=== PATIENT | male | born 1965 | race Hispanic/Latino ===

== ENCOUNTER 2019-06-21 14:16 | Observation (INO) | payer SELFPAY ==
[2019-06-21 15:10] LABS: Absolute Lymphocytes (CBC) 1.7 K/uL (0.7-4.9); Basophils % 0.4 % (0-1.3); Lymphocytes % 26.6 % (15.3-44.8); MPV 10.1 fL (7.6-11.3); RBC Red Blood Cell Count 4.46 M/uL (4.33-5.43)
[2019-06-21 15:20] LABS: Protime INR 1.05
[2019-06-21 15:35] LABS: ALT/SGPT 44 U/L (12-78); AST/SGOT 35 U/L (15-37); Albumin 3.4 g/dL (3.4-5.0); Alkaline Phosphatase 90 U/L (45-117); BUN Blood Urea Nitrogen 16 mg/dL (7-18); Bicarbonate 27 mmol/L (21-32); Bilirubin Direct < 0.1 mg/dL (0-0.2); Bilirubin Total 0.2 mg/dL (0.2-1.0); Glucose Level 96 mg/dL (74-106); Magnesium 1.9 mg/dL (1.8-2.4); NT PRO-BNP 55 pg/mL (<125); Protein, Total 6.7 g/dL (6.4-8.2); Sodium Level 141 mmol/L (136-145); Troponin (Emerg Dept Use Only) < 0.02 ng/mL (0.0-0.045)
--- NOTE | 2019-06-21 15:54 | ER ---
Nurse's Notes [facility] Name: Arturo Lott Age: 53 yrs Sex: Male : 1965 Arrival Date: 06/21/2019 Time: 14:21 Bed 15 Private MD: Diagnosis: Chest pain, unspecified Presentation: 06/21 14:22 Presenting complaint: EMS states: patient was in [facility] when they call in for low rv blood pressure and chest pain. blood sugar is 133. initial blood pressure was 70/40. after the fluids, systolic went up to 100. Transition of care: patient was not received from another setting of care. Onset of symptoms was June 21, 2019 at 14:00. Risk Assessment: Do you want to hurt yourself or someone else? Patient reports no desire to harm self or others. Initial Sepsis Screen: Does the patient meet any 2 criteria? No. Patient's initial sepsis screen is negative. Does the patient have a suspected source of infection? No. Patient's initial sepsis screen is negative. Care prior to arrival: None. 14:22 Method Of Arrival: EMS: [facility] 14:22 Acuity: NELLI 3 rv Triage Assessment: 14:26 General: Appears. rv Historical: - Allergies: 14:25 No Known Allergies; rv - Home Meds: 14:25 None [Active]; rv - PMHx: 14:25 None; rv - PSHx: 14:25 None; rv - Immunization history:: Adult Immunizations up to date. - Social history:: Patient/guardian denies using alcohol, street drugs, The patient lives alone, Smoking status: Patient/guardian denies using tobacco. - Ebola Screening: : No symptoms or risks identified at this time. - Family history:: not pertinent. Screenin:26 Abuse screen: Denies threats or abuse. Denies injuries from another. Nutritional rv screening: No deficits noted. Tuberculosis screening: No symptoms or risk factors identified. Fall Risk None identified. Assessment: 14:26 General: Appears in no apparent distress. comfortable, Behavior is calm, cooperative. rv Pain: Denies pain. Neuro: Level of Consciousness is awake, alert, obeys commands, Oriented to person, place, time, situation. Cardiovascular: Reports chest pain, Patient's skin is warm and dry. Rhythm is regular. Respiratory: Airway is patent. Derm: Skin is intact. Vital Signs: 14:24 BP 100 / 70; Pulse 88; Resp 20; Temp 98.6; Pulse Ox 100% ; Weight 61.23 kg; Height 5 rv ft. 8 in. (172.72 cm); Pain 0/10; 15:09 BP 105 / 62; Pulse 89; Resp 16; Pulse Ox 100% on R/A; rv 15:30 BP 98 / 68; Pulse 85; Resp 17; Pulse Ox 100% ; rv 16:00 BP 100 / 63; Pulse 83; Resp 17; Pulse Ox 100% on R/A; rv 17:00 BP 103 / 63; Pulse 78; Resp 18; Pulse Ox 100% on R/A; rv 17:15 BP 104 / 64; Pulse 76; Resp 17; Pulse Ox 100% on R/A; rv 14:24 Body Mass Index 20.53 (61.23 kg, 172.72 cm) rv ED Course: 14:21 Patient arrived in ED. rv 14:24 Triage completed. rv 14:27 Arm band placed on right wrist. rv 14:27 Patient has correct armband on for positive identification. Placed in gown. Bed in low rv position. Call light in reach. school lunch monitor on. Pulse ox on. NIBP on. 14:43 Walter Dixon, YESENIA is Primary Nurse. rv 14:46 EKG done, by ED staff, reviewed by Aiyana Quinones MD. ms 14:50 Aiyana Quinones MD is Attending Physician. ma2 15:09 Maintain EMS IV. Dressing intact. Good blood return noted. Site clean \T\ dry. Gauge \T\ rv site: G20 LEFT AC. 15:53 Aiyana Quinones MD is Hospitalizing Provider. ma2 15:54 Hospitalizing Provider role handed off by Aiyana Quinones MD ma2 15:54 Shelia Barba MD is Hospitalizing Provider. ma2 17:22 No provider procedures requiring assistance completed. IV discontinued, intact, rv bleeding controlled, No redness/swelling at site. Pressure dressing applied. Administered Medications: 16:03 Drug: Aspirin Chewable Tablet 324 mg Route: PO; rv 17:23 Follow up: Response: No adverse reaction rv Outcome: 15:54 Decision to Hospitalize by Provider. ma2 17:22 Admitted to Tele accompanied by tech, via wheelchair, room 413, with chart, Report rv called to robbie 17:22 Condition: good 17:22 Instructed on the need for admit. 17:23 Patient left the ED. rv Signatures: Mary Strauss ms, Mohammad, MD MD ma2 Walter Dixon RN RN rv
--- NOTE | 2019-06-21 15:55 | EDPHYS ---
Physician Documentation [facility] Name: Arturo Lott Age: 53 yrs Sex: Male : 1965 Arrival Date: 06/21/2019 Time: 14:21 Bed 15 Private MD: ED Physician Aiayna Quinones HPI: 06/21 15:50 This 53 yrs old Male presents to ER via EMS with unknown complaint. ma2 15:50 The patient or guardian reports chest pain that is located primarily in the substernal ma2 area. Onset: suddenly, 1 hour(s) ago. Associated signs and symptoms: Pertinent negatives: abdominal pain, diaphoresis, lower extremity swelling, lightheadedness, vomiting. The chest pain is described as crushing. Severity of pain: At its worst the pain was moderate in the emergency department the pain is unchanged. Historical: - Allergies: 14:25 No Known Allergies; rv - Home Meds: 14:25 None [Active]; rv - PMHx: 14:25 None; rv - PSHx: 14:25 None; rv - Immunization history:: Adult Immunizations up to date. - Social history:: Patient/guardian denies using alcohol, street drugs, The patient lives alone, Smoking status: Patient/guardian denies using tobacco. - Ebola Screening: : No symptoms or risks identified at this time. - Family history:: not pertinent. ROS: 15:50 Constitutional: Negative for fever, chills, and weight loss. ma2 15:50 All other systems are negative. Exam: 15:50 Constitutional: This is a well developed, well nourished patient who is awake, alert, ma2 and in no acute distress. Chest/axilla: Normal chest wall appearance and motion. Nontender with no deformity. No lesions are appreciated. Cardiovascular: Regular rate and rhythm with a normal S1 and S2. No gallops, murmurs, or rubs. Normal PMI, no JVD. No pulse deficits. Respiratory: Lungs have equal breath sounds bilaterally, clear to auscultation and percussion. No rales, rhonchi or wheezes noted. No increased work of breathing, no retractions or nasal flaring. Abdomen/GI: Soft, non-tender, with normal bowel sounds. No distension or tympany. No guarding or rebound. No evidence of tenderness throughout. Vital Signs: 14:24 BP 100 / 70; Pulse 88; Resp 20; Temp 98.6; Pulse Ox 100% ; Weight 61.23 kg; Height 5 rv ft. 8 in. (172.72 cm); Pain 0/10; 15:09 BP 105 / 62; Pulse 89; Resp 16; Pulse Ox 100% on R/A; rv 15:30 BP 98 / 68; Pulse 85; Resp 17; Pulse Ox 100% ; rv 16:00 BP 100 / 63; Pulse 83; Resp 17; Pulse Ox 100% on R/A; rv 17:00 BP 103 / 63; Pulse 78; Resp 18; Pulse Ox 100% on R/A; rv 17:15 BP 104 / 64; Pulse 76; Resp 17; Pulse Ox 100% on R/A; rv 14:24 Body Mass Index 20.53 (61.23 kg, 172.72 cm) rv MDM: 14:50 Patient medically screened. ma2 15:50 Differential diagnosis: abnormal EKG, gastroesophageal reflux disease (GERD), stable ma2 angina. Data reviewed: vital signs, nurses notes. Counseling: I had a detailed discussion with the patient and/or guardian regarding: the historical points, exam findings, and any diagnostic results supporting the discharge/admit diagnosis, the presence of at least one elevated blood pressure reading (>120/80) during this emergency department visit, the need for outpatient follow up. 06/21 14:44 Order name: Basic Metabolic Panel; Complete Time: 15:42 rv 06/21 14:44 Order name: CBC with Diff; Complete Time: 15:29 rv 06/21 14:44 Order name: LFT's; Complete Time: 15:42 rv 06/21 14:44 Order name: Magnesium; Complete Time: 15:42 rv 06/21 14:44 Order name: NT PRO-BNP; Complete Time: 15:42 rv 06/21 14:44 Order name: PT-INR; Complete Time: 15:29 rv 06/21 14:44 Order name: Troponin (emerg Dept Use Only); Complete Time: 15:42 rv 06/21 16:11 Order name: CBC with Automated Diff EDMS 06/21 16:11 Order name: Comprehensive Metabolic Panel EDMS 06/21 16:12 Order name: CKMB Creatine Kinase MB EDMS 06/21 16:12 Order name: CKMB Creatine Kinase MB [facility] 06/21 16:12 Order name: CKMB Creatine Kinase MB [facility] 06/21 16:12 Order name: CKMB Creatine Kinase MB [facility] 06/21 16:12 Order name: Creatine Phosphokinase [facility] 06/21 14:44 Order name: EKG; Complete Time: 14:44 rv 06/21 14:44 Order name: Cardiac monitoring; Complete Time: 14:45 rv 06/21 14:44 Order name: EKG - Nurse/Tech; Complete Time: 14:45 rv 06/21 14:44 Order name: IV Saline Lock; Complete Time: 14:51 rv 06/21 14:44 Order name: Labs collected and sent; Complete Time: 14:51 rv 06/21 16:11 Order name: Heart Healthy [facility] 06/21 16:12 Order name: Creatine Phosphokinase [facility] 06/21 16:12 Order name: Creatine Phosphokinase [facility] 06/21 16:12 Order name: Creatine Phosphokinase [facility] 06/21 16:12 Order name: Lipid Profile [facility] 06/21 16:12 Order name: Lipid Profile [facility] 06/21 16:12 Order name: Troponin I [facility] 06/21 16:12 Order name: Troponin I [facility] 06/21 16:12 Order name: Troponin I [facility] 06/21 16:12 Order name: Troponin I [facility] 06/21 14:44 Order name: O2 Per Protocol; Complete Time: 14:45 rv 06/21 14:44 Order name: O2 Sat Monitoring; Complete Time: 14:45 rv Administered Medications: 16:03 Drug: Aspirin Chewable Tablet 324 mg Route: PO; rv 17:23 Follow up: Response: No adverse reaction rv Disposition: 06/21/19 15:54 Hospitalization ordered by Shelia Barba for Observation. Preliminary diagnosis is Chest pain, unspecified. - Bed requested for Telemetry/MedSurg (observation). - Status is Observation. rv - Condition is Stable. - Problem is new. - Symptoms are unchanged. UTI on Admission? No Signatures: Dispatcher [employer] EDMI Jamee Rodríguez RN RN Aiyana Quinones MD MD ma2 Walter Dixon RN RN rv Corrections: (The following items were deleted from the chart) 16:33 15:54 Hospitalization Ordered by Shelia Barba MD for Observation. Preliminary dw diagnosis is Chest pain, unspecified. Bed requested for Telemetry/MedSurg (observation). Status is Observation. Condition is Stable. Problem is new. Symptoms are unchanged. UTI on Admission? No. ma2 17:23 16:33 06/21/2019 15:54 Hospitalization Ordered by Shelia Barba MD for Observation. rv Preliminary diagnosis is Chest pain, unspecified. Bed requested for Telemetry/MedSurg (observation). Status is Observation. Condition is Stable. Problem is new. Symptoms are unchanged. UTI on Admission? No. dw
[2019-06-21] MEDS ORDERED: KETOROLAC 30 MG/ML INJ ONE (16:01)
[2019-06-21] MEDS ORDERED: CYCLOBENZAPRINE 10 MG TAB ONE (16:01)
[2019-06-21] MEDS ORDERED: ONDANSETRON 4 MG/2 ML VIAL IV PRN (16:03)
[2019-06-21] MEDS ORDERED: MORPHINE 4 MG/ML SYR IV PRN (16:03)
[2019-06-21] MEDS ORDERED: ASPIRIN 81 MG CHEWABLE TABLET ONE (16:03)
[2019-06-21] MEDS: ENOXAPARIN 60 MG/0.6 ML SQ SCH (17:00)
[2019-06-21 18:03] VITALS: BMI 21.1
[2019-06-21 20:21] LABS: Urine Appearance CLOUDY; Urine Bilirubin NEGATIVE (NEG); Urine Blood NEGATIVE (NEG); Urine Color YELLOW; Urine Glucose NEGATIVE (NEG); Urine Protein NEGATIVE (NEG); Urine pH 6.5 (5.0-7.0)
[2019-06-21 20:22] LABS: Urine Microscopic Reflex NO UMIC
[2019-06-21] MEDS: METOPROLOL TAR 50 MG TAB PO SCH (20:51)
[2019-06-21] MEDS ORDERED: ATORVASTATIN 20 MG TAB PO SCH (21:00)
[2019-06-21] MEDS ORDERED: INFLUENZA VACCINE (for 3y+) 0.5 ML DOSE IMVAC ONE (21:00)
[2019-06-21 23:26] LABS: CKMB Creatine Kinase MB < 1.0 ng/mL (0.3-3.6); Creatine Phosphokinase 63 U/L (39-308)
--- NOTE | 2019-06-22 03:37 | HP ---
Date of Admission: 06/21/2019 Reason For Admission: Chest pain. History Of Present Illness: This is a 53-year-old gentleman without past medical history who present to the emergency room with substernal chest pain started today when he was at home. He was not doin g any exertion. The pain was 6/10. He described it as sharp. There was no shortness of breath. No nausea, no vomiting. Pain does not radiate to his arm. He has not had any fever or chills. No chava st pain when he was evaluated. His EKG was unremarkable. CBC was normal. Chemistry was normal. Ca rdiac enzymes were negative with normal troponin, normal BMP. Patient was admitted to be ruled out. Currently, he is lying in bed. He looks comfortable. He has no chest pain. Review of Systems: Otherwise as below. Past Medical History: None. Past Surgical History: None. Medications: None. Allergies: NONE. Social History: He is . Has 4 kids. 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 Family History: Both father and mother are alive and they are healthy. Review of Systems: Patient denies any fever, chills, night sweats, dizziness, lightheaded, headache or blurred vision. There is no change in weight or appetite. He does not have any cough or sputum, shortness of breath. He has the chest pain as above. There is no PND, orthopnea, dyspnea on exertion. No lower extremi ty edema. No nausea, vomiting, or abdominal pain. He will moan with . There is no histor y of depression, anxiety, seizure, or stroke. Physical Examination: Vital Signs: Blood pressure is 105/62, respiratory rate 16, pulse 89, saturating 100% on room air, t emperature at 98.6. General: He is alert and oriented x3. Does not look in any distress. HEENT: Atraumatic, normocephalic. PERRLA. Oral mucosa moist. Neck: Supple. No JVD. No carotid bruits. Chest: Clear to auscultation. Good air entry. Heart: Regular rate and rhythm. S1, S2 normal. No gallop or murmur. Abdomen: Soft, nontender. No masses. No hepatosplenomegaly. Positive bowel sounds. Extremities: No clubbing, cyanosis, or edema. No calf tenderness. Neurologic: Grossly intact. Cranial exam 2 through 12 intact. Normal sensation. Normal reflexes. Normal muscle strength. Data: CBC was normal. Chemistry within normal including normal troponin. CT scan be still pending. EKG; preliminary negative. Assessment And Plan: This is a 53-year-old gentleman without past medical history, presented with zapien dden onset of chest pain. 1.Chest pain, rule out myocardial infarction. We will admit the patient to the floor. Check cardia c enzymes x3. With this, patient on aspirin, Plavix, full dose of Lovenox until he is ruled out and low dose of metoprolol. 2.We will check lipid profile. Patient is skinny. I will start him on a statin. 3.If cardiac exam negative in the morning, we will consider discharging the patient. The kaylene tate sted off patient. KASIE Voice ID: [id number]
[2019-06-22 06:06] VITALS: O2SAT 99
[2019-06-22 07:31] LABS: Absolute Lymphocytes (CBC) 2.1 K/uL (0.7-4.9); Basophils % 0.4 % (0-1.3); Hematocrit 38.5 % (39.6-49.0); Lymphocytes % 34.7 % (15.3-44.8); MPV 10.6 fL (7.6-11.3); RBC Red Blood Cell Count 4.24 M/uL (4.33-5.43)
[2019-06-22 07:38] LABS: ALT/SGPT 35 U/L (12-78); AST/SGOT 17 U/L (15-37); Albumin 3.3 g/dL (3.4-5.0); Alkaline Phosphatase 70 U/L (45-117); BUN Blood Urea Nitrogen 12 mg/dL (7-18); Bicarbonate 28 mmol/L (21-32); Bilirubin Total 0.5 mg/dL (0.2-1.0); Glucose Level 94 mg/dL (74-106); Potassium 4.6 mmol/L (3.5-5.1); Protein, Total 6.3 g/dL (6.4-8.2); Sodium Level 142 mmol/L (136-145); Troponin I < 0.02 ng/mL (0.0-0.045)
[2019-06-22 07:42] LABS: CKMB Creatine Kinase MB < 1.0 ng/mL (0.3-3.6); Creatine Phosphokinase 68 U/L (39-308)
[2019-06-22] MEDS: ENOXAPARIN 60 MG/0.6 ML SQ SCH (08:51)
[2019-06-22 08:54] VITALS: BP 103/55
[2019-06-22] MEDS: METOPROLOL TAR 50 MG TAB PO SCH (08:54)
[2019-06-22] MEDS ORDERED: ASPIRIN 325 MG TAB PO SCH (09:00)
[2019-06-22] MEDS ORDERED: CLOPIDOGREL 75 MG TABLET PO SCH (09:00)
[2019-06-22 09:18] VITALS: TEMP 97.3
--- NOTE | 2019-06-23 00:50 | DS ---
Date of Discharge: 06/22/2019 Discharge Diagnosis: Chest pain, rule out myocardial infarction. Consult: None. Procedure: None. History Of Present Illness: Please refer to my admission note yesterday. Hospital Course: Initially, the patient presented with substernal chest pain, nonspecific, without a ny shortness of breath, nausea, vomiting, been improved in the emergency room after receiving pain me dication. Cardiac enzymes checked. He had 3 sets of negative troponin. We checked his lipid panel and his HDL was 69, LDL was 85, which was excellent. Patient will be discharged today in stable cond ition. He will have a stress test as out patient. He was advised to avoid exertion until he sees hi s primary care physician and see if this is done. Discharge Condition: Stable. Discharged Diet: Cardiac. Discharge Followup: With PCP this week. Stress test this week. Discharge Medications: Aspirin 325 mg orally once a day. Physical Examination: Vital Signs: Currently blood pressure 103/45, respiratory rate of 16, pulse 65, temperature 97.3. General: The patient is alert and oriented x3. Does not look in any distress. HEENT: Atraumatic, normocephalic. PERRLA. Oral mucosa moist. Neck: Supple. No JVD. No carotid bruits. Chest: Clear to auscultation. Good air entry. Heart: Regular rate and rhythm. S1, S2 normal. No gallop or murmur. Abdomen: Soft, nontender. No masses. No hepatosplenomegaly. Positive bowel sounds. Extremities: No clubbing, cyanosis, or edema. Neurologic: Grossly intact. SHAZIA/JOE Voice ID: [id number] Report ID: [id number]
--- NOTE | 2019-06-23 20:51 | EKG ---
Test Date: 2019-06-21 Test Time: 14:33:22 Parking Meter Installer: RAMON MEASUREMENT RESULTS: Intervals: Rate: 89 OK: 134 QRSD: 92 QT: 340 QTc: 413 [place]: P: 53 OK: 134 QRS: 59 T: 44 INTERPRETIVE STATEMENTS: Normal sinus rhythm Normal ECG No previous ECG available for comparison Electronically Signed On 06-23-19 20:47:12 PSYCHIATRIST by Suleman Whitehead
== END 2019-06-22 10:46 | disposition home or self-care (01) ==
LOC: ER 14:16 → SUPCPDRO 14:16 → 4TH 17:17
PROVIDERS: ADMIT Internal Medicine; ATTEND Internal Medicine
DX: R07.9 Chest pain, unspecified (principal); Z23 Encounter for immunization
CPT/HCPCS: 36415; 80048; 80053; 80061; 80076; 81003; 82550; 82553; 83735; 83880; 84484; 85025; 85610; 90471; 93005; 99285; G0378; Q2035

== ENCOUNTER 2023-10-23 12:57 | Inpatient (IN) | payer OTHER ==
--- OUTSIDE RECORDS SUMMARY | 2023-10-23 13:01 | XMS REPORT | Clinical Summary ---
Author Name Unknown Organization [facility] Address [address] [place] [address] Care Team Providers Care Sql Manager Name Role Phone Unavailable Primary Care Provider Unavailabl e Allergies No known active allergies Medications Medication Sig Dispensed Refills Start Date End Date Status dexAMETHasone intensol 1 mg/mL concentrated solutionIndications :Vasogenic cerebral edema Give 4 mL (4 mg) per G-tube every 6 (six) hours. Take until follow up with PCP and neurologist 480 mL 0 07/11/2023 Active dapsone 100 mg tabletIndications:L erickson term current use of systemic steroid Give 1 tablet (100 mg) per G-tube daily. 30 tablet 0 07/11/2023 Active famotidine (Pepcid) 20 mg tabletIndications:L erickson term current use of systemic steroid Crush and give 1 tablet (20 mg) per G-tube twice daily. 30 tablet 0 07/11/2023 Active pantoprazole (PROTONIX) 40 mg EC tablet Take 1 tablet (40 mg) by mouth every morning before breakfast. 0 4 Discontinue d(Stop Taking at Discharge) dapsone 100 mg tabletIndications:L erickson term current use of systemic steroid Take 1 tablet (100 mg) by mouth daily. 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 600 mL 0 07/11/2023 4 Discontinue d(Stop Taking at Discharge) lansoprazole (Prevacid SoluTab) 30 MG disintegrating tabletIndications:L erickson term current use of systemic steroid Give 1 tablet (30 mg) per G-tube every morning before breakfast. 30 tablet 0 07/11/2023 4 Discontinue d(Stop Taking at Discharge) famotidine (Pepcid) 20 mg tabletIndications:L erickson term current use of systemic steroid Take 1 tablet (20 mg) by mouth twice daily. 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 24 Mass lesion of brain 06/27/2023 Vasogenic cerebral edema 06/27/2023 Dysphagia, oropharyngeal phase 06/27/2023 Encounters Date Type Department Care Team Description 07/20/2023 10:30 AM TOWEL DISTRIBUTOR Nutrition Clinical Nutrition For your Nutrition appointment location directions please call: Gertrude Jesus MD Coleman, Timothy, RD Generalized muscle weakness; Mass lesion of brain; Lack of coordination, not otherwise specified; Impaired vibration sensation of foot; Neoplasm of brain; Dysphagia, oropharyngeal phase; Vasogenic cerebral edema 07/14/2023 Telephone [facility] [address] [place] [phone] Skye Atkins, environmental protection economist Call 07/13/2023 Telephone [facility] PHYSICIAN [address] [place] [phone] Jc Pardo, environmental protection economist Call 07/13/2023 Travel 07/03/2023 12:13 PM TOWEL DISTRIBUTOR Anesthesia Event Main Interventional Radiology [address] [place] [address], 3rd [place] [address] Jessica Zafar APRN, MORENA 06/29/2023 Orders Only [facility] [address] [place] [address] Main [facility], 7th [place] [address] Beverly, Poornima, DIRECTOR SYSTEMS 06/29/2023 Orders Only [facility] [address] [place] [address] Main [facility], 7th [place] [address] Beverly, Poornima, DIRECTOR SYSTEMS Malignant neoplasm of brain stem (Primary Dx) 06/29/2023 Orders Only [facility] [address] [place] [address] Main [facility], 7th [place] [address] Beverly, Poornima, DIRECTOR SYSTEMS Malignant neoplasm of brain stem (Primary Dx) 06/28/2023 Prep for Surgery [facility] [address] [place] [address], 7th [place] [address] Nora Lozada G, DIRECTOR SYSTEMS Mass lesion of brain (Primary Dx) 06/27/2023 5:03 PM TOWEL DISTRIBUTOR - 07/12/2023 1:07 PM TOWEL DISTRIBUTOR Hospital Encounter MAIN [id number] [address] [place] [id number] Lori Greco MD Walton, MD Brennan Wong Marina, MD Zhou, Yan, MD Leung, Cerena, MD Kheder, Rhett, Generalized muscle weakness (Primary Dx); Mass lesion of brain; Lack of coordination, not otherwise specified; Impaired vibration sensation of foot; Neoplasm of brain; Dysphagia, oropharyngeal phase; Vasogenic cerebral edema; 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; Neoplasm of uncertain behavior of brain, not otherwise specified Discharge Disposition: Home 06/27/2023 Travel after 10/23/2022 Medical History Medical History Date Comments Blind right eye Gastroesophageal reflux disease Family History Medical History Relation Name Comments Dysfunctional uterine bleeding Mother Uterine cancer Mother Relation Name Status Comments Mother Social History Tobacco Use Types Packs/Day Years Used Date Smoking Tobacco: Never Smokeless Tobacco: Never Alcohol Use Standard Drinks/Week Comments Never 0 (1 standard drink = 0.6 oz pur e alcohol) Sex and Gender Information Value Date Recorded Sex Assigned at Not on file Gender Identity Not on file Sexual Orientation Not on file Job Start Date Occupation Industry Not on file Not on file Not on file Travel History Travel Start Travel End [place] 06/16/2023 06/27/2023 Obstetrics History Last Filed Vital Signs Vital Sign Reading Time Taken Comments Blood Pressure 91/64 07/12/2023 6:53 AM TOWEL DISTRIBUTOR Pulse 90 07/12/2023 6:53 AM TOWEL DISTRIBUTOR Temperature 37 C (98.6 F) 07/12/2023 6:52 AM TOWEL DISTRIBUTOR Respiratory Rate 17 07/12/2023 6:53 AM TOWEL DISTRIBUTOR Oxygen Saturation 97% 07/12/2023 6:53 AM TOWEL DISTRIBUTOR Inhaled Oxygen Concentration - - Weight 62.7 kg (138 lb 3.7 oz) 06/27/2023 8:36 P M TOWEL DISTRIBUTOR Height 162 cm (5' 3.78") 06/27/2023 8:36 PM TOWEL DISTRIBUTOR Body Mass Index 23.89 06/27/2023 8:36 PM TOWEL DISTRIBUTOR Plan of Treatment Health Maintenance Due Date Last Done Comments COVID-19 Vaccine (#1) 03[birth year]10/1966 Influenza Vaccine 03/02/2023 Procedures Procedure Name Priority Date/Time Associated Diagnosis Comments POC GLUCOSE SCREEN Routine 07/12/2023 6: 00 AM TOWEL DISTRIBUTOR .CBC Routine 07/12/2023 2:52 AM TOWEL DISTRIBUTOR PHOSPHORUS LEVEL Routine 07/12/2023 2:52 AM TOWEL DISTRIBUTOR MAGNESIUM LEVEL Routine 07/12/2023 2:52 AM TOWEL DISTRIBUTOR BASIC METABOLIC PANEL, CALCIUM TOTAL Routine 07/12/2023 2:52 AM TOWEL DISTRIBUTOR COMPLETE BLOOD COUNT W/ DIFFERENTIAL Routine 07/12/2023 2:52 AM TOWEL DISTRIBUTOR POC GLUCOSE SCREEN Routine 07/12/2023 12 :16 AM TOWEL DISTRIBUTOR POC GLUCOSE SCREEN Routine 07/11/2023 12 :18 PM TOWEL DISTRIBUTOR POC GLUCOSE SCREEN Routine 07/11/2023 6: 08 AM TOWEL DISTRIBUTOR .CBC Routine 07/11/2023 2:55 AM TOWEL DISTRIBUTOR PHOSPHORUS LEVEL Routine 07/11/2023 2:55 AM TOWEL DISTRIBUTOR MAGNESIUM LEVEL Routine 07/11/2023 2:55 AM TOWEL DISTRIBUTOR BASIC METABOLIC PANEL, CALCIUM TOTAL Routine 07/11/2023 2:55 AM TOWEL DISTRIBUTOR COMPLETE BLOOD COUNT W/ DIFFERENTIAL Routine 07/11/2023 2:55 AM TOWEL DISTRIBUTOR POC GLUCOSE SCREEN Routine 07/11/2023 12 :01 AM TOWEL DISTRIBUTOR POC GLUCOSE SCREEN Routine 07/10/2023 6: 10 PM TOWEL DISTRIBUTOR POC GLUCOSE SCREEN Routine 07/10/2023 12 :09 PM TOWEL DISTRIBUTOR POC GLUCOSE SCREEN Routine 07/10/2023 6: 26 AM TOWEL DISTRIBUTOR .CBC Routine 07/10/2023 5:28 AM TOWEL DISTRIBUTOR COMPLETE BLOOD COUNT W/ DIFFERENTIAL Routine 07/10/2023 5:28 AM TOWEL DISTRIBUTOR PHOSPHORUS LEVEL Routine 07/10/2023 5:27 AM TOWEL DISTRIBUTOR MAGNESIUM LEVEL Routine 07/10/2023 5:27 AM TOWEL DISTRIBUTOR BASIC METABOLIC PANEL, CALCIUM TOTAL Routine 07/10/2023 5:27 AM TOWEL DISTRIBUTOR POC GLUCOSE SCREEN Routine 07/10/2023 2: 48 AM TOWEL DISTRIBUTOR POC GLUCOSE SCREEN Routine 07/09/2023 6: 36 PM TOWEL DISTRIBUTOR POC GLUCOSE SCREEN Routine 07/09/2023 1: 03 PM TOWEL DISTRIBUTOR XR ABDOMEN 1 VW PORTABLE Routine 07/09/2023 12:59 PM TOWEL DISTRIBUTOR POC GLUCOSE SCREEN Routine 07/09/2023 5: 43 AM TOWEL DISTRIBUTOR GLUCOSE 6-PHOSPHATE DEHYDRGENASE ENZYME ACTIVITY Add-On 07/09/2023 2:21 AM TOWEL DISTRIBUTOR .CBC Routine 07/09/2023 2:21 AM TOWEL DISTRIBUTOR PHOSPHORUS LEVEL Routine 07/09/2023 2:21 AM TOWEL DISTRIBUTOR MAGNESIUM LEVEL Routine 07/09/2023 2:21 AM TOWEL DISTRIBUTOR BASIC METABOLIC PANEL, CALCIUM TOTAL Routine 07/09/2023 2:21 AM TOWEL DISTRIBUTOR COMPLETE BLOOD COUNT W/ DIFFERENTIAL Routine 07/09/2023 2:21 AM TOWEL DISTRIBUTOR POC GLUCOSE SCREEN Routine 07/08/2023 11 :33 PM TOWEL DISTRIBUTOR POC GLUCOSE SCREEN Routine 07/08/2023 6: 04 PM TOWEL DISTRIBUTOR POC GLUCOSE SCREEN Routine 07/08/2023 12 :03 PM TOWEL DISTRIBUTOR POC GLUCOSE SCREEN Routine 07/08/2023 6: 27 AM TOWEL DISTRIBUTOR .CBC Routine 07/08/2023 3:03 AM TOWEL DISTRIBUTOR PHOSPHORUS LEVEL Routine 07/08/2023 3:03 AM TOWEL DISTRIBUTOR MAGNESIUM LEVEL Routine 07/08/2023 3:03 AM TOWEL DISTRIBUTOR BASIC METABOLIC PANEL, CALCIUM TOTAL Routine 07/08/2023 3:03 AM TOWEL DISTRIBUTOR COMPLETE BLOOD COUNT W/ DIFFERENTIAL Routine 07/08/2023 3:03 AM TOWEL DISTRIBUTOR POC GLUCOSE SCREEN Routine 07/08/2023 12 :43 AM TOWEL DISTRIBUTOR POC GLUCOSE SCREEN Routine 07/07/2023 6: 13 PM TOWEL DISTRIBUTOR POC GLUCOSE SCREEN Routine 07/07/2023 12 :40 PM TOWEL DISTRIBUTOR XR ABDOMEN 1 VW PORTABLE Routine 07/07/2023 11:00 AM TOWEL DISTRIBUTOR POC GLUCOSE SCREEN Routine 07/07/2023 6: 45 AM TOWEL DISTRIBUTOR .CBC Routine 07/07/2023 4:21 AM TOWEL DISTRIBUTOR PHOSPHORUS LEVEL Routine 07/07/2023 4:21 AM TOWEL DISTRIBUTOR MAGNESIUM LEVEL Routine 07/07/2023 4:21 AM TOWEL DISTRIBUTOR BASIC METABOLIC PANEL, CALCIUM TOTAL Routine 07/07/2023 4:21 AM TOWEL DISTRIBUTOR COMPLETE BLOOD COUNT W/ DIFFERENTIAL Routine 07/07/2023 4:21 AM TOWEL DISTRIBUTOR POC GLUCOSE SCREEN Routine 07/07/2023 12 :10 AM TOWEL DISTRIBUTOR POC GLUCOSE SCREEN Routine 07/06/2023 6: 32 PM TOWEL DISTRIBUTOR POC GLUCOSE SCREEN Routine 07/06/2023 12 :07 PM TOWEL DISTRIBUTOR POC GLUCOSE SCREEN Routine 07/06/2023 6: 01 AM TOWEL DISTRIBUTOR .CBC Routine 07/06/2023 5:31 AM TOWEL DISTRIBUTOR PHOSPHORUS LEVEL Routine 07/06/2023 5:31 AM TOWEL DISTRIBUTOR MAGNESIUM LEVEL Routine 07/06/2023 5:31 AM TOWEL DISTRIBUTOR BASIC METABOLIC PANEL, CALCIUM TOTAL Routine 07/06/2023 5:31 AM TOWEL DISTRIBUTOR COMPLETE BLOOD COUNT W/ DIFFERENTIAL Routine 07/06/2023 5:31 AM TOWEL DISTRIBUTOR POC GLUCOSE SCREEN Routine 07/05/2023 11 :56 PM TOWEL DISTRIBUTOR POC GLUCOSE SCREEN Routine 07/05/2023 6: 38 PM TOWEL DISTRIBUTOR XR ABDOMEN 1 VW PORTABLE Routine 07/05/2023 12:10 PM TOWEL DISTRIBUTOR POC GLUCOSE SCREEN Routine 07/05/2023 6: 39 AM TOWEL DISTRIBUTOR .CBC Routine 07/05/2023 4:39 AM TOWEL DISTRIBUTOR PHOSPHORUS LEVEL Routine 07/05/2023 4:39 AM TOWEL DISTRIBUTOR MAGNESIUM LEVEL Routine 07/05/2023 4:39 AM TOWEL DISTRIBUTOR BASIC METABOLIC PANEL, CALCIUM TOTAL Routine 07/05/2023 4:39 AM TOWEL DISTRIBUTOR COMPLETE BLOOD COUNT W/ DIFFERENTIAL Routine 07/05/2023 4:39 AM TOWEL DISTRIBUTOR POC GLUCOSE SCREEN Routine 07/05/2023 2: 00 AM TOWEL DISTRIBUTOR POC GLUCOSE SCREEN Routine 07/04/2023 6: 01 PM TOWEL DISTRIBUTOR POC GLUCOSE SCREEN Routine 07/04/2023 12 :55 PM TOWEL DISTRIBUTOR POC GLUCOSE SCREEN Routine 07/04/2023 6: 12 AM TOWEL DISTRIBUTOR .CBC Routine 07/04/2023 4:20 AM TOWEL DISTRIBUTOR PHOSPHORUS LEVEL Routine 07/04/2023 4:20 AM TOWEL DISTRIBUTOR MAGNESIUM LEVEL Routine 07/04/2023 4:20 AM TOWEL DISTRIBUTOR BASIC METABOLIC PANEL, CALCIUM TOTAL Routine 07/04/2023 4:20 AM TOWEL DISTRIBUTOR COMPLETE BLOOD COUNT W/ DIFFERENTIAL Routine 07/04/2023 4:20 AM TOWEL DISTRIBUTOR TYPE AND SCREEN Routine 07/04/2023 4:20 AM TOWEL DISTRIBUTOR POC GLUCOSE SCREEN Routine 07/03/2023 11 :55 PM TOWEL DISTRIBUTOR POC GLUCOSE SCREEN Routine 07/03/2023 5: 55 PM TOWEL DISTRIBUTOR IR PERC FEEDING GASTROSTOMY PLACEMENT 90 STAT 07/03/2023 1:42 PM TOWEL DISTRIBUTOR Mass lesion of brain POC GLUCOSE SCREEN Routine 07/03/2023 12 :22 PM TOWEL DISTRIBUTOR POC GLUCOSE SCREEN Routine 07/03/2023 6: 02 AM TOWEL DISTRIBUTOR .CBC Routine 07/03/2023 4:15 AM TOWEL DISTRIBUTOR PHOSPHORUS LEVEL Routine 07/03/2023 4:15 AM TOWEL DISTRIBUTOR MAGNESIUM LEVEL Routine 07/03/2023 4:15 AM TOWEL DISTRIBUTOR BASIC METABOLIC PANEL, CALCIUM TOTAL Routine 07/03/2023 4:15 AM TOWEL DISTRIBUTOR COMPLETE BLOOD COUNT W/ DIFFERENTIAL Routine 07/03/2023 4:15 AM TOWEL DISTRIBUTOR POC GLUCOSE SCREEN Routine 07/03/2023 12 :01 AM TOWEL DISTRIBUTOR POC GLUCOSE SCREEN Routine 07/02/2023 6: 10 PM TOWEL DISTRIBUTOR POC GLUCOSE SCREEN Routine 07/02/2023 2: 18 PM TOWEL DISTRIBUTOR POC GLUCOSE SCREEN Routine 07/02/2023 5: 57 AM TOWEL DISTRIBUTOR .CBC Routine 07/02/2023 2:12 AM TOWEL DISTRIBUTOR PHOSPHORUS LEVEL Routine 07/02/2023 2:12 AM TOWEL DISTRIBUTOR MAGNESIUM LEVEL Routine 07/02/2023 2:12 AM TOWEL DISTRIBUTOR BASIC METABOLIC PANEL, CALCIUM TOTAL Routine 07/02/2023 2:12 AM TOWEL DISTRIBUTOR COMPLETE BLOOD COUNT W/ DIFFERENTIAL Routine 07/02/2023 2:12 AM TOWEL DISTRIBUTOR POC GLUCOSE SCREEN Routine 07/02/2023 2: 07 AM TOWEL DISTRIBUTOR POC GLUCOSE SCREEN Routine 07/01/2023 8: 00 PM TOWEL DISTRIBUTOR POC GLUCOSE SCREEN Routine 07/01/2023 5: 42 PM TOWEL DISTRIBUTOR POC GLUCOSE SCREEN Routine 07/01/2023 12 :10 PM TOWEL DISTRIBUTOR POC GLUCOSE SCREEN Routine 07/01/2023 6: 02 AM TOWEL DISTRIBUTOR .CBC Routine 07/01/2023 3:52 AM TOWEL DISTRIBUTOR PHOSPHORUS LEVEL Routine 07/01/2023 3:52 AM TOWEL DISTRIBUTOR MAGNESIUM LEVEL Routine 07/01/2023 3:52 AM TOWEL DISTRIBUTOR BASIC METABOLIC PANEL, CALCIUM TOTAL Routine 07/01/2023 3:52 AM TOWEL DISTRIBUTOR COMPLETE BLOOD COUNT W/ DIFFERENTIAL Routine 07/01/2023 3:52 AM TOWEL DISTRIBUTOR TYPE AND SCREEN Routine 07/01/2023 3:52 AM TOWEL DISTRIBUTOR POC GLUCOSE SCREEN Routine 07/01/2023 12 :02 AM TOWEL DISTRIBUTOR POC GLUCOSE SCREEN Routine 06/30/2023 6: 39 AM TOWEL DISTRIBUTOR .CBC Routine 06/30/2023 4:31 AM TOWEL DISTRIBUTOR PHOSPHORUS LEVEL Routine 06/30/2023 4:31 AM TOWEL DISTRIBUTOR MAGNESIUM LEVEL Routine 06/30/2023 4:31 AM TOWEL DISTRIBUTOR BASIC METABOLIC PANEL, CALCIUM TOTAL Routine 06/30/2023 4:31 AM TOWEL DISTRIBUTOR COMPLETE BLOOD COUNT W/ DIFFERENTIAL Routine 06/30/2023 4:31 AM TOWEL DISTRIBUTOR POC GLUCOSE SCREEN Routine 06/30/2023 12 :17 AM TOWEL DISTRIBUTOR POC GLUCOSE SCREEN Routine 06/29/2023 5: 06 PM TOWEL DISTRIBUTOR FL MODIFIED BARIUM SWALLOW W SPEECH STAT 06/29/2023 2:39 PM TOWEL DISTRIBUTOR .CBC Routine 06/29/2023 4:48 AM TOWEL DISTRIBUTOR PHOSPHORUS LEVEL Routine 06/29/2023 4:48 AM TOWEL DISTRIBUTOR MAGNESIUM LEVEL Routine 06/29/2023 4:48 AM TOWEL DISTRIBUTOR BASIC METABOLIC PANEL, CALCIUM TOTAL Routine 06/29/2023 4:48 AM TOWEL DISTRIBUTOR COMPLETE BLOOD COUNT W/ DIFFERENTIAL Routine 06/29/2023 4:48 AM TOWEL DISTRIBUTOR HC PROCALCITONIN (PCT) Routine 2:06 PM TOWEL DISTRIBUTOR ECHOCARDIOGRAM 2D COMPLETE STAT 06/28/2023 11:46 AM TOWEL DISTRIBUTOR MRI BRAIN W WO CONTRAST STAT 06/28/20 6:[address] CHEST ABDOMEN PELVIS W WO CONTRAST STAT 06/28/2023 5:00 AM TOWEL DISTRIBUTOR DIFFERENTIAL Routine 06/28/2023 2:49 AM TOWEL DISTRIBUTOR .CBC Routine 06/28/2023 2:49 AM TOWEL DISTRIBUTOR PHOSPHORUS LEVEL Routine 06/28/2023 2:49 AM TOWEL DISTRIBUTOR MAGNESIUM LEVEL Routine 06/28/2023 2:49 AM TOWEL DISTRIBUTOR BASIC METABOLIC PANEL, CALCIUM TOTAL Routine 06/28/2023 2:49 AM TOWEL DISTRIBUTOR COMPLETE BLOOD COUNT W/ DIFFERENTIAL Routine 06/28/2023 2:49 AM TOWEL DISTRIBUTOR CONFIRM ABORH TYPE STAT 06/28/2023 2: 49 AM TOWEL DISTRIBUTOR XR ABDOMEN 1 VW PORTABLE STAT 06/28/2023 12:45 AM TOWEL DISTRIBUTOR EKG, 12-LEAD (PORTABLE) Routine 06/28/2023 TYPE AND SCREEN STAT 06/27/2023 9:44 PM TOWEL DISTRIBUTOR XR CHEST 1 VW Routine 06/27/2023 7:[address] HEAD WO CONTRAST STAT 06/27/2023 7 :03 PM TOWEL DISTRIBUTOR .CBC Routine 06/27/2023 5:23 PM TOWEL DISTRIBUTOR COMPREHENSIVE METABOLIC PANEL Routine 06/27/2023 5:23 PM TOWEL DISTRIBUTOR APTT Routine 06/27/2023 5:23 PM TOWEL DISTRIBUTOR PROTHROMBIN TIME Routine 06/27/2023 5:23 PM TOWEL DISTRIBUTOR COMPLETE BLOOD COUNT W/ DIFFERENTIAL Routine 06/27/2023 5:23 PM TOWEL DISTRIBUTOR after 10/23/2022 Results * POC Glucose Screen - Fingerstick (07/12/2023 6:00 AM TOWEL DISTRIBUTOR) Only the most recent of48 resultswithin the time period is included. Glucose Screen 97 70 - 99 mg/dL 07/12/2023 6:02 AM TOWEL DISTRIBUTOR [facility] POC Sample Type Capillary 07/12/2023 6:02 AM [facility] Blood 07/12/2023 6:00 AM TOWEL DISTRIBUTOR 07/12/2023 6:02 AM TOWEL DISTRIBUTOR Narrative [facility] - 07/12/2023 6:02 AM TOWEL DISTRIBUTOR Capillary blood samples, e.g. obtained by fingerstick, may have inaccurate results in patients with decreased peripheral blood flow. Method description: All results are measured using Electrochemistry test methodology. The glucose in the sample mixes with the reagents on the test strip. The reaction produces an electric current. The amount of current produced is proportional to the glucose concentration in the blood. All POC Glucose screen test results, including critical values, must be interpreted and evaluated in the context of the patients' clinical findings. It is recommended to confirm any questionable test results by core lab methodology. Rhett Aguila MD POCT ORDERABLES - DE VICE [facility] Unless otherwise noted, all lab tests performed by: Division of Pathology and Laboratory Medicine [address] [place] [id number] * (ABNORMAL) .CBC (07/12/2023 2:52 AM TOWEL DISTRIBUTOR) Only the most recent of16 resultswithin the time period is included. White Blood Cell 12.8(H) 4.1 - 10.5 K/uL 07/12/2023 3:31 AM [facility] Red Blood Cell 4.81 4.30 - 6.04 M/uL 07/12/2023 3:31 AM [facility] Hemoglobin 14.6 13.3 - 17.4 g/dL 07/12/2023 3:31 AM [facility] Hematocrit 44.8 39.5 - 51.8 % 07/12/2023 3:31 AM [facility] Mean Cell Volume 93 82 - 99 fL 07/12/2023 3:31 AM [facility] Mean Cell Hemoglobin 30.4 26.6 - 33.2 pg 07/12/2023 3:31 AM [facility] Mean Cell Hemoglobin Concentration 32.6 31.1 - 35.2 g/dL 07/12/2023 3:31 AM [facility] RDW-SD 45.9 37.5 - 49.7 fL 07/12/2023 3:31 AM [facility] Red Cell Diameter Width 13.5 11.6 - 15.5 % 07/12/2023 3:31 AM [facility] Platelet 183 160 - 397 K/uL 07/12/2023 3:31 AM [facility] Mean Platelet Volume 11.9 9.1 - 12.6 fL 07/12/2023 3:31 AM [facility] INRBC 0.0 0.0 - 0.1 /100 WBC 07/12/2023 3:31 AM [facility] Comment: The INRBC (instrument NRBC) value reflects the enumeration of nucleated red blood cells contained in a 200uL sample of whole blood analyzed by the instrument. This value may differ from the NRBC value reported in a manual differential, which is based on a 100 cell differential. Neutrophil % 77.2(H) 43.2 - 72.7 % 07/12/2023 3:31 AM [facility] Lymphocyte % 12.4(L) 16.8 - 46.2 % 07/12/2023 3:31 AM [facility] Monocyte % 9.1 5.1 - 12.5 % 07/12/2023 3:31 AM [facility] Eosinophil % 0.0(L) 0.4 - 6.3 % 07/12/2023 3:31 AM [facility] Basophil % 0.2 0.2 - 1.4 % 07/12/2023 3:31 AM [facility] IGRE % 1.1 0.1 - 1.5 % 07/12/2023 3:31 AM [facility] Comment:The IGRE% includes M etamyelocytes, Myelocytes and Promyelocytes. Neutrophil Abs 9.90(H) 1.95 - 7.25 K/uL 07/12/2023 3:31 AM [facility] Lymphocyte Abs 1.59 1.01 - 3.24 K/uL 07/12/2023 3:31 AM [facility] Monocyte Abs 1.16(H) 0.24 - 0.85 K/uL 07/12/2023 3:31 AM [facility] Eosinophil Abs 0.00(L) 0.02 - 0.50 K/uL 07/12/2023 3:31 AM [facility] Basophil Abs 0.02 0.02 - 0.09 K/uL 07/12/2023 3:31 AM [facility] IG Abs 0.14(H) 0.01 - 0.12 K/uL 07/12/2023 3:31 AM [facility] Blood Peripheral blood specimen / Unknown Venipuncture / Unknown 07/12/2023 2:52 AM TOWEL DISTRIBUTOR 07/12/2023 3:18 AM TOWEL DISTRIBUTOR Naye Amin MD LAB BLOOD ORDERABLES [facility] Unless otherwise noted, all lab tests performed by: Division of Pathology and Laboratory Medicine [address] [place] [address] * (ABNORMAL) Basic Metabolic Panel- Total Calcium (07/12/2023 2:52 AM TOWEL DISTRIBUTOR) Only the most recent of15 resultswithin the time period is included. eGFR 108 >=60 mL/min/1.7 3 sq. m 07/12/2023 3:57 AM TOWEL DISTRIBUTOR [facility] Comment: The eGFRcr is calculated with the 2020 CKD-EPI creatinine equation using creatinine, patient's age, and sex for adults 18 years of age and older. Other factors, especially muscle mass, may affect accuracy and need to be considered. According to the Kidney Disease: Improving Global Outcomes (KDIGO) CKD Work Group 2012 Clinical Practice Guideline, chronic kidney disease (CKD) is defined as the abnormalities of kidney structure or function, present for more than 3 months, with implications for health. CKD should be classified by cause, GFR category, and albuminuria category. KDIGO guidelines provide the following GFR categories. Stage / Description / GFR mL/min/1.73 m2: G1* / Normal or high / >= 90 G2* / Mildly decreased / 60-89 G3a / Mildly to moderately decreased / 45-59 G3b / Moderately to severely decreased / 30-44 G4 / Severely decreased / 15-29 G5 / Kidney failure / <15 *In the absence of evidence of kidney damage, neither G1 nor G2 fulfill criteria for CKD. Calcium Level Total 8.7 8.2 - 10.2 mg/dL 07/12/2023 3:57 AM TOWEL DISTRIBUTOR [facility] Comment:This result was prev iously suppressed from the chart. Sodium Level 146(H) 136 - 145 mmol/L 07/12/2023 3:57 AM TOWEL DISTRIBUTOR [facility] Comment:This result was prev iously suppressed from the chart. Potassium Level 4.5 3.4 - 4.5 mmol/L 07/12/2023 3:57 AM TOWEL DISTRIBUTOR [facility] Comment:This result was prev iously suppressed from the chart. Chloride 109(H) 98 - 107 mmol/L 07/12/2023 3:57 AM TOWEL DISTRIBUTOR [facility] Comment:This result was prev iously suppressed from the chart. CO2 30(H) 22 - 29 mmol/L 07/12/2023 3:57 AM [facility] Comment:This result was prev iously suppressed from the chart. Anion Gap 7 4 - 14 mmol/L 07/12/2023 3:57 AM TOWEL DISTRIBUTOR [facility] Comment:This result was prev iously suppressed from the chart. Creatinine 0.69 0.67 - 1.17 mg/dL 07/12/2023 3:57 AM [employer] [facility] Comment:This result was prev iously suppressed from the chart. BUN 26(H) 6 - 23 mg/dL 07/12/2023 3:57 AM [employer] [facility] Comment:This result was prev iously suppressed from the chart. Glucose Level 97 70 - 99 mg/dL 07/12/2023 3:57 AM [employer] [facility] Comment: Effective 01/26/16, the glucose reference intervals have been updated based on [place] [employer] guidelines (Standards of Medical Care in Diabetes 2016. Diabetes Care 2016; 39: S13-S22). Fasting blood glucose: Normal: 70-99 mg/dL Impaired fasting glucose (increased risk for diabetes or pre-diabetes): 100-125 mg/dL Diabetes mellitus: >/=126 mg/dL Random blood glucose: Normal: 70-199 mg/dL Note: Random glucose >100 mg/dL is associated with increased risk for diabetes. This result was previously suppressed from the chart. Blood Peripheral blood specimen / Unknown Venipuncture / Unknown 07/12/2023 2:52 AM TOWEL DISTRIBUTOR 07/12/2023 3:16 AM TOWEL DISTRIBUTOR Naye Amin MD LAB BLOOD ORDERABLES [facility] Unless otherwise noted, all lab tests performed by: Division of Pathology and Laboratory Medicine [address] [place] [id number] * Phosphorus Level (07/12/2023 2:52 AM TOWEL DISTRIBUTOR) Only the most recent of15 resultswithin the time period is included. Phosphorus Level 3.3 2.5 - 4.5 mg/dL 07/12/2023 3:57 AM TOWEL DISTRIBUTOR [facility] Blood Peripheral blood specimen / Unknown Venipuncture / Unknown 07/12/2023 2:52 AM TOWEL DISTRIBUTOR 07/12/2023 3:16 AM TOWEL DISTRIBUTOR Naye Amin MD LAB BLOOD ORDERABLES [facility] Unless otherwise noted, all lab tests performed by: Division of Pathology and Laboratory Medicine [address] [place] [id number] * Magnesium Level (07/12/2023 2:52 AM TOWEL DISTRIBUTOR) Only the most recent of15 resultswithin the time period is included. Magnesium Level 2.2 1.6 - 2.6 mg/dL 07/12/2023 3:57 AM TOWEL DISTRIBUTOR [facility] Blood Peripheral blood specimen / Unknown Venipuncture / Unknown 07/12/2023 2:52 AM TOWEL DISTRIBUTOR 07/12/2023 3:16 AM TOWEL DISTRIBUTOR Naye Amin MD LAB BLOOD ORDERABLES Performing Organization Address City/[facility] Co de Phone Number [facility] Unless otherwise noted, all lab tests performed by: Division of Pathology and Laboratory Medicine [address] [place] [id number] * XR Abdomen 1 View Portable (07/09/2023 12:59 PM TOWEL DISTRIBUTOR) Only the most recent of4 resultswithin the time period is included. Anatomical Region Laterality Modality Abdomen Digital Radiogra phy 07/09/2023 2:34 PM TOWEL DISTRIBUTOR Impressions 07/09/2023 2:36 PM TOWEL DISTRIBUTOR No evidence of obstruction or significant constipation. Narrative 07/09/2023 2:36 PM TOWEL DISTRIBUTOR FULL RESULT: Examination: XR ABDOMEN 1 VW PORTABLE on 07/09/2023 12:59 PM Clinical History: Mass lesion of brain Indication: Diarrhea, Constipation Comparison: 07/07/2023 TECHNIQUE: XR ABDOMEN 1 VW PORTABLE FINDINGS: 2 supine views of the abdomen demonstrate no dilated loops of large or small bowel. A gastrostomy tube is in place. No significant colonic stool is seen to suggest constipation. Some high attenuation material projects over the right side of the pelvis, possibly contrast. This film is insensitive for the detection of free air. The regional skeleton is unremarkable. Procedure Note Noam Wagoner MD - 07/09/2023 FULL RESULT: Examination: XR ABDOMEN 1 VW PORTABLE on 07/09/2023 12:59 PM Clinical History: Mass lesion of brain Indication: Diarrhea, Constipation Comparison: 07/07/2023 TECHNIQUE: XR ABDOMEN 1 VW PORTABLE FINDINGS: 2 supine views of the abdomen demonstrate no dilated loops of large orsmall bowel. A gastrostomy tube is in place. No significant colonic stoolis seen to suggest constipation. Some high attenuation material projectsover the right side of the pelvis, possibly contrast. This film isinsensitive for the detection of free air. The regional skeleton is unremarkable. IMPRESSION: No evidence of obstruction or significant constipation. Marisol Ruiz APRN [facility] [place] [facility] [place] ORDERABLES * Glucose 6-Phosphate Dehydrogenase Enzyme Activity (07/09/2023 2:21 AM TOWEL DISTRIBUTOR) G6PD Enzyme Activity, B 10.8 8.0 - 11.9 U/g Hb 07/11/2023 2:58 PM TOWEL DISTRIBUTOR [facility] Comment: G6PD deficiency can be masked in the setting of reticulocytosis, markedly elevated WBCs or recent transfusion. If any of these are present in the setting of , chronic, or episodic jaundice/anemia, genotyping is recommended. If desired, please order G6PDZ/G6PD Full Gene Sequencing, V. ADDITIONAL INFORMATION This test was developed and its performance characteristics determined by [facility] in a manner consistent with CLIA requirements. This test has not been cleared or approved by the U.S. Food and Drug Administration. Test Performed by: [facility] - [address] [address] Making Machine Operator: Papo Boone M.D. Ph.D.; CLIA# [id number] Blood Peripheral blood specimen / Unknown Venipuncture / Unknown 07/09/2023 2:21 AM TOWEL DISTRIBUTOR 07/09/2023 2:59 AM TOWEL DISTRIBUTOR Gertrude Jesus MD LAB BLOOD ORDERABLES [facility] * Type and Screen (07/04/2023 4:20 AM TOWEL DISTRIBUTOR) Only the most recent of3 resultswithin the time period is included. ABORh O POS 07/04/2023 12:00 AM TOWEL DISTRIBUTOR [facility] ABSC Negative 07/04/2023 12:00 AM TOWEL DISTRIBUTOR [facility] Clot Expiration 07/07/2023 23:59 07/04/2023 12:00 AM TOWEL DISTRIBUTOR [facility] Historical Record Check Complete 07/04/2023 12:00 AM TOWEL DISTRIBUTOR [facility] Blood Peripheral blood specimen / Unknown Venipuncture / Unknown 07/04/2023 4:20 AM TOWEL DISTRIBUTOR 07/04/2023 4:52 AM TOWEL DISTRIBUTOR Juli Benitez APRN BLOOD BANK TEST ORDE ISMAEL [facility] [id number] [place] [address] * IR PERC FEEDING GASTROSTOMY PLACEMENT (07/03/2023 1:42 PM TOWEL DISTRIBUTOR) Anatomical Region Laterality Modality Abdomen/Pelvis Other Narrative 07/03/2023 5:56 PM TOWEL DISTRIBUTOR Table formatting from the original result was not included. Date of Procedure: 07/03/23 Attending Physician: Feliberto Olmstead MD Supervisor Plastering: None Pre Procedure Diagnosis: Mass lesion of brain [[id number]] Post Procedure Diagnosis: Unchanged Indication: Nutritional support Title of Procedure: Percutaneous Image-Guided Placement of Gastrostomy Catheter. Operative Findings: Percutaneous fluoroscopic-guided placement of 16 Fr Mozambican gastrostomy catheter. Connector Type: ENFit Consent: The procedure, risks, indications and alternatives were explained. All questions were answered and informed consent was obtained. I have reviewed the history and physical dictated by the mid-level practitioner / fellow. Sedation/Anesthesia: Moderate sedation for pain control and anxiety was administered by a dedicated nurse under my supervision. There was continuous monitoring of oxygen saturation, heart rate and intermittent monitoring of blood pressure during the procedure. Medication given was midazolam and fentanyl. I was present for the administration of the medications indicated above. Procedure Events Event Event Time Sedation Start 07/03/2023 1:01 PM Sedation End 07/03/2023 1:42 PM Procedure in Detail: A time out was performed prior to the start of the procedure and the correct patient, procedure, presence of consent, site, and side were confirmed with all members of the team. Nasogastric Tube: Xylocaine gel was administered directly to the patient's nasal passage and a 5 Mozambican catheter and Bentson wire were then passed through the nasal passage and esophagus into the stomach under fluoroscopic guidance to be used for gastric insufflation. Ultrasound was used to corie the liver border. The anterior abdominal wall was prepped and draped in sterile fashion. Glucagon 1 mg of was administered intravenously. The stomach was then distended with air via the nasogastric tube. The anticipated puncture site overlying the region of the gastric body was anesthetized with 1% lidocaine. Fluoroscopic guidance was used to place 2 Monica Juanjo T-tacks for gastropexy. An 18 gauge needle was then passed through the anesthetized soft tissues into the air-distended stomach under fluoroscopic-guidance. Through this needle, a short wire was passed into the stomach. The subcutaneous tract was serially dilated over the wire using telescoping dilator. Then, a 16 Fr catheter was advanced over the wire into the stomach. The catheter was secured to the patient. Additional Comments: None Estimated Blood Loss: Minimal Specimens Removed: No Immediate Complications: None Disposition: PACU Plan: The patient will remain NPO and nothing per tube until the next calendar day as indicated in the written orders. Juli Benitez APRN IMG IR ORDERABLES * FL Modified Barium Swallow w Speech (06/29/2023 2:39 PM TOWEL DISTRIBUTOR) Anatomical Region Laterality Modality Neck Radio Fluoroscop y 06/29/2023 3:56 PM TOWEL DISTRIBUTOR Impressions 06/29/2023 4:59 PM TOWEL DISTRIBUTOR 1. Silent aspiration with thin and thick liquids. Please refer to the separately dictated speech pathology report for further details and recommendations. 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 Indication: Baseline evaluation of swallow function; dysphagia assessment; newly diagnosed neoplasm of the brain. Comparison: None Technique: A modified barium swallow was performed in conjunction with speech pathology. The patient was given barium mixed with a variety of consistencies including thin liquids and nectar thick liquid to swallow by mouth under videofluoroscopy. Findings: Nasopharyngeal tube is partially visualized. There was no nasopharyngeal reflux. There was silent aspiration with thin liquids while utilizing strategies. There was silent aspiration with nectar thick liquid. There was no pharyngeal residue with thin or thick liquids. Pharyngeal contraction was not examined due to patient condition. 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 Indication: Baseline evaluation of swallow function; dysphagia assessment;newly diagnosed neoplasm of the brain. Comparison: None Technique: A modified barium swallow was performed in conjunction withspeech pathology. The patient was given barium mixed with a variety ofconsistencies including thin liquids and nectar thick liquid to swallow bymouth under videofluoroscopy. Findings: Nasopharyngeal tube is partially visualized. There was nonasopharyngeal reflux. There was silent aspiration with thin liquids whileutilizing strategies. There was silent aspiration with nectar thickliquid. There was no pharyngeal residue with thin or thick liquids.Pharyngeal contraction was not examined due to patient condition. IMPRESSION: 1. Silent aspiration with thin and thick liquids. Please refer to the separately dictated speech pathology report forfurther details and recommendations. Juli Benitez APRN IMG FLUOROSCOPY MONICA GUEVARA * Procalcitonin (06/28/2023 2:06 PM TOWEL DISTRIBUTOR) Procalcitonin <0.04 <=0.08 ng/mL 06/28/2023 2:54 PM TOWEL DISTRIBUTOR [facility] Blood Peripheral blood specimen / Unknown Venipuncture / Unknown 06/28/2023 2:06 PM TOWEL DISTRIBUTOR 06/28/2023 2:10 PM TOWEL DISTRIBUTOR Narrative [facility] - 06/28/2023 2:54 PM TOWEL DISTRIBUTOR Procalcitonin > 2.00 ng/mL: Procalcitonin levels above 2.00 ng/mL are highly suggestive of a high risk for systematic bacterial infection/ severe sepsis and/or septic shock. Procalcitonin < 0.50 ng/mL: Procalcitonin levels below 0.50 ng/mL are at low risk for progression to severe sepsis and/ or septic shock. Procalcitonin (ProCT) between 0.15 and 2.0 ng/mL do not exclude infection, because localized infections (without systemic signs) may be associated with such low levels. Results greater than 400 ng/mL may not be reliable due to the matrix effect with extended dilution as it exceeds the benefits specialist recruiter's recommended limit. Caution should be exercised when interpreting such values and done in conjunction with clinical context. Juli Benitez APRN LAB BLOOD ORDERABLES [facility] Unless otherwise noted, all lab tests performed by: Division of Pathology and Laboratory Medicine [address] [place] [id number] * Echocardiogram 2D Complete (06/28/2023 11:46 AM TOWEL DISTRIBUTOR) 06/28/2023 10:4 5 AM TOWEL DISTRIBUTOR Narrative [facility] - 06/28/2023 12:29 PM TOWEL DISTRIBUTOR Echocardiographic Report Interpretation Summary A complete two-dimensional transthoracic echocardiogram was performed (2D, M- mode, Spectral and color Doppler). There is no comparison study available. The left ventricle is normal in size. Left ventricular systolic function is normal. LV ejection fraction (LVEF) is in the range of 63% (calculated by method of discs). The right ventricle is normal in size and function. Unable to estimate RVSP due to lack of TR visualization. There is no pericardial effusion. Left Ventricle: The left ventricle is normal in size. There is normal left ventricular wall thickness. Left ventricular systolic function is normal. LV ejection fraction (LVEF) is in the range of 63% (calculated by method of discs). No regional wall motion abnormalities noted. I WMSI = 1.00 % Normal = 100 Normal GLPS Segments Size X - Cannot 2 - 1-2 small Interpret 1 - Normal Hypokinetic 3 - Akinetic 4 - Dyskinetic3- 5 moderate 5 - Aneurysmal 6-14 large 15-16 diffuse 3D imaginD volumes were not performed in this study. Cardiac Mechanics/Speckle Tracking Imaging: Normal global longitudinal peak systolic value. Strain Imaging was performed; GLPS avg = -20%. Diastology: Normal diastolic function. Right Ventricle: The right ventricle is normal in size and function. Atria: The left atrium is borderline dilated. Right atrial size is normal. Mitral Valve: The mitral valve is normal. Tricuspid Valve: The tricuspid valve is normal. There is trace tricuspid regurgitation. Unable to estimate RVSP due to lack of TR visualization. Aortic Valve: The aortic valve is trileaflet. The aortic valve opens well. Pulmonic Valve: The pulmonic valve is not well visualized. Great Vessels: The aortic root is normal size. The inferior vena cava demonstrates normal size and normal respiratory variation. Pericardium/Pleural: There is no pericardial effusion. MMode/2D Measurements IVSd: 0.75 cm LVIDd: 4.1 cm LVIDs: 2.4 cm LVPWd: 0.67 cm FS: 40.9 % Ao root diam: 3.0 cm Ao root area: 7.0 cm2 LA dimension: 1.9 cm LVOT diam: 2.1 cm EDV(MOD-A4C): 83.5 ml ESV(MOD-A4C): 30.9 ml LVOT area: 3.4 cm2 EF(MOD-A4C): 63.0 % EDV(MOD-A2C): 71.1 ml ESV(MOD-A2C): 27.0 ml EDV(MOD-bp): 77.9 ml EF(MOD-A2C): 62.0 % ESV(MOD-bp): 28.9 ml EF(MOD-bp): 62.9 % LAV(MOD-A2C): 38.2 ml LAV(MOD-A4C): 23.5 ml EDV (MOD-bp) Index: 47.1 ml/m2 LAV(MOD-bp): 33.9 ml LAV(MOD-bp) Indexed: 20.5 ml/m2 ESV (MOD-bp) Index: 17.5 ml/m2 RWT: 0.32 cm TAPSE (>1.6): 1.9 cm Doppler Measurements MV E max saran: 36.1 cm/sec MV V2 max: 52.1 cm/sec MV A max saran: 44.2 cm/sec MV max P.1 mmHg MV E/A: 0.82 MV V2 mean: 33.2 cm/sec MV mean P.49 mmHg MV V2 VTI: 14.7 cm MVA(VTI): 2.9 cm2 MV dec time: 0.22 sec Ao V2 max: 78.3 cm/sec Ao max P.5 mmHg Ao V2 mean: 52.7 cm/sec Ao mean P.2 mmHg Ao V2 VTI: 11.8 cm SANJANA(I,D): 3.5 cm2 SANJANA(V,D): 3.1 cm2 LV V1 max P.1 mmHg SV(LVOT): 42.0 ml LV V1 mean P.1 mmHg LV V1 max: 72.0 cm/sec LV V1 mean: 50.6 cm/sec LV V1 VTI: 12.3 cm PA V2 max: 87.1 cm/sec Med Peak E' Saran: 7.5 cm/sec PA max P.0 mmHg PA V2 mean: 67.5 cm/sec PA mean P.9 mmHg PA V2 VTI: 12.8 cm Lat Peak E' Saran: 10.6 cm/sec RAP systole: 3.0 mmHg RV S Vel_phl: 14.7 cm/sec SANJANA Index (I,D): 2.1 SANJANA Index (V,D): 1.9 Dimensionless Index: 0.92 E/e' (avg): 4.0 E/e' (lat): 3.4 E/e' (sept): 4.8 Procedure Note Uziel Otto MD - 06/28/2023 Echocardiographic Report Interpretation Summary A complete two-dimensional transthoracic echocardiogram was performed (2D,M- mode, Spectral and color Doppler). There is no comparison studyavailable. The left ventricle is normal in size. Left ventricular systolic function is normal. LV ejection fraction (LVEF)is in the range of 63% (calculated by method of discs). The right ventricle is normal in size and function. Unable to estimate RVSP due to lack of TR visualization. There is no pericardial effusion. Left Ventricle: The left ventricle is normal in size. There is normal left ventricularwall thickness. Left ventricular systolic function is normal. LV ejectionfraction (LVEF) is in the range of 63% (calculated by method of discs). Noregional wall motion abnormalities noted. I WMSI = 1.00 % Normal = 100 Normal GLPS Segments Size X - Cannot 2 - 1-2small Interpret 1 - Normal Hypokinetic 3 - Akinetic 4 - Dyskinetic3-5moderate 5 - Aneurysmal6-14 large 15-16 diffuse 3D imaginD volumes were not performed in this study. Cardiac Mechanics/Speckle Tracking Imaging: Normal global longitudinal peak systolic value. Strain Imaging wasperformed; GLPS avg = -20%. Diastology: Normal diastolic function. Right Ventricle: The right ventricle is normal in size and function. Atria: The left atrium is borderline dilated. Right atrial size is normal. Mitral Valve: The mitral valve is normal. Tricuspid Valve: The tricuspid valve is normal. There is trace tricuspid regurgitation.Unable to estimate RVSP due to lack of TR visualization. Aortic Valve: The aortic valve is trileaflet. The aortic valve opens well. Pulmonic Valve: The pulmonic valve is not well visualized. Great Vessels: The aortic root is normal size. The inferior vena cava demonstrates normalsize and normal respiratory variation. Pericardium/Pleural: There is no pericardial effusion. MMode/2D Measurements IVSd: 0.75 cmLVIDd: 4.1 cm LVIDs: 2.4 cm LVPWd: 0.67 cm FS: 40.9 %Ao root diam: 3.0 cm Ao root area: 7.0 cm2 LA dimension: 1.9 cm LVOT diam: 2.1 cmEDV(MOD-A4C): 83.5 ml ESV(MOD-A4C): 30.9 ml LVOT area: 3.4 cm2EF(MOD-A4C): 63.0 % EDV(MOD-A2C): 71.1 ml ESV(MOD-A2C): 27.0 mlEDV(MOD-bp): 77.9 ml EF(MOD-A2C): 62.0 %ESV(MOD-bp): 28.9 ml EF(MOD-bp): 62.9 % LAV(MOD-A2C): 38.2 ml LAV(MOD-A4C): 23.5 mlEDV (MOD-bp) Index: 47.1 ml/m2 LAV(MOD-bp): 33.9 ml LAV(MOD-bp) Indexed: 20.5 ml/m2 ESV (MOD-bp) Index: 17.5 ml/m2RWT: 0.32 cm TAPSE (>1.6): 1.9 cm Doppler Measurements MV E max saran: 36.1 cm/secMV V2 max: 52.1 cm/sec MV A max saran: 44.2 cm/secMV max P.1 mmHg MV E/A: 0.82MV V2 mean: 33.2 cm/sec MV mean P.49 mmHg MV V2 VTI: 14.7 cm MVA(VTI): 2.9 cm2 MV dec time: 0.22 secAo V2 max: 78.3 cm/sec Ao max P.5 mmHg Ao V2 mean: 52.7 cm/sec Ao mean P.2 mmHg Ao V2 VTI: 11.8 cm SANJANA(I,D): 3.5 cm2 SANJANA(V,D): 3.1 cm2 LV V1 max P.1 mmHgSV(LVOT): 42.0 ml LV V1 mean P.1 mmHg LV V1 max: 72.0 cm/sec LV V1 mean: 50.6 cm/sec LV V1 VTI: 12.3 cm PA V2 max: 87.1 cm/secMed Peak E' Saran: 7.5 cm/sec PA max P.0 mmHg PA V2 mean: 67.5 cm/sec PA mean P.9 mmHg PA V2 VTI: 12.8 cm Lat Peak E' Saran: 10.6 cm/secRAP systole: 3.0 mmHg RV S Vel_phl: 14.7 cm/secAVA Index (I,D): 2.1 SANJANA Index (V,D): 1.9Dimensionless Index: 0.92 E/e' (avg): 4.0E/e' (lat): 3.4 E/e' (sept): 4.8 Juli Benitez DIRECTOR SYSTEMS CV ECHO ORDERABLES [facility] * MRI Brain with and without Contrast (06/28/2023 6:16 AM TOWEL DISTRIBUTOR) Anatomical Region Laterality Modality Head Magnetic Resonan ce 06/28/2023 7:32 AM TOWEL DISTRIBUTOR Impressions 06/28/2023 10:06 AM TOWEL DISTRIBUTOR 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 Narrative 06/28/2023 10:06 AM TOWEL DISTRIBUTOR FULL RESULT: Examination: MRI BRAIN W WO CONTRAST on 06/28/2023 6:16 AM. CLINICAL HISTORY: Mass lesion of brain INDICATION: Metastatic cancer suspected COMPARISON: Head CT dated 06/27/2023. TECHNIQUE: MRI of the brain without and with IV contrast was performed. FINDINGS: Intracranial: Abnormal expansile nonenhancing lesion involving the luis and the medulla, measuring 3.6 x 3.0 cm and axial plane and 5.0 cm in the craniocaudal direction. Scattered foci of abnormal T2/FLAIR signal in the periventricular and subcortical white matter, nonspecific, but consistent with chronic ischemic small vessel disease. There is no acute hemorrhage or acute infarct. There is no mass effect or midline shift. The ventricles and extra-axial spaces are appropriate for age. There is no sellar or suprasellar abnormality. Bone: There are no suspicious calvarial or skull base lesions. The mastoid air cells are clear. Extracranial: Banding of the right globe resulting in the abnormal shape of the right globe. Mucous retention cyst in the right maxillary sinus. Procedure Note Neo Bedolla MD - 06/28/2023 FULL RESULT: Examination: MRI BRAIN W WO CONTRAST on 06/28/2023 6:16 AM. CLINICAL HISTORY: Mass lesion of brain INDICATION: Metastatic cancer suspected COMPARISON: Head CT dated 06/27/2023. TECHNIQUE: MRI of the brain without and with IV contrast was performed. FINDINGS: Intracranial: Abnormal expansile nonenhancing lesion involving the luis and the medulla,measuring 3.6 x 3.0 cm and axial plane and 5.0 cm in the craniocaudaldirection. Scattered foci of abnormal T2/FLAIR signal in the periventricular andsubcortical white matter, nonspecific, but consistent with chronicischemic small vessel disease. There is no acute hemorrhage or acute infarct. There is no mass effect or midline shift. The ventricles and extra-axial spaces are appropriate for age. There is no sellar or suprasellar abnormality. Bone: There are no suspicious calvarial or skull base lesions. The mastoid air cells are clear. Extracranial: Banding of the right globe resulting in the abnormal shape of the rightglobe. Mucous retention cyst in the right maxillary sinus. 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 Karma Landrum MD IMG MRI ORDERABLES * CT Chest Abdomen Pelvis with and without Contrast (06/28/2023 5:00 AM TOWEL DISTRIBUTOR) Anatomical Region Laterality Modality Abdomen, Pelvis, Chest Computed Tomography 06/28/2023 5:14 AM TOWEL DISTRIBUTOR Impressions 06/28/2023 4:07 PM TOWEL DISTRIBUTOR Left lower lobe retained secretions and airspace disease suggests inflammatory/infectious process, possible pneumonia and/or potential aspiration. Enteroenteric intussusception in the left lateral abdomen; it is uncertain whether there is underlying small lead point. Short-term follow-up MR enterography suggested to complement evaluation. Questionable tiny cystic focus in the pancreatic body/tail. See discussion above. ACTIONABLE ITEMS/RECOMMENDATIONS: See Impression. I personally reviewed these image(s) along with the resident's/fellow's interpretations, certify that if a procedure was performed I was physically present, and agree with the final report. Narrative 06/28/2023 4:07 PM TOWEL DISTRIBUTOR Examination: CT CHEST ABDOMEN PELVIS W WO CONTRAST 06/28/2023 5:00 AM. Clinical History: Mass lesion of brain Indication: Cancer staging Comparison: None. Technique: CT CHEST ABDOMEN PELVIS W WO CONTRAST. CHEST FINDINGS: Lines and Tubes: Tip of transesophageal enteric tube terminates in the gastric body. Lungs and Pleura: No suspicious pulmonary nodule. No consolidation. No pleural effusion. Cardiomediastinum: Prominence of the right atrial chamber can be correlated with echocardiography, if indicated. No pericardial effusion. Lymph nodes: No adenopathy. ABDOMEN AND PELVIS FINDINGS: Hepatobiliary: No suspicious mass or biliary dilatation. A couple relatively low suspicion hypoattenuating foci in the left liver can be followed. Tiny gallbladder polyp noted on image 236 of series 5. Spleen: No suspicious lesion. Normal size. Pancreas: No mass or ductal dilatation. Questionable tiny cystic focus in the pancreatic body/tail on image 214 of series 5. Adrenal Glands: No nodule. Kidneys, Ureters, Bladder: No hydronephrosis. No suspicious mass. Questionable filling defect in the urinary bladder on delayed phase versus mixing artifact (series 5, image 511), to be correlated with urinalysis, as indicated; this could potentially represent a small clot or noncalcified stone. Gastrointestinal Tract: No evidence of bowel obstruction. Enteroenteric intussusception in the left lateral abdomen on image 267 of series 5; it is uncertain whether there is underlying polyp. Pelvic Organs: Moderate prostatomegaly noted. Peritoneum/Retroperitoneum: Unremarkable. Lymph Nodes: No adenopathy. Vessels: Unremarkable. Abdominal/Pelvic Wall: Unremarkable. MUSCULOSKELETAL FINDINGS: No suspicious osseous lesion. Procedure Note Juanpablo Lopez MD - 06/28/2023 Examination: CT CHEST ABDOMEN PELVIS W WO CONTRAST 06/28/2023 5:00 AM. Clinical History: Mass lesion of brain Indication: Cancer staging Comparison: None. Technique: CT CHEST ABDOMEN PELVIS W WO CONTRAST. CHEST FINDINGS: Lines and Tubes: Tip of transesophageal enteric tube terminates in thegastric body. Lungs and Pleura: No suspicious pulmonary nodule. No consolidation. Nopleural effusion. Cardiomediastinum: Prominence of the right atrial chamber can becorrelated with echocardiography, if indicated. No pericardial effusion. Lymph nodes: No adenopathy. ABDOMEN AND PELVIS FINDINGS: Hepatobiliary: No suspicious mass or biliary dilatation. A couplerelatively low suspicion hypoattenuating foci in the left liver can befollowed. Tiny gallbladder polyp noted on image 236 of series 5. Spleen: No suspicious lesion. Normal size. Pancreas: No mass or ductal dilatation. Questionable tiny cystic focus inthe pancreatic body/tail on image 214 of series 5. Adrenal Glands: No nodule. Kidneys, Ureters, Bladder: No hydronephrosis. No suspicious mass. Questionable filling defect in the urinary bladder on delayed phase versusmixing artifact (series 5, image 511), to be correlated with urinalysis,as indicated; this could potentially represent a small clot ornoncalcified stone. Gastrointestinal Tract: No evidence of bowel obstruction. Enteroentericintussusception in the left lateral abdomen on image 267 of series 5; itis uncertain whether there is underlying polyp. Pelvic Organs: Moderate prostatomegaly noted. Peritoneum/Retroperitoneum: Unremarkable. Lymph Nodes: No adenopathy. Vessels: Unremarkable. Abdominal/Pelvic Wall: Unremarkable. MUSCULOSKELETAL FINDINGS: No suspicious osseous lesion. IMPRESSION: Left lower lobe retained secretions and airspace disease suggestsinflammatory/infectious process, possible pneumonia and/or potentialaspiration. Enteroenteric intussusception in the left lateral abdomen; it is uncertainwhether there is underlying small lead point. Short-term follow-up MRenterography suggested to complement evaluation. Questionable tiny cystic focus in the pancreatic body/tail. See discussion above. ACTIONABLE ITEMS/RECOMMENDATIONS: See Impression. I personally reviewed these image(s) along with the resident's/fellow'sinterpretations, certify that if a procedure was performed I wasphysically present, and agree with the final report. Karma Landrum MD IMG CT ORDERABLES * Confirm ABORh (06/28/2023 2:49 AM TOWEL DISTRIBUTOR) Pathologist [facility] ABOR Confirm O POS 06/27/2023 9:45 PM TOWEL DISTRIBUTOR [facility] Blood Peripheral blood specimen / Unknown Venipuncture / Unknown 06/28/2023 2:49 AM TOWEL DISTRIBUTOR 06/28/2023 3:06 AM TOWEL DISTRIBUTOR Karma Landrum MD BLOOD BANK TEST MONICA GUEVARA [facility] [id number] [place] [address] * (ABNORMAL) Differential (06/28/2023 2:49 AM TOWEL DISTRIBUTOR) Total Cells 115 06/28/2023 6:54 AM TOWEL DISTRIBUTOR [facility] Manual Neutrophil % 78.0(H) 43.2 - 72.7 % 06/28/2023 6:54 AM [facility] Comment:The Neutrophil count includes Bands. Manual Lymphocyte % 15.0(L) 16.8 - 46.2 % 06/28/2023 6:54 AM [facility] Manual Monocyte % 2.0(L) 5.1 - 12.5 % 06/28/2023 6:54 AM [facility] Metamyelocyte % 5.0(H) <=0.0 % 6:54 AM [facility] Comment:The Metamyelocyte co unt includes Myelocytes. Manual Neutrophil Abs 7.02 1.95 - 7.25 K/uL 06/28/2023 6:54 AM TOWEL DISTRIBUTOR [facility] Manual Lymphocyte Abs 1.35 1.01 - 3.24 K/uL 06/28/2023 6:54 AM [facility] Manual Monocyte Abs 0.18(L) 0.24 - 0.85 K/uL 06/28/2023 6:54 AM [facility] RBC Morphology PRESENT 06/28/2023 6:54 AM [facility] Anisocytosis Present(A) (none) 06/28/2023 6:54 AM [facility] Poikilocytosis Present(A) (none) 06/28/2023 6:54 AM [facility] Polychromasia Present(A) (none) 06/28/2023 6:54 AM [facility] Ovalocyte Present(A) (none) 06/28/2023 6:54 AM [facility] Macrocyte Present(A) (none) 06/28/2023 6:54 AM [facility] Slide Comment SEE NOTE 06/28/2023 6:54 AM [facility] Comment:PLT: Platelet morpho logy normal Blood Peripheral blood specimen / Unknown Venipuncture / Unknown 06/28/2023 2:49 AM TOWEL DISTRIBUTOR 06/28/2023 3:05 AM TOWEL DISTRIBUTOR Naye Amin MD LAB BLOOD ORDERABLES [facility] Unless otherwise noted, all lab tests performed by: Division of Pathology and Laboratory Medicine [address] [place] [address] [place] [address] * EKG, 12-Lead (06/28/2023) Juli Benitez KENYETTA ECG ORDERABLES [facility] IECG * X-ray Chest 1 View (06/27/2023 7:50 PM TOWEL DISTRIBUTOR) Anatomical Region Laterality Modality Chest Digital Radiogra phy 06/27/2023 8:19 PM TOWEL DISTRIBUTOR Impressions 06/27/2023 8:21 PM TOWEL DISTRIBUTOR No acute consolidations or lobar pneumonias. ACTIONABLE ITEMS/RECOMMENDATIONS: None. Narrative 06/27/2023 8:21 PM TOWEL DISTRIBUTOR FULL RESULT: Examination: XR CHEST 1 VW on 06/27/2023 7:50 PM. Clinical History: Dysphagia Indication: Shortness of Breath Comparison: None Technique: Frontal radiograph of the chest Findings: Support Apparatus: None. Lungs/Pleura/Mediastinum: No consolidations or lobar pneumonia. No pleural effusions or pneumothorax. Minimal blunting left CP angle and elevation left hemidiaphragm most likely old injury or post inflammatory scarring. Cardiac silhouette and mediastinal structures intact.. Procedure Note Zurdo Krishna MD - 06/27/2023 FULL RESULT: Examination: XR CHEST 1 VW on 06/27/2023 7:50 PM. Clinical History: Dysphagia Indication: Shortness of Breath Comparison: None Technique: Frontal radiograph of the chest Findings: Support Apparatus: None. Lungs/Pleura/Mediastinum: No consolidations or lobar pneumonia. No pleuraleffusions or pneumothorax. Minimal blunting left CP angle and elevationleft hemidiaphragm most likely old injury or post inflammatory scarring.Cardiac silhouette and mediastinal structures intact.. IMPRESSION: No acute consolidations or lobar pneumonias. ACTIONABLE ITEMS/RECOMMENDATIONS: None. 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 Discussed with Dr. Ricardo at 7:36 PM on 06/27/2023 by means of a phone conversation. Narrative 06/27/2023 7:37 PM TOWEL DISTRIBUTOR FULL RESULT: Examination: CT HEAD WO CONTRAST on 06/27/2023 7:03 PM. CLINICAL HISTORY: Dysphagia INDICATION: Neoplasm detection or diagnostic workup COMPARISON: None. TECHNIQUE: CT head without IV contrast was performed. FINDINGS: Intracranial: The luis appears diffusely enlarged and of low attenuation. 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 Also see sagittal reformation 47 of series 7. There is no acute hemorrhage or large vascular territory infarct. The ventricles and extra-axial spaces are appropriate for age. Bone: There are no suspicious lytic or sclerotic calvarial and skull base lesions. The mastoid air cells are clear. Extracranial: The orbits show a right-sided scleral band to be in position. The visualized paranasal sinuses are predominantly clear. Procedure Note Christopher Ceballos MD - 06/27/2023 FULL RESULT: Examination: CT HEAD WO CONTRAST on 06/27/2023 7:03 PM. CLINICAL HISTORY: Dysphagia INDICATION: Neoplasm detection or diagnostic workup COMPARISON: None. TECHNIQUE: CT head without IV contrast was performed. FINDINGS: Intracranial: The luis appears diffusely enlarged and of low attenuation. 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 Also see sagittal reformation 47 of series 7. There is no acute hemorrhage or large vascular territory infarct. The ventricles and extra-axial spaces are appropriate for age. Bone: There are no suspicious lytic or sclerotic calvarial and skull baselesions. The mastoid air cells are clear. Extracranial: The orbits show a right-sided scleral band to be in position. The visualized paranasal sinuses are predominantly clear. 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 Discussed with Dr. Ricardo at 7:36 PM on 06/27/2023 by means of a phoneconversation. Jensen Zuleta MD IMG CT ORDERABLES * (ABNORMAL) Comprehensive Metabolic Panel (06/27/2023 5:23 PM TOWEL DISTRIBUTOR) Bilirubin Total 0.4 <=1.2 mg/dL 06/27/2023 6:05 PM [facility] Comment: Indocyanine Green (ICG) may cause falsely elevated bilirubin results. Total and direct bilirubin must not be measured from samples containing indocyanine green. False elevation of total bilirubin can be seen in patients with IgG concentrations above 28 g/L. This result was previously suppressed from the chart. Bilirubin Direct <0.2 <=0.3 mg/dL 06/27/2023 6:05 PM [facility] Comment: Indocyanine Green (ICG) may cause falsely elevated bilirubin results. Total and direct bilirubin must not be measured from samples containing indocyanine green. This result was previously suppressed from the chart. Bilirubin Indirect 2022 6:05 PM [facility] Comment:Unable to calculate Indirect Bilirubin result due to some parameters are outside reportable range eGFR 104 >=60 mL/min/1. 73 sq. m 06/27/2023 6:05 PM [facility] Comment: The eGFRcr is calculated with the 2020 CKD-EPI creatinine equation using creatinine, patient's age, and sex for adults 18 years of age and older. Other factors, especially muscle mass, may affect accuracy and need to be considered. According to the Kidney Disease: Improving Global Outcomes (KDIGO) CKD Work Group 2012 Clinical Practice Guideline, chronic kidney disease (CKD) is defined as the abnormalities of kidney structure or function, present for more than 3 months, with implications for health. CKD should be classified by cause, GFR category, and albuminuria category. KDIGO guidelines provide the following GFR categories. Stage / Description / GFR mL/min/1.73 m2: G1* / Normal or high / >= 90 G2* / Mildly decreased / 60-89 G3a / Mildly to moderately decreased / 45-59 G3b / Moderately to severely decreased / 30-44 G4 / Severely decreased / 15-29 G5 / Kidney failure / <15 *In the absence of evidence of kidney damage, neither G1 nor G2 fulfill criteria for CKD. Tot Protein 7.2 6.4 - 8.3 gm/dL 06/27/2023 6:05 PM [facility] Comment:This result was prev iously suppressed from the chart. Calcium Level Total 9.6 8.2 - 10.2 mg/dL 06/27/2023 6:05 PM [facility] Comment:This result was prev iously suppressed from the chart. Alkaline Phosphatase 92 40 - 129 U/L 06/27/2023 6:05 PM [facility] Comment:This result was prev iously suppressed from the chart. Albumin Level 4.0 3.5 - 5.2 gm/dL 06/27/2023 6:05 PM [facility] Comment:This result was prev iously suppressed from the chart. AST 14 <=40 U/L 06/27/2023 6:05 PM [facility] Comment:This result was prev iously suppressed from the chart. ALT 17 <=41 U/L 06/27/2023 6:05 PM [facility] Comment:This result was prev iously suppressed from the chart. Sodium Level 134(L) 136 - 145 mmol/L 06/27/2023 6:05 PM [facility] Comment:This result was prev iously suppressed from the chart. Potassium Level 4.0 3.4 - 4.5 mmol/L 06/27/2023 6:05 PM [facility] Comment:This result was prev iously suppressed from the chart. Chloride 99 98 - 107 mmol/L 06/27/2023 6:05 PM [facility] Comment:This result was prev iously suppressed from the chart. CO2 26 22 - 29 mmol/L 06/27/2023 6:05 PM [facility] Comment:This result was prev iously suppressed from the chart. Anion Gap 9 4 - 14 mmol/L 06/27/2023 6:05 PM [facility] Comment:This result was prev iously suppressed from the chart. Creatinine 0.77 0.67 - 1.17 mg/dL 06/27/2023 6:05 PM [facility] Comment:This result was prev iously suppressed from the chart. BUN 17 6 - 23 mg/dL 06/27/2023 6:05 PM TOWEL DISTRIBUTOR [facility] Comment:This result was prev iously suppressed from the chart. Glucose Level 98 70 - 99 mg/dL 06/27/2023 6:05 PM TOWEL DISTRIBUTOR [facility] Comment: Effective 01/26/16, the glucose reference intervals have been updated based on [place] [employer] guidelines (Standards of Medical Care in Diabetes 2016. Diabetes Care 2016; 39: S13-S22). Fasting blood glucose: Normal: 70-99 mg/dL Impaired fasting glucose (increased risk for diabetes or pre-diabetes): 100-125 mg/dL Diabetes mellitus: >/=126 mg/dL Random blood glucose: Normal: 70-199 mg/dL Note: Random glucose >100 mg/dL is associated with increased risk for diabetes. This result was previously suppressed from the chart. Blood Peripheral blood specimen / Unknown Venipuncture / Unknown 06/27/2023 5:23 PM TOWEL DISTRIBUTOR 06/27/2023 5:30 PM TOWEL DISTRIBUTOR Jensen Zuleta MD LAB BLOOD ORDERABLES Performing Organization Address City/[facility] Co de Phone Number [facility] Unless otherwise noted, all lab tests performed by: Division of Pathology and Laboratory Medicine [address] [place] [id number] * aPTT (06/27/2023 5:23 PM TOWEL DISTRIBUTOR) Pathologist [facility] Activated PTT 24.7 24.1 - 35.5 second(s) 06/27/2023 6:14 PM TOWEL DISTRIBUTOR [facility] Blood Peripheral blood specimen / Unknown Venipuncture / Unknown 06/27/2023 5:23 PM TOWEL DISTRIBUTOR 06/27/2023 5:30 PM TOWEL DISTRIBUTOR Jensen Zuleta MD LAB BLOOD ORDERABLES [facility] Unless otherwise noted, all lab tests performed by: Division of Pathology and Laboratory Medicine [address] [place] [id number] * Prothrombin Time with INR (06/27/2023 5:23 PM TOWEL DISTRIBUTOR) [facility] Prothrombin Time 13.0 11.9 - 14.5 second(s) 06/27/2023 6:14 PM TOWEL DISTRIBUTOR [facility] International Normalization Ratio 0.99 0.87 - 1.12 06/27/2023 6:14 PM TOWEL DISTRIBUTOR [facility] Blood Peripheral blood specimen / Unknown Venipuncture / Unknown 06/27/2023 5:23 PM TOWEL DISTRIBUTOR 06/27/2023 5:30 PM TOWEL DISTRIBUTOR Jensen Zuleta MD LAB BLOOD ORDERABLES [facility] Unless otherwise noted, all lab tests performed by: Division of Pathology and Laboratory Medicine [facility] [place] [address] after 10/23/2022 Advance Directives Latest Code Status on File Code Status Date Activated Date Inactivated Comments Full Code 06/27/2023 8:32 PM 07/12/2023 3:12 PM
[2023-10-23 14:19] LABS: Absolute Lymphocytes (CBC) 1.1 K/uL (0.7-4.9); Absolute Monocytes 1.2 K/uL (0.1-1.3); Absolute Neutrophil 13.6 K/uL (1.8-8.0); Basophils % 0.1 % (0-1.3); Hemoglobin 10.9 g/dL (13.6-17.9); Lymphocytes % 7.1 % (15.3-44.8); MCHC 32.2 g/dL (32.0-36.0); MCV 105.5 fL (80-100); MPV 8.2 fL (7.6-11.3); Monocytes % 7.8 % (3.3-12.3); Nucleated Red Blood Cells % 0.2 % (0-0); Platelets 271 thou/uL (152-406); RBC Red Blood Cell Count 3.22 M/uL (4.33-5.43); Red Cell Distribution Width 15.7 % (12.1-15.2)
[2023-10-23 14:26] LABS: Albumin/Globulin Ratio 0.9 (1.1-1.8); Anion Gap 7.7 mEq/L (5.0-15.0); Bilirubin Total 0.7 mg/dL (0.2-1.0); Globulin 3.5 g/dL (2.3-3.5); Potassium 3.7 mEq/L (3.5-5.1); Protein, Total 6.5 g/dL (6.4-8.2)
--- NOTE | 2023-10-23 14:58 | RAD REPORT ---
EXAM DESCRIPTION: CT - Soft Tissue Neck W/Contr - 10/23/2023 2:40 pm CLINICAL HISTORY: Neck pain. Thick secretions from tracheostomy tube COMPARISON: None. TECHNIQUE: Computed axial tomography of the neck was obtained. 50 cc Isovue 300 was administered in travenously. Coronal and sagittal reconstruction was performed. All CT scans are performed using dose optimization technique as appropriate and may include automated exposure control or mA/KV adjustment according to patient size. FINDINGS: Tracheostomy tube in place. Subglottic trachea otherwise unremarkable. The pharynx, tongue base, and larynx appear unremarkable The parotid, submandibular and thyroid glands appear unremarkable. No lymphadenopathy is seen No fluid within the sinuses/mastoids IMPRESSION: No significant abnormality is displayed
--- NOTE | 2023-10-23 15:28 | RAD REPORT ---
EXAM DESCRIPTION: RAD - ENTEROSTOMY TUBE CHECK W/CONTR - 10/23/2023 3:01 pm CLINICAL HISTORY: Gastrostomy tube placement FINDINGS: Contrast was administered into the percutaneous gastrostomy tube. The stomach is opacified . No extravasation contrast Zero fluoroscopy performed. Zero fluoroscopic spot images obtained
[2023-10-23 15:32] LABS: Anisocytosis 1+; Band Neutrophils 3 % (0-1); Blood Morphology Comment NOTED (NOT SEEN); Differential Total Cells Count 100; Lymphocytes 7 % (15-42); Macrocytosis 1+; Monocytes 10 % (0-10); Platelet Estimate ADEQ; Segmented Neutrophils 80 % (40-80)
--- NOTE | 2023-10-23 15:47 | RAD REPORT ---
EXAM DESCRIPTION: Matilde Single View10/23/2023 3:00 pm CLINICAL HISTORY: Shortness breath COMPARISON: none FINDINGS: Opacity right lung base Remainder the lungs appear clear of acute infiltrate. Heart is borderline enlarged IMPRESSION: Right lung opacity may represent pneumonia, lung mass or hernia
[2023-10-23] MEDS ORDERED: NA CHLORIDE 0.9% 250 ML ONE (15:52)
[2023-10-23] MEDS ORDERED: CEFTRIAXONE 1000 MG/VIAL ONE (15:52)
[2023-10-23] MEDS ORDERED: AZITHROMYCIN 500 MG INJ IVPB ONE (15:52)
--- NOTE | 2023-10-23 16:07 | EDPHYS ---
Physician Documentation [facility] [place] Name: Arturo Gregorio Age: 58 yrs Sex: Male : 1965 Arrival Date: 10/23/2023 Time: 12:57 Bed 4 Private MD: Dequan Kruger ED Physician Truman Ellison HPI: 10/22 13:16 This 58 yrs old Male presents to ER via Wheelchair with complaints of Trach kb problem. 13:16 Pt is a 58 year old male who was brought in for increased drainage from tracheostomy. kb Family states pt was discharged on 10/03/[address] [facility] after having tracheostomy placed. States he normally has thick, clear drainage, but over the weekend it became a brownish color and she has had to suction him more frequently. States the drainage is similar in color to the food she puts through his PEG tube. Also requests his PEG tube be checked because it seems to have come out a little further than it was when he came home. Denies fever. States BP is normally in the 90s systolic and oxygen saturation is normally low 90s as well. . Historical: - Allergies: 13:11 No Known Allergies; ap3 - PMHx: 13:11 brain tumor; trach-Aug 2023; ap3 - Immunization history:: Client reports receiving the 2nd dose of the Covid vaccine. - Infectious Disease History:: Denies. - Social history:: Smoking status: Patient denies any tobacco usage or history of. ROS: 13:15 Constitutional: As per HPI kb Exam: 13:15 Constitutional: This is a well developed, well nourished patient who is awake, alert, kb and in no acute distress. Head/Face: Normocephalic, atraumatic. Cardiovascular: Regular rate Abdomen/GI: Soft, non-tender. No distention Skin: Warm, dry with normal turgor. Normal color. MS/ Extremity: Pulses equal, no cyanosis. Neurovascular intact. Full, normal range of motion. 13:15 Neck: Trachea: tracheostomy in place. 13:15 Respiratory: the patient does not display signs of respiratory distress, Respirations: normal, Breath sounds: rhonchi, that are mild, are heard in the right middle lobe and right lower lobe, 13:19 Abdomen/GI: Inspection: PEG tube to left side of abd without redness, drainage, kb 13:53 ECG was reviewed by the Attending Physician. kb Vital Signs: 13:07 BP 97 / 64; Pulse 78; Resp 19; Pulse Ox 93% on R/A; Weight 46.27 kg; ap3 13:07 Temp 98.1; ap3 14:50 BP 107 / 71; Pulse 66; Resp 23 S; Pulse Ox 97% on R/A; as6 15:59 BP 117 / 78; Pulse 71; Resp 19 S; Pulse Ox 95% on R/A; as6 17:27 BP 101 / 76; Pulse 72; Resp 21 S; Pulse Ox 95% on R/A; as6 MDM: 13:02 Patient medically screened. kb 13:16 Data reviewed: vital signs, nurses notes. kb 16:05 Differential diagnosis: pneumonia, aspiration, GERD, PEG tube displacement. kb Consideration of Admission/Observation Patient was admitted/placed on observation. Escalation of care including admission/observation considered. Management of patient was discussed with the following: Hospitalist: Hospitalist team, pt accepted for admission under Dr Serrano. Historians other than the Patient: Family Member: family. Counseling: I had a detailed discussion with the patient and/or guardian regarding the historical points, exam findings, and any diagnostic results supporting the discharge/admit diagnosis, lab results, radiology results, the need for further work-up and treatment in the hospital. 10/22 13:14 Order name: Blood Culture Adult (2) 10/22 13:14 Order name: CBC with Diff; Complete Time: 15:39 kb 10/22 13:14 Order name: CMP; Complete Time: 14:30 kb 10/22 13:14 Order name: Lactate w/ 2H reflex if indic.; Complete Time: 14:30 kb 10/22 13:14 Order name: Protime (+inr) 10/22 13:14 Order name: Ptt, Activated 10/22 14:40 Order name: Manual Differential; Complete Time: 15:39 EDMS 10/22 16:07 Order name: Sputum Culture 10/22 13:14 Order name: Chest Single View XRAY; Complete Time: 15:49 kb 10/22 13:14 Order name: CT Soft Tissue Neck W/contr; Complete Time: 14:59 kb 10/22 13:14 Order name: PEG Tube Check w/contrast; Complete Time: 15:39 kb 10/22 13:14 Order name: EKG; Complete Time: 13:15 kb 10/22 13:14 Order name: Cardiac monitoring; Complete Time: 14:02 kb 10/22 13:14 Order name: EKG - Nurse/Tech; Complete Time: 14:02 kb 10/22 13:14 Order name: IV Saline Lock - Large Bore; Complete Time: 14:02 kb 10/22 13:14 Order name: Labs collected and sent; Complete Time: 14:02 kb 10/22 13:14 Order name: O2 Per Protocol; Complete Time: 14:02 kb 10/22 13:14 Order name: O2 Sat Monitoring; Complete Time: 14:02 kb 10/22 13:14 Order name: Vital Signs; Complete Time: 14:02 kb EC:53 Rate is 75 beats/min. Rhythm is regular. QRS [place] is Normal. MO interval is normal at kb 130 msec. QRS interval is normal at 88 msec. QT interval is normal at 435 msec. Administered Medications: 15:59 Drug: Rocephin IV 1 grams IV at calculated rate once; Given slow IV push per pharmacy as6 instructions Route: IV; Rate: calculated rate; Site: right forearm; 17:05 Follow up: Response: No adverse reaction; IV Status: Completed infusion; IV Intake: [id number] 15:59 Drug: Zithromax IVPB 500 mg IVPB once over 1 hrs; mix in 250 mL NS Route: IVPB; Infused as6 Over: 1 hrs; Site: right forearm; 17:05 Follow up: Response: No adverse reaction; IV Status: Completed infusion; IV Intake: as6 250ml Disposition: 14:00 I was immediately available on-site in the Emergency Department for consultation in the ms3 care of the patient. Disposition Summary: 10/23/23 16:06 Hospitalization Ordered Notes: Hospitalization Status: Inpatient Admission kb Provider: Cain Serrano Location: Telemetry/[facility] (Inpatient) kb Condition: Stable kb Problem: new kb Symptoms: are unchanged kb Bed/Room Type: Standard Room Assignment: 411(10/23/23 16:52) bd Diagnosis - Pneumonia, unspecified organism kb Discharge Instructions: - Discharge Summary Sheet smi Forms: - Medication Reconciliation Form kb - SBAR form kb - Leadership Thank You Letter kb Signatures: Dispatcher [employer] EDMS Tatyana Mendez, DIGITAL ARCHIVIST-C DIGITAL ARCHIVIST-Ckb Sarah Gonsalez Amanda, RN RN ap3 Truman Ellison DO DO ms3 Josiah Bran, RN RN as6 Corrections: (The following items were deleted from the chart) 13:15 13:15 BLOOD CULTURE*+BA.LAB.BRZ ordered. EDMS EDMS 13:15 13:15 CBC+H.LAB.BRZ ordered. EDMS EDMS 13:15 13:15 COMPREHENSIVE METABOLIC PANEL+C.LAB.BRZ ordered. EDMS EDMS 13:15 13:15 LACTATE+C.LAB.BRZ ordered. EDMS EDMS 13:15 13:15 PROTIME (+INR)+COAG.LAB.BRZ ordered. EDMS EDMS 13:15 13:15 PTT, ACTIVATED+COAG.LAB.BRZ ordered. EDMS EDMS 16:07 16:07 Sputum Culture+BA.LAB.BRZ ordered. EDMS EDMS 16:52 16:06 kb bd
--- NOTE | 2023-10-23 16:07 | ER ---
Nurse's Notes [facility] Name: Arturo Gregorio Age: 58 yrs Sex: Male : 1965 Arrival Date: 10/23/2023 Time: 12:57 Bed 4 Private MD: Dequan Kruger Diagnosis: Pneumonia, unspecified organism Presentation: 10/22 13:07 Chief complaint: Spouse and/or significant other states: the patient has been having ap3 thick, discolored secretions from his trach since the weekend. it is also reported that the patient was having lower than normal oxygen level and blood pressure reading. Wheel Grinder in triage reports that triage vitals reflect patients baseline. Coronavirus screen: At this time, the client does not indicate any symptoms associated with coronavirus-19. Ebola Screen: No symptoms or risks identified at this time. Initial Sepsis Screen: Does the patient meet any 2 criteria? No. Patient's initial sepsis screen is negative. Does the patient have a suspected source of infection? No. Patient's initial sepsis screen is negative. Risk Assessment: Do you want to hurt yourself or someone else? Patient reports no desire to harm self or others. Onset of symptoms is unknown. 13:07 Method Of Arrival: Wheelchair ap3 13:07 Acuity: NELLI 3 ap3 Triage Assessment: 13:13 General: Appears in no apparent distress. Behavior is calm, cooperative. Pain: Denies ap3 pain. Neuro: Level of Consciousness is awake, alert, obeys commands, Oriented to person, place, time, situation. Cardiovascular: Reports None. Respiratory: Parent/caregiver reports the patient having increased secretions, discolored secretions, increased need for suctioning. Historical: - Allergies: 13:11 No Known Allergies; ap3 - PMHx: 13:11 brain tumor; trach-Aug 2023; ap3 - Immunization history:: Client reports receiving the 2nd dose of the Covid vaccine. - Infectious Disease History:: Denies. - Social history:: Smoking status: Patient denies any tobacco usage or history of. Screenin:16 [facility] ED Fall Risk Assessment (Adult) History of falling in the last 3 months, rs5 including since admission No falls in past 3 months (0 pts) Confusion or Disorientation No (0 pts) Intoxicated or Sedated No (0 pts) Impaired Gait No (0 pts) Mobility Assist Device Used No (0 pt) Altered Elimination No (0 pt) Score/Fall Risk Level 0 - 2 = Low Risk Oriented to surroundings, Maintained a safe environment. Abuse screen: Denies threats or abuse. Nutritional screening: No deficits noted. Tuberculosis screening: No symptoms or risk factors identified. Assessment: 13:16 General: Appears in no apparent distress. comfortable, Behavior is calm, cooperative. rs5 Pain: Denies pain. Neuro: Level of Consciousness is awake, alert, obeys commands, Oriented to person, place, time, situation. Cardiovascular: Patient's skin is warm and dry. Rhythm is regular. Respiratory: Airway via trache Trachea midline Respiratory effort is even, unlabored, Respiratory pattern is regular, symmetrical, caregiver reports "his trach has been oozing brown secretions". 13:16 GI: Abdomen is flat, non-distended, Abd is soft and non tender X 4 quads. : No signs rs5 and/or symptoms were reported regarding the genitourinary system. EENT: No signs and/or symptoms were reported regarding the EENT system. Derm: Skin is intact, Skin is pink, warm \\T\\ dry. Musculoskeletal: Range of motion: intact in all extremities. 14:50 Reassessment: Patient appears in no apparent distress at this time. Patient and/or as6 family updated on plan of care and expected duration. Pain level reassessed. Patient is alert, oriented x 3, equal unlabored respirations, skin warm/dry/pink. 15:53 Reassessment: No changes from previously documented assessment. rs5 16:38 Reassessment: Patient and/or family updated on plan of care and expected duration. Pain rs5 level reassessed. Patient is alert, oriented x 3, equal unlabored respirations, skin warm/dry/pink. 17:02 General: report faxed, called to notify of fax, no answer . as6 17:31 General: pt does not want to be in a gown at this time . as6 Vital Signs: 13:07 BP 97 / 64; Pulse 78; Resp 19; Pulse Ox 93% on R/A; Weight 46.27 kg; ap3 13:07 Temp 98.1; ap3 14:50 BP 107 / 71; Pulse 66; Resp 23 S; Pulse Ox 97% on R/A; as6 15:59 BP 117 / 78; Pulse 71; Resp 19 S; Pulse Ox 95% on R/A; as6 17:27 BP 101 / 76; Pulse 72; Resp 21 S; Pulse Ox 95% on R/A; as6 ED Course: 12:59 Patient arrived in ED. mr 12:59 Dequan Kruger DO is Private Physician. mr 13:02 [facility] Mendez [facility]-C [facility]. kb 13:02 Truman Ellison DO is Attending Physician. kb 13:11 Triage completed. ap3 13:14 Arm band placed on right wrist. ap3 13:16 Patient has correct armband on for positive identification. Placed in gown. Bed in low rs5 position. Call light in reach. Side rails up X2. 13:16 No provider procedures requiring assistance completed. rs5 13:32 Zackary Claudio, RN is Primary Nurse. rs5 14:02 Inserted saline lock: 22 gauge in right forearm, using aseptic technique. Blood as6 collected. 14:02 Blood Culture Adult (2) Sent. as6 14:02 CBC with Diff Sent. as6 14:02 CMP Sent. as6 14:02 Lactate w/ 2H reflex if indic. Sent. as6 14:02 Protime (+inr) Sent. as6 14:02 Ptt, Activated Sent. as6 14:40 CT Soft Tissue Neck W/contr In Process Unspecified. EDMS 15:02 Chest Single View XRAY In Process Unspecified. EDMS 15:03 PEG Tube Check w/contrast In Process Unspecified. EDMS 16:06 Cain Serrano MD is Hospitalizing Provider. kb 16:56 Sputum Culture Sent. as6 17:04 Provided Education on: need for admit. as6 17:04 Patient admitted, IV remains in place. as6 Administered Medications: 15:59 Drug: Rocephin IV 1 grams IV at calculated rate once; Given slow IV push per pharmacy as6 instructions Route: IV; Rate: calculated rate; Site: right forearm; 17:05 Follow up: Response: No adverse reaction; IV Status: Completed infusion; IV Intake: [id number] 15:59 Drug: Zithromax IVPB 500 mg IVPB once over 1 hrs; mix in 250 mL NS Route: IVPB; Infused as6 Over: 1 hrs; Site: right forearm; 17:05 Follow up: Response: No adverse reaction; IV Status: Completed infusion; IV Intake: as6 250ml Medication: 15:52 VIS not applicable for this client. rs5 Intake: 17:05 IV: 10ml; Total: 10ml. as6 17:05 IV: 250ml; Total: 260ml. as6 Outcome: 16:06 Decision to Hospitalize by Provider. kb 17:04 Admitted to Tele family with patient, via wheelchair, room 411, with chart, as6 17:04 Condition: stable 17:04 Instructed on the need for admit, 17:38 Patient left the ED. as6 Signatures: Dispatcher [employer] EDMS Tatyana Mendez, LAPIDARY APPRENTICE-C LAPIDARY APPRENTICE-Flaquita Denton, Reg Reg mr Demi Hernandez, RN RN [email or web address] Josiah Bran, YESENIA RN as6 Zackary Claudio RN RN rs5
--- NOTE | 2023-10-23 17:14 | P.HP ---
Certification for Inpatient Patient admitted to: Inpatient With expected LOS: >2 Midnights Patient will require the following post-hospital care: None Practitioner: I am a practitioner with admitting privileges, knowledge of patient current condition, hospital course, and medical plan of care. 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 earlier this year with tracheostomy placement August 2023 presents emergency department chief complaint of low oxygen levels, low blood pressure, increased tracheostomy output with thick/foul-smelling sputum for the past few days. Patient was treated at [facility] and had a biopsy, tumor was apparently nonmalignant and he is on chronic steroids with Decadron 4 mg by mouth twice daily pending further follow-up with neurosurgery/possible radiation treatment. His reports that for the past few days he has been having increased tracheostomy output with foul-smelling, thick secretions and his oxygen level/blood pressure has been running lower to his normal. His normal blood pressure is around 90 systolic and normal oxygen saturations in the low 90s, his O2 sat at home was in the high 80s without oxygen, patient does wear oxygen at home at bedtime. Patient was evaluated in the emergency department his labs were notable for leukocytosis, chest x-ray showed suspected right lower lobe pneumonia, lactic acid 1.2. 80 right wrist admit patient for further evaluation management of sepsis, right lower lobe pneumonia Allergies No Known Allergies Allergy (Unverified 06/21/19 17:36) Home Medications: Aspirin Tab [Hernandez Aspirin*] 325 mg PO DAILY tab 06/22/19 - Past Medical/Surgical History Diabetic: No -: retinal detahcment -: Glioma brainstem -: retinal detachment -: Tracheostomy placement August 2023 -: Brain mass biopsy Psychosocial/ Personal History: Lives at home with his , has home health/physical therapy - Family History Father -: Heart disease - Social History Smoking Status: Never smoker Alcohol use: Yes CD- Drugs: No Caffeine use: Yes Place of Residence: Home Review of Systems 10-point ROS is otherwise unremarkable Respiratory: Cough, Shortness of Breath, Sputum Physical Examination - Physical Exam General: Alert, In no apparent distress, Oriented x3 HEENT: Atraumatic, PERRLA, Mucous membr. moist/pink Neck: Supple, 2+ carotid pulse no bruit, No LAD, Other (Trach in place) Respiratory: Normal air movement, Diminished Cardiovascular: Regular rate/rhythm, Normal S1 S2 Gastrointestinal: Normal bowel sounds, No tenderness Musculoskeletal: No tenderness Integumentary: No rashes Neurological: Normal speech, Normal tone, Normal affect, Abnormal strength (Left sided weakness) - Studies Laboratory Data (last 24 hrs) 10/23/23 10/23/23 13:58 13:58 WBC 16.00 H Hgb 10.9 L Hct 34.0 L Plt Count 271 Sodium 135 L Potassium 3.7 BUN 13 Creatinine 0.36 L Glucose 92 Total Bilirubin 0.7 AST 21 ALT 86 H Alkaline Phosphatase 154 H Assessment and Plan - Plan Assessment: Sepsis secondary to right lower lobe pneumonia-concern for possible aspiration/on chronic steroids History of tracheostomy placement 08/2023 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 Dysphagia secondary to brainstem mass with PEG tube in place Plan: Sepsis secondary to right lower lobe pneumonia-concern for possible aspiration/on chronic steroids History of tracheostomy placement 08/2023 SIRS criteria present including leukocytosis, tachypnea Lactic acid less than 2, he meets for today for sepsis secondary to right lower lobe pneumonia Patient takes Decadron 4 mg by feeding tube twice daily for his brain mass He does take dapsone 100 mg daily for prophylaxis-this has been continued Blood and sputum cultures obtained-will follow Started on Levaquin, ID consulted 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 Continue steroids, supportive care Further management as an outpatient Dysphagia secondary to brainstem mass with PEG tube in place Family reports he deals with chronic constipation Was supposed be on Isosource 1.5-5 times daily reports he has not been able to tolerate that much and has only been getting about 2 times per day Feels like he has a bad taste in his mouth/feeling full much sooner with feeds Started Jevity 1.5 with half the volume 4 times daily for now Speech, dietitian consults DVT PPX: Lovenox Code status: Full Discharge Plan: Home Plan to discharge in: 72 Hours - Advance Directives Does patient have a Living Will: No Does patient have a Durable POA for Healthcare: No - Code Status/Comfort Care Code Status Assessed: Yes (Full code) Critical Care: No Time Spent Managing Pts Care (In Minutes): 70
[2023-10-23 18:26] VITALS: BMI 16.5
[2023-10-23] MEDS ORDERED: ALBUTEROL 2.5 MG/3 ML NEB SOL NEB PRN (18:35)
[2023-10-23] MEDS ORDERED: ACETAMINOPHEN 325 MG TABLET FT PRN (18:35)
[2023-10-23] MEDS: JEVITY 1.5 CAL LIQUID 1,000 ML BOT FT SCH (18:35)
[2023-10-23] MEDS: NA CHLORIDE 0.9% 1,000 ML IV SCH (19:44)
[2023-10-23 21:26] LABS: PT Prothrombin Time 10.7 SECONDS (9.5-12.5); Protime INR 0.9
[2023-10-23] MEDS: ENOXAPARIN 40 MG/0.4 ML SQ SCH (21:32)
[2023-10-23] MEDS: dexAMETHasone 4 MG TAB FT SCH (21:33)
[2023-10-23] MEDS: MIDODRINE HCL 5 MG TABLET FT SCH (21:33)
[2023-10-23] MEDS: FAMOTIDINE 20 MG TAB FT SCH (21:33)
[2023-10-24 06:30] LABS: Basophils % 0.1 % (0-1.3); Hemoglobin 10.2 g/dL (13.6-17.9); Lymphocytes % 8.8 % (15.3-44.8); MCH 34.4 pg (27.0-35.0); MCHC 32.9 g/dL (32.0-36.0); MCV 104.4 fL (80-100); MPV 8.3 fL (7.6-11.3); Monocytes % 8.8 % (3.3-12.3); Neutrophils % 82.3 % (41.7-73.7); Nucleated Red Blood Cells % 0.4 % (0-0); Platelets 260 thou/uL (152-406); RBC Red Blood Cell Count 2.96 M/uL (4.33-5.43); Red Cell Distribution Width 15.4 % (12.1-15.2)
[2023-10-24 06:48] LABS: Albumin 2.7 g/dL (3.4-5.0); Albumin/Globulin Ratio 0.9 (1.1-1.8); Anion Gap 6.3 mEq/L (5.0-15.0); Bilirubin Total 0.7 mg/dL (0.2-1.0); Globulin 3.1 g/dL (2.3-3.5); Magnesium 2.1 mg/dL (1.6-2.4); Phosphorus 3.9 mg/dL (2.5-4.9); Potassium 4.3 mEq/L (3.5-5.1); Protein, Total 5.8 g/dL (6.4-8.2)
--- NOTE | 2023-10-24 07:14 | RAD REPORT ---
EXAM DESCRIPTION: RAD - Abdomen 1 View (KUB) - 10/24/2023 4:39 am CLINICAL HISTORY: Abdomen pain FINDINGS: The bowel gas pattern is unremarkable. The contrast is present within the colon. Gastrostomy tube overlies the stomach No significant abnormal calcification is displayed
--- NOTE | 2023-10-24 09:49 | P.CNS ---
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 earlier this year with tracheostomy placement August 2023 presents emergency department chief complaint of low oxygen levels, low blood pressure, increased tracheostomy output with thick/foul-smelling sputum for the past few days." Allergies No Known Allergies Allergy (Unverified 06/21/19 17:36) Home medications list reviewed: Yes Home Medications: Cetirizine HCl 10 mg FT DAILY 10/23/23 Dapsone [Dapsone*] 1 tab FT DAILY 10/23/23 Famotidine 1 tab FT BID 10/23/23 Fludrocortisone [Florinef *] 1 tab FT DAILY 10/23/23 Midodrine HCl 3 tab FT TID 10/23/23 dexAMETHasone [Dexamethasone] 1 tab FT BID 10/23/23 - Past Medical/Surgical History Diabetic: No -: retinal detahcment -: Glioma brainstem -: retinal detachment -: Tracheostomy placement August 2023 -: Brain mass biopsy Psychosocial/ Personal History: Lives at home with his , has home health/physical therapy - Family History Father Medical History: Heart disease - Social History Alcohol use: Yes CD- Drugs: No Caffeine use: Yes Place of Residence: Home Review of Systems 10-point ROS is otherwise unremarkable Respiratory: Cough Physical Examination Temp Pulse Resp BP Pulse Ox 97.6 F 64 17 105/61 91 10/24/23 04:00 10/24/23 04:00 10/24/23 04:00 10/24/23 04:00 10/24/23 04:00 General: Alert, In no apparent distress, Oriented x3 HEENT: Atraumatic, Normocephalic Neck: Other (tracheostomy) Respiratory: Diminished (at bases), Crackles/rales, Other (tracheostomy) Cardiovascular: No edema, Regular rate/rhythm Gastrointestinal: Normal bowel sounds, Non-distended, Other (PEG tube) Integumentary: No rashes Laboratory Data - Reviewed Microbiology Data - Reviewed Imagings Data: - Reviewed Conclusions/Impression: Problem List Sepsis 2/2 right lower lobe pneumonia tracheostomy placement brainstem mass dysphagia PEG tube Sepsis 2/2 right lower lobe pneumonia - blood culture 4/23: pending - sputum culture 10/22: 2+ gram negative rods - on chronic high dose steroids for brain mass - XR Chest 10/22: " Right lung opacity may represent pneumonia, lung mass or hernia " - started on levaquin 10/23 - leukocytosis improved (WBC 16 -> 10.9). Afebrile. Recommendations - PNA, chronic steroids, trach: continue levaquin for now. follow up with final sputum culture/sensitivity results. will adjust antibiotics as appropriate. - Continue with home Dapsone - aspiration precautions - continue supportive care Case discussed with Burt De La Paz
[2023-10-24] MEDS: Levofloxacin 750mg IV 750 MG/150 ML BAG IV SCH (10:54)
[2023-10-24] MEDS: DAPSONE 100 MG TAB FT SCH (10:55)
[2023-10-24] MEDS: FLUDROCORTISONE 0.1 MG TAB FT SCH (10:55)
--- NOTE | 2023-10-24 11:54 | P.PN ---
Date of Service: 10/24/23 Subjective: Feeling better today Tolerating tube feeds No givens benign ROS: 10 point ROS as noted above, otherwise negative Physical exam GEN: Alert, oriented, NAD HEENT: Normal conjunctiva, sclera anicteric, tracheostomy in place with trach mask in place CV: Regular rate and rhythm, no edema Pulm: Nonlabored respirations on room air ABD: Soft, nontender, nondistended MSK: No joint tenderness Integumentary: No rashes Neuro: Speech mildly slurred, left-sided weakness, normal affect Vitals reviewed Assessment: Sepsis secondary to right lower lobe pneumonia-concern for possible aspiration/on chronic steroids History of tracheostomy placement 08/2023 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 Dysphagia secondary to brainstem mass with PEG tube in place Plan: Sepsis secondary to right lower lobe pneumonia-concern for possible aspiration/on chronic steroids History of tracheostomy placement 08/2023 SIRS criteria present including leukocytosis, tachypnea Lactic acid less than 2, he meets for today for sepsis secondary to right lower lobe pneumonia Patient takes Decadron 4 mg by feeding tube twice daily for his brain mass He does take dapsone 100 mg daily for prophylaxis-this has been continued Blood and sputum cultures obtained-will follow Sputum culture with 2+ gram-negative rods preliminarily Started on Levaquin, ID following 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 Continue steroids, supportive care Further management as an outpatient Dysphagia secondary to brainstem mass with PEG tube in place Family reports he deals with chronic constipation Was supposed be on Isosource 1.5-5 times daily reports he has not been able to tolerate that much and has only been getting about 2 times per day Feels like he has a bad taste in his mouth/feeling full much sooner with feeds Started Jevity 1.5 with half the volume 4 times daily for now Speech, dietitian consults DVT PPX: Lovenox Code status: Full Discharge Plan: Home Plan to discharge in: 72 Hours Time Spent Managing Pts Care (In Minutes): 35 <Robbin Gaitan - Last Filed: 10/24/23 11:54> Patient seen and examined on rounds this morning with AGILE QA TESTER Kandy. I performed a substantial part of the MDM during this patient's care today as noted above in the plan of care. I agree with plan of care as noted above with the following additions / corrections: Feels better tolerating tube feeds at lower volume for now seems felt full only for last 2-3 days, likely secondary to infection chief controller tower consulted f/u cultures ID consulted continue antibiotics <Cain Serrano - Last Filed: 10/24/23 21:13>
[2023-10-24] MEDS: JEVITY 1.5 CAL LIQUID 1,000 ML BOT FT SCH (17:09)
[2023-10-24] MEDS: FAMOTIDINE 20 MG/2 ML VIAL IV SCH (22:43)
[2023-10-24] MEDS: dexAMETHasone 4 MG/ML VIAL IV SCH (22:43)
[2023-10-25 06:55] LABS: Albumin 2.7 g/dL (3.4-5.0); Albumin/Globulin Ratio 0.8 (1.1-1.8); Anion Gap 7.6 mEq/L (5.0-15.0); Bilirubin Total 0.9 mg/dL (0.2-1.0); Globulin 3.4 g/dL (2.3-3.5); Magnesium 2.1 mg/dL (1.6-2.4); Phosphorus 4.1 mg/dL (2.5-4.9); Potassium 4.6 mEq/L (3.5-5.1); Protein, Total 6.1 g/dL (6.4-8.2)
[2023-10-25 06:57] LABS: Absolute Lymphocytes (CBC) 0.9 K/uL (0.7-4.9); Absolute Monocytes 0.8 K/uL (0.1-1.3); Absolute Neutrophil 7.5 K/uL (1.8-8.0); Basophils % 0.1 % (0-1.3); Hematocrit 32.6 % (39.6-49.0); Hemoglobin 11.1 g/dL (13.6-17.9); Lymphocytes % 10.2 % (15.3-44.8); MCH 35.2 pg (27.0-35.0); MCHC 34.1 g/dL (32.0-36.0); MCV 103.3 fL (80-100); MPV 8.3 fL (7.6-11.3); Neutrophils % 80.7 % (41.7-73.7); Nucleated Red Blood Cells % 0.2 % (0-0); Platelets 303 thou/uL (152-406); RBC Red Blood Cell Count 3.15 M/uL (4.33-5.43); Red Cell Distribution Width 15.1 % (12.1-15.2)
--- NOTE | 2023-10-25 08:15 | P.PN ---
INFECTIOUS DISEASE PROGRESS NOTE Subjective: Improving In no apparent distress. Denies any new/worsening complaints at this time. Plan of care discussed with patient and at bedside. Physical Examination Temp Pulse Resp BP Pulse Ox 97.1 F 72 18 101/62 96 10/25/23 04:00 10/25/23 04:00 10/25/23 04:00 10/25/23 04:00 10/25/23 04:00 General: Alert, In no apparent distress, Oriented x3 HEENT: Atraumatic, Normocephalic Neck: trach Respiratory: Crackles/rales. tracheostomy. Cardiovascular: No edema, Regular rate/rhythm Gastrointestinal: Normal bowel sounds, Non-distended. Nontender. PEG tube. Integumentary: No rashes Laboratory Data - Reviewed Microbiology Data - Reviewed Imagings Data: - Reviewed Medications List: reviewed Assessment and Plan Problem List Sepsis 2/2 right lower lobe pneumonia tracheostomy placement brainstem mass dysphagia PEG tube Sepsis 2/2 right lower lobe pneumonia - blood culture 10/22: pending - sputum culture 10/22: 2+ gram negative rods - on chronic high dose steroids for brain mass - XR Chest 10/22: " Right lung opacity may represent pneumonia, lung mass or hernia " - Received dose of Rocephin and Azithromycin in ED. - On levaquin (started 10/23) - leukocytosis resolved. Afebrile. Recommendations - PNA, chronic steroids, trach: sputum culture growing klebsiella, sensitive to levaquin. - Continue levaquin x 7 days (10/23-10/29) - monitor CBC and fever trends - Continue with home Dapsone - continue supportive care - follow up with PCP as outpatient in 1-2 weeks Case discussed with Burt De La Paz
--- NOTE | 2023-10-25 16:49 | EKG ---
Test Date: 2023-10-23 Test Time: 13:50:13 Sewing Teacher: PH MEASUREMENT RESULTS: Intervals: Rate: 75 NJ: 130 QRSD: 88 QT: 390 QTc: 435 Buhler: P: 43 NJ: 130 QRS: 51 T: 40 INTERPRETIVE STATEMENTS: Normal sinus rhythm Normal ECG No previous ECG available for comparison Electronically Signed On 10-25-23 16:42:59 CDT by Matthew Donis
--- NOTE | 2023-10-25 17:29 | P.PN ---
Date of Service: 10/25/23 Subjective: Doing well today on room air PEG tube clogged no acute events overnight ROS: 10 point ROS as noted above, otherwise negative Physical exam GEN: Alert, oriented, NAD HEENT: Normal conjunctiva, sclera anicteric, tracheostomy in place with trach mask in place CV: Regular rate and rhythm, no edema Pulm: Nonlabored respirations on room air ABD: Soft, nontender, nondistended, PEG tube in place MSK: No joint tenderness Integumentary: No rashes Neuro: Speech mildly slurred, left-sided weakness, normal affect Vitals reviewed Assessment: Sepsis secondary to right lower lobe pneumonia-concern for possible aspiration/on chronic steroids History of tracheostomy placement 08/2023 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 Dysphagia secondary to brainstem mass with PEG tube in place Plan: Sepsis secondary to right lower lobe pneumonia-concern for possible aspiration/on chronic steroids History of tracheostomy placement 08/2023 SIRS criteria present including leukocytosis, tachypnea Lactic acid less than 2, he meets for today for sepsis secondary to right lower lobe pneumonia Patient takes Decadron 4 mg by feeding tube twice daily for his brain mass He does take dapsone 100 mg daily for prophylaxis-this has been continued Blood cultures with no growth in 24 hours Sputum culture positive for Klebsiella pneumonia ID recommends additional 7 days of p.o. 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 Continue steroids, supportive care Further management as an outpatient Dysphagia secondary to brainstem mass with PEG tube in place Family reports he deals with chronic constipation Was supposed be on Isosource 1.5-5 times daily reports he has not been able to tolerate that much and has only been getting about 2 times per day Feels like he has a bad taste in his mouth/feeling full much sooner with feeds Seen by dietitian recommends 237 mL of tube feed either Isosource 1.5 or Jevity 1.5 4 times daily as tolerated DVT PPX: Lovenox Code status: Full Discharge Plan: Home Plan to discharge in: 24 hours Time Spent Managing Pts Care (In Minutes): 35 <Robbin Gaitan - Last Filed: 10/25/23 17:28> Patient seen and examined on rounds this morning with RING PACKER Kandy. I performed a substantial part of the MDM during this patient's care today as noted above in the plan of care. I agree with plan of care as noted above with the following additions / corrections: Doing well, feeling better. unable to get much of tube feeds at this point due to clogged PEG tube attempted water, warm/hot water, coke to no avail finally, this late afternoon I was able to unclog PEG tube using guide wire from dobhoff, no complications, no discomfort monitor overnight, if can tolerate tube feeds, anticipate dc home in AM <Cain Serrano - Last Filed: 10/25/23 20:54>
[2023-10-25] MEDS: dexAMETHasone 4 MG TAB FT SCH (21:20)
[2023-10-26 01:38] VITALS: O2SAT 93
[2023-10-26 06:47] LABS: Absolute Lymphocytes (CBC) 0.8 K/uL (0.7-4.9); Absolute Monocytes 1.3 K/uL (0.1-1.3); Absolute Neutrophil 11.2 K/uL (1.8-8.0); Basophils % 0.1 % (0-1.3); Hemoglobin 11.9 g/dL (13.6-17.9); MCHC 34.1 g/dL (32.0-36.0); MCV 102.7 fL (80-100); MPV 8.1 fL (7.6-11.3); Monocytes % 9.8 % (3.3-12.3); Neutrophils % 84.1 % (41.7-73.7); Nucleated Red Blood Cells % 0.2 % (0-0); Platelets 306 thou/uL (152-406); RBC Red Blood Cell Count 3.41 M/uL (4.33-5.43); Red Cell Distribution Width 15.2 % (12.1-15.2)
[2023-10-26 06:58] LABS: Albumin 2.8 g/dL (3.4-5.0); Albumin/Globulin Ratio 0.8 (1.1-1.8); Bilirubin Total 0.8 mg/dL (0.2-1.0); Globulin 3.4 g/dL (2.3-3.5); Magnesium 2.2 mg/dL (1.6-2.4); Phosphorus 3.8 mg/dL (2.5-4.9); Protein, Total 6.2 g/dL (6.4-8.2)
[2023-10-26 07:46] LABS: Blood Morphology Comment NOT SEEN (NOT SEEN); Platelet Estimate ADEQ; White Blood Cell Scan OK (OK)
--- NOTE | 2023-10-26 08:54 | P.DS ---
Admission Date: 10/23/23 Discharge Date: 10/26/23 Disposition: DC HOME/HOME HEALTH CARE Discharge Condition: GOOD Reason for Admission: Sepsis, pneumonia Consultations: Dr. Morgan- Infectious Disease Brief History of Present Illness: 58-year-old male with history of brainstem massglioma who was hospitalized at [facility] earlier this year with tracheostomy placement August 2023 presents emergency department chief complaint of low oxygen levels, low blood pressure, increased tracheostomy output with thick/foul-smelling sputum for the past few days. Patient was treated at [facility] and had a biopsy, tumor was apparently nonmalignant and he is on chronic steroids with Decadron 4 mg by mouth twice daily pending further follow-up with neurosurgery/possible radiation treatment. His reports that for the past few days he has been having increased tracheostomy output with foul-smelling, thick secretions and his oxygen level/blood pressure has been running lower to his normal. His normal blood pressure is around 90 systolic and normal oxygen saturations in the low 90s, his O2 sat at home was in the high 80s without oxygen, patient does wear oxygen at home at bedtime. 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 He was found to have a right-sided pneumonia. Blood and sputum cultures were obtained, blood cultures are without growth in 24 hours, sputum culture was positive for Klebsiella pneumoniae sensitive to levofloxacin which patient has been on. Initially his labs are significant for leukocytosis which has improved, patient is tolerating room air through his trach at this time. There was concern that some of the sputum appeared similar to the color of his tube feeds concerning for possible aspiration. reports that at discharge from the hospital after receiving his PEG tube they are instructed to take Isosource 1.5 255 mL bottle 5 times daily but patient can only tolerate 2 in 24 hours before feeling full and having a bad taste in his mouth for the past few weeks. Patient was evaluated by dietitian who recommended attempting 237 mL 4 times daily to see if patient can tolerate this. Patient's hospital course was complicated by clogged PEG tube which was able to be resolved with a guidewire, now functioning appropriately. 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 unlabored respirations) Cardiovascular: No edema, Regular rate/rhythm Gastrointestinal: Normal bowel sounds, Soft and benign, Non-distended, Other (PEG tube) Integumentary: No rashes Neurological: Other (left-sided weakness), Abnormal speech (mild slurring) Laboratory Data at Discharge: WBC 13.30 thou/uL (4.3-10.9) H 10/26/23 06:00 Hgb 11.9 g/dL (13.6-17.9) L 10/26/23 06:00 Hct 35.0 % (39.6-49.0) L 10/26/23 06:00 Plt Count 306 thou/uL (152-406) 10/26/23 06:00 PT 10.7 SECONDS (9.5-12.5) 10/23/23 13:58 INR 0.90 10/23/23 13:58 APTT 24.0 SECONDS (24.3-36.9) L 10/23/23 13:58 Sodium 135 mEq/L (136-145) L 10/26/23 06:00 Potassium 4.0 mEq/L (3.5-5.1) D 10/26/23 06:00 BUN 15 mg/dL (7-18) 10/26/23 06:00 Creatinine 0.45 mg/dL (0.70-1.30) L 10/26/23 06:00 Glucose 104 mg/dL (74-106) 10/26/23 06:00 Phosphorus 3.8 mg/dL (2.5-4.9) 10/26/23 06:00 Magnesium 2.2 mg/dL (1.6-2.4) 10/26/23 06:00 Total Bilirubin 0.8 mg/dL (0.2-1.0) 10/26/23 06:00 AST 22 U/L (15-37) 10/26/23 06:00 ALT 70 U/L (16-61) H 10/26/23 06:00 Alkaline Phosphatase 114 U/L (45-117) 10/26/23 06:00 Home Medications: Cetirizine HCl 10 mg FT DAILY 10/23/23 Dapsone [Dapsone*] 1 tab FT DAILY 10/23/23 Famotidine 1 tab FT BID 10/23/23 Fludrocortisone [Florinef *] 1 tab FT DAILY 10/23/23 Midodrine HCl 3 tab FT TID 10/23/23 dexAMETHasone [Dexamethasone] 1 tab FT BID 10/23/23 levoFLOXacin [Levaquin] 750 mg FT DAILY 7 Days #7 tab 10/25/23 New Medications: levoFLOXacin [Levaquin] 750 mg FT DAILY 7 Days #7 tab Physician Discharge Instructions: Patient with history of brainstem massglioma with trach, PEG tube in place presented to the emergency department with low blood pressure, hypoxia, purulent sputum. He was found to have a right-sided pneumonia. Blood and sputum cultures were obtained, blood cultures are without growth in 24 hours, sputum culture was positive for Klebsiella pneumoniae sensitive to levofloxacin which patient has been on. Initially his labs are significant for leukocytosis which has improved, patient is tolerating room air through his trach at this time. There was concern that some of the sputum appeared similar to the color of his tube feeds concerning for possible aspiration. reports that at discharge from the hospital after receiving his PEG tube they are instructed to take Isosource 1.5 255 mL bottle 5 times daily but patient can only tolerate 2 in 24 hours before feeling full and having a bad taste in his mouth for the past few weeks. Patient was evaluated by dietitian who recommended attempting 237 mL 4 times daily to see if patient can tolerate this. Patient's hospital course was complicated by clogged PEG tube which was able to be resolved with a guidewire, now functioning appropriately. 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 inner trach cannula and trach/PEG tube dressings Hospital Bed ordered on 10/24/23 (pending insurance authorization): [facility] [place] [facility] Address: [address] [place] [address], [place] [address] 10/25/23 - Ordered inner trach cannula and trach kit (with requested gauze) through [facility] [place] [facility] - pending insurance auth Home Health established: [facility] P:[phone] F:[phone] Notified home health of the gauze requested Diet: Tube feeds Activity: Fall precautions Followup: Dequan Kruger DO [Primary Care Provider] - Time spent managing pt's care (in minutes): 45
[2023-10-26 10:20] VITALS: BP 104/59; TEMP 97
== END 2023-10-26 13:26 | disposition home health service (06) | DRG 393 ==
LOC: ER 12:57 → 4TH 16:40
PROVIDERS: ADMIT Hospitalist; ATTEND Hospitalist
DX: K94.23 Gastrostomy malfunction (principal); A41.9 Sepsis, unspecified organism; J69.0 Pneumonitis due to inhalation of food and vomit; E44.0 Moderate protein-calorie malnutrition; Z68.1 Body mass index [BMI] 19.9 or less, adult; K59.09 Other constipation; B96.1 Klebsiella pneumoniae [K. pneumoniae] as the cause of diseases classified elsewhere; R13.10 Dysphagia, unspecified; Z79.82 Long term (current) use of aspirin; Y84.8 Other medical procedures as the cause of abnormal reaction of the patient, or of later complication, without mention of misadventure at the time of the procedure
CPT/HCPCS: 36415; 49465; 70491; 71045; 74018; 80053; 83605; 83735; 84100; 85025; 85610; 85730; 87040; 87070; 87077; 87186; 87205; 93005; 96365; 96368; 97110; 97161; 97165; 99285; J0696; J1100; J1650; J7030; J7050; J8540; Q9967

== ENCOUNTER 2023-10-29 08:05 | Emergency (ER) | payer OTHER ==
--- OUTSIDE RECORDS SUMMARY | 2023-10-29 08:09 | XMS REPORT | Clinical Summary ---
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,Neoplasm of uncertain [...] Department Care Team Description 07/20/2023 10:30 AM MANAGER ASSURANCE Nutrition Clinical Nutrition For your Nutrition appointment location directions please call: Gertrude Jesus MD Coleman, Timothy, RD Generalized muscle weakness; Mass lesion of brain; Lack of coordination, not otherwise specified; Impaired vibration sensation of foot; Neoplasm of brain; Dysphagia, oropharyngeal phase; Vasogenic cerebral edema 07/14/2023 Telephone [facility] PHYSICIAN [address] [place] [phone] Skye Atkins, iron installer Call 07/13/2023 Telephone [facility] PHYSICIAN [address] [place] [phone] Jc Pardo, iron installer Call 07/13/2023 Travel 07/03/2023 12:13 PM MANAGER ASSURANCE Anesthesia Event Main Interventional Radiology [address] [place] [address], 3rd [place] [address] Jessica Zafar APRN, MORENA 06/29/2023 Orders Only [facility] [address] [place] [address] [facility], 7th [place] [address] Beverly, Poornima, COFFEE GROWER 06/29/2023 Orders Only [facility] [address] [place] [address] [facility], 7th [place] [address] Beverly, Poornima, COFFEE GROWER Malignant neoplasm of brain stem (Primary Dx) 06/29/2023 Orders Only [facility] [address] [place] [address] [facility], 7th [place] [address] Beverly, Poornima, COFFEE GROWER Malignant neoplasm of brain stem (Primary Dx) 06/28/2023 Prep for Surgery [facility] [address] [place] [address], 7th [place] [address] Nora Lozada G, COFFEE GROWER Mass lesion of brain (Primary Dx) 06/27/2023 5:03 PM MANAGER ASSURANCE - 07/12/2023 1:07 PM MANAGER ASSURANCE Hospital Encounter MAIN P[address] [address] [place] [id number] Lori Greco MD Walton, MD Brennan Wong Marina, MD Zhou, Yan, MD Leung, Cerena, MD Kheder, Rhett, Generalized muscle weakness (Primary Dx); Mass lesion of brain; Lack of coordination, not otherwise specified; Impaired vibration sensation of foot; Neoplasm of brain; Dysphagia, oropharyngeal phase; Vasogenic cerebral edema; 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; Neoplasm of uncertain behavior of brain, not otherwise specified Discharge Disposition: Home 06/27/2023 Travel after 10/29/2022 Medical History Medical History Date Comments Blind [...] Comments Blood Pressure 91/64 07/12/2023 6:53 AM MANAGER ASSURANCE Pulse 90 07/12/2023 6:53 AM MANAGER ASSURANCE Temperature 37 C (98.6 F) 07/12/2023 6:52 AM MANAGER ASSURANCE Respiratory Rate 17 07/12/2023 6:53 AM MANAGER ASSURANCE Oxygen Saturation 97% 07/12/2023 6:53 AM MANAGER ASSURANCE Inhaled Oxygen Concentration - - Weight 62.7 kg (138 lb 3.7 oz) 06/27/2023 8:36 P M MANAGER ASSURANCE Height 162 cm (5' 3.78") 06/27/2023 8:36 PM MANAGER ASSURANCE Body Mass Index 23.89 06/27/2023 8:36 PM MANAGER ASSURANCE Plan of Treatment Health Maintenance Due Date Last Done Comments COVID-19 Vaccine (#1) 03/10/1966 Influenza Vaccine 03/02/2023 Procedures Procedure Name Priority Date/Time Associated Diagnosis Comments POC GLUCOSE SCREEN Routine 07/12/2023 6: 00 AM MANAGER ASSURANCE .CBC Routine 07/12/2023 2:52 AM MANAGER ASSURANCE PHOSPHORUS LEVEL Routine 07/12/2023 2:52 AM MANAGER ASSURANCE MAGNESIUM LEVEL Routine 07/12/2023 2:52 AM MANAGER ASSURANCE BASIC METABOLIC PANEL, CALCIUM TOTAL Routine 07/12/2023 2:52 AM MANAGER ASSURANCE COMPLETE BLOOD COUNT W/ DIFFERENTIAL Routine 07/12/2023 2:52 AM MANAGER ASSURANCE POC GLUCOSE SCREEN Routine 07/12/2023 12 :16 AM MANAGER ASSURANCE POC GLUCOSE SCREEN Routine 07/11/2023 12 :18 PM MANAGER ASSURANCE POC GLUCOSE SCREEN Routine 07/11/2023 6: 08 AM MANAGER ASSURANCE .CBC Routine 07/11/2023 2:55 AM MANAGER ASSURANCE PHOSPHORUS LEVEL Routine 07/11/2023 2:55 AM MANAGER ASSURANCE MAGNESIUM LEVEL Routine 07/11/2023 2:55 AM MANAGER ASSURANCE BASIC METABOLIC PANEL, CALCIUM TOTAL Routine 07/11/2023 2:55 AM MANAGER ASSURANCE COMPLETE BLOOD COUNT W/ DIFFERENTIAL Routine 07/11/2023 2:55 AM MANAGER ASSURANCE POC GLUCOSE SCREEN Routine 07/11/2023 12 :01 AM MANAGER ASSURANCE POC GLUCOSE SCREEN Routine 07/10/2023 6: 10 PM MANAGER ASSURANCE POC GLUCOSE SCREEN Routine 07/10/2023 12 :09 PM MANAGER ASSURANCE POC GLUCOSE SCREEN Routine 07/10/2023 6: 26 AM MANAGER ASSURANCE .CBC Routine 07/10/2023 5:28 AM MANAGER ASSURANCE COMPLETE BLOOD COUNT W/ DIFFERENTIAL Routine 07/10/2023 5:28 AM MANAGER ASSURANCE PHOSPHORUS LEVEL Routine 07/10/2023 5:27 AM MANAGER ASSURANCE MAGNESIUM LEVEL Routine 07/10/2023 5:27 AM MANAGER ASSURANCE BASIC METABOLIC PANEL, CALCIUM TOTAL Routine 07/10/2023 5:27 AM MANAGER ASSURANCE POC GLUCOSE SCREEN Routine 07/10/2023 2: 48 AM MANAGER ASSURANCE POC GLUCOSE SCREEN Routine 07/09/2023 6: 36 PM MANAGER ASSURANCE POC GLUCOSE SCREEN Routine 07/09/2023 1: 03 PM MANAGER ASSURANCE XR ABDOMEN 1 VW PORTABLE Routine 07/09/2023 12:59 PM MANAGER ASSURANCE POC GLUCOSE SCREEN Routine 07/09/2023 5: 43 AM MANAGER ASSURANCE GLUCOSE 6-PHOSPHATE DEHYDRGENASE ENZYME ACTIVITY Add-On 07/09/2023 2:21 AM MANAGER ASSURANCE .CBC Routine 07/09/2023 2:21 AM MANAGER ASSURANCE PHOSPHORUS LEVEL Routine 07/09/2023 2:21 AM MANAGER ASSURANCE MAGNESIUM LEVEL Routine 07/09/2023 2:21 AM MANAGER ASSURANCE BASIC METABOLIC PANEL, CALCIUM TOTAL Routine 07/09/2023 2:21 AM MANAGER ASSURANCE COMPLETE BLOOD COUNT W/ DIFFERENTIAL Routine 07/09/2023 2:21 AM MANAGER ASSURANCE POC GLUCOSE SCREEN Routine 07/08/2023 11 :33 PM MANAGER ASSURANCE POC GLUCOSE SCREEN Routine 07/08/2023 6: 04 PM MANAGER ASSURANCE POC GLUCOSE SCREEN Routine 07/08/2023 12 :03 PM MANAGER ASSURANCE POC GLUCOSE SCREEN Routine 07/08/2023 6: 27 AM MANAGER ASSURANCE .CBC Routine 07/08/2023 3:03 AM MANAGER ASSURANCE PHOSPHORUS LEVEL Routine 07/08/2023 3:03 AM MANAGER ASSURANCE MAGNESIUM LEVEL Routine 07/08/2023 3:03 AM MANAGER ASSURANCE BASIC METABOLIC PANEL, CALCIUM TOTAL Routine 07/08/2023 3:03 AM MANAGER ASSURANCE COMPLETE BLOOD COUNT W/ DIFFERENTIAL Routine 07/08/2023 3:03 AM MANAGER ASSURANCE POC GLUCOSE SCREEN Routine 07/08/2023 12 :43 AM MANAGER ASSURANCE POC GLUCOSE SCREEN Routine 07/07/2023 6: 13 PM MANAGER ASSURANCE POC GLUCOSE SCREEN Routine 07/07/2023 12 :40 PM MANAGER ASSURANCE XR ABDOMEN 1 VW PORTABLE Routine 07/07/2023 11:00 AM MANAGER ASSURANCE POC GLUCOSE SCREEN Routine 07/07/2023 6: 45 AM MANAGER ASSURANCE .CBC Routine 07/07/2023 4:21 AM MANAGER ASSURANCE PHOSPHORUS LEVEL Routine 07/07/2023 4:21 AM MANAGER ASSURANCE MAGNESIUM LEVEL Routine 07/07/2023 4:21 AM MANAGER ASSURANCE BASIC METABOLIC PANEL, CALCIUM TOTAL Routine 07/07/2023 4:21 AM MANAGER ASSURANCE COMPLETE BLOOD COUNT W/ DIFFERENTIAL Routine 07/07/2023 4:21 AM MANAGER ASSURANCE POC GLUCOSE SCREEN Routine 07/07/2023 12 :10 AM MANAGER ASSURANCE POC GLUCOSE SCREEN Routine 07/06/2023 6: 32 PM MANAGER ASSURANCE POC GLUCOSE SCREEN Routine 07/06/2023 12 :07 PM MANAGER ASSURANCE POC GLUCOSE SCREEN Routine 07/06/2023 6: 01 AM MANAGER ASSURANCE .CBC Routine 07/06/2023 5:31 AM MANAGER ASSURANCE PHOSPHORUS LEVEL Routine 07/06/2023 5:31 AM MANAGER ASSURANCE MAGNESIUM LEVEL Routine 07/06/2023 5:31 AM MANAGER ASSURANCE BASIC METABOLIC PANEL, CALCIUM TOTAL Routine 07/06/2023 5:31 AM MANAGER ASSURANCE COMPLETE BLOOD COUNT W/ DIFFERENTIAL Routine 07/06/2023 5:31 AM MANAGER ASSURANCE POC GLUCOSE SCREEN Routine 07/05/2023 11 :56 PM MANAGER ASSURANCE POC GLUCOSE SCREEN Routine 07/05/2023 6: 38 PM MANAGER ASSURANCE XR ABDOMEN 1 VW PORTABLE Routine 07/05/2023 12:10 PM MANAGER ASSURANCE POC GLUCOSE SCREEN Routine 07/05/2023 6: 39 AM MANAGER ASSURANCE .CBC Routine 07/05/2023 4:39 AM MANAGER ASSURANCE PHOSPHORUS LEVEL Routine 07/05/2023 4:39 AM MANAGER ASSURANCE MAGNESIUM LEVEL Routine 07/05/2023 4:39 AM MANAGER ASSURANCE BASIC METABOLIC PANEL, CALCIUM TOTAL Routine 07/05/2023 4:39 AM MANAGER ASSURANCE COMPLETE BLOOD COUNT W/ DIFFERENTIAL Routine 07/05/2023 4:39 AM MANAGER ASSURANCE POC GLUCOSE SCREEN Routine 07/05/2023 2: 00 AM MANAGER ASSURANCE POC GLUCOSE SCREEN Routine 07/04/2023 6: 01 PM MANAGER ASSURANCE POC GLUCOSE SCREEN Routine 07/04/2023 12 :55 PM MANAGER ASSURANCE POC GLUCOSE SCREEN Routine 07/04/2023 6: 12 AM MANAGER ASSURANCE .CBC Routine 07/04/2023 4:20 AM MANAGER ASSURANCE PHOSPHORUS LEVEL Routine 07/04/2023 4:20 AM MANAGER ASSURANCE MAGNESIUM LEVEL Routine 07/04/2023 4:20 AM MANAGER ASSURANCE BASIC METABOLIC PANEL, CALCIUM TOTAL Routine 07/04/2023 4:20 AM MANAGER ASSURANCE COMPLETE BLOOD COUNT W/ DIFFERENTIAL Routine 07/04/2023 4:20 AM MANAGER ASSURANCE TYPE AND SCREEN Routine 07/04/2023 4:20 AM MANAGER ASSURANCE POC GLUCOSE SCREEN Routine 07/03/2023 11 :55 PM MANAGER ASSURANCE POC GLUCOSE SCREEN Routine 07/03/2023 5: 55 PM MANAGER ASSURANCE IR PERC FEEDING GASTROSTOMY PLACEMENT 90 STAT 07/03/2023 1:42 PM MANAGER ASSURANCE Mass lesion of brain POC GLUCOSE SCREEN Routine 07/03/2023 12 :22 PM MANAGER ASSURANCE POC GLUCOSE SCREEN Routine 07/03/2023 6: 02 AM MANAGER ASSURANCE .CBC Routine 07/03/2023 4:15 AM MANAGER ASSURANCE PHOSPHORUS LEVEL Routine 07/03/2023 4:15 AM MANAGER ASSURANCE MAGNESIUM LEVEL Routine 07/03/2023 4:15 AM MANAGER ASSURANCE BASIC METABOLIC PANEL, CALCIUM TOTAL Routine 07/03/2023 4:15 AM MANAGER ASSURANCE COMPLETE BLOOD COUNT W/ DIFFERENTIAL Routine 07/03/2023 4:15 AM MANAGER ASSURANCE POC GLUCOSE SCREEN Routine 07/03/2023 12 :01 AM MANAGER ASSURANCE POC GLUCOSE SCREEN Routine 07/02/2023 6: 10 PM MANAGER ASSURANCE POC GLUCOSE SCREEN Routine 07/02/2023 2: 18 PM MANAGER ASSURANCE POC GLUCOSE SCREEN Routine 07/02/2023 5: 57 AM MANAGER ASSURANCE .CBC Routine 07/02/2023 2:12 AM MANAGER ASSURANCE PHOSPHORUS LEVEL Routine 07/02/2023 2:12 AM MANAGER ASSURANCE MAGNESIUM LEVEL Routine 07/02/2023 2:12 AM MANAGER ASSURANCE BASIC METABOLIC PANEL, CALCIUM TOTAL Routine 07/02/2023 2:12 AM MANAGER ASSURANCE COMPLETE BLOOD COUNT W/ DIFFERENTIAL Routine 07/02/2023 2:12 AM MANAGER ASSURANCE POC GLUCOSE SCREEN Routine 07/02/2023 2: 07 AM MANAGER ASSURANCE POC GLUCOSE SCREEN Routine 07/01/2023 8: 00 PM MANAGER ASSURANCE POC GLUCOSE SCREEN Routine 07/01/2023 5: 42 PM MANAGER ASSURANCE POC GLUCOSE SCREEN Routine 07/01/2023 12 :10 PM MANAGER ASSURANCE POC GLUCOSE SCREEN Routine 07/01/2023 6: 02 AM MANAGER ASSURANCE .CBC Routine 07/01/2023 3:52 AM MANAGER ASSURANCE PHOSPHORUS LEVEL Routine 07/01/2023 3:52 AM MANAGER ASSURANCE MAGNESIUM LEVEL Routine 07/01/2023 3:52 AM MANAGER ASSURANCE BASIC METABOLIC PANEL, CALCIUM TOTAL Routine 07/01/2023 3:52 AM MANAGER ASSURANCE COMPLETE BLOOD COUNT W/ DIFFERENTIAL Routine 07/01/2023 3:52 AM MANAGER ASSURANCE TYPE AND SCREEN Routine 07/01/2023 3:52 AM MANAGER ASSURANCE POC GLUCOSE SCREEN Routine 07/01/2023 12 :02 AM MANAGER ASSURANCE POC GLUCOSE SCREEN Routine 06/30/2023 6: 39 AM MANAGER ASSURANCE .CBC Routine 06/30/2023 4:31 AM MANAGER ASSURANCE PHOSPHORUS LEVEL Routine 06/30/2023 4:31 AM MANAGER ASSURANCE MAGNESIUM LEVEL Routine 06/30/2023 4:31 AM MANAGER ASSURANCE BASIC METABOLIC PANEL, CALCIUM TOTAL Routine 06/30/2023 4:31 AM MANAGER ASSURANCE COMPLETE BLOOD COUNT W/ DIFFERENTIAL Routine 06/30/2023 4:31 AM MANAGER ASSURANCE POC GLUCOSE SCREEN Routine 06/30/2023 12 :17 AM MANAGER ASSURANCE POC GLUCOSE SCREEN Routine 06/29/2023 5: 06 PM MANAGER ASSURANCE FL MODIFIED BARIUM SWALLOW W SPEECH STAT 06/29/2023 2:39 PM MANAGER ASSURANCE .CBC Routine 06/29/2023 4:48 AM MANAGER ASSURANCE PHOSPHORUS LEVEL Routine 06/29/2023 4:48 AM MANAGER ASSURANCE MAGNESIUM LEVEL Routine 06/29/2023 4:48 AM MANAGER ASSURANCE BASIC METABOLIC PANEL, CALCIUM TOTAL Routine 06/29/2023 4:48 AM MANAGER ASSURANCE COMPLETE BLOOD COUNT W/ DIFFERENTIAL Routine 06/29/2023 4:48 AM MANAGER ASSURANCE HC PROCALCITONIN (PCT) Routine 2:06 PM MANAGER ASSURANCE ECHOCARDIOGRAM 2D COMPLETE STAT 06/28/2023 11:46 AM MANAGER ASSURANCE MRI BRAIN W WO CONTRAST STAT 06/28/20 6:[address] CHEST ABDOMEN PELVIS W WO CONTRAST STAT 06/28/2023 5:00 AM MANAGER ASSURANCE DIFFERENTIAL Routine 06/28/2023 2:49 AM MANAGER ASSURANCE .CBC Routine 06/28/2023 2:49 AM MANAGER ASSURANCE PHOSPHORUS LEVEL Routine 06/28/2023 2:49 AM MANAGER ASSURANCE MAGNESIUM LEVEL Routine 06/28/2023 2:49 AM MANAGER ASSURANCE BASIC METABOLIC PANEL, CALCIUM TOTAL Routine 06/28/2023 2:49 AM MANAGER ASSURANCE COMPLETE BLOOD COUNT W/ DIFFERENTIAL Routine 06/28/2023 2:49 AM MANAGER ASSURANCE CONFIRM ABORH TYPE STAT 06/28/2023 2: 49 AM MANAGER ASSURANCE XR ABDOMEN 1 VW PORTABLE STAT 06/28/2023 12:45 AM MANAGER ASSURANCE EKG, 12-LEAD (PORTABLE) Routine 06/28/2023 TYPE AND SCREEN STAT 06/27/2023 9:44 PM MANAGER ASSURANCE XR CHEST 1 VW Routine 06/27/2023 7:[address] HEAD WO CONTRAST STAT 06/27/2023 7 :03 PM MANAGER ASSURANCE .CBC Routine 06/27/2023 5:23 PM MANAGER ASSURANCE COMPREHENSIVE METABOLIC PANEL Routine 06/27/2023 5:23 PM MANAGER ASSURANCE APTT Routine 06/27/2023 5:23 PM MANAGER ASSURANCE PROTHROMBIN TIME Routine 06/27/2023 5:23 PM MANAGER ASSURANCE COMPLETE BLOOD COUNT W/ DIFFERENTIAL Routine 06/27/2023 5:23 PM MANAGER ASSURANCE after 10/29/2022 Results * POC Glucose Screen - Fingerstick (07/12/2023 6:00 AM MANAGER ASSURANCE) Only the most recent of48 resultswithin the time period is included. Glucose Screen 97 70 - 99 mg/dL 07/12/2023 6:02 AM MANAGER ASSURANCE [facility] POC Sample Type Capillary 07/12/2023 6:02 AM [facility] Blood 07/12/2023 6:00 AM MANAGER ASSURANCE 07/12/2023 6:02 AM MANAGER ASSURANCE Narrative [facility] - 07/12/2023 6:02 AM MANAGER ASSURANCE Capillary blood samples, e.g. obtained by fingerstick, [...] Aguila MD POCT ORDERABLES - DE VICE [facility] Unless otherwise noted, all lab tests performed by: Division of Pathology and Laboratory Medicine [address] [place] [phone] * (ABNORMAL) .CBC (07/12/2023 2:52 AM MANAGER ASSURANCE) Only the most recent of16 resultswithin the time period is included. White Blood Cell 12.8(H) 4.1 - 10.5 K/uL 07/12/2023 3:31 AM [facility] Red Blood Cell 4.81 4.30 - 6.04 M/uL 07/12/2023 3:31 AM [facility] Hemoglobin 14.6 13.3 - 17.4 g/dL 07/12/2023 3:31 AM [facility] Hematocrit 44.8 39.5 - 51.8 % 07/12/2023 3:31 AM [facility] Mean Cell Volume 93 82 - 99 fL 07/12/2023 3:31 AM [facility] Mean Cell Hemoglobin 30.4 26.6 - 33.2 pg 07/12/2023 3:31 AM [facility] Mean Cell Hemoglobin Concentration 32.6 31.1 - 35.2 g/dL 07/12/2023 3:31 AM [facility] RDW-SD 45.9 37.5 - 49.7 fL 07/12/2023 3:31 AM [facility] Red Cell Diameter Width 13.5 11.6 - 15.5 % 07/12/2023 3:31 AM [facility] Platelet 183 160 - 397 K/uL 07/12/2023 3:31 AM [facility] Mean Platelet Volume 11.9 9.1 - 12.6 fL 07/12/2023 3:31 AM [facility] INRBC 0.0 0.0 - 0.1 /100 WBC 07/12/2023 3:31 AM [facility] Comment: The INRBC (instrument NRBC) value reflects the enumeration of nucleated red blood cells contained in a 200uL sample of whole blood analyzed by the instrument. This value may differ from the NRBC value reported in a manual differential, which is based on a 100 cell differential. Neutrophil % 77.2(H) 43.2 - 72.7 % 07/12/2023 3:31 AM [facility] Lymphocyte % 12.4(L) 16.8 - 46.2 % 07/12/2023 3:31 AM [facility] Monocyte % 9.1 5.1 - 12.5 % 07/12/2023 3:31 AM [facility] Eosinophil % 0.0(L) 0.4 - 6.3 % 07/12/2023 3:31 AM [facility] Basophil % 0.2 0.2 - 1.4 % 07/12/2023 3:31 AM [facility] IGRE % 1.1 0.1 - 1.5 % 07/12/2023 3:31 AM [facility] Comment:The IGRE% includes M etamyelocytes, Myelocytes and Promyelocytes. Neutrophil Abs 9.90(H) 1.95 - 7.25 K/uL 07/12/2023 3:31 AM [facility] Lymphocyte Abs 1.59 1.01 - 3.24 K/uL 07/12/2023 3:31 AM [facility] Monocyte Abs 1.16(H) 0.24 - 0.85 K/uL 07/12/2023 3:31 AM [facility] Eosinophil Abs 0.00(L) 0.02 - 0.50 K/uL 07/12/2023 3:31 AM [facility] Basophil Abs 0.02 0.02 - 0.09 K/uL 07/12/2023 3:31 AM [facility] IG Abs 0.14(H) 0.01 - 0.12 K/uL 07/12/2023 3:31 AM [facility] Blood Peripheral blood specimen / Unknown Venipuncture / Unknown 07/12/2023 2:52 AM MANAGER ASSURANCE 07/12/2023 3:18 AM MANAGER ASSURANCE Naye Amin MD LAB BLOOD ORDERABLES [facility] Unless otherwise noted, all lab tests performed by: Division of Pathology and Laboratory Medicine [address] [place] [address] * (ABNORMAL) Basic Metabolic Panel- Total Calcium (07/12/2023 2:52 AM MANAGER ASSURANCE) Only the most recent of15 resultswithin the time period is included. eGFR 108 >=60 mL/min/1.7 3 sq. m 07/12/2023 3:57 AM MANAGER ASSURANCE [facility] Comment: The eGFRcr is calculated [...] 8.2 - 10.2 mg/dL 07/12/2023 3:57 AM MANAGER ASSURANCE [facility] Comment:This result was prev iously suppressed from the chart. Sodium Level 146(H) 136 - 145 mmol/L 07/12/2023 3:57 AM MANAGER ASSURANCE [facility] Comment:This result was prev iously suppressed from the chart. Potassium Level 4.5 3.4 - 4.5 mmol/L 07/12/2023 3:57 AM MANAGER ASSURANCE [facility] Comment:This result was prev iously suppressed from the chart. Chloride 109(H) 98 - 107 mmol/L 07/12/2023 3:57 AM MANAGER ASSURANCE [facility] Comment:This result was prev iously suppressed from the chart. CO2 30(H) 22 - 29 mmol/L 07/12/2023 3:57 AM [facility] Comment:This result was prev iously suppressed from the chart. Anion Gap 7 4 - 14 mmol/L 07/12/2023 3:57 AM MANAGER ASSURANCE [facility] Comment:This result was prev iously suppressed from the chart. Creatinine 0.69 0.67 - 1.17 mg/dL 07/12/2023 3:57 AM MANAGER ASSURANCE [facility] Comment:This result was prev iously suppressed from the chart. BUN 26(H) 6 - 23 mg/dL 07/12/2023 3:57 AM MANAGER ASSURANCE [facility] Comment:This result was prev iously suppressed from the chart. Glucose Level 97 70 - 99 mg/dL 07/12/2023 3:57 AM MANAGER ASSURANCE [facility] Comment: Effective 01/26/16, the glucose reference intervals have been updated based on [place] [employer] guidelines (Standards of Medical Care [...] Unknown Venipuncture / Unknown 07/12/2023 2:52 AM MANAGER ASSURANCE 07/12/2023 3:16 AM MANAGER ASSURANCE Naye Amin MD LAB BLOOD ORDERABLES [facility] Unless otherwise noted, all lab tests performed by: Division of Pathology and Laboratory Medicine [address] [place] [phone] * Phosphorus Level (07/12/2023 2:52 AM MANAGER ASSURANCE) Only the most recent of15 resultswithin the time period is included. Phosphorus Level 3.3 2.5 - 4.5 mg/dL 07/12/2023 3:57 AM MANAGER ASSURANCE [facility] Blood Peripheral blood specimen / Unknown Venipuncture / Unknown 07/12/2023 2:52 AM MANAGER ASSURANCE 07/12/2023 3:16 AM MANAGER ASSURANCE Naye Amin MD LAB BLOOD ORDERABLES [facility] Unless otherwise noted, all lab tests performed by: Division of Pathology and Laboratory Medicine [address] [place] [phone] * Magnesium Level (07/12/2023 2:52 AM MANAGER ASSURANCE) Only the most recent of15 resultswithin the time period is included. Magnesium Level 2.2 1.6 - 2.6 mg/dL 07/12/2023 3:57 AM MANAGER ASSURANCE [facility] Blood Peripheral blood specimen / Unknown Venipuncture / Unknown 07/12/2023 2:52 AM MANAGER ASSURANCE 07/12/2023 3:16 AM MANAGER ASSURANCE Naye Amin MD LAB BLOOD ORDERABLES Performing Organization Address City/[facility] Co de Phone Number [facility] Unless otherwise noted, all lab tests performed by: Division of Pathology and Laboratory Medicine [address] [place] [phone] * XR Abdomen 1 View Portable (07/09/2023 12:59 PM MANAGER ASSURANCE) Only the most recent of4 resultswithin the time period is included. Anatomical Region Laterality Modality Abdomen Digital Radiogra phy 07/09/2023 2:34 PM MANAGER ASSURANCE Impressions 07/09/2023 2:36 PM MANAGER ASSURANCE No evidence of obstruction or significant constipation. Narrative 07/09/2023 2:36 PM MANAGER ASSURANCE FULL RESULT: Examination: XR ABDOMEN 1 VW [...] obstruction or significant constipation. Marisol Ruiz APRN [facility] [place] [place] DIAGNOSTIC IMAGI NG ORDERABLES * Glucose 6-Phosphate Dehydrogenase Enzyme Activity (07/09/2023 2:21 AM MANAGER ASSURANCE) G6PD Enzyme Activity, B 10.8 8.0 - 11.9 U/g Hb 07/11/2023 2:58 PM MANAGER ASSURANCE [facility] Comment: G6PD deficiency can be masked in the setting of reticulocytosis, markedly elevated WBCs or recent transfusion. If any of these are present in the setting of , chronic, or episodic jaundice/anemia, genotyping is recommended. If desired, please order G6PDZ/G6PD Full Gene Sequencing, V. ADDITIONAL INFORMATION This test was developed and its performance characteristics determined by [facility] in a manner consistent with CLIA requirements. This test has not been cleared or approved by the U.S. Food and Drug Administration. Test Performed by: [facility] - [address] [address] [employer] Intelligence Officer Chief: Papo Boone M.D. Ph.D.; CLIA# [id number] Blood Peripheral blood specimen / Unknown Venipuncture / Unknown 07/09/2023 2:21 AM MANAGER ASSURANCE 07/09/2023 2:59 AM MANAGER ASSURANCE Gertrude Jesus MD LAB BLOOD ORDERABLES [facility] * Type and Screen (07/04/2023 4:20 AM MANAGER ASSURANCE) Only the most recent of3 resultswithin the time period is included. ABORh O POS 07/04/2023 12:00 AM MANAGER ASSURANCE [facility] ABSC Negative 07/04/2023 12:00 AM MANAGER ASSURANCE [facility] Clot Expiration 07/07/2023 23:59 07/04/2023 12:00 AM MANAGER ASSURANCE [facility] Historical Record Check Complete 07/04/2023 12:00 AM MANAGER ASSURANCE [facility] Blood Peripheral blood specimen / Unknown Venipuncture / Unknown 07/04/2023 4:20 AM MANAGER ASSURANCE 07/04/2023 4:52 AM MANAGER ASSURANCE Juli Benitez APRN BLOOD BANK TEST ORDE ISMAEL [facility] [id number] [place] [address] * IR PERC FEEDING GASTROSTOMY PLACEMENT (07/03/2023 1:42 PM MANAGER ASSURANCE) Anatomical Region Laterality Modality Abdomen/Pelvis Other Narrative 07/03/2023 5:56 PM MANAGER ASSURANCE Table formatting from the original result was not included. Date of Procedure: 07/03/23 Attending Physician: Feliberto Olmstead MD [employer] Supervisor: None Pre Procedure Diagnosis: Mass lesion of brain [[id number]] Post Procedure Diagnosis: Unchanged Indication: Nutritional support Title of Procedure: Percutaneous Image-Guided Placement of Gastrostomy Catheter. Operative Findings: Percutaneous fluoroscopic-guided placement of 16 Fr [place] gastrostomy catheter. Connector Type: ENFit Consent: The [...] the patient's nasal passage and a 5 [place] catheter and Bentson wire were then passed [...] Barium Swallow w Speech (06/29/2023 2:39 PM MANAGER ASSURANCE) Anatomical Region Laterality Modality Neck Radio Fluoroscop y 06/29/2023 3:56 PM MANAGER ASSURANCE Impressions 06/29/2023 4:59 PM MANAGER ASSURANCE 1. Silent aspiration with thin and thick liquids. Please refer to the separately dictated speech pathology report for further details and recommendations. Narrative 06/29/2023 4:59 PM MANAGER ASSURANCE FULL RESULT: Examination: FL MODIFIED BARIUM SWALLOW [...] MONICA GUEVARA * Procalcitonin (06/28/2023 2:06 PM MANAGER ASSURANCE) Procalcitonin <0.04 <=0.08 ng/mL 06/28/2023 2:54 PM MANAGER ASSURANCE [facility] Blood Peripheral blood specimen / Unknown Venipuncture / Unknown 06/28/2023 2:06 PM MANAGER ASSURANCE 06/28/2023 2:10 PM MANAGER ASSURANCE Narrative [facility] - 06/28/2023 2:54 PM MANAGER ASSURANCE Procalcitonin > 2.00 ng/mL: Procalcitonin levels above [...] with extended dilution as it exceeds the blow up operator's recommended limit. Caution should be exercised when interpreting such values and done in conjunction with clinical context. Juli Benitez APRN LAB BLOOD ORDERABLES [facility] Unless otherwise noted, all lab tests performed by: Division of Pathology and Laboratory Medicine [address] [place] [id number] * Echocardiogram 2D Complete (06/28/2023 11:46 AM MANAGER ASSURANCE) 06/28/2023 10:4 5 AM MANAGER ASSURANCE Narrative [facility] - 06/28/2023 12:29 PM MANAGER ASSURANCE Echocardiographic Report Interpretation Summary A complete two-dimensional [...] (lat): 3.4 E/e' (sept): 4.8 Juli Benitez COFFEE GROWER CV ECHO ORDERABLES [facility] * MRI Brain with and without Contrast (06/28/2023 6:16 AM MANAGER ASSURANCE) Anatomical Region Laterality Modality Head Magnetic Resonan ce 06/28/2023 7:32 AM MANAGER ASSURANCE Impressions 06/28/2023 10:06 AM MANAGER ASSURANCE 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 Narrative 06/28/2023 10:06 AM MANAGER ASSURANCE FULL RESULT: Examination: MRI BRAIN W WO [...] with and without Contrast (06/28/2023 5:00 AM MANAGER ASSURANCE) Anatomical Region Laterality Modality Abdomen, Pelvis, Chest Computed Tomography 06/28/2023 5:14 AM MANAGER ASSURANCE Impressions 06/28/2023 4:07 PM MANAGER ASSURANCE Left lower lobe retained secretions and airspace [...] the final report. Narrative 06/28/2023 4:07 PM MANAGER ASSURANCE Examination: CT CHEST ABDOMEN PELVIS W WO [...] ORDERABLES * Confirm ABORh (06/28/2023 2:49 AM MANAGER ASSURANCE) Pathologist [facility] ABOR Confirm O POS 06/27/2023 9:45 PM MANAGER ASSURANCE [facility] Blood Peripheral blood specimen / Unknown Venipuncture / Unknown 06/28/2023 2:49 AM MANAGER ASSURANCE 06/28/2023 3:06 AM MANAGER ASSURANCE Karma Landrum MD BLOOD BANK TEST MONICA GUEVARA [facility] [address] [facility] [facility] [id number] [place] [address] * (ABNORMAL) Differential (06/28/2023 2:49 AM MANAGER ASSURANCE) Total Cells 115 06/28/2023 6:54 AM MANAGER ASSURANCE [facility] Manual Neutrophil % 78.0(H) 43.2 - 72.7 % 06/28/2023 6:54 AM [facility] Comment:The Neutrophil count includes Bands. Manual Lymphocyte % 15.0(L) 16.8 - 46.2 % 06/28/2023 6:54 AM [facility] Manual Monocyte % 2.0(L) 5.1 - 12.5 % 06/28/2023 6:54 AM [facility] Metamyelocyte % 5.0(H) <=0.0 % 6:54 AM [facility] Comment:The Metamyelocyte co unt includes Myelocytes. Manual Neutrophil Abs 7.02 1.95 - 7.25 K/uL 06/28/2023 6:54 AM MANAGER ASSURANCE [facility] Manual Lymphocyte Abs 1.35 1.01 - 3.24 K/uL 06/28/2023 6:54 AM [facility] Manual Monocyte Abs 0.18(L) 0.24 - 0.85 K/uL 06/28/2023 6:54 AM [facility] RBC Morphology PRESENT 06/28/2023 6:54 AM [facility] Anisocytosis Present(A) (none) 06/28/2023 6:54 AM [facility] Poikilocytosis Present(A) (none) 06/28/2023 6:54 AM [facility] Polychromasia Present(A) (none) 06/28/2023 6:54 AM [facility] Ovalocyte Present(A) (none) 06/28/2023 6:54 AM [facility] Macrocyte Present(A) (none) 06/28/2023 6:54 AM [facility] Slide Comment SEE NOTE 06/28/2023 6:54 AM [facility] Comment:PLT: Platelet morpho logy normal Blood Peripheral blood specimen / Unknown Venipuncture / Unknown 06/28/2023 2:49 AM MANAGER ASSURANCE 06/28/2023 3:05 AM MANAGER ASSURANCE Naye Amin MD LAB BLOOD ORDERABLES [facility] Unless otherwise noted, all lab tests performed by: Division of Pathology and Laboratory Medicine [address] [place] [address] [place] [address] * EKG, 12-Lead (06/28/2023) Juli Benitez KENYETTA ECG ORDERABLES [facility] * X-ray Chest 1 View (06/27/2023 7:50 PM MANAGER ASSURANCE) Anatomical Region Laterality Modality Chest Digital Radiogra phy 06/27/2023 8:19 PM MANAGER ASSURANCE Impressions 06/27/2023 8:21 PM MANAGER ASSURANCE No acute consolidations or lobar pneumonias. ACTIONABLE ITEMS/RECOMMENDATIONS: None. 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 Discussed with Dr. Ricardo at 7:36 PM on 06/27/2023 by means of a phone conversation. Narrative 06/27/2023 7:37 PM MANAGER ASSURANCE FULL RESULT: Examination: CT HEAD WO CONTRAST [...] (ABNORMAL) Comprehensive Metabolic Panel (06/27/2023 5:23 PM MANAGER ASSURANCE) Bilirubin Total 0.4 <=1.2 mg/dL 06/27/2023 6:05 PM [facility] Comment: Indocyanine Green (ICG) may cause falsely elevated bilirubin results. Total and direct bilirubin must not be measured from samples containing indocyanine green. False elevation of total bilirubin can be seen in patients with IgG concentrations above 28 g/L. This result was previously suppressed from the chart. Bilirubin Direct <0.2 <=0.3 mg/dL 06/27/2023 6:05 PM [facility] Comment: Indocyanine Green (ICG) may cause falsely elevated bilirubin results. Total and direct bilirubin must not be measured from samples containing indocyanine green. This result was previously suppressed from the chart. Bilirubin Indirect 2022 6:05 PM [facility] Comment:Unable to calculate Indirect Bilirubin result due to some parameters are outside reportable range eGFR 104 >=60 mL/min/1. 73 sq. m 06/27/2023 6:05 PM [facility] Comment: The eGFRcr is calculated with [...] 6.4 - 8.3 gm/dL 06/27/2023 6:05 PM [facility] Comment:This result was prev iously suppressed from the chart. Calcium Level Total 9.6 8.2 - 10.2 mg/dL 06/27/2023 6:05 PM [facility] Comment:This result was prev iously suppressed from the chart. Alkaline Phosphatase 92 40 - 129 U/L 06/27/2023 6:05 PM [facility] Comment:This result was prev iously suppressed from the chart. Albumin Level 4.0 3.5 - 5.2 gm/dL 06/27/2023 6:05 PM [facility] Comment:This result was prev iously suppressed from the chart. AST 14 <=40 U/L 06/27/2023 6:05 PM [facility] Comment:This result was prev iously suppressed from the chart. ALT 17 <=41 U/L 06/27/2023 6:05 PM [facility] Comment:This result was prev iously suppressed from the chart. Sodium Level 134(L) 136 - 145 mmol/L 06/27/2023 6:05 PM [facility] Comment:This result was prev iously suppressed from the chart. Potassium Level 4.0 3.4 - 4.5 mmol/L 06/27/2023 6:05 PM [facility] Comment:This result was prev iously suppressed from the chart. Chloride 99 98 - 107 mmol/L 06/27/2023 6:05 PM [facility] Comment:This result was prev iously suppressed from the chart. CO2 26 22 - 29 mmol/L 06/27/2023 6:05 PM [facility] Comment:This result was prev iously suppressed from the chart. Anion Gap 9 4 - 14 mmol/L 06/27/2023 6:05 PM [facility] Comment:This result was prev iously suppressed from the chart. Creatinine 0.77 0.67 - 1.17 mg/dL 06/27/2023 6:05 PM [facility] Comment:This result was prev iously suppressed from the chart. BUN 17 6 - 23 mg/dL 06/27/2023 6:05 PM MANAGER ASSURANCE [facility] Comment:This result was prev iously suppressed from the chart. Glucose Level 98 70 - 99 mg/dL 06/27/2023 6:05 PM MANAGER ASSURANCE [facility] Comment: Effective 01/26/16, the glucose reference intervals have been updated based on [place] [employer] guidelines (Standards of Medical Care [...] Unknown Venipuncture / Unknown 06/27/2023 5:23 PM MANAGER ASSURANCE 06/27/2023 5:30 PM MANAGER ASSURANCE Jensen Zuleta MD LAB BLOOD ORDERABLES Performing Organization Address City/[facility] Co de Phone Number [facility] Unless otherwise noted, all lab tests performed by: Division of Pathology and Laboratory Medicine [address] [place] [id number] * aPTT (06/27/2023 5:23 PM MANAGER ASSURANCE) Pathologist [facility] Activated PTT 24.7 24.1 - 35.5 second(s) 06/27/2023 6:14 PM MANAGER ASSURANCE [facility] Blood Peripheral blood specimen / Unknown Venipuncture / Unknown 06/27/2023 5:23 PM MANAGER ASSURANCE 06/27/2023 5:30 PM MANAGER ASSURANCE Jensen Zuleta MD LAB BLOOD ORDERABLES [facility] Unless otherwise noted, all lab tests performed by: Division of Pathology and Laboratory Medicine [address] [place] [id number] * Prothrombin Time with INR (06/27/2023 5:23 PM MANAGER ASSURANCE) [facility] Prothrombin Time 13.0 11.9 - 14.5 second(s) 06/27/2023 6:14 PM MANAGER ASSURANCE [facility] International Normalization Ratio 0.99 0.87 - 1.12 06/27/2023 6:14 PM MANAGER ASSURANCE [facility] Blood Peripheral blood specimen / Unknown Venipuncture / Unknown 06/27/2023 5:23 PM MANAGER ASSURANCE 06/27/2023 5:30 PM MANAGER ASSURANCE Jensen Zuleta MD LAB BLOOD ORDERABLES [facility] Unless otherwise noted, all lab tests performed by: Division of Pathology and Laboratory Medicine [facility] [place] [address] after 10/29/2022 Advance Directives Latest Code Status on File Code Status Date Activated Date Inactivated Comments Full Code 06/27/2023 8:32 PM 07/12/2023 3:12 PM
--- NOTE | 2023-10-29 08:30 | ER ---
Nurse's Notes [facility] Name: Arturo Gregorio Age: 58 yrs Sex: Male : 1965 Arrival Date: 10/29/2023 Time: 08:05 Bed 16 Private MD: Diagnosis: encounter for mechanical complication of PEG tube Presentation: 10/28 08:12 Chief complaint: Spouse and/or significant other states: clogged PEG tube since last iw night, cannot push meds or fluids today. Coronavirus screen: At this time, the client does not indicate any symptoms associated with coronavirus-19. Ebola Screen: Patient negative for fever greater than or equal to 101.5 degrees Fahrenheit, and additional compatible Ebola Virus Disease symptoms Patient denies exposure to infectious person. Patient denies travel to an Ebola-affected area in the 21 days before illness onset. No symptoms or risks identified at this time. Initial Sepsis Screen: Does the patient meet any 2 criteria? No. Patient's initial sepsis screen is negative. Does the patient have a suspected source of infection? No. Patient's initial sepsis screen is negative. Risk Assessment: Do you want to hurt yourself or someone else? Patient reports no desire to harm self or others. Onset of symptoms was October 28, 2023. 08:12 Method Of Arrival: Wheelchair iw 08:12 Acuity: NELLI 3 iw Historical: - Allergies: 08:14 No Known Allergies; iw - PMHx: 08:14 BRAIN TUMOR; trach-Aug 2023; iw - Immunization history:: Adult Immunizations up to date. - Infectious Disease History:: Denies. - Social history:: Smoking status: Patient denies any tobacco usage or history of. Screenin:15 [facility] ED Fall Risk Assessment (Adult) History of falling in the last 3 months, rs5 including since admission No falls in past 3 months (0 pts) Confusion or Disorientation No (0 pts) Intoxicated or Sedated No (0 pts) Impaired Gait No (0 pts) Mobility Assist Device Used No (0 pt) Altered Elimination No (0 pt) Score/Fall Risk Level 0 - 2 = Low Risk Oriented to surroundings, Maintained a safe environment. Abuse screen: Denies threats or abuse. Nutritional screening: No deficits noted. Tuberculosis screening: No symptoms or risk factors identified. Assessment: 08:15 General: Appears in no apparent distress. comfortable, Behavior is calm, cooperative. rs5 Pain: Denies pain. Neuro: Level of Consciousness is awake, alert, obeys commands, Oriented to person, place, time, situation. Cardiovascular: Patient's skin is warm and dry. Rhythm is regular. Respiratory: Trachea midline Respiratory effort is even, unlabored, Respiratory pattern is regular, symmetrical. GI: Abdomen is flat, non-distended, PEG tube in place, Site clean. pt states "I am having trouble trying to flush the peg tube, I think it might be clogged". : No signs and/or symptoms were reported regarding the genitourinary system. EENT: No signs and/or symptoms were reported regarding the EENT system. Derm: Skin is intact, Skin is pink, warm \\T\\ dry. Musculoskeletal: Range of motion: intact in all extremities. 08:24 Reassessment: provider at bedside. rs5 08:35 Reassessment: Patient and/or family updated on plan of care and expected duration. Pain rs5 level reassessed. Patient is alert, oriented x 3, equal unlabored respirations, skin warm/dry/pink. . Vital Signs: 08:12 BP 101 / 63; Pulse 83; Resp 16; Temp 98; Pulse Ox 93% ; Weight 46.27 kg; Height 5 ft. 6 iw in. ; 08:40 BP 105 / 66; Pulse 83; Resp 18; Pulse Ox 99% on R/A; rs5 08:12 Body Mass Index 16.46 (46.27 kg, 167.64 cm) iw ED Course: 08:06 Patient arrived in ED. rg4 08:07 Dora Griffin PA-C is PHCP. sb4 08:07 Rgoelio Serrano MD is Attending Physician. sb4 08:13 Triage completed. iw 08:15 Patient has correct armband on for positive identification. Placed in gown. Bed in low rs5 position. Call light in reach. Side rails up X2. 08:15 No provider procedures requiring assistance completed. rs5 08:20 Zackary Claudio, YESENIA is Primary Nurse. rs5 08:45 Patient did not have IV access during this emergency room visit. rs5 Administered Medications: No medications were administered Medication: 08:24 VIS not applicable for this client. rs5 Outcome: 08:30 Discharge ordered by MD. [email or web address] 08:45 Discharged to home ambulatory, with family, rs5 08:45 Condition: stable 08:45 Discharge instructions given to patient, family, Instructed on discharge instructions, follow up and referral plans. Demonstrated understanding of instructions, follow-up care, 08:46 Patient left the ED. rs5 Signatures: Yas Moran RN RN iw Lashell Haley rg4 Dora Griffin PA-C PAAlexia sb4 Zackary Claudio RN RN rs5 Corrections: (The following items were deleted from the chart) 08:24 08:12 BP 101 / 63; Pulse 83bpm; Resp 16bpm; Pulse Ox 93%; 46.27 kg; Height 5 ft. 6 in.; iw BMI: 16.4; iw
--- NOTE | 2023-10-29 08:30 | EDPHYS ---
Physician Documentation [facility] Name: Arturo Gregorio Age: 58 yrs Sex: Male : 1965 Arrival Date: 10/29/2023 Time: 08:05 Bed 16 Private MD: ED Physician Rogelio Serrano HPI: 10/28 08:31 This 58 yrs old Male presents to ER via Wheelchair with complaints of Problem sb4 With Feeding Tube. 08:32 patient and state that his PEG tube got clogged last night and has been sb4 unable to push his meds or fluids since. states he was recently started on a new antibiotic that is very thick. patient denies any pain or discomfort. Historical: - Allergies: 08:14 No Known Allergies; iw - PMHx: 08:14 BRAIN TUMOR; trach-Aug 2023; iw - Immunization history:: Adult Immunizations up to date. - Infectious Disease History:: Denies. - Social history:: Smoking status: Patient denies any tobacco usage or history of. ROS: 08:32 Constitutional: Negative for fever, chills, and weight loss, sb4 08:32 All other systems are negative, Exam: 08:32 Constitutional: This is a well developed, well nourished patient who is awake, alert, sb4 and in no acute distress. Head/Face: Normocephalic, atraumatic. Eyes: Extra-ocular motions intact. Periorbital areas with no swelling, redness, or edema. 08:32 Neck: tracheostomy in place, 08:32 Abdomen/GI: Inspection: PEG tube noted, no erythema or discharge, Bowel sounds: normal, Vital Signs: 08:12 BP 101 / 63; Pulse 83; Resp 16; Temp 98; Pulse Ox 93% ; Weight 46.27 kg; Height 5 ft. 6 iw in. ; 08:40 BP 105 / 66; Pulse 83; Resp 18; Pulse Ox 99% on R/A; rs5 08:12 Body Mass Index 16.46 (46.27 kg, 167.64 cm) iw Procedures: 08:32 used dobhoff guide wire to gently unclog PEG. successfully able to push fluids and meds sb4 after unclogging. MDM: 08:15 Patient medically screened. sb4 08:32 Data reviewed: vital signs, nurses notes, and as a result, I will discharge patient. sb4 Counseling: I had a detailed discussion with the patient and/or guardian regarding the historical points, exam findings, and any diagnostic results supporting the discharge/admit diagnosis, to return to the emergency department if symptoms worsen or persist or if there are any questions or concerns that arise at home. Administered Medications: No medications were administered Disposition: 12:01 Co-signature as Attending Physician, Rogelio Serrano MD I reviewed the patient's care rn provided by the Advanced Practice Provider and agree with the diagnosis and treatment plan. Disposition Summary: 10/29/23 08:30 Discharge Ordered Notes: Location: Home sb4 Problem: new sb4 Symptoms: are resolved sb4 Condition: Stable sb4 Diagnosis - encounter for mechanical complication of PEG tube sb4 Followup: sb4 - With: Emergency Department - When: As needed - Reason: Trouble breathing, Worsening of condition Discharge Instructions: - Discharge Summary Sheet sb4 - PEG Tube Home Guide, [id number] sb4 Forms: - Prescription Opioid Use sb4 - Patient Portal Instructions sb4 - Leadership Thank You Letter sb4 Signatures: Yas Moran, RN Rogelio Walter MD MD rn Brown, Sophia PA-C PACarleeC sb4 Zackary Claudio, RN RN rs5
[2023-10-29 09:29] VITALS: BP 101/63; TEMP 98; O2SAT 93
== END 2023-10-29 08:46 | disposition home or self-care (01) ==
LOC: ER 08:05
DX: K94.23 Gastrostomy malfunction (principal)
CPT/HCPCS: 99282

== ENCOUNTER 2023-10-29 13:49 | Inpatient (IN) | payer OTHER ==
--- OUTSIDE RECORDS SUMMARY | 2023-10-29 13:54 | XMS REPORT | Clinical Summary ---
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,Neoplasm [...] Department Care Team Description 07/20/2023 10:30 AM HAND HARDENER Nutrition Clinical Nutrition For your Nutrition appointment location directions please call: Gertrude Jesus MD Coleman, Timothy, RD Generalized muscle weakness; Mass lesion of brain; Lack of coordination, not otherwise specified; Impaired vibration sensation of foot; Neoplasm of brain; Dysphagia, oropharyngeal phase; Vasogenic cerebral edema 07/14/2023 Telephone [facility] PH[facility] [address] [place] [id number] Skye Atkins, package checker Call 07/13/2023 Telephone [facility] PHYSICIAN [address] [place] [id number] Jc Pardo, package checker Call 07/13/2023 Travel 07/03/2023 12:13 PM HAND HARDENER Anesthesia Event Main Interventional Radiology [address] [place] [address], 3rd [place] [address] Jessica Zafar APRN, MORENA 06/29/2023 Orders Only [facility] [address] [place] [address] Main [facility], 7th [place] [address] Beverly, Poornima, SURGICAL TECHNOLOGIST 06/29/2023 Orders Only [facility] [address] [place] [address] Main [facility], 7th [place] [address] Beverly, Poornima, SURGICAL TECHNOLOGIST Malignant neoplasm of brain stem (Primary Dx) 06/29/2023 Orders Only [facility] [address] [place] [address] Main [facility], 7th [place] [address] Beverly, Poornima, SURGICAL TECHNOLOGIST Malignant neoplasm of brain stem (Primary Dx) 06/28/2023 Prep for Surgery [facility] [address] [place] [address], 7th [place] [address] Nora Lozada G, SURGICAL TECHNOLOGIST Mass lesion of brain (Primary Dx) 06/27/2023 5:03 PM HAND HARDENER - 07/12/2023 1:07 PM HAND HARDENER Hospital Encounter MAIN [id number] [address] [place] [id number] Lori Greco MD Walton, MD Brennan Wong Marina, MD Zhou, Yan, MD Leung, Cerena, MD Kheder, Rhett, Generalized muscle weakness (Primary Dx); Mass lesion of brain; Lack of coordination, not otherwise specified; Impaired vibration sensation of foot; Neoplasm of brain; Dysphagia, oropharyngeal phase; Vasogenic cerebral edema; 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; [...] Comments Blood Pressure 91/64 07/12/2023 6:53 AM HAND HARDENER Pulse 90 07/12/2023 6:53 AM HAND HARDENER Temperature 37 C (98.6 F) 07/12/2023 6:52 AM HAND HARDENER Respiratory Rate 17 07/12/2023 6:53 AM HAND HARDENER Oxygen Saturation 97% 07/12/2023 6:53 AM HAND HARDENER Inhaled Oxygen Concentration - - Weight 62.7 kg (138 lb 3.7 oz) 06/27/2023 8:36 P M HAND HARDENER Height 162 cm (5' 3.78") 06/27/2023 8:36 PM HAND HARDENER Body Mass Index 23.89 06/27/2023 8:36 PM HAND HARDENER Plan of Treatment Health Maintenance Due Date Last Done Comments COVID-19 Vaccine (#1) 03/10/1966 Influenza Vaccine 03/02/2023 Procedures Procedure Name Priority Date/Time Associated Diagnosis Comments POC GLUCOSE SCREEN Routine 07/12/2023 6: 00 AM HAND HARDENER .CBC Routine 07/12/2023 2:52 AM HAND HARDENER PHOSPHORUS LEVEL Routine 07/12/2023 2:52 AM HAND HARDENER MAGNESIUM LEVEL Routine 07/12/2023 2:52 AM HAND HARDENER BASIC METABOLIC PANEL, CALCIUM TOTAL Routine 07/12/2023 2:52 AM HAND HARDENER COMPLETE BLOOD COUNT W/ DIFFERENTIAL Routine 07/12/2023 2:52 AM HAND HARDENER POC GLUCOSE SCREEN Routine 07/12/2023 12 :16 AM HAND HARDENER POC GLUCOSE SCREEN Routine 07/11/2023 12 :18 PM HAND HARDENER POC GLUCOSE SCREEN Routine 07/11/2023 6: 08 AM HAND HARDENER .CBC Routine 07/11/2023 2:55 AM HAND HARDENER PHOSPHORUS LEVEL Routine 07/11/2023 2:55 AM HAND HARDENER MAGNESIUM LEVEL Routine 07/11/2023 2:55 AM HAND HARDENER BASIC METABOLIC PANEL, CALCIUM TOTAL Routine 07/11/2023 2:55 AM HAND HARDENER COMPLETE BLOOD COUNT W/ DIFFERENTIAL Routine 07/11/2023 2:55 AM HAND HARDENER POC GLUCOSE SCREEN Routine 07/11/2023 12 :01 AM HAND HARDENER POC GLUCOSE SCREEN Routine 07/10/2023 6: 10 PM HAND HARDENER POC GLUCOSE SCREEN Routine 07/10/2023 12 :09 PM HAND HARDENER POC GLUCOSE SCREEN Routine 07/10/2023 6: 26 AM HAND HARDENER .CBC Routine 07/10/2023 5:28 AM HAND HARDENER COMPLETE BLOOD COUNT W/ DIFFERENTIAL Routine 07/10/2023 5:28 AM HAND HARDENER PHOSPHORUS LEVEL Routine 07/10/2023 5:27 AM HAND HARDENER MAGNESIUM LEVEL Routine 07/10/2023 5:27 AM HAND HARDENER BASIC METABOLIC PANEL, CALCIUM TOTAL Routine 07/10/2023 5:27 AM HAND HARDENER POC GLUCOSE SCREEN Routine 07/10/2023 2: 48 AM HAND HARDENER POC GLUCOSE SCREEN Routine 07/09/2023 6: 36 PM HAND HARDENER POC GLUCOSE SCREEN Routine 07/09/2023 1: 03 PM HAND HARDENER XR ABDOMEN 1 VW PORTABLE Routine 07/09/2023 12:59 PM HAND HARDENER POC GLUCOSE SCREEN Routine 07/09/2023 5: 43 AM HAND HARDENER GLUCOSE 6-PHOSPHATE DEHYDRGENASE ENZYME ACTIVITY Add-On 07/09/2023 2:21 AM HAND HARDENER .CBC Routine 07/09/2023 2:21 AM HAND HARDENER PHOSPHORUS LEVEL Routine 07/09/2023 2:21 AM HAND HARDENER MAGNESIUM LEVEL Routine 07/09/2023 2:21 AM HAND HARDENER BASIC METABOLIC PANEL, CALCIUM TOTAL Routine 07/09/2023 2:21 AM HAND HARDENER COMPLETE BLOOD COUNT W/ DIFFERENTIAL Routine 07/09/2023 2:21 AM HAND HARDENER POC GLUCOSE SCREEN Routine 07/08/2023 11 :33 PM HAND HARDENER POC GLUCOSE SCREEN Routine 07/08/2023 6: 04 PM HAND HARDENER POC GLUCOSE SCREEN Routine 07/08/2023 12 :03 PM HAND HARDENER POC GLUCOSE SCREEN Routine 07/08/2023 6: 27 AM HAND HARDENER .CBC Routine 07/08/2023 3:03 AM HAND HARDENER PHOSPHORUS LEVEL Routine 07/08/2023 3:03 AM HAND HARDENER MAGNESIUM LEVEL Routine 07/08/2023 3:03 AM HAND HARDENER BASIC METABOLIC PANEL, CALCIUM TOTAL Routine 07/08/2023 3:03 AM HAND HARDENER COMPLETE BLOOD COUNT W/ DIFFERENTIAL Routine 07/08/2023 3:03 AM HAND HARDENER POC GLUCOSE SCREEN Routine 07/08/2023 12 :43 AM HAND HARDENER POC GLUCOSE SCREEN Routine 07/07/2023 6: 13 PM HAND HARDENER POC GLUCOSE SCREEN Routine 07/07/2023 12 :40 PM HAND HARDENER XR ABDOMEN 1 VW PORTABLE Routine 07/07/2023 11:00 AM HAND HARDENER POC GLUCOSE SCREEN Routine 07/07/2023 6: 45 AM HAND HARDENER .CBC Routine 07/07/2023 4:21 AM HAND HARDENER PHOSPHORUS LEVEL Routine 07/07/2023 4:21 AM HAND HARDENER MAGNESIUM LEVEL Routine 07/07/2023 4:21 AM HAND HARDENER BASIC METABOLIC PANEL, CALCIUM TOTAL Routine 07/07/2023 4:21 AM HAND HARDENER COMPLETE BLOOD COUNT W/ DIFFERENTIAL Routine 07/07/2023 4:21 AM HAND HARDENER POC GLUCOSE SCREEN Routine 07/07/2023 12 :10 AM HAND HARDENER POC GLUCOSE SCREEN Routine 07/06/2023 6: 32 PM HAND HARDENER POC GLUCOSE SCREEN Routine 07/06/2023 12 :07 PM HAND HARDENER POC GLUCOSE SCREEN Routine 07/06/2023 6: 01 AM HAND HARDENER .CBC Routine 07/06/2023 5:31 AM HAND HARDENER PHOSPHORUS LEVEL Routine 07/06/2023 5:31 AM HAND HARDENER MAGNESIUM LEVEL Routine 07/06/2023 5:31 AM HAND HARDENER BASIC METABOLIC PANEL, CALCIUM TOTAL Routine 07/06/2023 5:31 AM HAND HARDENER COMPLETE BLOOD COUNT W/ DIFFERENTIAL Routine 07/06/2023 5:31 AM HAND HARDENER POC GLUCOSE SCREEN Routine 07/05/2023 11 :56 PM HAND HARDENER POC GLUCOSE SCREEN Routine 07/05/2023 6: 38 PM HAND HARDENER XR ABDOMEN 1 VW PORTABLE Routine 07/05/2023 12:10 PM HAND HARDENER POC GLUCOSE SCREEN Routine 07/05/2023 6: 39 AM HAND HARDENER .CBC Routine 07/05/2023 4:39 AM HAND HARDENER PHOSPHORUS LEVEL Routine 07/05/2023 4:39 AM HAND HARDENER MAGNESIUM LEVEL Routine 07/05/2023 4:39 AM HAND HARDENER BASIC METABOLIC PANEL, CALCIUM TOTAL Routine 07/05/2023 4:39 AM HAND HARDENER COMPLETE BLOOD COUNT W/ DIFFERENTIAL Routine 07/05/2023 4:39 AM HAND HARDENER POC GLUCOSE SCREEN Routine 07/05/2023 2: 00 AM HAND HARDENER POC GLUCOSE SCREEN Routine 07/04/2023 6: 01 PM HAND HARDENER POC GLUCOSE SCREEN Routine 07/04/2023 12 :55 PM HAND HARDENER POC GLUCOSE SCREEN Routine 07/04/2023 6: 12 AM HAND HARDENER .CBC Routine 07/04/2023 4:20 AM HAND HARDENER PHOSPHORUS LEVEL Routine 07/04/2023 4:20 AM HAND HARDENER MAGNESIUM LEVEL Routine 07/04/2023 4:20 AM HAND HARDENER BASIC METABOLIC PANEL, CALCIUM TOTAL Routine 07/04/2023 4:20 AM HAND HARDENER COMPLETE BLOOD COUNT W/ DIFFERENTIAL Routine 07/04/2023 4:20 AM HAND HARDENER TYPE AND SCREEN Routine 07/04/2023 4:20 AM HAND HARDENER POC GLUCOSE SCREEN Routine 07/03/2023 11 :55 PM HAND HARDENER POC GLUCOSE SCREEN Routine 07/03/2023 5: 55 PM HAND HARDENER IR PERC FEEDING GASTROSTOMY PLACEMENT 90 STAT 07/03/2023 1:42 PM HAND HARDENER Mass lesion of brain POC GLUCOSE SCREEN Routine 07/03/2023 12 :22 PM HAND HARDENER POC GLUCOSE SCREEN Routine 07/03/2023 6: 02 AM HAND HARDENER .CBC Routine 07/03/2023 4:15 AM HAND HARDENER PHOSPHORUS LEVEL Routine 07/03/2023 4:15 AM HAND HARDENER MAGNESIUM LEVEL Routine 07/03/2023 4:15 AM HAND HARDENER BASIC METABOLIC PANEL, CALCIUM TOTAL Routine 07/03/2023 4:15 AM HAND HARDENER COMPLETE BLOOD COUNT W/ DIFFERENTIAL Routine 07/03/2023 4:15 AM HAND HARDENER POC GLUCOSE SCREEN Routine 07/03/2023 12 :01 AM HAND HARDENER POC GLUCOSE SCREEN Routine 07/02/2023 6: 10 PM HAND HARDENER POC GLUCOSE SCREEN Routine 07/02/2023 2: 18 PM HAND HARDENER POC GLUCOSE SCREEN Routine 07/02/2023 5: 57 AM HAND HARDENER .CBC Routine 07/02/2023 2:12 AM HAND HARDENER PHOSPHORUS LEVEL Routine 07/02/2023 2:12 AM HAND HARDENER MAGNESIUM LEVEL Routine 07/02/2023 2:12 AM HAND HARDENER BASIC METABOLIC PANEL, CALCIUM TOTAL Routine 07/02/2023 2:12 AM HAND HARDENER COMPLETE BLOOD COUNT W/ DIFFERENTIAL Routine 07/02/2023 2:12 AM HAND HARDENER POC GLUCOSE SCREEN Routine 07/02/2023 2: 07 AM HAND HARDENER POC GLUCOSE SCREEN Routine 07/01/2023 8: 00 PM HAND HARDENER POC GLUCOSE SCREEN Routine 07/01/2023 5: 42 PM HAND HARDENER POC GLUCOSE SCREEN Routine 07/01/2023 12 :10 PM HAND HARDENER POC GLUCOSE SCREEN Routine 07/01/2023 6: 02 AM HAND HARDENER .CBC Routine 07/01/2023 3:52 AM HAND HARDENER PHOSPHORUS LEVEL Routine 07/01/2023 3:52 AM HAND HARDENER MAGNESIUM LEVEL Routine 07/01/2023 3:52 AM HAND HARDENER BASIC METABOLIC PANEL, CALCIUM TOTAL Routine 07/01/2023 3:52 AM HAND HARDENER COMPLETE BLOOD COUNT W/ DIFFERENTIAL Routine 07/01/2023 3:52 AM HAND HARDENER TYPE AND SCREEN Routine 07/01/2023 3:52 AM HAND HARDENER POC GLUCOSE SCREEN Routine 07/01/2023 12 :02 AM HAND HARDENER POC GLUCOSE SCREEN Routine 06/30/2023 6: 39 AM HAND HARDENER .CBC Routine 06/30/2023 4:31 AM HAND HARDENER PHOSPHORUS LEVEL Routine 06/30/2023 4:31 AM HAND HARDENER MAGNESIUM LEVEL Routine 06/30/2023 4:31 AM HAND HARDENER BASIC METABOLIC PANEL, CALCIUM TOTAL Routine 06/30/2023 4:31 AM HAND HARDENER COMPLETE BLOOD COUNT W/ DIFFERENTIAL Routine 06/30/2023 4:31 AM HAND HARDENER POC GLUCOSE SCREEN Routine 06/30/2023 12 :17 AM HAND HARDENER POC GLUCOSE SCREEN Routine 06/29/2023 5: 06 PM HAND HARDENER FL MODIFIED BARIUM SWALLOW W SPEECH STAT 06/29/2023 2:39 PM HAND HARDENER .CBC Routine 06/29/2023 4:48 AM HAND HARDENER PHOSPHORUS LEVEL Routine 06/29/2023 4:48 AM HAND HARDENER MAGNESIUM LEVEL Routine 06/29/2023 4:48 AM HAND HARDENER BASIC METABOLIC PANEL, CALCIUM TOTAL Routine 06/29/2023 4:48 AM HAND HARDENER COMPLETE BLOOD COUNT W/ DIFFERENTIAL Routine 06/29/2023 4:48 AM HAND HARDENER HC PROCALCITONIN (PCT) Routine 2:06 PM HAND HARDENER ECHOCARDIOGRAM 2D COMPLETE STAT 06/28/2023 11:46 AM HAND HARDENER MRI BRAIN W WO CONTRAST STAT 06/28/20 6:[address] CHEST ABDOMEN PELVIS W WO CONTRAST STAT 06/28/2023 5:00 AM HAND HARDENER DIFFERENTIAL Routine 06/28/2023 2:49 AM HAND HARDENER .CBC Routine 06/28/2023 2:49 AM HAND HARDENER PHOSPHORUS LEVEL Routine 06/28/2023 2:49 AM HAND HARDENER MAGNESIUM LEVEL Routine 06/28/2023 2:49 AM HAND HARDENER BASIC METABOLIC PANEL, CALCIUM TOTAL Routine 06/28/2023 2:49 AM HAND HARDENER COMPLETE BLOOD COUNT W/ DIFFERENTIAL Routine 06/28/2023 2:49 AM HAND HARDENER CONFIRM ABORH TYPE STAT 06/28/2023 2: 49 AM HAND HARDENER XR ABDOMEN 1 VW PORTABLE STAT 06/28/2023 12:45 AM HAND HARDENER EKG, 12-LEAD (PORTABLE) Routine 06/28/2023 TYPE AND SCREEN STAT 06/27/2023 9:44 PM HAND HARDENER XR CHEST 1 VW Routine 06/27/2023 7:[address] HEAD WO CONTRAST STAT 06/27/2023 7 :03 PM HAND HARDENER .CBC Routine 06/27/2023 5:23 PM HAND HARDENER COMPREHENSIVE METABOLIC PANEL Routine 06/27/2023 5:23 PM HAND HARDENER APTT Routine 06/27/2023 5:23 PM HAND HARDENER PROTHROMBIN TIME Routine 06/27/2023 5:23 PM HAND HARDENER COMPLETE BLOOD COUNT W/ DIFFERENTIAL Routine 06/27/2023 5:23 PM HAND HARDENER after 10/29/2022 Results * POC Glucose Screen - Fingerstick (07/12/2023 6:00 AM HAND HARDENER) Only the most recent of48 resultswithin the time period is included. Glucose Screen 97 70 - 99 mg/dL 07/12/2023 6:02 AM HAND HARDENER [facility] POC Sample Type Capillary 07/12/2023 6:02 AM [facility] Blood 07/12/2023 6:00 AM HAND HARDENER 07/12/2023 6:02 AM HAND HARDENER Narrative [facility] - 07/12/2023 6:02 AM HAND HARDENER Capillary blood samples, e.g. obtained by fingerstick, [...] Aguila MD POCT ORDERABLES - DE VICE [facility] Unless otherwise noted, all lab tests performed by: Division of Pathology and Laboratory Medicine [address] [place] [id number] * (ABNORMAL) .CBC (07/12/2023 2:52 AM HAND HARDENER) Only the most recent of16 resultswithin the time period is included. White Blood Cell 12.8(H) 4.1 - 10.5 K/uL 07/12/2023 3:31 AM [facility] Red Blood Cell 4.81 4.30 - 6.04 M/uL 07/12/2023 3:31 AM [facility] Hemoglobin 14.6 13.3 - 17.4 g/dL 07/12/2023 3:31 AM [facility] Hematocrit 44.8 39.5 - 51.8 % 07/12/2023 3:31 AM [facility] Mean Cell Volume 93 82 - 99 fL 07/12/2023 3:31 AM [facility] Mean Cell Hemoglobin 30.4 26.6 - 33.2 pg 07/12/2023 3:31 AM [facility] Mean Cell Hemoglobin Concentration 32.6 31.1 - 35.2 g/dL 07/12/2023 3:31 AM [facility] RDW-SD 45.9 37.5 - 49.7 fL 07/12/2023 3:31 AM [facility] Red Cell Diameter Width 13.5 11.6 - 15.5 % 07/12/2023 3:31 AM [facility] Platelet 183 160 - 397 K/uL 07/12/2023 3:31 AM [facility] Mean Platelet Volume 11.9 9.1 - 12.6 fL 07/12/2023 3:31 AM [facility] INRBC 0.0 0.0 - 0.1 /100 WBC 07/12/2023 3:31 AM [facility] Comment: The INRBC (instrument NRBC) value reflects the enumeration of nucleated red blood cells contained in a 200uL sample of whole blood analyzed by the instrument. This value may differ from the NRBC value reported in a manual differential, which is based on a 100 cell differential. Neutrophil % 77.2(H) 43.2 - 72.7 % 07/12/2023 3:31 AM [facility] Lymphocyte % 12.4(L) 16.8 - 46.2 % 07/12/2023 3:31 AM [facility] Monocyte % 9.1 5.1 - 12.5 % 07/12/2023 3:31 AM [facility] Eosinophil % 0.0(L) 0.4 - 6.3 % 07/12/2023 3:31 AM [facility] Basophil % 0.2 0.2 - 1.4 % 07/12/2023 3:31 AM [facility] IGRE % 1.1 0.1 - 1.5 % 07/12/2023 3:31 AM [facility] Comment:The IGRE% includes M etamyelocytes, Myelocytes and Promyelocytes. Neutrophil Abs 9.90(H) 1.95 - 7.25 K/uL 07/12/2023 3:31 AM [facility] Lymphocyte Abs 1.59 1.01 - 3.24 K/uL 07/12/2023 3:31 AM [facility] Monocyte Abs 1.16(H) 0.24 - 0.85 K/uL 07/12/2023 3:31 AM [facility] Eosinophil Abs 0.00(L) 0.02 - 0.50 K/uL 07/12/2023 3:31 AM [facility] Basophil Abs 0.02 0.02 - 0.09 K/uL 07/12/2023 3:31 AM [facility] IG Abs 0.14(H) 0.01 - 0.12 K/uL 07/12/2023 3:31 AM [facility] Blood Peripheral blood specimen / Unknown Venipuncture / Unknown 07/12/2023 2:52 AM HAND HARDENER 07/12/2023 3:18 AM HAND HARDENER Naye Amin MD LAB BLOOD ORDERABLES [facility] Unless otherwise noted, all lab tests performed by: Division of Pathology and Laboratory Medicine [address] [place] [address] * (ABNORMAL) Basic Metabolic Panel- Total Calcium (07/12/2023 2:52 AM HAND HARDENER) Only the most recent of15 resultswithin the time period is included. eGFR 108 >=60 mL/min/1.7 3 sq. m 07/12/2023 3:57 AM HAND HARDENER [facility] Comment: The eGFRcr is calculated with the [...] 8.2 - 10.2 mg/dL 07/12/2023 3:57 AM HAND HARDENER [facility] Comment:This result was prev iously suppressed from the chart. Sodium Level 146(H) 136 - 145 mmol/L 07/12/2023 3:57 AM HAND HARDENER [facility] Comment:This result was prev iously suppressed from the chart. Potassium Level 4.5 3.4 - 4.5 mmol/L 07/12/2023 3:57 AM HAND HARDENER [facility] Comment:This result was prev iously suppressed from the chart. Chloride 109(H) 98 - 107 mmol/L 07/12/2023 3:57 AM HAND HARDENER [facility] Comment:This result was prev iously suppressed from the chart. CO2 30(H) 22 - 29 mmol/L 07/12/2023 3:57 AM [facility] Comment:This result was prev iously suppressed from the chart. Anion Gap 7 4 - 14 mmol/L 07/12/2023 3:57 AM HAND HARDENER [facility] Comment:This result was prev iously suppressed from the chart. Creatinine 0.69 0.67 - 1.17 mg/dL 07/12/2023 3:57 AM HAND HARDENER [facility] Comment:This result was prev iously suppressed from the chart. BUN 26(H) 6 - 23 mg/dL 07/12/2023 3:57 AM HAND HARDENER [facility] Comment:This result was prev iously suppressed from the chart. Glucose Level 97 70 - 99 mg/dL 07/12/2023 3:57 AM HAND HARDENER [facility] Comment: Effective 01/26/16, the glucose reference intervals have been updated based on [place] Diabetes [employer] guidelines (Standards of Medical Care [...] Unknown Venipuncture / Unknown 07/12/2023 2:52 AM HAND HARDENER 07/12/2023 3:16 AM HAND HARDENER Naye Amin MD LAB BLOOD ORDERABLES [facility] Unless otherwise noted, all lab tests performed by: Division of Pathology and Laboratory Medicine [address] [place] [id number] * Phosphorus Level (07/12/2023 2:52 AM HAND HARDENER) Only the most recent of15 resultswithin the time period is included. Phosphorus Level 3.3 2.5 - 4.5 mg/dL 07/12/2023 3:57 AM HAND HARDENER [facility] Blood Peripheral blood specimen / Unknown Venipuncture / Unknown 07/12/2023 2:52 AM HAND HARDENER 07/12/2023 3:16 AM HAND HARDENER Naye Amin MD LAB BLOOD ORDERABLES [facility] Unless otherwise noted, all lab tests performed by: Division of Pathology and Laboratory Medicine [address] [place] [id number] * Magnesium Level (07/12/2023 2:52 AM HAND HARDENER) Only the most recent of15 resultswithin the time period is included. Magnesium Level 2.2 1.6 - 2.6 mg/dL 07/12/2023 3:57 AM HAND HARDENER [facility] Blood Peripheral blood specimen / Unknown Venipuncture / Unknown 07/12/2023 2:52 AM HAND HARDENER 07/12/2023 3:16 AM HAND HARDENER Naye Amin MD LAB BLOOD ORDERABLES Performing Organization Address City/[facility] Co de Phone Number [facility] Unless otherwise noted, all lab tests performed by: Division of Pathology and Laboratory Medicine [address] [place] [id number] * XR Abdomen 1 View Portable (07/09/2023 12:59 PM HAND HARDENER) Only the most recent of4 resultswithin the time period is included. Anatomical Region Laterality Modality Abdomen Digital Radiogra phy 07/09/2023 2:34 PM HAND HARDENER Impressions 07/09/2023 2:36 PM HAND HARDENER No evidence of obstruction or significant constipation. Narrative 07/09/2023 2:36 PM HAND HARDENER FULL RESULT: Examination: XR ABDOMEN 1 VW [...] obstruction or significant constipation. Marisol Ruiz APRN [facility] NG ORDERABLES * Glucose 6-Phosphate Dehydrogenase Enzyme Activity (07/09/2023 2:21 AM HAND HARDENER) G6PD Enzyme Activity, B 10.8 8.0 - 11.9 U/g Hb 07/11/2023 2:58 PM HAND HARDENER [facility] Comment: G6PD deficiency can be masked in the setting of reticulocytosis, markedly elevated WBCs or recent transfusion. If any of these are present in the setting of , chronic, or episodic jaundice/anemia, genotyping is recommended. If desired, please order G6PDZ/G6PD Full Gene Sequencing, V. ADDITIONAL INFORMATION This test was developed and its performance characteristics determined by [facility] in a manner consistent with CLIA requirements. This test has not been cleared or approved by the U.S. Food and Drug Administration. Test Performed by: [facility] - [address] [address] Occupational Analyst: Papo Boone M.D. Ph.D.; CLIA# [id number] Blood Peripheral blood specimen / Unknown Venipuncture / Unknown 07/09/2023 2:21 AM HAND HARDENER 07/09/2023 2:59 AM HAND HARDENER Gertrude Jesus MD LAB BLOOD ORDERABLES [facility] * Type and Screen (07/04/2023 4:20 AM HAND HARDENER) Only the most recent of3 resultswithin the time period is included. ABORh O POS 07/04/2023 12:00 AM HAND HARDENER [facility] - TRANSF[facility]ION [facility] ABSC Negative 07/04/2023 12:00 AM HAND HARDENER [facility] - [facility] Clot Expiration 07/07/2023 23:59 07/04/2023 12:00 AM HAND HARDENER [facility] - [facility] Historical Record Check Complete 07/04/2023 12:00 AM HAND HARDENER [facility] Blood Peripheral blood specimen / Unknown Venipuncture / Unknown 07/04/2023 4:20 AM HAND HARDENER 07/04/2023 4:52 AM HAND HARDENER Juli Benitez APRN BLOOD BANK TEST ORDE ISMAEL [facility] - TRANSFUSION [facility] [address] [facility] [phone] [place] [address] * IR PERC FEEDING GASTROSTOMY PLACEMENT (07/03/2023 1:42 PM HAND HARDENER) Anatomical Region Laterality Modality Abdomen/Pelvis Other Narrative 07/03/2023 5:56 PM HAND HARDENER Table formatting from the original result was not included. Date of Procedure: 07/03/23 Attending Physician: Feliberto Olmstead MD Jewish History Professor: None Pre Procedure Diagnosis: Mass lesion of brain [[id number]] Post Procedure Diagnosis: Unchanged Indication: Nutritional support Title of Procedure: Percutaneous Image-Guided Placement of Gastrostomy Catheter. Operative Findings: Percutaneous fluoroscopic-guided placement of 16 Fr Cameroonian gastrostomy catheter. Connector Type: ENFit Consent: The [...] the patient's nasal passage and a 5 Cameroonian catheter and Bentson wire were then passed [...] Barium Swallow w Speech (06/29/2023 2:39 PM HAND HARDENER) Anatomical Region Laterality Modality Neck Radio Fluoroscop y 06/29/2023 3:56 PM HAND HARDENER Impressions 06/29/2023 4:59 PM HAND HARDENER 1. Silent aspiration with thin and thick liquids. Please refer to the separately dictated speech pathology report for further details and recommendations. Narrative 06/29/2023 4:59 PM HAND HARDENER FULL RESULT: Examination: FL MODIFIED BARIUM SWALLOW [...] MONICA GUEVARA * Procalcitonin (06/28/2023 2:06 PM HAND HARDENER) Procalcitonin <0.04 <=0.08 ng/mL 06/28/2023 2:54 PM HAND HARDENER [facility] Blood Peripheral blood specimen / Unknown Venipuncture / Unknown 06/28/2023 2:06 PM HAND HARDENER 06/28/2023 2:10 PM HAND HARDENER Narrative [facility] - 06/28/2023 2:54 PM HAND HARDENER Procalcitonin > 2.00 ng/mL: Procalcitonin levels above [...] with extended dilution as it exceeds the instructor product inspection's recommended limit. Caution should be exercised when interpreting such values and done in conjunction with clinical context. Juli Benitez APRN LAB BLOOD ORDERABLES [facility] Unless otherwise noted, all lab tests performed by: Division of Pathology and Laboratory Medicine [address] [place] [id number] * Echocardiogram 2D Complete (06/28/2023 11:46 AM HAND HARDENER) 06/28/2023 10:4 5 AM HAND HARDENER Narrative [facility] - 06/28/2023 12:29 PM HAND HARDENER Echocardiographic Report Interpretation Summary A complete two-dimensional [...] (lat): 3.4 E/e' (sept): 4.8 Juli Benitez SURGICAL TECHNOLOGIST CV ECHO ORDERABLES [facility]SC[facility] * MRI Brain with and without Contrast (06/28/2023 6:16 AM HAND HARDENER) Anatomical Region Laterality Modality Head Magnetic Resonan ce 06/28/2023 7:32 AM HAND HARDENER Impressions 06/28/2023 10:06 AM HAND HARDENER 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 Narrative 06/28/2023 10:06 AM HAND HARDENER FULL RESULT: Examination: MRI BRAIN W WO [...] with and without Contrast (06/28/2023 5:00 AM HAND HARDENER) Anatomical Region Laterality Modality Abdomen, Pelvis, Chest Computed Tomography 06/28/2023 5:14 AM HAND HARDENER Impressions 06/28/2023 4:07 PM HAND HARDENER Left lower lobe retained secretions and airspace [...] the final report. Narrative 06/28/2023 4:07 PM HAND HARDENER Examination: CT CHEST ABDOMEN PELVIS W WO [...] ORDERABLES * Confirm ABORh (06/28/2023 2:49 AM HAND HARDENER) Pathologist [facility] ABOR Confirm O POS 06/27/2023 9:45 PM HAND HARDENER [facility] - [facility]SF[facility] Blood Peripheral blood specimen / Unknown Venipuncture / Unknown 06/28/2023 2:49 AM HAND HARDENER 06/28/2023 3:06 AM HAND HARDENER Karma Landrum MD BLOOD BANK TEST MONICA GUEVARA [facility] - [facility] [address] [facility] [id number] [place] [address] * (ABNORMAL) Differential (06/28/2023 2:49 AM HAND HARDENER) Total Cells 115 06/28/2023 6:54 AM HAND HARDENER [facility] Manual Neutrophil % 78.0(H) 43.2 - 72.7 % 06/28/2023 6:54 AM [facility] Comment:The Neutrophil count includes Bands. Manual Lymphocyte % 15.0(L) 16.8 - 46.2 % 06/28/2023 6:54 AM [facility] Manual Monocyte % 2.0(L) 5.1 - 12.5 % 06/28/2023 6:54 AM [facility] Metamyelocyte % 5.0(H) <=0.0 % 6:54 AM [facility] Comment:The Metamyelocyte co unt includes Myelocytes. Manual Neutrophil Abs 7.02 1.95 - 7.25 K/uL 06/28/2023 6:54 AM HAND HARDENER [facility] Manual Lymphocyte Abs 1.35 1.01 - 3.24 K/uL 06/28/2023 6:54 AM [facility] Manual Monocyte Abs 0.18(L) 0.24 - 0.85 K/uL 06/28/2023 6:54 AM [facility] RBC Morphology PRESENT 06/28/2023 6:54 AM [facility] Anisocytosis Present(A) (none) 06/28/2023 6:54 AM [facility] Poikilocytosis Present(A) (none) 06/28/2023 6:54 AM [facility] Polychromasia Present(A) (none) 06/28/2023 6:54 AM [facility] Ovalocyte Present(A) (none) 06/28/2023 6:54 AM [facility] Macrocyte Present(A) (none) 06/28/2023 6:54 AM [facility] Slide Comment SEE NOTE 06/28/2023 6:54 AM [facility] Comment:PLT: Platelet morpho logy normal Blood Peripheral blood specimen / Unknown Venipuncture / Unknown 06/28/2023 2:49 AM HAND HARDENER 06/28/2023 3:05 AM HAND HARDENER Naye Amin MD LAB BLOOD ORDERABLES [facility] Unless otherwise noted, all lab tests performed by: Division of Pathology and Laboratory Medicine [address] [place] [address] [place] [address] * EKG, 12-Lead (06/28/2023) Juli Benitez KENYETTA ECG ORDERABLES [facility] * X-ray Chest 1 View (06/27/2023 7:50 PM HAND HARDENER) Anatomical Region Laterality Modality Chest Digital Radiogra phy 06/27/2023 8:19 PM HAND HARDENER Impressions 06/27/2023 8:21 PM HAND HARDENER No acute consolidations or lobar pneumonias. ACTIONABLE ITEMS/RECOMMENDATIONS: None. 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 Discussed with Dr. Ricardo at 7:36 PM on 06/27/2023 by means of a phone conversation. Narrative 06/27/2023 7:37 PM HAND HARDENER FULL RESULT: Examination: CT HEAD WO CONTRAST [...] (ABNORMAL) Comprehensive Metabolic Panel (06/27/2023 5:23 PM HAND HARDENER) Bilirubin Total 0.4 <=1.2 mg/dL 06/27/2023 6:05 PM [facility] Comment: Indocyanine Green (ICG) may cause falsely elevated bilirubin results. Total and direct bilirubin must not be measured from samples containing indocyanine green. False elevation of total bilirubin can be seen in patients with IgG concentrations above 28 g/L. This result was previously suppressed from the chart. Bilirubin Direct <0.2 <=0.3 mg/dL 06/27/2023 6:05 PM [facility] Comment: Indocyanine Green (ICG) may cause falsely elevated bilirubin results. Total and direct bilirubin must not be measured from samples containing indocyanine green. This result was previously suppressed from the chart. Bilirubin Indirect 2022 6:05 PM [facility] Comment:Unable to calculate Indirect Bilirubin result due to some parameters are outside reportable range eGFR 104 >=60 mL/min/1. 73 sq. m 06/27/2023 6:05 PM [facility] Comment: The eGFRcr is calculated [...] 6.4 - 8.3 gm/dL 06/27/2023 6:05 PM [facility] Comment:This result was prev iously suppressed from the chart. Calcium Level Total 9.6 8.2 - 10.2 mg/dL 06/27/2023 6:05 PM [facility] Comment:This result was prev iously suppressed from the chart. Alkaline Phosphatase 92 40 - 129 U/L 06/27/2023 6:05 PM [facility] Comment:This result was prev iously suppressed from the chart. Albumin Level 4.0 3.5 - 5.2 gm/dL 06/27/2023 6:05 PM [facility] Comment:This result was prev iously suppressed from the chart. AST 14 <=40 U/L 06/27/2023 6:05 PM [facility] Comment:This result was prev iously suppressed from the chart. ALT 17 <=41 U/L 06/27/2023 6:05 PM [facility] Comment:This result was prev iously suppressed from the chart. Sodium Level 134(L) 136 - 145 mmol/L 06/27/2023 6:05 PM [facility] Comment:This result was prev iously suppressed from the chart. Potassium Level 4.0 3.4 - 4.5 mmol/L 06/27/2023 6:05 PM [facility] Comment:This result was prev iously suppressed from the chart. Chloride 99 98 - 107 mmol/L 06/27/2023 6:05 PM [facility] Comment:This result was prev iously suppressed from the chart. CO2 26 22 - 29 mmol/L 06/27/2023 6:05 PM [facility] Comment:This result was prev iously suppressed from the chart. Anion Gap 9 4 - 14 mmol/L 06/27/2023 6:05 PM [facility] Comment:This result was prev iously suppressed from the chart. Creatinine 0.77 0.67 - 1.17 mg/dL 06/27/2023 6:05 PM [facility] Comment:This result was prev iously suppressed from the chart. BUN 17 6 - 23 mg/dL 06/27/2023 6:05 PM HAND HARDENER [facility] Comment:This result was prev iously suppressed from the chart. Glucose Level 98 70 - 99 mg/dL 06/27/2023 6:05 PM HAND HARDENER [facility] Comment: Effective 01/26/16, the glucose reference intervals have been updated based on [place] [employer] guidelines (Standards of Medical Care [...] Unknown Venipuncture / Unknown 06/27/2023 5:23 PM HAND HARDENER 06/27/2023 5:30 PM HAND HARDENER Jensen Zuleta MD LAB BLOOD ORDERABLES Performing Organization Address City/[facility] Co de Phone Number [facility] Unless otherwise noted, all lab tests performed by: Division of Pathology and Laboratory Medicine [address] [place] [phone] * aPTT (06/27/2023 5:23 PM HAND HARDENER) Pathologist [facility] Activated PTT 24.7 24.1 - 35.5 second(s) 06/27/2023 6:14 PM HAND HARDENER [facility] Blood Peripheral blood specimen / Unknown Venipuncture / Unknown 06/27/2023 5:23 PM HAND HARDENER 06/27/2023 5:30 PM HAND HARDENER Jensen Zuleta MD LAB BLOOD ORDERABLES [facility] Unless otherwise noted, all lab tests performed by: Division of Pathology and Laboratory Medicine [address] [place] [id number] * Prothrombin Time with INR (06/27/2023 5:23 PM HAND HARDENER) [facility] Prothrombin Time 13.0 11.9 - 14.5 second(s) 06/27/2023 6:14 PM HAND HARDENER [facility] International Normalization Ratio 0.99 0.87 - 1.12 06/27/2023 6:14 PM HAND HARDENER [facility] Blood Peripheral blood specimen / Unknown Venipuncture / Unknown 06/27/2023 5:23 PM HAND HARDENER 06/27/2023 5:30 PM HAND HARDENER Jensen Zuleta MD LAB BLOOD ORDERABLES [facility] Unless otherwise noted, all lab tests performed by: Division of Pathology and Laboratory Medicine [facility] [place] [address] after 10/29/2022 Advance Directives Latest Code Status on File Code Status Date Activated Date Inactivated Comments Full Code 06/27/2023 8:32 PM 07/12/2023 3:12 PM
[2023-10-29] MEDS ORDERED: NA CHLORIDE 0.9% 1,000 ML ONE ×2 (14:21→15:07)
[2023-10-29] MEDS ORDERED: ONDANSETRON 4 MG/2 ML VIAL ONE (14:35)
[2023-10-29] MEDS ORDERED: MORPHINE 4 MG/ML SYR ONE (14:36)
[2023-10-29 14:52] LABS: Specific Gravity 1.027 (1.005-1.030); Sqamous Epithelial <5 /HPF (None Seen); Urine Bacteria <20 /HPF (<20); Urine Bilirubin NEGATIVE (Negative); Urine Blood 2+ (Negative); Urine Clarity Clear (Clear); Urine Color Yellow (Yellow); Urine Culture Reflex Order NOT NEEDED; Urine Glucose NEGATIVE (Negative); Urine Ketones NEGATIVE (Negative); Urine Microscopic Reflex YN ORDER UMIC; Urine Mucus Slight /HPF (None Seen); Urine Nitrite NEGATIVE (Negative); Urine Protein TRACE (Negative); Urine RBC >50 /HPF (None Seen); Urine Urobilinogen Normal (Normal); Urine WBC None Seen /HPF (<5); Urine WBC Clump Rare /HPF (None Seen); Urine Yeast (Budding) Trace /HPF (None Seen); Urine pH 6.5 (5.0-7.0)
[2023-10-29 14:57] LABS: Albumin/Globulin Ratio 0.9 (1.1-1.8); Anion Gap 6.9 mEq/L (5.0-15.0); Bilirubin Total 0.5 mg/dL (0.2-1.0); Globulin 3.5 g/dL (2.3-3.5); Potassium 3.9 mEq/L (3.5-5.1); Protein, Total 6.5 g/dL (6.4-8.2)
[2023-10-29 15:05] LABS: Absolute Lymphocytes (CBC) 0.6 K/uL (0.7-4.9); Absolute Monocytes 0.8 K/uL (0.1-1.3); Absolute Neutrophil 16.7 K/uL (1.8-8.0); Basophils % 0.1 % (0-1.3); Hematocrit 34.5 % (39.6-49.0); Hemoglobin 11.1 g/dL (13.6-17.9); Lymphocytes % 3.1 % (15.3-44.8); MCH 33.2 pg (27.0-35.0); MCHC 32.1 g/dL (32.0-36.0); MCV 103.4 fL (80-100); MPV 8.6 fL (7.6-11.3); Monocytes % 4.5 % (3.3-12.3); Neutrophils % 92.3 % (41.7-73.7); Nucleated Red Blood Cells % 0.1 % (0-0); Platelets 294 thou/uL (152-406); RBC Red Blood Cell Count 3.34 M/uL (4.33-5.43); Red Cell Distribution Width 14.7 % (12.1-15.2)
[2023-10-29] MEDS ORDERED: FENTANYL CITR 100 MCG/2 ML ONE (15:06)
--- NOTE | 2023-10-29 16:41 | RAD REPORT ---
EXAM DESCRIPTION: CT - Thorax Wo Con - 10/29/2023 3:32 pm CLINICAL HISTORY: PAIN COMPARISON: Chest Single View dated 10/23/2023; Abdomen Pelvis W Contrast dated 10/29/2023 TECHNIQUE: Axial thin cut images of the chest were obtained without IV contrast. Multiplanar reforma ts were generated and reviewed. All CT scans are performed using dose optimization technique as appropriate and may include automated exposure control or mA/KV adjustment according to patient size. FINDINGS: Tracheostomy tube in place. Right middle lobe peripheral pleural-based cavitary mass, with nodular wall thickening, measuring 2.4 x 2.0 cm. This correlates to the abnormality seen on recent r adiograph. Bibasilar subsegmental airspace opacities more pronounced in the left lower lobe, with are as of air bronchogram, may represent atelectasis although superimposed airspace disease cannot be ent irely excluded. No pleural thickening or pleural effusion. No pneumothorax. No abnormal mediastinal or hilar masses or lymphadenopathy seen. No significant aortic or pulmonary a rtery findings. Assessment is limited in the absence of IV contrast. No chest wall mass or abnormal axillary lymphadenopathy. Evaluation of the solid abdominal structures reveals no suspicious findings. 2.8 cm fluid density lef t renal interpolar cortical cyst. IMPRESSION: Right middle lobe pleural-based 2.4 x 2.0 cm cavitary mass. Malignancy, as well as a pul monary abscess are to be considered. Bibasilar dependent airspace opacities as above, may reflect atelectasis although superimposed pneumo patricia should also be considered.
--- NOTE | 2023-10-29 16:44 | RAD REPORT ---
EXAM DESCRIPTION: CT - Soft Tissue Neck Wo Contr CLINICAL HISTORY: throat pain s/p trach replacement COMPARISON: Soft Tissue Neck W/Contr dated 10/23/2023; CT HEAD CSPINE MPR WO CONTRAST dated 4 TECHNIQUE: Thin axial CT images of the neck, performed without IV contrast. Multiplanar reformats w ere generated and reviewed. All CT scans are performed using dose optimization technique as appropriate and may include automated exposure control or mA/KV adjustment according to patient size. FINDINGS: Tracheostomy tube in place. Upper trachea shows normal contour otherwise. Nasopharyngeal tissues are normal in appearance. Fossa Rosenmller are normal. Parapharyngeal fat triangles are symmetric. Tongue base structures are normal. Epiglottis and aryepiglottic folds are normal. Piriform sinuses are well aerated. The vocal cords are normal in appearance. No suspicious adenopathy. Salivary glands are normal in appearance. Sequelae of right scleral banding. Evidence of prior suboccipital craniotomy. Upper lung kong are clear. Included intracranial contents are unremarkable. IMPRESSION: No acute abnormality. No suspicious mucosal mass or adenopathy. Tracheostomy tube in sat isfactory position without evidence of complications.
--- NOTE | 2023-10-29 16:49 | RAD REPORT ---
EXAM DESCRIPTION: CT - Abdomen Pelvis W Contrast - 10/29/2023 3:30 pm CLINICAL HISTORY: ABD PAIN COMPARISON: Chest Single View dated 10/23/2023 TECHNIQUE: Thin cut axial CT imaging of the abdomen and pelvis was performed following intravenous a dministration of iodinated contrast. Multiplanar reformats were generated and reviewed. All CT scans are performed using dose optimization technique as appropriate and may include automated exposure control or mA/KV adjustment according to patient size. FINDINGS: No suspicious findings in the lung bases. The liver, spleen, adrenal glands, and pancreas show no suspicious findings. Gallbladder and biliary tree are also without suspicious finding. Symmetric renal function is seen with suspicious mass. Fluid density left renal cortical interpolar 2 .8 cm cyst, likely benign. Moderate right hydroureteronephrosis. 4 mm calculus at the right vesicoure teral junction. No dilated bowel loops or bowel wall thickening. No free air, free fluid or inflammatory stranding. N o hernia, mass or bulky lymphadenopathy. The urinary bladder is decompressed with Haq catheter in p lace. No suspicious bony findings. IMPRESSION: Moderate right hydroureteronephrosis. 4 mm calculus at the right vesicoureteral junction . The findings were communicated to Dora Griffin on 10/29/2023 at 16:44 hours.
[2023-10-29] MEDS ORDERED: VANCOMYCIN 1 GM/VIAL ONE (17:23)
[2023-10-29] MEDS ORDERED: NA CHLORIDE 0.9% 250 ML ONE (17:23)
[2023-10-29] MEDS ORDERED: HYDROMORPHONE HCL 0.5 MG/0.5 ML INJ ONE (17:23)
[2023-10-29] MEDS ORDERED: Meropenem 1000 MG/VIAL IV ONE (17:23)
[2023-10-29] MEDS ORDERED: TAMSULOSIN 0.4 MG SR CAP ONE (17:23)
[2023-10-29] MEDS ORDERED: MAGNESIUM SULFATE 1 gm IVPB 1 GM/100 ML BAG IV ONE (17:24)
[2023-10-29] MEDS ORDERED: NA CHLORIDE 0.9% 100 ML ONE (17:24)
--- NOTE | 2023-10-29 17:29 | ER ---
Nurse's Notes [facility] Name: Arturo Gregorio Age: 58 yrs Sex: Male : 1965 Arrival Date: 10/29/2023 Time: 13:49 Bed 4 Private MD: Dequan Kruger Diagnosis: Cavitary lung mass, right middle lobe;Calculus of kidney with calculus of ureter;Elevated white blood cell count Presentation: 10/28 14:01 Chief complaint: Patient states: Unable to urinate since this morning - right sided ld1 groin pain. Coronavirus screen: At this time, the client does not indicate any symptoms associated with coronavirus-19. Ebola Screen: No symptoms or risks identified at this time. Initial Sepsis Screen: Does the patient meet any 2 criteria? No. Patient's initial sepsis screen is negative. Does the patient have a suspected source of infection? No. Patient's initial sepsis screen is negative. Risk Assessment: Do you want to hurt yourself or someone else? Patient reports no desire to harm self or others. Onset of symptoms was October 29, 2023. 14:01 Method Of Arrival: Wheelchair ld1 14:01 Acuity: NELLI 3 ld1 Triage Assessment: 14:02 General: Appears in no apparent distress. comfortable, Behavior is calm, cooperative, ld1 appropriate for age. Pain: Complains of pain in pelvis Pain does not radiate. Pain currently is 10 out of 10 on a pain scale. Quality of pain is described as throbbing, Pain began suddenly. EENT: No signs and/or symptoms were reported regarding the EENT system. Neuro: Level of Consciousness is awake, alert, obeys commands, Oriented to person, place, time, situation, Appropriate for age. Cardiovascular: Capillary refill < 3 seconds Patient's skin is warm and dry. Respiratory: Airway is patent Respiratory effort is even, unlabored. GI: Abdomen is flat, non-distended. : Reports inability to void. 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 - Infectious Disease History:: Denies. - Social history:: Smoking status: Patient denies any tobacco usage or history of. Screenin:45 [facility] ED Fall Risk Assessment (Adult) History of falling in the last 3 months, kc6 including since admission No falls in past 3 months (0 pts) Confusion or Disorientation No (0 pts) Intoxicated or Sedated No (0 pts) Impaired Gait No (0 pts) Mobility Assist Device Used No (0 pt) Altered Elimination No (0 pt) Score/Fall Risk Level 0 - 2 = Low Risk. Abuse screen: Denies threats or abuse. Denies injuries from another. Nutritional screening: No deficits noted. Tuberculosis screening: No symptoms or risk factors identified. Assessment: 14:01 Reassessment: patients tracheostomy appears to have come out while taking off his kc6 shirt. Dr. Jones and MATHEW Yun notified and at bedside. trach placed back by Dr. Jones. pts SPO2 is 92%. denies chest pain or difficulty breathing. 14:10 Reassessment: respiratory at bedside assessing patient and his tracheostomy. kc6 14:15 General: Appears in no apparent distress. uncomfortable, slender, well groomed, kc6 Behavior is calm, cooperative, appropriate for age. Pain: Complains of pain in suprapubic area and right lower quadrant Pain does not radiate. Pain currently is 8 out of 10 on a pain scale. Pain began suddenly. Neuro: Level of Consciousness is awake, alert, obeys commands, Oriented to person, place, time, situation, Appropriate for age. Cardiovascular: Capillary refill < 3 seconds. Respiratory: Airway is patent Trachea midline Respiratory effort is even, unlabored, Respiratory pattern is regular, symmetrical, pt with tracheostomy in place. GI: Abdomen is flat, non-distended, Bowel sounds present X 4 quads. Abd is soft X 4 quads Abdomen is tender to palpation in suprapubic area Reports lower abdominal pain, Patient currently denies diarrhea, nausea, vomiting. : Urine is clear, Reports inability to void, since this AM. EENT: No signs and/or symptoms were reported regarding the EENT system. Derm: No signs and/or symptoms reported regarding the dermatologic system. Skin is intact, is healthy with good turgor, Skin is pink, warm \T\ dry. Musculoskeletal: No signs and/or symptoms reported regarding the musculoskeletal system. Circulation, motion, and sensation intact. Capillary refill < 3 seconds, Range of motion: intact in all extremities. 15:15 Reassessment: Patient appears in no apparent distress at this time. No changes from kc6 previously documented assessment. Patient and/or family updated on plan of care and expected duration. Pain level reassessed. Patient is alert, oriented x 3, equal unlabored respirations, skin warm/dry/pink. 16:15 Reassessment: Patient appears in no apparent distress at this time. No changes from kc6 previously documented assessment. Patient and/or family updated on plan of care and expected duration. Pain level reassessed. Patient is alert, oriented x 3, equal unlabored respirations, skin warm/dry/pink. 17:03 Reassessment: Patient appears in no apparent distress at this time. No changes from kc6 previously documented assessment. Patient and/or family updated on plan of care and expected duration. Pain level reassessed. Patient is alert, oriented x 3, equal unlabored respirations, skin warm/dry/pink. 18:16 Reassessment: Patient appears in no apparent distress at this time. No changes from kc6 previously documented assessment. Patient and/or family updated on plan of care and expected duration. Pain level reassessed. Patient is alert, oriented x 3, equal unlabored respirations, skin warm/dry/pink. 19:18 General: Appears ill, Behavior is calm, appropriate for age. Pain: Unable to use pain ha1 scale. FLACC scale score is 0 out of 10. Neuro: Level of Consciousness is awake, alert, obeys commands, Oriented to person, place, time, situation. Cardiovascular: Capillary refill < 3 seconds. Respiratory: Airway is patent via trache Trachea midline Respiratory effort is even, unlabored, Respiratory pattern is regular, symmetrical. GI: No signs and/or symptoms were reported involving the gastrointestinal system. Abdomen is flat, non-distended, PEG tube. :. 20:20 Reassessment: Patient and/or family updated on plan of care and expected duration. Pain ha1 level reassessed. 22:15 Reassessment: report given to YESENIA Osman. ha1 23:30 Reassessment: Patient appears in no apparent distress at this time. No changes from jw7 previously documented assessment. Patient and/or family updated on plan of care and expected duration. Pain level reassessed. Patient is alert, oriented x 3, equal unlabored respirations, skin warm/dry/pink. Vital Signs: 14:01 BP 116 / 73; Pulse 80; Resp 18; Temp 98.2; Pulse Ox 100% on R/A; Weight 46.27 kg; ld1 Height 5 ft. 6 in. ; Pain 10/10; 15:26 BP 123 / 69; Pulse 68; Resp 19 S; Pulse Ox 96% on R/A; Pain 8/10; kc6 17:03 BP 124 / 79; Pulse 85; Resp 19 S; Pulse Ox 95% on R/A; kc6 18:16 BP 123 / 78; Pulse 75; Resp 18 S; Pulse Ox 95% on R/A; kc6 19:19 BP 119 / 78; Pulse 70; Resp 18 S; Pulse Ox 97% on R/A; ha1 20:20 BP 117 / 69; Pulse 70; Resp 17 S; Pulse Ox 95% on R/A; ha1 22:52 BP 110 / 68; Pulse 66; Resp 18 S; Pulse Ox 96% on R/A; ha1 23:30 BP 97 / 63; Pulse 76; Resp 19 S; Pulse Ox 94% on R/A; jw7 14:01 Body Mass Index 16.46 (46.27 kg, 167.64 cm) ld1 14:01 Pain Scale: Adult ld1 15:26 Pain Scale: Adult kc6 ED Course: 13:52 Patient arrived in ED. mr 13:52 Dequan Kruger DO is Private Physician. mr 13:52 Dora Griffin [facility] sb4 13:52 Rogelio Serrano MD is Attending Physician. sb4 14:02 Triage completed. ld1 14:02 Arm band placed on right wrist. ld1 14:18 Breonna Garcia, YESENIA is Primary Nurse. kc6 14:19 Haq cath inserted, using sterile technique, 16 Fr., by oil expeller operator, balloon inflated, to kc6 gravity drainage, clamped. urine specimen collected. returned clear yellow urine. Patient tolerated well. 14:20 Patient has correct armband on for positive identification. Placed in gown. Bed in low kc6 position. Call light in reach. Side rails up X2. Adult w/ patient. Client placed on continuous cardiac and pulse oximetry monitoring. NIBP monitoring applied. playground monitor on. Warm blanket given. 15:32 CT Abd/Pelvis - IV Contrast Only In Process Unspecified. EDMS 15:32 CT Chest Wo Con In Process Unspecified. EDMS 15:34 Soft Tissue Neck Wo Contr In Process Unspecified. EDMS 17:27 Mario Fox MD is Hospitalizing Provider. sb4 22:46 Provided Education on: need for admit . ha1 22:46 No provider procedures requiring assistance completed. Patient admitted, IV remains in ha1 place. Administered Medications: 14:44 Drug: NS 0.9% IV 1000 ml IV at 1 bolus Per protocol; 1000 mL bolus Route: IV; Rate: 1 kc6 bolus; Site: right forearm; 17:04 Follow up: Response: No adverse reaction; IV Status: Completed infusion; IV Intake: kc6 1000ml 14:44 Drug: morphine IVP or IV 4 mg IVP once over 4 mins Route: IVP; Infused Over: 4 mins; kc6 Site: right forearm; 15:06 Follow up: Response: No adverse reaction; Pain is unchanged, physician notified; RASS: kc6 Alert and Calm (0) 14:44 Drug: Ondansetron IVP 4 mg IVP once; over 2 minutes Route: IVP; Site: right forearm; kc6 15:27 Follow up: Response: No adverse reaction kc6 15:18 Drug: fentaNYL (PF) IVP 50 mcg IVP once Route: IVP; Site: right forearm; kc6 15:35 Follow up: Response: No adverse reaction; Pain is decreased; RASS: Alert and Calm (0) kc6 15:35 Drug: NS 0.9% IV 1000 ml IV at 1 bolus Per protocol; 1000 mL bolus Route: IV; Rate: 1 kc6 bolus; Site: right forearm; 17:04 Follow up: Response: No adverse reaction; IV Status: Completed infusion; IV Intake: kc6 1000ml 17:43 Drug: HYDROmorphone IVP 0.5 mg IVP once Route: IVP; Site: right forearm; kc6 18:16 Follow up: Response: No adverse reaction; Pain is decreased; RASS: Alert and Calm (0) kc6 17:43 Drug: Flomax PO 0.4 mg PO once; via PEG {Note: via PEG.} Route: PO; kc6 18:17 Follow up: Response: No adverse reaction 6 17:43 Drug: Magnesium Sulfate IVPB 1 grams IVPB once over 1 hrs Route: IVPB; Infused Over: 1 kc6 hrs; Site: right forearm; 18:42 Follow up: Response: No adverse reaction; IV Status: Completed infusion; IV Intake: kc6 100ml 18:42 Drug: Meropenem IV 1 grams IV at calculated rate once; (mix in NS 100 mL) Route: IV; kc6 Rate: calculated rate; Site: right forearm; 23:53 Follow up: Response: No adverse reaction; IV Status: Completed infusion; IV Intake: jw7 100ml 19:17 Drug: vancoMYCIN IVPB 1 grams IVPB once over 2 hrs Route: IVPB; Infused Over: 2 hrs; ha1 Site: right forearm; 23:53 Follow up: Response: No adverse reaction; IV Status: Completed infusion; IV Intake: jw7 250ml Medication: 22:45 VIS not applicable for this client. ha1 Intake: 17:04 IV: 1000ml; Total: 1000ml. kc6 17:04 IV: 1000ml; Total: 2000ml. kc6 18:42 IV: 100ml; Total: 2100ml. kc6 23:53 IV: 100ml; Total: 2200ml. jw7 23:53 IV: 250ml; Total: 2450ml. jw7 Outcome: 17:29 Decision to Hospitalize by Provider. sb4 22:30 Instructed on the need for admit, Demonstrated understanding of instructions, jw7 22:46 Condition: stable ha1 22:46 Admitted to ICU accompanied by tech, family with patient, via stretcher, jw7 23:54 Patient left the ED. jw7 Signatures: Dispatcher [employer] EDMD Flaquita Boston, Reg Reg mr Rufina Ellison, RN RN ld1 Susana Hamlin RN RN jw7 Eileen Rivero RN RN ha1 Breonna Garcia RN RN Dora Mane PA-C PAAlexia sb4
--- NOTE | 2023-10-29 17:29 | EDPHYS ---
Physician Documentation [facility] Name: Arturo Gregorio Age: 58 yrs Sex: Male : 1965 Arrival Date: 10/29/2023 Time: 13:49 Bed 4 Private MD: Dequan Kruger ED Physician Rogelio Serrano HPI: 10/28 14:11 This 58 yrs old Male presents to ER via Wheelchair with complaints of Urinary sb4 Problem. 14:11 patient has not been able to urinate since this morning and is complaining of right sb4 groin pain. thinks it's a side effect of the levofloxacin he is on. has not had much hydration . 15:46 additionally, while was attempting to undress patient, she pulled out his trach, sb4 attending replaced shortly after. 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 - Infectious Disease History:: Denies. - Social history:: Smoking status: Patient denies any tobacco usage or history of. ROS: 15:46 Constitutional: Negative for fever, chills, and weight loss, sb4 15:46 Abdomen/GI: Positive for abdominal pain, 15:46 : Positive for difficulty urinating, 15:46 All other systems are negative, Exam: 15:46 Head/Face: Normocephalic, atraumatic. Eyes: Extra-ocular motions intact. Periorbital sb4 areas with no swelling, redness, or edema. Cardiovascular: Regular rate and rhythm with a normal S1 and S2. Respiratory: Lungs have equal breath sounds bilaterally, clear to auscultation and percussion. No rales, rhonchi or wheezes noted. No increased work of breathing, no retractions or nasal flaring. 15:46 Constitutional: The patient appears alert, awake, frail, 15:46 Abdomen/GI: Inspection: distension, that is mild, Bowel sounds: normal, Palpation: soft, Vital Signs: 14:01 BP 116 / 73; Pulse 80; Resp 18; Temp 98.2; Pulse Ox 100% on R/A; Weight 46.27 kg; ld1 Height 5 ft. 6 in. ; Pain 10/10; 15:26 BP 123 / 69; Pulse 68; Resp 19 S; Pulse Ox 96% on R/A; Pain 8/10; kc6 17:03 BP 124 / 79; Pulse 85; Resp 19 S; Pulse Ox 95% on R/A; kc6 18:16 BP 123 / 78; Pulse 75; Resp 18 S; Pulse Ox 95% on R/A; kc6 19:19 BP 119 / 78; Pulse 70; Resp 18 S; Pulse Ox 97% on R/A; ha1 20:20 BP 117 / 69; Pulse 70; Resp 17 S; Pulse Ox 95% on R/A; ha1 22:52 BP 110 / 68; Pulse 66; Resp 18 S; Pulse Ox 96% on R/A; ha1 23:30 BP 97 / 63; Pulse 76; Resp 19 S; Pulse Ox 94% on R/A; jw7 14:01 Body Mass Index 16.46 (46.27 kg, 167.64 cm) ld1 14:01 Pain Scale: Adult ld1 15:26 Pain Scale: Adult kc6 MDM: 14:02 Patient medically screened. sb4 17:27 Data reviewed: vital signs, nurses notes, lab test result(s), radiologic studies, I sb4 have discussed the patient's presentation/case with the attending Emergency Department Physician; and as a result, I will admit patient. Consideration of Admission/Observation Patient was admitted/placed on observation. Management of patient was discussed with the following: Roll Examiner: Dr. Beatty, agrees to consult. Historians other than the Patient: Spouse/Significant Other: . Counseling: I had a detailed discussion with the patient and/or guardian regarding the historical points, exam findings, and any diagnostic results supporting the discharge/admit diagnosis, lab results, radiology results, the need for further work-up and treatment in the hospital. 10/28 14:10 Order name: CBC with Diff; Complete Time: 19:06 sb4 10/28 14:10 Order name: CMP; Complete Time: 14:57 sb4 10/28 14:10 Order name: Lipase; Complete Time: 14:57 sb4 10/28 14:10 Order name: Urinalysis w/ reflexes; Complete Time: 14:54 sb4 10/28 18:55 Order name: Manual Differential; Complete Time: 19:06 EDMS 10/28 19:15 Order name: Urinalysis w/ reflexes EDMS 10/28 19:15 Order name: CBC with Automated Diff EDMS 10/28 19:15 Order name: CBC with Automated Diff EDMS 10/28 19:15 Order name: Comprehensive Metabolic Panel EDMS 10/28 19:15 Order name: Comprehensive Metabolic Panel EDMS 10/28 19:17 Order name: Vancomycin Level Trough EDMS 10/28 19:18 Order name: Acid Fast Bacilli Culture EDMS 10/28 19:18 Order name: QUANTIFERON TB GOLD PLUS EDMS 10/28 14:54 Order name: CT Abd/Pelvis - IV Contrast Only; Complete Time: 16:54 sb4 10/28 15:17 Order name: CT Chest Wo Con; Complete Time: 16:43 sb4 10/28 15:31 Order name: Soft Tissue Neck Wo Contr; Complete Time: 16:44 EDMS 10/28 19:15 Order name: CONS Physician Consult EDMT 10/28 14:10 Order name: IV Saline Lock; Complete Time: 14:43 sb4 10/28 14:10 Order name: Labs collected and sent; Complete Time: 14:44 sb4 Administered Medications: 14:44 Drug: NS 0.9% IV 1000 ml IV at 1 bolus Per protocol; 1000 mL bolus Route: IV; Rate: 1 kc6 bolus; Site: right forearm; 17:04 Follow up: Response: No adverse reaction; IV Status: Completed infusion; IV Intake: kc6 1000ml 14:44 Drug: morphine IVP or IV 4 mg IVP once over 4 mins Route: IVP; Infused Over: 4 mins; kc6 Site: right forearm; 15:06 Follow up: Response: No adverse reaction; Pain is unchanged, physician notified; RASS: kc6 Alert and Calm (0) 14:44 Drug: Ondansetron IVP 4 mg IVP once; over 2 minutes Route: IVP; Site: right forearm; kc6 15:27 Follow up: Response: No adverse reaction kc6 15:18 Drug: fentaNYL (PF) IVP 50 mcg IVP once Route: IVP; Site: right forearm; kc6 15:35 Follow up: Response: No adverse reaction; Pain is decreased; RASS: Alert and Calm (0) kc6 15:35 Drug: NS 0.9% IV 1000 ml IV at 1 bolus Per protocol; 1000 mL bolus Route: IV; Rate: 1 kc6 bolus; Site: right forearm; 17:04 Follow up: Response: No adverse reaction; IV Status: Completed infusion; IV Intake: kc6 1000ml 17:43 Drug: HYDROmorphone IVP 0.5 mg IVP once Route: IVP; Site: right forearm; kc6 18:16 Follow up: Response: No adverse reaction; Pain is decreased; RASS: Alert and Calm (0) kc6 17:43 Drug: Flomax PO 0.4 mg PO once; via PEG {Note: via PEG.} Route: PO; kc6 18:17 Follow up: Response: No adverse reaction kc6 17:43 Drug: Magnesium Sulfate IVPB 1 grams IVPB once over 1 hrs Route: IVPB; Infused Over: 1 kc6 hrs; Site: right forearm; 18:42 Follow up: Response: No adverse reaction; IV Status: Completed infusion; IV Intake: kc6 100ml 18:42 Drug: Meropenem IV 1 grams IV at calculated rate once; (mix in NS 100 mL) Route: IV; kc6 Rate: calculated rate; Site: right forearm; 23:53 Follow up: Response: No adverse reaction; IV Status: Completed infusion; IV Intake: jw7 100ml 19:17 Drug: vancoMYCIN IVPB 1 grams IVPB once over 2 hrs Route: IVPB; Infused Over: 2 hrs; ha1 Site: right forearm; 23:53 Follow up: Response: No adverse reaction; IV Status: Completed infusion; IV Intake: jw7 250ml Disposition: 10/29 14:52 Co-signature as Attending Physician, Rogelio Serrano MD I reviewed the patient's care rn provided by the Advanced Practice Provider and agree with the diagnosis and treatment plan. Disposition Summary: 10/29/23 17:29 Hospitalization Ordered Notes: Hospitalization Status: Inpatient Admission sb4 Provider: Mario Fox sb4 Condition: Fair sb4 Problem: new sb4 Symptoms: are unchanged sb4 Bed/Room Type: Standard sb4 Location: Intensive Care Unit(10/29/23 22:05) lg3 Room Assignment: 8-(10/29/23 22:05) lg3 Diagnosis - Cavitary lung mass, right middle lobe sb4 - Calculus of kidney with calculus of ureter sb4 - Elevated white blood cell count sb4 Forms: - Medication Reconciliation Form sb4 - SBAR form sb4 - Leadership Thank You Letter sb4 Signatures: Dispatcher [employer] EDMS Rogelio Serrano MD MD rn Able, Lacie RN RN lg3 Rufina Ellison RN RN ld1 Eileen Rivero RN RN ha1 Breonna Garcia RN RN kc6 Dora Griffin, PAAlexia PAAlexia sb4 Susana Hamlin RN jw7 Corrections: (The following items were deleted from the chart) 10/28 15: 15:17 Thorax Wo Con+CT.RAD.BRZ ordered. EDMS EDMS : 15:17 Soft Tissue Neck W/Contr+CT.RAD.BRZ ordered. EDMS EDMS : 17:29 Telemetry/MedSurg (Inpatient) sb4 lg3 : 17: sb4 lg3
[2023-10-29 18:53] LABS: Differential Total Cells Count 100
[2023-10-29 18:56] LABS: Band Neutrophils 8 % (0-1); Lymphocytes 5 % (15-42); Metamyelocytes 4 % (0-0); Monocytes 3 % (0-10); Myelocytes 2 % (0-0); Segmented Neutrophils 77 % (40-80)
[2023-10-29 18:57] LABS: Platelet Estimate ADEQ
[2023-10-29 18:58] LABS: Anisocytosis 1+; Blood Morphology Comment NOTED (NOT SEEN)
--- NOTE | 2023-10-29 19:01 | P.HP ---
Certification for Inpatient Patient admitted to: Inpatient With expected LOS: >2 Midnights Practitioner: I am a practitioner with admitting privileges, knowledge of patient current condition, hospital course, and medical plan of care. Services: Services provided to patient in accordance with Admission requirements found in Title 42 Section 412.3 of the Code of Federal Regulations Patient History Date of Service: 10/29/23 Reason for admission: Generalized weakness History of Present Illness: 58-year-old male with past medical history of brain tumor diagnosed with biopsy, getting radiation therapy and was on PEG tube and tracheostomy support came to ER with generalized weakness and dysuria and groin pain. Which has been going on for the last 2 days. Patient is a poor historian and cannot offer any history hence most of the history is obtained from the chart review and also talking to the family at the bedside. As per her patient has been unable to urinate and was complaining of right groin pain. He was not been tolerating diet very well. She accidentally pulled out his tracheostomy while trying to change address and was placed back in the ER. Patient was seen in the ER and was admitted for possible cavitary pneumonia/malignancy lung and UTI Allergies No Known Allergies Allergy (Unverified 06/21/19 17:36) Home medications list reviewed: Yes Home Medications: Cetirizine HCl 10 mg FT DAILY 10/23/23 Dapsone [Dapsone*] 1 tab FT DAILY 10/23/23 Famotidine 1 tab FT BID 10/23/23 Fludrocortisone [Florinef *] 1 tab FT DAILY 10/23/23 Midodrine HCl 3 tab FT TID 10/23/23 dexAMETHasone [Dexamethasone] 1 tab FT BID 10/23/23 levoFLOXacin [Levaquin] 750 mg FT DAILY 7 Days #7 tab 10/25/23 - Past Medical/Surgical History Diabetic: No Past Medical History: Reviewed- Non-Contributory -: retinal detahcment -: Glioma brainstem Past Surgical History: Reviewed- Non-Contributory -: retinal detachment -: Tracheostomy placement August 2023 -: Brain mass biopsy Psychosocial/ Personal History: Lives at home with his , has home health/physical therapy - Family History Family History: Reviewed- Non-Contributory - Family History Father -: Heart disease - Social History Smoking Status: Never smoker Alcohol use: Yes CD- Drugs: No Caffeine use: Yes Review of Systems is unable to be obtained Physical Examination - Vital Signs Temperature: 98.6 F Blood Pressure: 136/88 Pulse: 88 Respirations: 18 Pulse Ox (%): 94 - Physical Exam General: Alert, Mild distress HEENT: Atraumatic, Normocephalic Neck: Supple, JVD not distended Respiratory: Diminished, Crackles/rales, Expiratory wheezes, Other (Trach +) Cardiovascular: Normal pulses, Regular rate/rhythm, Normal S1 S2 Capillary refill: <2 Seconds Gastrointestinal: Soft and benign, Non-distended, Other (PEG) Musculoskeletal: No clubbing, No swelling Integumentary: No rashes Neurological: Abnormal gait, Abnormal speech, Abnormal strength, Abnormal tone Lymphatics: No axilla or inguinal lymphadenopathy - Studies Laboratory Data (last 24 hrs) 10/29/23 10/29/23 14:33 14:33 WBC 18.10 H Hgb 11.1 L Hct 34.5 L Plt Count 294 Sodium 137 Potassium 3.9 BUN 19 H Creatinine 0.52 L Glucose 100 Total Bilirubin 0.5 AST 14 L ALT 43 Alkaline Phosphatase 137 H Lipase 24 Imagings Data: All CT scans are performed using dose optimization technique as appropriate and may include automated exposure control or mA/KV adjustment according to patient size. FINDINGS: Tracheostomy tube in place. Right middle lobe peripheral pleural-based cavitary mass, with nodular wall thickening, measuring 2.4 x 2.0 cm. This correlates to the abnormality seen on recent radiograph. Bibasilar subsegmental airspace opacities more pronounced in the left lower lobe, with areas of air bronchogram, may represent atelectasis although superimposed airspace disease c annot be entirely excluded. No pleural thickening or pleural effusion. No pneumothorax. No abnormal mediastinal or hilar masses or lymphadenopathy seen. No significant aortic or pulmonary artery findings. Assessment is limited in the absence of IV contrast. No chest wall mass or abnormal axillary lymphadenopathy. Evaluation of the solid abdominal structures reveals no suspicious findings. 2.8 cm fluid density left renal interpolar cortical cyst. IMPRESSION: Right middle lobe pleural-based 2.4 x 2.0 cm cavitary mass. Malignancy, as well as a pulmonary abscess are to be considered. Bibasilar dependent airspace opacities as All CT scans are performed using dose optimization technique as appropriate and may include automated exposure control or mA/KV adjustment according to patient size. FINDINGS: Tracheostomy tube in place. Upper trachea shows normal contour otherwise. Nasopharyngeal tissues are normal in appearance. Fossa Rosenmller are normal. Parapharyngeal fat triangles are symmetric. Tongue base structures are normal. Epiglottis and aryepiglottic folds are normal. Piriform sinuses are well aerated. The vocal cords are normal in appearance. No suspicious adenopathy. Salivary glands are normal in appearance. Sequelae of right scleral banding. Evidence of prior suboccipital craniotomy. Upper lung kong are clear. Included intracranial contents are unremarkable. IMPRESSION: No acute abnormality. No suspicious mucosal mass or adenopathy. Tracheostomy tube in satisfactory position without evidence of complications. All CT scans are performed using dose optimization technique as appropriate and may include automated exposure control or mA/KV adjustment according to patient size. FINDINGS: No suspicious findings in the lung bases. The liver, spleen, adrenal glands, and pancreas show no suspicious findings. Gallbladder and biliary tree are also without suspicious finding. Symmetric renal function is seen with suspicious mass. Fluid density left renal cortical interpolar 2.8 cm cyst, likely benign. Moderate right hydroureteronephrosis. 4 mm calculus at the right vesicoureteral junction. No dilated bowel loops or bowel wall thickening. No free air, free fluid or inflammatory stranding. No hernia, mass or bulky lymphadenopathy. The urinary bladder is decompressed with Haq catheter in place. No suspicious bony findings. IMPRESSION: Moderate right hydroureteronephrosis. 4 mm calculus at the right vesicoureteral junction. 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 On radiation therapy Supportive management Will continue steroids Tracheostomy Trach care Monitor closely Functional quadriplegia Supportive management UTI Leukocytosis Will get a UA Empirically started on IV antibiotics Moderate protein calorie malnutrition Will obtain nutritional consult Continue tube feeding GI/DVT prophylaxis Advanced directive full code Discharge Plan: Home Plan to discharge in: Greater than 2 days - Advance Directives Does patient have a Living Will: No Does patient have a Durable POA for Healthcare: No - Code Status/Comfort Care Code Status: Full Code Time Spent Managing Pts Care (In Minutes): 48
[2023-10-29 19:03] LABS: Burr Cells FEW; Poikilocytosis 1+; Polychromasia 1+
[2023-10-29] MEDS ORDERED: ALBUTEROL 2.5 MG/3 ML NEB SOL NEB PRN (19:09)
[2023-10-29] MEDS ORDERED: ACETAMINOPHEN 325 MG TABLET PO PRN (19:09)
[2023-10-29] MEDS ORDERED: ONDANSETRON 4 MG/2 ML VIAL IV PRN (19:09)
[2023-10-29] MEDS: VANCOMYCIN 1 GM in NA CHLORIDE 0.9% 250 ML IVPB SCH (21:00)
[2023-10-30] MEDS: dexAMETHasone 4 MG TAB FT SCH (00:41)
[2023-10-30] MEDS: FAMOTIDINE 20 MG TAB FT SCH (00:41)
[2023-10-30] MEDS: Meropenem 500 MG in NA CHLORIDE 0.9% 100 ML IV SCH (00:42)
[2023-10-30] MEDS: NA CHLORIDE 0.9% 1,000 ML IV SCH (00:42)
[2023-10-30] MEDS: MIDODRINE HCL 5 MG TABLET FT SCH (00:42)
[2023-10-30 05:21] LABS: Absolute Lymphocytes (CBC) 0.4 K/uL (0.7-4.9); Absolute Monocytes 0.5 K/uL (0.1-1.3); Absolute Neutrophil 14.6 K/uL (1.8-8.0); Basophils % 0.2 % (0-1.3); Hematocrit 30.3 % (39.6-49.0); Hemoglobin 10.4 g/dL (13.6-17.9); Lymphocytes % 2.9 % (15.3-44.8); MCHC 34.2 g/dL (32.0-36.0); MCV 102.2 fL (80-100); MPV 8.3 fL (7.6-11.3); Monocytes % 3.3 % (3.3-12.3); Nucleated Red Blood Cells % 0.1 % (0-0); Platelets 278 thou/uL (152-406); RBC Red Blood Cell Count 2.97 M/uL (4.33-5.43); Red Cell Distribution Width 14.5 % (12.1-15.2)
[2023-10-30 05:23] LABS: Neutrophils % 93.6 % (41.7-73.7)
[2023-10-30 05:27] LABS: Albumin 2.5 g/dL (3.4-5.0); Albumin/Globulin Ratio 0.8 (1.1-1.8); Anion Gap 5.3 mEq/L (5.0-15.0); Bilirubin Total 0.5 mg/dL (0.2-1.0); Globulin 3.1 g/dL (2.3-3.5); Phosphorus 2.7 mg/dL (2.5-4.9); Potassium 4.3 mEq/L (3.5-5.1); Protein, Total 5.6 g/dL (6.4-8.2)
[2023-10-30] MEDS ORDERED: VANCOMYCIN 1 GM in NA CHLORIDE 0.9% 250 ML IVPB SCH (09:00)
[2023-10-30] MEDS ORDERED: ENOXAPARIN 40 MG/0.4 ML SQ SCH (09:00)
[2023-10-30] MEDS: FLUDROCORTISONE 0.1 MG TAB FT SCH (09:12)
[2023-10-30 09:54] LABS: Absolute Lymphocytes (CBC) 0.8 K/uL (0.7-4.9); Absolute Monocytes 0.7 K/uL (0.1-1.3); Absolute Neutrophil 10.2 K/uL (1.8-8.0); Basophils % 0.2 % (0-1.3); Eosinophils % 0.1 % (0-4.4); Hemoglobin 9.9 g/dL (13.6-17.9); Lymphocytes % 6.6 % (15.3-44.8); MCH 33.8 pg (27.0-35.0); MCHC 32.8 g/dL (32.0-36.0); MPV 8.2 fL (7.6-11.3); Monocytes % 5.7 % (3.3-12.3); Neutrophils % 87.4 % (41.7-73.7); Nucleated Red Blood Cells % 0.1 % (0-0); Platelets 278 thou/uL (152-406); RBC Red Blood Cell Count 2.91 M/uL (4.33-5.43); Red Cell Distribution Width 14.5 % (12.1-15.2)
[2023-10-30 09:58] LABS: PT Prothrombin Time 12.2 SECONDS (9.5-12.5); PTT, Activated Partial Thromb 26.8 SECONDS (24.3-36.9); Protime INR 1.11
--- NOTE | 2023-10-30 12:18 | P.CNS ---
Date of Consult: 10/30/23 Reason for Consult: Right middle lobe mass Chief Complaint: Abdominal pain History of Present Illness: Patient is 58 years of age [place]-speaking only relative at the bedside apparently admitted with abdominal pain he was just recently here discharged with a diagnosis of pneumonia patient is receiving cranial radiation therapy for brain tumor he has a trach and a PEG patient was found to have small renal stone pain has now resolved right middle lobe mass was found on previous chest x-ray no recent CAT scans denies any chest pain cough or phlegm patient has never smoked Allergies No Known Allergies Allergy (Unverified 06/21/19 17:36) Home Medications: Cetirizine HCl 10 mg FT DAILY 10/23/23 Dapsone [Dapsone*] 1 tab FT DAILY 10/23/23 Famotidine 1 tab FT BID 10/23/23 Fludrocortisone [Florinef *] 1 tab FT DAILY 10/23/23 Midodrine HCl 3 tab FT TID 10/23/23 dexAMETHasone [Dexamethasone] 1 tab FT BID 10/23/23 levoFLOXacin [Levaquin] 750 mg FT DAILY 7 Days #7 tab 10/25/23 Docusate Liq [Colace Liquid] 50 mg FT DAILY 10/30/23 - Past Medical/Surgical History Diabetic: No -: retinal detahcment -: Glioma brainstem -: Hypotension -: retinal detachment -: Tracheostomy placement August 2023 -: Brain mass biopsy Psychosocial/ Personal History: Lives at home with his , has home health/physical therapy - Family History Father Medical History: Heart disease - Social History Alcohol use: Yes CD- Drugs: No Caffeine use: Yes Place of Residence: Home Review of Systems Unremarkable General: Weakness Physical Examination Temp Pulse Resp BP Pulse Ox 97.6 F 69 20 94/58 L 95 10/30/23 08:00 10/30/23 08:00 10/30/23 08:00 10/30/23 08:00 10/30/23 08:00 General: Alert, Oriented x3 Respiratory: Clear to auscultation bilaterally Cardiovascular: No edema, Regular rate/rhythm, Normal S1 S2 Gastrointestinal: Normal bowel sounds, Soft and benign Laboratory Data (last 24 hrs) 10/29/23 10/29/23 14:33 14:33 WBC 18.10 H Hgb 11.1 L Hct 34.5 L Plt Count 294 Sodium 137 Potassium 3.9 BUN 19 H Creatinine 0.52 L Glucose 100 Total Bilirubin 0.5 AST 14 L ALT 43 Alkaline Phosphatase 137 H Lipase 24 - Problems (1) Right lower lobe lung mass Current Visit: Yes Status: Acute Plan: Patient is 58 years of age undergoing cranial radiation for glioblastoma has a trach and a PEG admitted with abdominal pain secondary to renal stones which is now resolved. An incidental right middle lobe mass was discovered extending t hrough the chest wall recommend biopsy to rule out cancer or actinomycosis chemistries reviewed white count was elevated patient was treated with levofloxacin can DC vancomycin doubt tuberculosis DC isolation possible discharge after the biopsy on Augmentin and doxycycline
[2023-10-30] MEDS ORDERED: ALBUTEROL 2.5 MG/3 ML NEB SOL NEB PRN (16:55)
[2023-10-30] MEDS: JEVITY 1.5 CAL LIQUID 1,000 ML BOT FT SCH (17:00)
[2023-10-30] MEDS ORDERED: VANCOMYCIN 750 MG in NA CHLORIDE 0.9% 150 ML IVPB SCH (18:00)
[2023-10-30] MEDS: DOXYCYCLINE 100 MG CAP PO SCH (20:00)
[2023-10-30] MEDS: AMOX/K CLAV 875 MG TAB PO SCH (20:00)
[2023-10-31] MEDS: FLUMAZENIL 0.1 MG/ML (5 mL VIAL) IV ONE (12:44)
[2023-10-31] MEDS: MIDAZOLAM HCL 2 MG/2 ML INJ ONE (12:44)
[2023-10-31] MEDS: NA CHLORIDE 0.9% 500 ML ONE (12:45)
[2023-10-31] MEDS: NALOXONE HCL 2 MG/2 ML VIAL ONE (12:45)
[2023-10-31] MEDS: FENTANYL CITR 100 MCG/2 ML ONE (12:45)
[2023-10-31 13:29] LABS: Specific Gravity 1.015 (1.005-1.030); Sqamous Epithelial <5 /HPF (None Seen); Urine Bacteria <20 /HPF (<20); Urine Bilirubin NEGATIVE (Negative); Urine Blood 1+ (Negative); Urine Clarity Extremely Turbid (Clear); Urine Color Light-Orange (Yellow); Urine Culture Reflex Order NOT NEEDED; Urine Glucose NEGATIVE (Negative); Urine Ketones NEGATIVE (Negative); Urine Microscopic Reflex YN ORDER UMIC; Urine Mucus 1+ /HPF (None Seen); Urine Nitrite NEGATIVE (Negative); Urine Protein NEGATIVE (Negative); Urine RBC 21-50 /HPF (None Seen); Urine Urobilinogen 1+ (Normal); Urine pH 6.5 (5.0-7.0)
--- NOTE | 2023-10-31 14:45 | RAD REPORT ---
EXAM DESCRIPTION: RAD - Chest Single View - 10/31/2023 2:37 pm CLINICAL HISTORY: s/p lung bx Chest pain. COMPARISON: Abdomen 1 View (KUB) dated 10/24/2023; Chest Single View dated 10/23/2023 FINDINGS: Portable technique limits examination quality. No measurable pneumothorax is evident. Mild atelectasis is seen in both lung bases. The heart is mild ly prominent.Tracheostomy tube is in place. IMPRESSION: No postprocedure pneumothorax.
--- NOTE | 2023-10-31 15:11 | RAD REPORT ---
EXAM DESCRIPTION: CT - Perc Biopsy Lung/Mediastinum - 10/31/2023 2:18 pm CLINICAL HISTORY: R lung mass COMPARISON: Chest Single View dated 10/31/2023 FINDINGS: Preoperative diagnosis: Right middle lobe mass. Post operative diagnosis: Same Conscious Sedation: 50 mcg fentanyl, and 0.5 mg Versed were administered intravenously. Total sedatio n time: 15 minutes. Patient was continuously monitored by nursing staff. Contrast used: NONE Estimated blood loss: less than 5 mL Specimens: As below Informed consent was obtained following discussion with the relevant risks and benefits of the proced ure, including possibility of pneumothorax, and subsequent thoracostomy tube placement. Time-out proc edure was performed. The patient was placed supine on the table and the right lower lateral chest are a was prepped and draped in the usual sterile fashion. Initial scanning demonstrated small bilateral pleural effusions. 1% lidocaine was infiltrated into the subcutaneous tissues for local anesthesia. U nder computed tomographic guidance, a 17 gauge introducer was advanced into the lesion. Subsequently, an 18 gauge, 20 mm throw core biopsy gun was advanced into the lesion and a total of 5 cores were ob tained. Postprocedure imaging demonstrated no complications. Samples were given to pathology for surgical pat hology analysis, as well as cultures and sensitivities. The patient tolerated the procedure without i mmediate complication and transferred to the recovery room in stable condition. IMPRESSION: Successful CT-guided biopsy of the right middle lobe mass. All CT scans are performed using dose optimization technique as appropriate and may include automated exposure control or mA/KV adjustment according to patient size.
--- NOTE | 2023-10-31 16:49 | RAD REPORT ---
EXAM DESCRIPTION: RAD - Chest Single View - 10/31/2023 4:38 pm CLINICAL HISTORY: s/p lung bx Chest pain. COMPARISON: Chest Single View dated 10/31/2023; Abdomen 1 View (KUB) dated 10/24/2023; Chest Single Vie w dated 10/23/2023 FINDINGS: Portable technique limits examination quality. There is a 1-2 cm opacity in the right lower lobe. No pneumothorax. Left lung is emphysematous with s mall nodular focus in the left base. The heart is mildly enlarged.Tracheostomy tube is above the hipolito na. IMPRESSION: No postprocedure pneumothorax.
--- NOTE | 2023-11-01 12:18 | P.PN ---
Subjective Date of Service: 11/01/23 Chief Complaint: Right-sided lung mass Subjective: Improving (Patient is improving no new complaints s/p right-sided lung biopsy) Physical Examination - Vital Signs Temperature: 97.1 F Blood Pressure: 112/72 Pulse: 65 Respirations: 16 Pulse Ox (%): 97 Assessment And Plan - Current Problems (Diagnosis) (1) Right lower lobe lung mass Current Visit: Yes Status: Acute Plan: Patient is 58 years of age undergoing cranial radiation for glioblastoma has a trach and a PEG admitted with abdominal pain secondary to renal stones which is now resolved. An incidental right middle lobe mass was discovered extending through the chest wall recommend biopsy to rule out cancer or actinomycosis chemistries reviewed white count was elevated patient was treated with lev ofloxacin can DC vancomycin doubt tuberculosis DC isolation possible discharge after the biopsy on Augmentin and doxycycline
--- NOTE | 2023-11-01 12:20 | P.PN ---
Subjective Date of Service: 11/01/23 Chief Complaint: Right-sided lung mass Subjective: Improving (Patient is improving doing well s/p right-sided lung biopsy white count declining no new complaints) Review of Systems is unable to be obtained Physical Examination - Vital Signs Temperature: 97.1 F Blood Pressure: 112/72 Pulse: 65 Respirations: 16 Pulse Ox (%): 97 - Physical Exam General: In no apparent distress, Cooperative Respiratory: Clear to auscultation bilaterally Cardiovascular: No edema, Normal pulses Assessment And Plan - Current Problems (Diagnosis) (1) Right lower lobe lung mass Current Visit: Yes Status: Acute Plan: Patient has right lower lobe lung mass is doing well s/p lung biopsy white count has declined plan to discharge home on Augmentin and doxycycline follow-up with a telephone visit next week white count is declined to 11.7 alkaline phosphatase is mildly elevated patient has a trach is currently treated for glioblastoma with radiation therapy also has a PEG
[2023-11-01] MEDS: NA CHLORIDE 0.9% 0 ML ONE (12:27)
[2023-11-01] MEDS: MIDAZOLAM HCL 2 MG/2 ML INJ IV ONE (12:41)
[2023-11-01] MEDS: MIDAZOLAM HCL 2 MG/2 ML INJ ONE (12:43)
[2023-11-01] MEDS: AMIODARONE HCL 150 MG/3 ML INJ IV ONE (12:45)
[2023-11-01] MEDS: AMIODARONE HCL 150 MG in D5W 100 ML IV STA (13:26)
[2023-11-01] MEDS: HYDROCORTISONE SUC 100 MG INJ IV ONE (13:26)
[2023-11-01] MEDS: NA CHLORIDE 0.9% 500 ML ONE (13:26)
[2023-11-01] MEDS ORDERED: AMIODARONE HCL 900 MG in Dextrose 5%-Water 482 ML IV SCH (13:30)
[2023-11-01] MEDS: AMIODARONE HCL 900 MG in Dextrose 5%-Water 482 ML IV SCH (13:46)
--- NOTE | 2023-11-01 14:02 | RAD REPORT ---
EXAM DESCRIPTION: RAD - Chest Single View - 11/01/2023 1:56 pm CLINICAL HISTORY: SVT Chest pain. COMPARISON: <Comparisons> FINDINGS: Portable technique limits examination quality. Mild atelectasis is seen in the right lung base. Small bilateral pleural effusions. The heart is norm al in size. No displaced fractures.Tracheostomy tube appears above the michael. IMPRESSION: Stable chest since 10/31/2023 prior study.
--- NOTE | 2023-11-01 14:15 | ECHO ---
HEIGHT: 5 ft 6 in WEIGHT: 124 lb 0 oz DATE OF STUDY: 11/01/[address]: Aiyana Guevara MD 2-DIMENSIONAL: YES M.MODE: YES DOPPLER: YES COLOR FLOW: YES TDS: PORTABLE: DEFINITY: BUBBLE STUDY: DIAGNOSIS: SUPRAVENTRICULAR TACHYCARDIA CARDIAC HISTORY: CATHERIZATION: SURGERY: PROSTHETIC VALVE: PACEMAKER: MEASUREMENTS (cm) DIASTOLIC (NORMALS) SYSTOLIC (NORMALS) IVSd 0.9 (0.6-1.2) LA Diam 1.6 (1.9-4.0) LVEF 69% LVIDd 3.8 (3.5-5.7) LVIDs 2.4 (2.0-3.5) %FS 38% LVPWd 0.9 (0.6-1.2) Ao Diam 2.8 (2.0-3.7) 2 DIMENSIONAL ASSESSMENT: RIGHT ATRIUM: NORMAL LEFT ATRIUM: NORMAL RIGHT VENTRICLE: NORMAL LEFT VENTRICLE: NORMAL TRICUSPID VALVE: MILD TRICUSPID REGURGITATION MITRAL VALVE: NORMAL PULMONIC VALVE: MILD PULMONIC INSUFFICIENCY AORTIC VALVE: NORMAL PERICARDIAL EFFUSION: NONE AORTIC ROOT: NORMAL LEFT VENTRICULAR WALL MOTION: NORMAL DOPPLER/COLOR FLOW: SEE BELOW COMMENTS: 1. NORMAL LEFT VENTRICULAR EJECTION FRACTION 60-65% 2. NORMAL WALL MOTION 3. MILD TRICUSPID REGURGITATION 4. MILD PULMONIC INSUFFICIENCY TECHNOLOGIST: LUCIAN DE LA TORRE
--- NOTE | 2023-11-01 16:47 | CON ---
Reason For Consultation: SVT with the low blood pressure, unstable. History Of Present Illness: This is a 58-year-old male with history of brain tumor, status post PEG tube and tracheostomy. He presented with generalized weakness and pain. There was a lung mass that was biopsied recently and then after that, he went into SVT, heart rate of 180 to 190, became hypoten sive, blood pressure in the 60s. Hospital called me and we gave him a bolus of IV fluid and a bolus of amiodarone 150 mg and the patient converted to sinus rhythm. Has been in sinus rhythm since. He has no chest pain or shortness of breath. Past Medical History: As outlined above in the HPI. Medications: Refer to reconciliation sheet for detailed list. Allergies: NO KNOWN DRUG ALLERGIES. Family History: No premature coronary artery disease or cancer. Social History: Does not smoke or drink. Does not use any drugs. Review of Systems: All systems reviewed and they were negative except as mentioned in the HPI. Physical Examination: Vital Signs: Reviewed. Head and Neck: Pupils are equal, reactive to light. Intact eye movements. No JVD. No cervical lym phadenopathy. Neck is supple. Thyroid is not enlarged. Lungs: Clear to auscultation bilaterally. No rhonchi, wheezing, or crackles. No accessory muscle u se. Heart: Regular rate and rhythm. No extra sounds. Abdomen: Soft, nontender. Bowel sounds positive. No organomegaly. No masses or hernia. No rigidi ty or rebound. Extremities: No clubbing or cyanosis. Intact pulses. Skin: No rash. No nodule. Neuro: Alert, awake. No acute focal deficits appreciated. Investigations: BUN is 11, creatinine 0.39, and hemoglobin is 9.9. Assessment And Recommendations: 1.SVT. The patient was not stable but converted successfully with amiodarone. I will continue the low-dose amiodarone for 24 hours and then discontinue it and once his blood pressure comes up, then t o start him on beta-madelyn like Toprol-XL or metoprolol 25 mg twice a day. 2.Urinary tract infection, on wide-spectrum antibiotics. 3.Pneumonia, on wide-spectrum antibiotics. SR/MODL Voice ID: [id number] Report ID: [id number]
--- NOTE | 2023-11-01 18:13 | P.PN ---
Date of Service: 11/01/23 Patient is a 58-year-old gentleman who was planning on discharging later today. However, patient developed SVT with a heart rate in the 190s and blood pressure dropped to 60s/40s. Spoke with cardiology and they recommended IV amiodarone as well as IV fluid bolus. Patient rate converted back into sinus rhythm in the 80s with a blood pressure 100 over 70s. Discharge will be held. Echocardiogram is pending. Appreciate cardiology's assistance in patient's care.
--- NOTE | 2023-11-01 18:18 | P.PN ---
Subjective Date of Service: 10/30/23 Patient is clinically doing well. Awaiting for biopsy in the a.m. Review of Systems 10-point ROS is otherwise unremarkable Physical Examination - Vital Signs Temperature: 97.4 F Blood Pressure: 85/54 Pulse: 72 Respirations: 18 Pulse Ox (%): 99 - Physical Exam General: Alert, In no apparent distress HEENT: Atraumatic, PERRLA, EOMI Neck: Supple, JVD not distended Respiratory: Clear to auscultation bilaterally, Normal air movement Cardiovascular: Regular rate/rhythm, Normal S1 S2 Gastrointestinal: Normal bowel sounds, No tenderness Musculoskeletal: No tenderness Integumentary: No rashes Neurological: Normal speech, Normal tone, Normal affect Lymphatics: No axilla or inguinal lymphadenopathy - Studies Medications List Reviewed: Yes Assessment & Plan - Problems (Diagnosis) (1) Right lower lobe lung mass Current Visit: Yes Status: Acute (2) Near syncope Current Visit: Yes Status: Acute (3) Glioblastoma multiforme Current Visit: Yes Status: Acute (4) History of tracheostomy Current Visit: Yes Status: Acute - Plan Plan: 1. FNA in the am 2. Trach care 3. Monitor on telemetry 4. Repeat CXR after biopsy Discharge Plan: Home Plan to discharge in: Greater than 2 days - Advance Directives Does patient have a Living Will: No Does patient have a Durable POA for Healthcare: No - Code Status/Comfort Care Code Status: Full Code Critical Care: No Time Spent Managing PTS Care (In Minutes): 35
--- NOTE | 2023-11-01 18:21 | P.PN ---
Subjective Date of Service: 10/31/23 Patient is clinically doing well s/p biopsy. Patient denies any new complaint. at bedside. Planning on discharging in the morning as long as patient continues to do well. Review of Systems 10-point ROS is otherwise unremarkable Physical Examination - Vital Signs Temperature: 97.4 F Blood Pressure: 85/54 Pulse: 72 Respirations: 18 Pulse Ox (%): 99 - Physical Exam General: Alert, In no apparent distress, Oriented x3 HEENT: Atraumatic, PERRLA, EOMI Neck: Supple, JVD not distended, Other (trach) Respiratory: Diminished Cardiovascular: Regular rate/rhythm, Normal S1 S2 Gastrointestinal: Normal bowel sounds, Soft and benign, Non-distended, No tenderness Musculoskeletal: No clubbing, No swelling, No tenderness Integumentary: No rashes Neurological: Sensation intact, Cranial nerves 3-12 intact - Studies Medications List Reviewed: Yes Assessment & Plan - Problems (Diagnosis) (1) Right lower lobe lung mass Current Visit: Yes Status: Acute (2) Near syncope Current Visit: Yes Status: Acute (3) Glioblastoma multiforme Current Visit: Yes Status: Acute (4) History of tracheostomy Current Visit: Yes Status: Acute - Plan Plan: 1. s/p FNA; awaiting pathology report as an outpt 2. tracheostomy care 3. Monitor on telemetry 4. Repeat CXR after biopsy 5. Anticipate DC tomorrow Discharge Plan: Home Plan to discharge in: 24 Hours - Advance Directives Does patient have a Living Will: No Does patient have a Durable POA for Healthcare: No - Code Status/Comfort Care Code Status: Full Code Critical Care: No Time Spent Managing PTS Care (In Minutes): 35
[2023-11-02] MEDS: AMIODARONE HCL 900 MG in Dextrose 5%-Water 482 ML IV SCH (09:00)
[2023-11-02 10:03] LABS: Anion Gap 7.2 mEq/L (5.0-15.0); Magnesium 1.9 mg/dL (1.6-2.4); Phosphorus 2.9 mg/dL (2.5-4.9); Potassium 4.2 mEq/L (3.5-5.1)
[2023-11-02 10:04] LABS: Absolute Lymphocytes (CBC) 0.8 K/uL (0.7-4.9); Absolute Monocytes 0.5 K/uL (0.1-1.3); Basophils % 0.1 % (0-1.3); Eosinophils % 0.1 % (0-4.4); Hemoglobin 10.7 g/dL (13.6-17.9); Lymphocytes % 5.4 % (15.3-44.8); MCH 33.3 pg (27.0-35.0); MCHC 32.4 g/dL (32.0-36.0); MCV 102.7 fL (80-100); MPV 9.3 fL (7.6-11.3); Monocytes % 3.5 % (3.3-12.3); Neutrophils % 90.9 % (41.7-73.7); Nucleated Red Blood Cells % 0.1 % (0-0); Platelets 270 thou/uL (152-406); RBC Red Blood Cell Count 3.22 M/uL (4.33-5.43); Red Cell Distribution Width 14.8 % (12.1-15.2)
[2023-11-02 11:25] LABS: Blood Morphology Comment NOT SEEN (NOT SEEN); Platelet Estimate ADEQ; White Blood Cell Scan OK (OK)
[2023-11-02] MEDS ORDERED: METOPROLOL TAR 25 MG TAB PO ONE (12:53)
[2023-11-02] MEDS: METOPROLOL TAR 25 MG TAB ONE (13:10)
--- NOTE | 2023-11-02 14:39 | EKG ---
Test Date: 2023-11-01 Test Time: 12:37:30 Pillowcase Cutter: JESSI MEASUREMENT RESULTS: Intervals: Rate: 183 KS: QRSD: 164 QT: 256 QTc: 446 [place]: P: KS: QRS: 65 T: 63 INTERPRETIVE STATEMENTS: Supraventricular tachycardia. Nonspecific intraventricular block Abnormal ECG Compared to ECG 10/23/2023 13:50:13 Sinus rhythm no longer present Electronically Signed On 11-02-23 14:37:27 CDT by Matthew Donis
--- NOTE | 2023-11-02 14:39 | EKG ---
Test Date: 2023-11-01 Test Time: 13:01:24 Salesperson New Cars: JESSI MEASUREMENT RESULTS: Intervals: Rate: 79 OK: 130 QRSD: 90 QT: 386 QTc: 442 [place]: P: 48 OK: 130 QRS: 38 T: 48 INTERPRETIVE STATEMENTS: Normal sinus rhythm Nonspecific ST abnormality Abnormal ECG Compared to ECG 10/23/2023 13:50:13 ST (T wave) deviation now present Electronically Signed On 11-02-23 14:36:57 CDT by Matthew Donis
[2023-11-02] MEDS ORDERED: METOPROLOL TAR 25 MG TAB PO SCH (18:00)
--- NOTE | 2023-11-02 19:16 | P.PN ---
Date of Service: 11/02/23 Subjective Patient is doing well on meds for rate control; continue with Lopressor 25 mg p.o. twice daily Review of Systems 10-point ROS is otherwise unremarkable Physical Examination - Vital Signs reviewed - Physical Exam General: Alert, In no apparent distress, Oriented x3 Neck: Supple, JVD not distended, Other (trach) Respiratory: Diminished Cardiovascular: Regular rate/rhythm, Normal S1 S2 Gastrointestinal: Normal bowel sounds, Soft and benign, Non-distended, No tender ness Musculoskeletal: No clubbing, No swelling, No tenderness Neurological: Sensation intact, Cranial nerves 3-12 intact Assessment & Plan - Problems (Diagnosis) (1) Right lower lobe lung mass Current Visit: Yes Status: Acute (2) SVT Current Visit: Yes Status: Acute (3) Glioblastoma multiforme Current Visit: Yes Status: Acute (4) History of tracheostomy Current Visit: Yes Status: Acute - Plan Plan: Plan for discharge if patient continues to do well on metoprolol. Spoke with cardiology and they are agreeable with continue metoprolol and outpatient follow-up. Echocardiogram has been reviewed. 1. s/p FNA; awaiting pathology report as an outpt 2. tracheostomy care 3. Metoprolol 12.5 mg p.o. twice daily 4. Anticipate DC this afternoon/evening Discharge Plan: Home Plan to discharge in: 24 Hours - Advance Directives Does patient have a Living Will: No Does patient have a Durable POA for Healthcare: No - Code Status/Comfort Care Code Status: Full Code Critical Care: No Time Spent Managing PTS Care (In Minutes): 35 COMMENTS: 1. NORMAL LEFT VENTRICULAR EJECTION FRACTION 60-65% 2. NORMAL WALL MOTION 3. MILD TRICUSPID REGURGITATION 4. MILD PULMONIC INSUFFICIENCY
--- NOTE | 2023-11-02 19:19 | P.DS ---
Discharge Date: 11/02/23 Disposition: ROUTINE DISCHARGE Discharge Condition: GOOD Reason for Admission: Right-sided lung mass Consultations: Pulmonary Cardiology - Problems (1) Right lower lobe lung mass Current Visit: Yes Status: Acute (2) Near syncope Current Visit: Yes Status: Acute (3) Glioblastoma multiforme Current Visit: Yes Status: Acute (4) History of tracheostomy Current Visit: Yes Status: Acute Brief History of Present Illness: Patient is a 58-year-old male with past medical history of brain tumor diagnosed with biopsy, getting radiation therapy and was on PEG tube and tracheostomy support came to ER with generalized weakness and dysuria and groin pain. Which has been going on for the last 2 days. Patient is a poor historian and cannot offer any history hence most of the history is obtained from the chart review and also talking to the family at the bedside. As per her patient has been unable to urinate and was complaining of right groin pain. He was not been tolerating diet very well. She accidentally pulled out his tracheostomy while trying to change address and was placed back in the ER. Patient was seen in the ER and was admitted for possible cavitary pneumonia/malignancy lung and UTI Hospital Course: Patient had biopsy performed. Patient had no complications with the biopsy. Patient was planning on discharging but became tachycardic. Patient had gone into SVT and patient was hypotensive with a blood pressure of 60s/40s. We started patient on amiodarone. Patient converted to almost immediately after the IV amiodarone bolus was started. Patient went into sinus rhythm. Patient blood pressure has been stable. Spoke with cardiology and they decided on me toprolol twice daily. At this time, patient clinically doing well and will discharge home with outpatient follow-up with cardiology and pulmonary. Vital Signs/Physical Exam: Temp Pulse Resp BP Pulse Ox 97.9 F 59 18 106/66 96 11/02/23 12:00 11/02/23 12:00 11/02/23 12:00 11/02/23 12:00 11/02/23 12:00 General: Alert, In no apparent distress, Oriented x3 Cardiovascular: Regular rate/rhythm, Normal S1 S2 Laboratory Data at Discharge: WBC 14.30 thou/uL (4.3-10.9) H 11/02/23 04:15 Hgb 10.7 g/dL (13.6-17.9) L 11/02/23 04:15 Hct 33.0 % (39.6-49.0) L 11/02/23 04:15 Plt Count 270 thou/uL (152-406) 11/02/23 04:15 PT 12.2 SECONDS (9.5-12.5) 10/30/23 09:43 INR 1.11 10/30/23 09:43 APTT 26.8 SECONDS (24.3-36.9) 10/30/23 09:43 Sodium 136 mEq/L (136-145) 11/02/23 04:15 Potassium 4.2 mEq/L (3.5-5.1) 11/02/23 04:15 BUN 12 mg/dL (7-18) 11/02/23 04:15 Creatinine 0.40 mg/dL (0.70-1.30) L 11/02/23 04:15 Glucose 122 mg/dL (74-106) H 11/02/23 04:15 Phosphorus 2.9 mg/dL (2.5-4.9) 11/02/23 04:15 Magnesium 1.9 mg/dL (1.6-2.4) 11/02/23 04:15 Total Bilirubin 0.5 mg/dL (0.2-1.0) 10/30/23 04:42 AST 21 U/L (15-37) 10/30/23 04:42 ALT 38 U/L (16-61) 10/30/23 04:42 Alkaline Phosphatase 120 U/L (45-117) H 10/30/23 04:42 Lipase 24 U/L (13-75) 10/29/23 14:33 Home Medications: Cetirizine HCl 10 mg FT DAILY 10/23/23 Dapsone [Dapsone*] 1 tab FT DAILY 10/23/23 Famotidine 1 tab FT BID 10/23/23 Fludrocortisone [Florinef *] 1 tab FT DAILY 10/23/23 Midodrine HCl 3 tab FT TID 10/23/23 dexAMETHasone [Dexamethasone] 1 tab FT BID 10/23/23 levoFLOXacin [Levaquin] 750 mg FT DAILY 7 Days #7 tab 10/25/23 Docusate Liq [Colace Liquid] 50 mg FT DAILY 10/30/23 Albuterol Neb [Proventil 0.083% Neb Soln] 2.5 mg NEB [id number] PRN #60 amp 11/01/23 Amox/K Clav [Augmentin 600 MG/5 ML Susp] 5 ml PO BID #150 ml 11/01/23 Doxycycline Hyclate 100 mg FT BID #20 tab 11/01/23 Metoprolol Tartrate [Lopressor] 25 mg PO BID #60 tab 11/02/23 New Medications: Amox/K Clav [Augmentin 600 MG/5 ML Susp] 5 ml PO BID #150 ml Doxycycline Hyclate 100 mg FT BID #20 tab Metoprolol Tartrate [Lopressor] 25 mg PO BID #60 tab Albuterol Neb [Proventil 0.083% Neb Soln] 2.5 mg NEB [id number] PRN #60 amp PRN Reason: Shortness Of Breath Physician Discharge Instructions: PROBLEM: Pulmonary Abscess/Mass GOAL: Clear understanding of disease process INSTRUCTIONS: Established with: [facility]) M:[phone] [place] P:[phone] F:[phone] -DC IV and DC home -Follow-up with PCP in 1 to 2 weeks -Follow-up with Pulmonary in 1 to 2 weeks -Please call Dr. Guevara at [phone] if any questions regarding hospital stay -Please call nursing station at [phone] if any nursing or medication questions -Return to the emergency room if symptoms worsen Diet: Regular Activity: Fall precautions DME DME: Date Ordered: Name of Company: [employer] Services Needed: Home Health Name of Company: [facility] Date or Referral: 10/30/23 IMMUNIZATION Influenza Vaccine Indicated: Influenza Vaccine Given: Date Given: Pneumonia Vaccine Indicated: No Pneumonia Vaccine Given: Date Given: Diet: Regular Activity: Fall precautions Followup: Dequan Kruger DO [Primary Care Provider] - Time spent managing pt's care (in minutes): 35
--- NOTE | 2023-11-02 20:36 | PN ---
Date of Progress Note: 11/02/2023 Subjective: Seen by bedside, doing well, remains in sinus rhythm. Review of Systems: No chest pain. Mild shortness of breath is present. No nausea, vomiting, diarrhea. All other syste ms reviewed are negative. Objective: Vital Signs: Reviewed. Head and Neck: Pupils are equal, reactive to light. Intact eye movements. No JVD. No cervical lym phadenopathy. Neck is supple. Thyroid is not enlarged. Lungs: Clear to auscultation bilaterally. No rhonchi, rales, or crackles. No accessory muscle use. Heart: Regular rate and rhythm. No extra sounds. Abdomen: Soft, nontender. Bowel sounds positive. No organomegaly. No masses or hernia. No rigidi ty or rebound. Extremities: No edema, clubbing, cyanosis. Intact pulses. Skin: No rash. Neurologic: Alert, awake. No acute focal deficit appreciated. He has tracheostomy in place. Investigations: BUN 12, creatinine 0.4. Hemoglobin is 10.7. Assessment/recommendation: 1.SVT, resolved completely. At this point, discontinue amiodarone and attempt to use metoprolol 12. 5 mg twice a day for rate control down the road. 2.Pneumonia, on wide-spectrum antibiotics. 3.Urinary tract infection, appears to be stabilizing on wide-spectrum antibiotics. Cardiology will sign off. SR/MODL Voice ID: [id number] Report ID: [id number]
[2023-11-02] MEDS ORDERED: AMIODARONE HCL 200 MG TAB PO SCH (21:00)
[2023-11-03 14:38] VITALS: BP 101/64; TEMP 97.7; O2SAT 96
== END 2023-11-02 17:20 | disposition home health service (06) | DRG 193 ==
LOC: ER 13:49 → ERHOLD 19:09 → 3RD-ICU 22:31 → 4TH 11-02 13:20
PROVIDERS: ADMIT Family Medicine; ATTEND Hospitalist
PROC: 0B21XFZ Change Tracheostomy Device in Trachea, External Approach (ICD-10-PCS; 2023-10-29)
PROC: 0B9K3ZX Drainage of Right Lung, Percutaneous Approach, Diagnostic (ICD-10-PCS; principal; 2023-10-31)
DX: J18.8 Other pneumonia, unspecified organism (principal); R53.2 Functional quadriplegia; N39.0 Urinary tract infection, site not specified; E44.0 Moderate protein-calorie malnutrition; Z68.1 Body mass index [BMI] 19.9 or less, adult; C71.9 Malignant neoplasm of brain, unspecified; I47.10 Supraventricular tachycardia, unspecified; I07.1 Rheumatic tricuspid insufficiency; D49.9 Neoplasm of unspecified behavior of unspecified site; R91.8 Other nonspecific abnormal finding of lung field; Z93.0 Tracheostomy status; Z93.1 Gastrostomy status; Z79.899 Other long term (current) drug therapy
CPT/HCPCS: 32408; 36415; 51702; 70490; 71045; 71250; 74177; 80048; 80053; 81001; 83690; 83735; 84100; 85025; 85610; 85730; 86480; 87015; 87116; 87206; 88305; 93005; 93306; 94760; 96361; 96365; 96366; 96367; 96368; 96375; 99282; 99285; J0282; J1170; J1720; J2185; J2250; J2310; J2405; J3010; J3475; J7030; J7040; J7050; J7060; J8540; Q9967

== ENCOUNTER 2023-11-03 12:13 | Emergency (ER) | payer OTHER ==
--- OUTSIDE RECORDS SUMMARY | 2023-11-03 12:16 | XMS REPORT | Clinical Summary ---
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 Name Role Phone Unavailable Primary Care Provider [...] of foot,Neoplasm of brain,Dysphagia, oropharyngeal phase,Vasogenic cerebral edema,joint terminal attack controller current use of systemic steroid,Neoplasm of uncertain [...] Care Team Description 07/20/2023 10:30 AM HAND I CUTTER Nutrition Clinical Nutrition For your Nutrition appointment location directions please call: Gertrude Jesus MD Coleman, Timothy, RD Generalized muscle weakness; Mass lesion of brain; Lack of coordination, not otherwise specified; Impaired vibration sensation of foot; Neoplasm of brain; Dysphagia, oropharyngeal phase; Vasogenic cerebral edema 07/14/2023 Telephone [facility] [address] [place] [phone] Skye Atkins, custom miller Call 07/13/2023 Telephone [facility] PHYSICIAN [address] [place] [phone] Jc Pardo, custom miller Call 07/13/2023 Travel 07/03/2023 12:13 PM HAND I CUTTER Anesthesia Event Main Interventional Radiology [address] [place] [address], 3rd [place] [address] Jessica Zafar APRN, MORENA 06/29/2023 Orders Only [facility] [address] [place] [address] Main [facility], 7th [place] [address] Beverly, Poornima, [employer] 06/29/2023 Orders Only [facility] [address] [place] [address] Main [facility], 7th [place] [address] Beverly, Poornima, [employer] Malignant neoplasm of brain stem (Primary Dx) 06/29/2023 Orders Only [facility] [address] [place] [address] Main [facility], 7th [place] [address] Beverly, Poornima, [employer] Malignant neoplasm of brain stem (Primary Dx) 06/28/2023 Prep for Surgery [facility] [address] [place] [address], 7th [place] [address] Noar Lozada G, [employer] Mass lesion of brain (Primary Dx) 06/27/2023 5:03 PM HAND I CUTTER - 07/12/2023 1:07 PM HAND I CUTTER Hospital Encounter MAIN [id number] [address] [place] [address] Lori Greco MD Walton, MD Brennan Wong Marina, MD Zhou, Yan, MD Leung, Cerena, MD Kheder, Rhett, Generalized muscle weakness (Primary Dx); Mass lesion of brain; Lack of coordination, not otherwise specified; Impaired vibration sensation of foot; Neoplasm of brain; Dysphagia, oropharyngeal phase; Vasogenic cerebral edema; joint terminal attack controller current use of systemic steroid; Neoplasm of uncertain behavior of brain, not otherwise specified Discharge Disposition: Home 06/27/2023 Travel after 11/03/2022 Medical History Medical History Date Comments Blind [...] Blood Pressure 91/64 07/12/2023 6:53 AM HAND I CUTTER Pulse 90 07/12/2023 6:53 AM HAND I CUTTER Temperature 37 C (98.6 F) 07/12/2023 6:52 AM HAND I CUTTER Respiratory Rate 17 07/12/2023 6:53 AM HAND I CUTTER Oxygen Saturation 97% 07/12/2023 6:53 AM HAND I CUTTER Inhaled Oxygen Concentration - - Weight 62.7 kg (138 lb 3.7 oz) 06/27/2023 8:36 P M HAND I CUTTER Height 162 cm (5' 3.78") 06/27/2023 8:36 PM HAND I CUTTER Body Mass Index 23.89 06/27/2023 8:36 PM HAND I CUTTER Plan of Treatment Health Maintenance Due Date Last Done Comments COVID-19 Vaccine (#1) 03/10/1966 Influenza Vaccine 03/02/2024 Procedures Procedure Name Priority Date/Time Associated Diagnosis Comments POC GLUCOSE SCREEN Routine 07/12/2023 6: 00 AM HAND I CUTTER .CBC Routine 07/12/2023 2:52 AM HAND I CUTTER PHOSPHORUS LEVEL Routine 07/12/2023 2:52 AM HAND I CUTTER MAGNESIUM LEVEL Routine 07/12/2023 2:52 AM HAND I CUTTER BASIC METABOLIC PANEL, CALCIUM TOTAL Routine 07/12/2023 2:52 AM HAND I CUTTER COMPLETE BLOOD COUNT W/ DIFFERENTIAL Routine 07/12/2023 2:52 AM HAND I CUTTER POC GLUCOSE SCREEN Routine 07/12/2023 12 :16 AM HAND I CUTTER POC GLUCOSE SCREEN Routine 07/11/2023 12 :18 PM HAND I CUTTER POC GLUCOSE SCREEN Routine 07/11/2023 6: 08 AM HAND I CUTTER .CBC Routine 07/11/2023 2:55 AM HAND I CUTTER PHOSPHORUS LEVEL Routine 07/11/2023 2:55 AM HAND I CUTTER MAGNESIUM LEVEL Routine 07/11/2023 2:55 AM HAND I CUTTER BASIC METABOLIC PANEL, CALCIUM TOTAL Routine 07/11/2023 2:55 AM HAND I CUTTER COMPLETE BLOOD COUNT W/ DIFFERENTIAL Routine 07/11/2023 2:55 AM HAND I CUTTER POC GLUCOSE SCREEN Routine 07/11/2023 12 :01 AM HAND I CUTTER POC GLUCOSE SCREEN Routine 07/10/2023 6: 10 PM HAND I CUTTER POC GLUCOSE SCREEN Routine 07/10/2023 12 :09 PM HAND I CUTTER POC GLUCOSE SCREEN Routine 07/10/2023 6: 26 AM HAND I CUTTER .CBC Routine 07/10/2023 5:28 AM HAND I CUTTER COMPLETE BLOOD COUNT W/ DIFFERENTIAL Routine 07/10/2023 5:28 AM HAND I CUTTER PHOSPHORUS LEVEL Routine 07/10/2023 5:27 AM HAND I CUTTER MAGNESIUM LEVEL Routine 07/10/2023 5:27 AM HAND I CUTTER BASIC METABOLIC PANEL, CALCIUM TOTAL Routine 07/10/2023 5:27 AM HAND I CUTTER POC GLUCOSE SCREEN Routine 07/10/2023 2: 48 AM HAND I CUTTER POC GLUCOSE SCREEN Routine 07/09/2023 6: 36 PM HAND I CUTTER POC GLUCOSE SCREEN Routine 07/09/2023 1: 03 PM HAND I CUTTER XR ABDOMEN 1 VW PORTABLE Routine 07/09/2023 12:59 PM HAND I CUTTER POC GLUCOSE SCREEN Routine 07/09/2023 5: 43 AM HAND I CUTTER GLUCOSE 6-PHOSPHATE DEHYDRGENASE ENZYME ACTIVITY Add-On 07/09/2023 2:21 AM HAND I CUTTER .CBC Routine 07/09/2023 2:21 AM HAND I CUTTER PHOSPHORUS LEVEL Routine 07/09/2023 2:21 AM HAND I CUTTER MAGNESIUM LEVEL Routine 07/09/2023 2:21 AM HAND I CUTTER BASIC METABOLIC PANEL, CALCIUM TOTAL Routine 07/09/2023 2:21 AM HAND I CUTTER COMPLETE BLOOD COUNT W/ DIFFERENTIAL Routine 07/09/2023 2:21 AM HAND I CUTTER POC GLUCOSE SCREEN Routine 07/08/2023 11 :33 PM HAND I CUTTER POC GLUCOSE SCREEN Routine 07/08/2023 6: 04 PM HAND I CUTTER POC GLUCOSE SCREEN Routine 07/08/2023 12 :03 PM HAND I CUTTER POC GLUCOSE SCREEN Routine 07/08/2023 6: 27 AM HAND I CUTTER .CBC Routine 07/08/2023 3:03 AM HAND I CUTTER PHOSPHORUS LEVEL Routine 07/08/2023 3:03 AM HAND I CUTTER MAGNESIUM LEVEL Routine 07/08/2023 3:03 AM HAND I CUTTER BASIC METABOLIC PANEL, CALCIUM TOTAL Routine 07/08/2023 3:03 AM HAND I CUTTER COMPLETE BLOOD COUNT W/ DIFFERENTIAL Routine 07/08/2023 3:03 AM HAND I CUTTER POC GLUCOSE SCREEN Routine 07/08/2023 12 :43 AM HAND I CUTTER POC GLUCOSE SCREEN Routine 07/07/2023 6: 13 PM HAND I CUTTER POC GLUCOSE SCREEN Routine 07/07/2023 12 :40 PM HAND I CUTTER XR ABDOMEN 1 VW PORTABLE Routine 07/07/2023 11:00 AM HAND I CUTTER POC GLUCOSE SCREEN Routine 07/07/2023 6: 45 AM HAND I CUTTER .CBC Routine 07/07/2023 4:21 AM HAND I CUTTER PHOSPHORUS LEVEL Routine 07/07/2023 4:21 AM HAND I CUTTER MAGNESIUM LEVEL Routine 07/07/2023 4:21 AM HAND I CUTTER BASIC METABOLIC PANEL, CALCIUM TOTAL Routine 07/07/2023 4:21 AM HAND I CUTTER COMPLETE BLOOD COUNT W/ DIFFERENTIAL Routine 07/07/2023 4:21 AM HAND I CUTTER POC GLUCOSE SCREEN Routine 07/07/2023 12 :10 AM HAND I CUTTER POC GLUCOSE SCREEN Routine 07/06/2023 6: 32 PM HAND I CUTTER POC GLUCOSE SCREEN Routine 07/06/2023 12 :07 PM HAND I CUTTER POC GLUCOSE SCREEN Routine 07/06/2023 6: 01 AM HAND I CUTTER .CBC Routine 07/06/2023 5:31 AM HAND I CUTTER PHOSPHORUS LEVEL Routine 07/06/2023 5:31 AM HAND I CUTTER MAGNESIUM LEVEL Routine 07/06/2023 5:31 AM HAND I CUTTER BASIC METABOLIC PANEL, CALCIUM TOTAL Routine 07/06/2023 5:31 AM HAND I CUTTER COMPLETE BLOOD COUNT W/ DIFFERENTIAL Routine 07/06/2023 5:31 AM HAND I CUTTER POC GLUCOSE SCREEN Routine 07/05/2023 11 :56 PM HAND I CUTTER POC GLUCOSE SCREEN Routine 07/05/2023 6: 38 PM HAND I CUTTER XR ABDOMEN 1 VW PORTABLE Routine 07/05/2023 12:10 PM HAND I CUTTER POC GLUCOSE SCREEN Routine 07/05/2023 6: 39 AM HAND I CUTTER .CBC Routine 07/05/2023 4:39 AM HAND I CUTTER PHOSPHORUS LEVEL Routine 07/05/2023 4:39 AM HAND I CUTTER MAGNESIUM LEVEL Routine 07/05/2023 4:39 AM HAND I CUTTER BASIC METABOLIC PANEL, CALCIUM TOTAL Routine 07/05/2023 4:39 AM HAND I CUTTER COMPLETE BLOOD COUNT W/ DIFFERENTIAL Routine 07/05/2023 4:39 AM HAND I CUTTER POC GLUCOSE SCREEN Routine 07/05/2023 2: 00 AM HAND I CUTTER POC GLUCOSE SCREEN Routine 07/04/2023 6: 01 PM HAND I CUTTER POC GLUCOSE SCREEN Routine 07/04/2023 12 :55 PM HAND I CUTTER POC GLUCOSE SCREEN Routine 07/04/2023 6: 12 AM HAND I CUTTER .CBC Routine 07/04/2023 4:20 AM HAND I CUTTER PHOSPHORUS LEVEL Routine 07/04/2023 4:20 AM HAND I CUTTER MAGNESIUM LEVEL Routine 07/04/2023 4:20 AM HAND I CUTTER BASIC METABOLIC PANEL, CALCIUM TOTAL Routine 07/04/2023 4:20 AM HAND I CUTTER COMPLETE BLOOD COUNT W/ DIFFERENTIAL Routine 07/04/2023 4:20 AM HAND I CUTTER TYPE AND SCREEN Routine 07/04/2023 4:20 AM HAND I CUTTER POC GLUCOSE SCREEN Routine 07/03/2023 11 :55 PM HAND I CUTTER POC GLUCOSE SCREEN Routine 07/03/2023 5: 55 PM HAND I CUTTER IR PERC FEEDING GASTROSTOMY PLACEMENT 90 STAT 07/03/2023 1:42 PM HAND I CUTTER Mass lesion of brain POC GLUCOSE SCREEN Routine 07/03/2023 12 :22 PM HAND I CUTTER POC GLUCOSE SCREEN Routine 07/03/2023 6: 02 AM HAND I CUTTER .CBC Routine 07/03/2023 4:15 AM HAND I CUTTER PHOSPHORUS LEVEL Routine 07/03/2023 4:15 AM HAND I CUTTER MAGNESIUM LEVEL Routine 07/03/2023 4:15 AM HAND I CUTTER BASIC METABOLIC PANEL, CALCIUM TOTAL Routine 07/03/2023 4:15 AM HAND I CUTTER COMPLETE BLOOD COUNT W/ DIFFERENTIAL Routine 07/03/2023 4:15 AM HAND I CUTTER POC GLUCOSE SCREEN Routine 07/03/2023 12 :01 AM HAND I CUTTER POC GLUCOSE SCREEN Routine 07/02/2023 6: 10 PM HAND I CUTTER POC GLUCOSE SCREEN Routine 07/02/2023 2: 18 PM HAND I CUTTER POC GLUCOSE SCREEN Routine 07/02/2023 5: 57 AM HAND I CUTTER .CBC Routine 07/02/2023 2:12 AM HAND I CUTTER PHOSPHORUS LEVEL Routine 07/02/2023 2:12 AM HAND I CUTTER MAGNESIUM LEVEL Routine 07/02/2023 2:12 AM HAND I CUTTER BASIC METABOLIC PANEL, CALCIUM TOTAL Routine 07/02/2023 2:12 AM HAND I CUTTER COMPLETE BLOOD COUNT W/ DIFFERENTIAL Routine 07/02/2023 2:12 AM HAND I CUTTER POC GLUCOSE SCREEN Routine 07/02/2023 2: 07 AM HAND I CUTTER POC GLUCOSE SCREEN Routine 07/01/2023 8: 00 PM HAND I CUTTER POC GLUCOSE SCREEN Routine 07/01/2023 5: 42 PM HAND I CUTTER POC GLUCOSE SCREEN Routine 07/01/2023 12 :10 PM HAND I CUTTER POC GLUCOSE SCREEN Routine 07/01/2023 6: 02 AM HAND I CUTTER .CBC Routine 07/01/2023 3:52 AM HAND I CUTTER PHOSPHORUS LEVEL Routine 07/01/2023 3:52 AM HAND I CUTTER MAGNESIUM LEVEL Routine 07/01/2023 3:52 AM HAND I CUTTER BASIC METABOLIC PANEL, CALCIUM TOTAL Routine 07/01/2023 3:52 AM HAND I CUTTER COMPLETE BLOOD COUNT W/ DIFFERENTIAL Routine 07/01/2023 3:52 AM HAND I CUTTER TYPE AND SCREEN Routine 07/01/2023 3:52 AM HAND I CUTTER POC GLUCOSE SCREEN Routine 07/01/2023 12 :02 AM HAND I CUTTER POC GLUCOSE SCREEN Routine 06/30/2023 6: 39 AM HAND I CUTTER .CBC Routine 06/30/2023 4:31 AM HAND I CUTTER PHOSPHORUS LEVEL Routine 06/30/2023 4:31 AM HAND I CUTTER MAGNESIUM LEVEL Routine 06/30/2023 4:31 AM HAND I CUTTER BASIC METABOLIC PANEL, CALCIUM TOTAL Routine 06/30/2023 4:31 AM HAND I CUTTER COMPLETE BLOOD COUNT W/ DIFFERENTIAL Routine 06/30/2023 4:31 AM HAND I CUTTER POC GLUCOSE SCREEN Routine 06/30/2023 12 :17 AM HAND I CUTTER POC GLUCOSE SCREEN Routine 06/29/2023 5: 06 PM HAND I CUTTER FL MODIFIED BARIUM SWALLOW W SPEECH STAT 06/29/2023 2:39 PM HAND I CUTTER .CBC Routine 06/29/2023 4:48 AM HAND I CUTTER PHOSPHORUS LEVEL Routine 06/29/2023 4:48 AM HAND I CUTTER MAGNESIUM LEVEL Routine 06/29/2023 4:48 AM HAND I CUTTER BASIC METABOLIC PANEL, CALCIUM TOTAL Routine 06/29/2023 4:48 AM HAND I CUTTER COMPLETE BLOOD COUNT W/ DIFFERENTIAL Routine 06/29/2023 4:48 AM HAND I CUTTER HC PROCALCITONIN (PCT) Routine 2:06 PM HAND I CUTTER ECHOCARDIOGRAM 2D COMPLETE STAT 06/28/2023 11:46 AM HAND I CUTTER MRI BRAIN W WO CONTRAST STAT 06/28/20 6:16 [address] CHEST ABDOMEN PELVIS W WO CONTRAST STAT 06/28/2023 5:00 AM HAND I CUTTER DIFFERENTIAL Routine 06/28/2023 2:49 AM HAND I CUTTER .CBC Routine 06/28/2023 2:49 AM HAND I CUTTER PHOSPHORUS LEVEL Routine 06/28/2023 2:49 AM HAND I CUTTER MAGNESIUM LEVEL Routine 06/28/2023 2:49 AM HAND I CUTTER BASIC METABOLIC PANEL, CALCIUM TOTAL Routine 06/28/2023 2:49 AM HAND I CUTTER COMPLETE BLOOD COUNT W/ DIFFERENTIAL Routine 06/28/2023 2:49 AM HAND I CUTTER CONFIRM ABORH TYPE STAT 06/28/2023 2: 49 AM HAND I CUTTER XR ABDOMEN 1 VW PORTABLE STAT 06/28/2023 12:45 AM HAND I CUTTER EKG, 12-LEAD (PORTABLE) Routine 06/28/2023 TYPE AND SCREEN STAT 06/27/2023 9:44 PM HAND I CUTTER XR CHEST 1 VW Routine 06/27/2023 7:50 [address] HEAD WO CONTRAST STAT 06/27/2023 7 :03 PM HAND I CUTTER .CBC Routine 06/27/2023 5:23 PM HAND I CUTTER COMPREHENSIVE METABOLIC PANEL Routine 06/27/2023 5:23 PM HAND I CUTTER APTT Routine 06/27/2023 5:23 PM HAND I CUTTER PROTHROMBIN TIME Routine 06/27/2023 5:23 PM HAND I CUTTER COMPLETE BLOOD COUNT W/ DIFFERENTIAL Routine 06/27/2023 5:23 PM HAND I CUTTER after 11/03/2022 Results * POC Glucose Screen - Fingerstick (07/12/2023 6:00 AM HAND I CUTTER) Only the most recent of48 resultswithin the time period is included. [facility] Signature Glucose Screen 97 70 - 99 mg/dL 07/12/2023 6:02 AM HAND I CUTTER [facility] POC Sample Type Capillary 07/12/2023 6:02 AM [facility] Blood 07/12/2023 6:00 AM HAND I CUTTER 07/12/2023 6:02 AM HAND I CUTTER Narrative [facility] - 07/12/2023 6:02 AM HAND I CUTTER Capillary blood samples, e.g. obtained by fingerstick, [...] Aguila MD POCT ORDERABLES - DE VICE [facility] Unless otherwise noted, all lab tests performed by: Division of Pathology and Laboratory Medicine [address] [place] [id number] * (ABNORMAL) .CBC (07/12/2023 2:52 AM HAND I CUTTER) Only the most recent of16 resultswithin the time period is included. White Blood Cell 12.8(H) 4.1 - 10.5 K/uL 07/12/2023 3:31 AM [facility] Red Blood Cell 4.81 4.30 - 6.04 M/uL 07/12/2023 3:31 AM [facility] Hemoglobin 14.6 13.3 - 17.4 g/dL 07/12/2023 3:31 AM [facility] Hematocrit 44.8 39.5 - 51.8 % 07/12/2023 3:31 AM [facility] Mean Cell Volume 93 82 - 99 fL 07/12/2023 3:31 AM [facility] Mean Cell Hemoglobin 30.4 26.6 - 33.2 pg 07/12/2023 3:31 AM [facility] Mean Cell Hemoglobin Concentration 32.6 31.1 - 35.2 g/dL 07/12/2023 3:31 AM [facility] RDW-SD 45.9 37.5 - 49.7 fL 07/12/2023 3:31 AM [facility] Red Cell Diameter Width 13.5 11.6 - 15.5 % 07/12/2023 3:31 AM [facility] Platelet 183 160 - 397 K/uL 07/12/2023 3:31 AM [facility] Mean Platelet Volume 11.9 9.1 - 12.6 fL 07/12/2023 3:31 AM [facility] INRBC 0.0 0.0 - 0.1 /100 WBC 07/12/2023 3:31 AM [facility] Comment: The INRBC (instrument NRBC) value reflects the enumeration of nucleated red blood cells contained in a 200uL sample of whole blood analyzed by the instrument. This value may differ from the NRBC value reported in a manual differential, which is based on a 100 cell differential. Neutrophil % 77.2(H) 43.2 - 72.7 % 07/12/2023 3:31 AM [facility] Lymphocyte % 12.4(L) 16.8 - 46.2 % 07/12/2023 3:31 AM [facility] Monocyte % 9.1 5.1 - 12.5 % 07/12/2023 3:31 AM [facility] Eosinophil % 0.0(L) 0.4 - 6.3 % 07/12/2023 3:31 AM [facility] Basophil % 0.2 0.2 - 1.4 % 07/12/2023 3:31 AM [facility] IGRE % 1.1 0.1 - 1.5 % 07/12/2023 3:31 AM [facility] Comment:The IGRE% includes M etamyelocytes, Myelocytes and Promyelocytes. Neutrophil Abs 9.90(H) 1.95 - 7.25 K/uL 07/12/2023 3:31 AM [facility] Lymphocyte Abs 1.59 1.01 - 3.24 K/uL 07/12/2023 3:31 AM [facility] Monocyte Abs 1.16(H) 0.24 - 0.85 K/uL 07/12/2023 3:31 AM [facility] Eosinophil Abs 0.00(L) 0.02 - 0.50 K/uL 07/12/2023 3:31 AM [facility] Basophil Abs 0.02 0.02 - 0.09 K/uL 07/12/2023 3:31 AM [facility] IG Abs 0.14(H) 0.01 - 0.12 K/uL 07/12/2023 3:31 AM [facility] Blood Peripheral blood specimen / Unknown Venipuncture / Unknown 07/12/2023 2:52 AM HAND I CUTTER 07/12/2023 3:18 AM HAND I CUTTER Naye Amin MD LAB BLOOD ORDERABLES [facility] Unless otherwise noted, all lab tests performed by: Division of Pathology and Laboratory Medicine [address] [place] [address] * (ABNORMAL) Basic Metabolic Panel- Total Calcium (07/12/2023 2:52 AM HAND I CUTTER) Only the most recent of15 resultswithin the time period is included. eGFR 108 >=60 mL/min/1.7 3 sq. m 07/12/2023 3:57 AM HAND I CUTTER [facility] Comment: The eGFRcr is calculated [...] - 10.2 mg/dL 07/12/2023 3:57 AM HAND I CUTTER [facility] Comment:This result was prev iously suppressed from the chart. Sodium Level 146(H) 136 - 145 mmol/L 07/12/2023 3:57 AM HAND I CUTTER [facility] Comment:This result was prev iously suppressed from the chart. Potassium Level 4.5 3.4 - 4.5 mmol/L 07/12/2023 3:57 AM HAND I CUTTER [facility] Comment:This result was prev iously suppressed from the chart. Chloride 109(H) 98 - 107 mmol/L 07/12/2023 3:57 AM HAND I CUTTER [facility] Comment:This result was prev iously suppressed from the chart. CO2 30(H) 22 - 29 mmol/L 07/12/2023 3:57 AM [facility] Comment:This result was prev iously suppressed from the chart. Anion Gap 7 4 - 14 mmol/L 07/12/2023 3:57 AM HAND I CUTTER [facility] Comment:This result was prev iously suppressed from the chart. Creatinine 0.69 0.67 - 1.17 mg/dL 07/12/2023 3:57 AM HAND I CUTTER [facility] Comment:This result was prev iously suppressed from the chart. BUN 26(H) 6 - 23 mg/dL 07/12/2023 3:57 AM HAND I CUTTER [facility] Comment:This result was prev iously suppressed from the chart. Glucose Level 97 70 - 99 mg/dL 07/12/2023 3:57 AM HAND I CUTTER [facility] Comment: Effective 01/26/16, the glucose reference intervals have been updated based on [place] [employer] guidelines (Standards of Medical Care [...] Venipuncture / Unknown 07/12/2023 2:52 AM HAND I CUTTER 07/12/2023 3:16 AM HAND I CUTTER Naye Amin MD LAB BLOOD ORDERABLES [facility] Unless otherwise noted, all lab tests performed by: Division of Pathology and Laboratory Medicine [address] [place] [id number] * Phosphorus Level (07/12/2023 2:52 AM HAND I CUTTER) Only the most recent of15 resultswithin the time period is included. Phosphorus Level 3.3 2.5 - 4.5 mg/dL 07/12/2023 3:57 AM HAND I CUTTER [facility] Blood Peripheral blood specimen / Unknown Venipuncture / Unknown 07/12/2023 2:52 AM HAND I CUTTER 07/12/2023 3:16 AM HAND I CUTTER Naye Amin MD LAB BLOOD ORDERABLES [facility] Unless otherwise noted, all lab tests performed by: Division of Pathology and Laboratory Medicine [address] [place] [id number] * Magnesium Level (07/12/2023 2:52 AM HAND I CUTTER) Only the most recent of15 resultswithin the time period is included. Magnesium Level 2.2 1.6 - 2.6 mg/dL 07/12/2023 3:57 AM HAND I CUTTER [facility] Blood Peripheral blood specimen / Unknown Venipuncture / Unknown 07/12/2023 2:52 AM HAND I CUTTER 07/12/2023 3:16 AM HAND I CUTTER Naye Amin MD LAB BLOOD ORDERABLES Performing Organization Address City/[facility] Co de Phone Number [facility] Unless otherwise noted, all lab tests performed by: Division of Pathology and Laboratory Medicine [address] [place] [id number] * XR Abdomen 1 View Portable (07/09/2023 12:59 PM HAND I CUTTER) Only the most recent of4 resultswithin the time period is included. Anatomical Region Laterality Modality Abdomen Digital Radiogra phy 07/09/2023 2:34 PM HAND I CUTTER Impressions 07/09/2023 2:36 PM HAND I CUTTER No evidence of obstruction or significant constipation. Narrative 07/09/2023 2:36 PM HAND I CUTTER FULL RESULT: Examination: XR ABDOMEN 1 VW [...] Dehydrogenase Enzyme Activity (07/09/2023 2:21 AM HAND I CUTTER) G6PD Enzyme Activity, B 10.8 8.0 - 11.9 U/g Hb 07/11/2023 2:58 PM HAND I CUTTER [facility] Comment: G6PD deficiency can be masked in the setting of reticulocytosis, markedly elevated WBCs or recent transfusion. If any of these are present in the setting of , chronic, or episodic jaundice/anemia, genotyping is recommended. If desired, please order G6PDZ/G6PD Full Gene Sequencing, V. ADDITIONAL INFORMATION This test was developed and its performance characteristics determined by [facility] in a manner consistent with CLIA requirements. This test has not been cleared or approved by the U.S. Food and Drug Administration. Test Performed by: [facility] - [address] [address] Collarette Separator: Papo Boone M.D. Ph.D.; CLIA# [id number] Blood Peripheral blood specimen / Unknown Venipuncture / Unknown 07/09/2023 2:21 AM HAND I CUTTER 07/09/2023 2:59 AM HAND I CUTTER Gertrude Jesus MD LAB BLOOD ORDERABLES [facility] * Type and Screen (07/04/2023 4:20 AM HAND I CUTTER) Only the most recent of3 resultswithin the time period is included. ABORh O POS 07/04/2023 12:00 AM HAND I CUTTER [facility] ABSC Negative 07/04/2023 12:00 AM HAND I CUTTER [facility] Clot Expiration 07/07/2023 23:59 07/04/2023 12:00 AM HAND I CUTTER [facility] Historical Record Check Complete 07/04/2023 12:00 AM HAND I CUTTER [facility] Blood Peripheral blood specimen / Unknown Venipuncture / Unknown 07/04/2023 4:20 AM HAND I CUTTER 07/04/2023 4:52 AM HAND I CUTTER Juli Benitez APRN BLOOD BANK TEST ORDE ISMAEL [facility] [id number] [place] [address] * IR PERC FEEDING GASTROSTOMY PLACEMENT (07/03/2023 1:42 PM HAND I CUTTER) Anatomical Region Laterality Modality Abdomen/Pelvis Other Narrative 07/03/2023 5:56 PM HAND I CUTTER Table formatting from the original result was not included. Date of Procedure: 07/03/23 Attending Physician: Feliberto Olmstead MD Materials Development Engineer: None Pre Procedure Diagnosis: Mass lesion of brain [[id number]] Post Procedure Diagnosis: Unchanged Indication: Nutritional support [...] Swallow w Speech (06/29/2023 2:39 PM HAND I CUTTER) Anatomical Region Laterality Modality Neck Radio Fluoroscop y 06/29/2023 3:56 PM HAND I CUTTER Impressions 06/29/2023 4:59 PM HAND I CUTTER 1. Silent aspiration with thin and thick liquids. Please refer to the separately dictated speech pathology report for further details and recommendations. Narrative 06/29/2023 4:59 PM HAND I CUTTER FULL RESULT: Examination: FL MODIFIED BARIUM SWALLOW [...] GUEVARA * Procalcitonin (06/28/2023 2:06 PM HAND I CUTTER) Procalcitonin <0.04 <=0.08 ng/mL 06/28/2023 2:54 PM HAND I CUTTER [facility] Blood Peripheral blood specimen / Unknown Venipuncture / Unknown 06/28/2023 2:06 PM HAND I CUTTER 06/28/2023 2:10 PM HAND I CUTTER Narrative [facility] - 06/28/2023 2:54 PM HAND I CUTTER Procalcitonin > 2.00 ng/mL: Procalcitonin levels above [...] with extended dilution as it exceeds the rating officer's recommended limit. Caution should be exercised when interpreting such values and done in conjunction with clinical context. Juli Benitez APRN LAB BLOOD ORDERABLES [facility] Unless otherwise noted, all lab tests performed by: Division of Pathology and Laboratory Medicine [address] [place] [id number] * Echocardiogram 2D Complete (06/28/2023 11:46 AM HAND I CUTTER) 06/28/2023 10:4 5 AM HAND I CUTTER Narrative ISCV - 06/28/2023 12:29 PM HAND I CUTTER Echocardiographic Report Interpretation Summary A complete two-dimensional [...] (lat): 3.4 E/e' (sept): 4.8 Juli Benitez SHIP'S PILOT CV ECHO ORDERABLES ISCV * MRI Brain with and without Contrast (06/28/2023 6:16 AM HAND I CUTTER) Anatomical Region Laterality Modality Head Magnetic Resonan ce 06/28/2023 7:32 AM HAND I CUTTER Impressions 06/28/2023 10:06 AM HAND I CUTTER 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 Narrative 06/28/2023 10:06 AM HAND I CUTTER FULL RESULT: Examination: MRI BRAIN W WO [...] and without Contrast (06/28/2023 5:00 AM HAND I CUTTER) Anatomical Region Laterality Modality Abdomen, Pelvis, Chest Computed Tomography 06/28/2023 5:14 AM HAND I CUTTER Impressions 06/28/2023 4:07 PM HAND I CUTTER Left lower lobe retained secretions and airspace [...] final report. Narrative 06/28/2023 4:07 PM HAND I CUTTER Examination: CT CHEST ABDOMEN PELVIS W WO [...] * Confirm ABORh (06/28/2023 2:49 AM HAND I CUTTER) Pathologist [facility] ABOR Confirm O POS 06/27/2023 9:45 PM HAND I CUTTER [facility] - [facility]SF[facility] Blood Peripheral blood specimen / Unknown Venipuncture / Unknown 06/28/2023 2:49 AM HAND I CUTTER 06/28/2023 3:06 AM HAND I CUTTER Karma Landrum MD BLOOD BANK TEST MONICA GUEVARA [facility] - [facility]SF[facility] [id number] [place] [address] * (ABNORMAL) Differential (06/28/2023 2:49 AM HAND I CUTTER) Total Cells 115 06/28/2023 6:54 AM HAND I CUTTER [facility] Manual Neutrophil % 78.0(H) 43.2 - 72.7 % 06/28/2023 6:54 AM [facility] Comment:The Neutrophil count includes Bands. Manual Lymphocyte % 15.0(L) 16.8 - 46.2 % 06/28/2023 6:54 AM [facility] Manual Monocyte % 2.0(L) 5.1 - 12.5 % 06/28/2023 6:54 AM [facility] Metamyelocyte % 5.0(H) <=0.0 % 6:54 AM [facility] Comment:The Metamyelocyte co unt includes Myelocytes. Manual Neutrophil Abs 7.02 1.95 - 7.25 K/uL 06/28/2023 6:54 AM HAND I CUTTER [facility] Manual Lymphocyte Abs 1.35 1.01 - 3.24 K/uL 06/28/2023 6:54 AM [facility] Manual Monocyte Abs 0.18(L) 0.24 - 0.85 K/uL 06/28/2023 6:54 AM [facility] RBC Morphology PRESENT 06/28/2023 6:54 AM [facility] Anisocytosis Present(A) (none) 06/28/2023 6:54 AM [facility] Poikilocytosis Present(A) (none) 06/28/2023 6:54 AM [facility] Polychromasia Present(A) (none) 06/28/2023 6:54 AM [facility] Ovalocyte Present(A) (none) 06/28/2023 6:54 AM [facility] Macrocyte Present(A) (none) 06/28/2023 6:54 AM [facility] Slide Comment SEE NOTE 06/28/2023 6:54 AM [facility] Comment:PLT: Platelet morpho logy normal Blood Peripheral blood specimen / Unknown Venipuncture / Unknown 06/28/2023 2:49 AM HAND I CUTTER 06/28/2023 3:05 AM HAND I CUTTER Naye Amin MD LAB BLOOD ORDERABLES [facility] Unless otherwise noted, all lab tests performed by: Division of Pathology and Laboratory Medicine [address] [place] [address] [place] [address] * EKG, 12-Lead (06/28/2023) Juli Benitez KENYETTA ECG ORDERABLES [facility] * X-ray Chest 1 View (06/27/2023 7:50 PM HAND I CUTTER) Anatomical Region Laterality Modality Chest Digital Radiogra phy 06/27/2023 8:19 PM HAND I CUTTER Impressions 06/27/2023 8:21 PM HAND I CUTTER No acute consolidations or lobar pneumonias. ACTIONABLE ITEMS/RECOMMENDATIONS: None. 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 Discussed with Dr. Ricardo at 7:36 PM on 06/27/2023 by means of a phone conversation. Narrative 06/27/2023 7:37 PM HAND I CUTTER FULL RESULT: Examination: CT HEAD WO CONTRAST [...] Comprehensive Metabolic Panel (06/27/2023 5:23 PM HAND I CUTTER) Bilirubin Total 0.4 <=1.2 mg/dL 06/27/2023 6:05 PM [facility] Comment: Indocyanine Green (ICG) may cause falsely elevated bilirubin results. Total and direct bilirubin must not be measured from samples containing indocyanine green. False elevation of total bilirubin can be seen in patients with IgG concentrations above 28 g/L. This result was previously suppressed from the chart. Bilirubin Direct <0.2 <=0.3 mg/dL 06/27/2023 6:05 PM [facility] Comment: Indocyanine Green (ICG) may cause falsely elevated bilirubin results. Total and direct bilirubin must not be measured from samples containing indocyanine green. This result was previously suppressed from the chart. Bilirubin Indirect 2022 6:05 PM [facility] Comment:Unable to calculate Indirect Bilirubin result due to some parameters are outside reportable range eGFR 104 >=60 mL/min/1. 73 sq. m 06/27/2023 6:05 PM [facility] Comment: The eGFRcr is calculated [...] 6.4 - 8.3 gm/dL 06/27/2023 6:05 PM [facility] Comment:This result was prev iously suppressed from the chart. Calcium Level Total 9.6 8.2 - 10.2 mg/dL 06/27/2023 6:05 PM [facility] Comment:This result was prev iously suppressed from the chart. Alkaline Phosphatase 92 40 - 129 U/L 06/27/2023 6:05 PM [facility] Comment:This result was prev iously suppressed from the chart. Albumin Level 4.0 3.5 - 5.2 gm/dL 06/27/2023 6:05 PM [facility] Comment:This result was prev iously suppressed from the chart. AST 14 <=40 U/L 06/27/2023 6:05 PM [facility] Comment:This result was prev iously suppressed from the chart. ALT 17 <=41 U/L 06/27/2023 6:05 PM [facility] Comment:This result was prev iously suppressed from the chart. Sodium Level 134(L) 136 - 145 mmol/L 06/27/2023 6:05 PM [facility] Comment:This result was prev iously suppressed from the chart. Potassium Level 4.0 3.4 - 4.5 mmol/L 06/27/2023 6:05 PM [facility] Comment:This result was prev iously suppressed from the chart. Chloride 99 98 - 107 mmol/L 06/27/2023 6:05 PM [facility] Comment:This result was prev iously suppressed from the chart. CO2 26 22 - 29 mmol/L 06/27/2023 6:05 PM [facility] Comment:This result was prev iously suppressed from the chart. Anion Gap 9 4 - 14 mmol/L 06/27/2023 6:05 PM [facility] Comment:This result was prev iously suppressed from the chart. Creatinine 0.77 0.67 - 1.17 mg/dL 06/27/2023 6:05 PM [facility] Comment:This result was prev iously suppressed from the chart. BUN 17 6 - 23 mg/dL 06/27/2023 6:05 PM HAND I CUTTER [facility] Comment:This result was prev iously suppressed from the chart. Glucose Level 98 70 - 99 mg/dL 06/27/2023 6:05 PM HAND I CUTTER [facility] Comment: Effective 01/26/16, the glucose reference intervals have been updated based on [employer] guidelines (Standards of Medical Care [...] Venipuncture / Unknown 06/27/2023 5:23 PM HAND I CUTTER 06/27/2023 5:30 PM HAND I CUTTER Jensen Zuleta MD LAB BLOOD ORDERABLES Performing Organization Address City/[facility] Co de Phone Number [facility] Unless otherwise noted, all lab tests performed by: Division of Pathology and Laboratory Medicine [address] [place] [id number] * aPTT (06/27/2023 5:23 PM HAND I CUTTER) Pathologist [facility] Activated PTT 24.7 24.1 - 35.5 second(s) 06/27/2023 6:14 PM HAND I CUTTER [facility] Blood Peripheral blood specimen / Unknown Venipuncture / Unknown 06/27/2023 5:23 PM HAND I CUTTER 06/27/2023 5:30 PM HAND I CUTTER Jensen Zuleta MD LAB BLOOD ORDERABLES [facility] Unless otherwise noted, all lab tests performed by: Division of Pathology and Laboratory Medicine [address] [place] [id number] * Prothrombin Time with INR (06/27/2023 5:23 PM HAND I CUTTER) [facility] Prothrombin Time 13.0 11.9 - 14.5 second(s) 06/27/2023 6:14 PM HAND I CUTTER [facility] International Normalization Ratio 0.99 0.87 - 1.12 06/27/2023 6:14 PM HAND I CUTTER [facility] Blood Peripheral blood specimen / Unknown Venipuncture / Unknown 06/27/2023 5:23 PM HAND I CUTTER 06/27/2023 5:30 PM HAND I CUTTER Jensen Zuleta MD LAB BLOOD ORDERABLES [facility] Unless otherwise noted, all lab tests performed by: Division of Pathology and Laboratory Medicine [facility] [place] [address] after 11/03/2022 Advance Directives Latest Code Status on File Code Status Date Activated Date Inactivated Comments Full Code 06/27/2023 8:32 PM 07/12/2023 3:12 PM
--- NOTE | 2023-11-03 14:20 | RAD REPORT ---
EXAM DESCRIPTION: RAD - ENTEROSTOMY TUBE CHECK W/CONTR - 11/03/2023 2:10 pm CLINICAL HISTORY: replaced PEG COMPARISON: Abdomen Pelvis W Contrast dated 10/29/2023; Abdomen 1 View (KUB) dated 10/24/2023; ENTER OSTOMY TUBE CHECK W/CONTR dated 10/23/2023; Perc Biopsy Lung/Mediastinum dated 10/31/2023 FINDINGS/IMPRESSION: Gastrostomy tube balloon overlies the stomach. Injection of contrast confirms t he tip of the gastrostomy tube is within the stomach. Large colonic stool burden. Bowel gas pattern i s nonobstructive.
--- NOTE | 2023-11-03 14:26 | ER ---
Nurse's Notes [facility] Name: Arturo Gregorio Age: 58 yrs Sex: Male : 1965 Arrival Date: 11/03/2023 Time: 12:13 Bed 5 Private MD: Dequan Kruger Diagnosis: encounter for replacement of PEG tube Presentation: 11/02 12:30 Chief complaint: PEG tube pulled out when attempting to take off jeans just [employer]. hb Coronavirus screen: At this time, the client does not indicate any symptoms associated with coronavirus-19. Ebola Screen: No symptoms or risks identified at this time. Initial Sepsis Screen: Does the patient meet any 2 criteria? No. Patient's initial sepsis screen is negative. Does the patient have a suspected source of infection? No. Patient's initial sepsis screen is negative. Risk Assessment: Do you want to hurt yourself or someone else? Patient reports no desire to harm self or others. Onset of symptoms was November 03, 2023. 12:30 Method Of Arrival: Wheelchair hb 12:30 Acuity: NELLI 4 hb Triage Assessment: 12:31 General: Appears in no apparent distress. Behavior is calm, cooperative. Pain: Pain hb currently is 2 out of 10 on a pain scale. Neuro: Level of Consciousness is awake, alert, obeys commands, Oriented to person, place, time, situation. Cardiovascular: Patient's skin is warm and dry. Respiratory: Respiratory effort is even, unlabored, Respiratory pattern is regular, symmetrical. GI: Abdomen is PET site healthy. Historical: - Allergies: 12:31 No Known Allergies; hb - PMHx: 12:31 BRAIN TUMOR; trach-Aug 2023; hb - Immunization history:: Adult Immunizations up to date. - Infectious Disease History:: Denies. - Social history:: Smoking status: Patient denies any tobacco usage or history of. Screenin:31 [facility] ED Fall Risk Assessment (Adult) History of falling in the last 3 months, bp including since admission No falls in past 3 months (0 pts). Abuse screen: Denies threats or abuse. Denies injuries from another. Nutritional screening: No deficits noted. Tuberculosis screening: No symptoms or risk factors identified. Assessment: 12:31 General: Appears in no apparent distress. Behavior is cooperative. Pain: Denies pain. bp Neuro: AT BASELINE. GI: LEFT PEG STOMA. 13:00 Reassessment: XRAY ON HOLD FOR ADDITIONAL EQUIPMENT. bp 15:00 Reassessment: PT DC WITH ADDITIONAL FEEDING SUPPLIES. bp Vital Signs: 12:30 BP 97 / 68; Pulse 88; Resp 16; Temp 97.7(TE); Pulse Ox 97% on R/A; Weight 46.27 kg; hb Height 5 ft. 6 in. ; Pain 2/10; 12:46 BP 91 / 60; Pulse 84; Resp 16; Pulse Ox 94% ; bp 15:04 BP 97 / 58; Pulse 75; Resp 16; Pulse Ox 96% ; bp 12:30 Body Mass Index 16.46 (46.27 kg, 167.64 cm) hb 12:30 Pain Scale: Adult hb ED Course: 12:14 Patient arrived in ED. rg4 12:15 Dequan Kruger DO is Private Physician. rg4 12:15 [facility] sb[facility] 12:15 Rogelio Serrano MD is Attending Physician. sb4 12:27 Jose Alejandro Carias, YESENIA is Primary Nurse. bp 12:31 Triage completed. hb 12:31 Patient has correct armband on for positive identification. bp 12:31 Assisted provider with: 16 FR PEG PLACEMENT. bp 12:32 Arm band placed on. hb 14:12 PEG Tube Check w/contrast In Process Unspecified. EDMS 14:26 Dequan Kruger DO is Referral Physician. sb4 15:00 Provided Education on: N/A. bp 15:04 Patient did not have IV access during this emergency room visit. bp Administered Medications: No medications were administered Medication: 12:31 VIS not applicable for this client. bp Outcome: 14:26 Discharge ordered by . sb4 15:00 Discharged to home via wheelchair, with family, bp 15:00 Condition: stable 15:00 Discharge instructions given to patient, family, Instructed on discharge instructions, follow up and referral plans. medication usage, Demonstrated understanding of instructions, follow-up care, medications, Prescriptions given X 1, 15:05 Patient left the ED. jb4 Signatures: Dispatcher [facility] Amena Mckinney RN RN Lashell Haley rg4 Gustavo Garcia RN RN jb4 Jose Alejandro Carias RN RN bp Brown, Sophia, PA-C PACarleeC sb4 Corrections: (The following items were deleted from the chart) 12:32 12:30 BP 97 / 68; Pulse 88bpm; Resp 16bpm; Pulse Ox 97% RA; Temp 97.7F Temporal; Pain hb 2/10, Adult; hb
--- NOTE | 2023-11-03 14:26 | EDPHYS ---
Physician Documentation [facility] Name: Arturo Gregorio Age: 58 yrs Sex: Male : 1965 Arrival Date: 11/03/2023 Time: 12:13 Bed 5 Private MD: Dequan Kruger ED Physician Rogelio Serrano HPI: 11/02 12:45 This 58 yrs old Male presents to ER via Wheelchair with complaints of Peg tube sb4 problem. 12:45 states she was helping patient pull his pants down this morning when she sb4 accidentally pulled his PEG tube out. also states patient was complaining of some discomfort in the area earlier this morning when administering medications through it. Historical: - Allergies: 12:31 No Known Allergies; hb - PMHx: 12:31 BRAIN TUMOR; trach-Aug 2023; hb - Immunization history:: Adult Immunizations up to date. - Infectious Disease History:: Denies. - Social history:: Smoking status: Patient denies any tobacco usage or history of. ROS: 12:45 Constitutional: Negative for fever, chills, and weight loss, sb4 12:45 Abdomen/GI: Positive for per HPI, 12:45 All other systems are negative, Exam: 12:45 Head/Face: Normocephalic, atraumatic. Eyes: Extra-ocular motions intact. Periorbital sb4 areas with no swelling, redness, or edema. 12:45 Constitutional: The patient appears in no acute distress, alert, awake, frail, 12:45 Abdomen/GI: Inspection: PEG tube opening LUQ, minimal purulence, no surrounding cellulitis, Bowel sounds: normal, in all quadrants, Vital Signs: 12:30 BP 97 / 68; Pulse 88; Resp 16; Temp 97.7(TE); Pulse Ox 97% on R/A; Weight 46.27 kg; hb Height 5 ft. 6 in. ; Pain 2/10; 12:46 BP 91 / 60; Pulse 84; Resp 16; Pulse Ox 94% ; bp 15:04 BP 97 / 58; Pulse 75; Resp 16; Pulse Ox 96% ; bp 12:30 Body Mass Index 16.46 (46.27 kg, 167.64 cm) hb 12:30 Pain Scale: Adult hb Procedures: 12:47 G-tube placement: a 16 Bahraini catheter was placed, by the ED physician, Rogelio Serrano MD. sb4 MDM: 12:21 Patient medically screened. sb4 14:25 Data reviewed: vital signs, nurses notes, radiologic studies, and as a result, I will sb4 discharge patient. Counseling: I had a detailed discussion with the patient and/or guardian regarding the historical points, exam findings, and any diagnostic results supporting the discharge/admit diagnosis, radiology results, to return to the emergency department if symptoms worsen or persist or if there are any questions or concerns that arise at home. 11/02 12:43 Order name: PEG Tube Check w/contrast; Complete Time: 14:25 sb4 Administered Medications: No medications were administered Disposition: 17:55 Co-signature as Attending Physician, Rogelio Serrano MD I reviewed the patient's care rn provided by the Advanced Practice Provider and agree with the diagnosis and treatment plan. Disposition Summary: 11/03/23 14:26 Discharge Ordered Notes: Location: Home sb4 Problem: new sb4 Symptoms: have improved sb4 Condition: Stable sb4 Diagnosis - encounter for replacement of PEG tube sb4 Followup: sb4 - With: Dequan Kruger DO - When: 2 - 3 days - Reason: Recheck today's complaints, Re-evaluation by your physician Discharge Instructions: - Discharge Summary Sheet sb4 - Kidney Stones, [id number] sb4 Forms: - Patient Portal Instructions sb4 - Leadership Thank You Letter sb4 Prescriptions: - tamsulosin 0.4 mg Oral capsule - take 1 capsule G-TUBE route every day at bedtime; 20 capsule; Refills: 0, sb4 Product Selection Permitted Signatures: Dispatcher [employer] Rogelio Bledsoe MD MD rn Baxter, Heather, RN RN hb Brown, Sophia, PA-C PA-C sb4
[2023-11-03 15:19] VITALS: BP 97/58; TEMP 97.7; O2SAT 96
== END 2023-11-03 15:05 | disposition home or self-care (01) ==
LOC: ER 12:13
DX: Z43.1 Encounter for attention to gastrostomy (principal)
CPT/HCPCS: 49465; 99283

== ENCOUNTER 2023-12-28 03:37 | Emergency (ER) | payer OTHER ==
--- OUTSIDE RECORDS SUMMARY | 2023-12-28 03:41 | XMS REPORT | Clinical Summary ---
Author Name Unknown Organization [facility] Address [address] [place] [address] Care Team Providers Care Process Expert Name Role Phone Unavailable Primary Care Provider Unavailabl e Allergies No known active allergies Medications Medication Sig Dispensed Refills Start Date End Date Status dexAMETHasone intensol 1 mg/mL concentrated solutionIndications :Vasogenic cerebral edema Give 4 mL (4 mg) per G-tube every 6 (six) hours. Take until follow up with PCP and neurologist 480 mL 07/11/2023 Active dapsone 100 mg tabletIndications:L erickson term current use of systemic steroid Give 1 tablet (100 mg) per G-tube daily. 30 tablet 07/11/2023 Active famotidine (Pepcid) 20 mg tabletIndications:L erickson term current use of systemic steroid Crush and give 1 tablet (20 mg) per G-tube twice daily. 30 tablet 07/11/2023 Active pantoprazole (PROTONIX) 40 mg EC tablet Take 1 tablet (40 mg) by mouth every morning before breakfast. 4 Discontinue d(Stop Taking at Discharge) dapsone 100 mg tabletIndications:L erickson term current use of systemic steroid Take 1 tablet (100 mg) by mouth daily. 30 tablet 07/11/2023 4 Discontinue d(Reorder) pantoprazole oral suspension 2 mg/mL ([id number])Indicatio ns:Generalized muscle weakness,Mass lesion of brain,Lack of coordination, not otherwise specified,Impaired vibration sensation of foot,Neoplasm of brain,Dysphagia, oropharyngeal phase,Vasogenic cerebral edema,jail current use of systemic steroid,Neoplasm of uncertain behavior of brain, not otherwise specified Give 20 mL (40 mg) per G-tube daily. 600 mL 07/11/2023 4 Discontinue d(Stop Taking at Discharge) lansoprazole (Prevacid SoluTab) 30 MG disintegrating tabletIndications:L erickson term current use of systemic steroid Give 1 tablet (30 mg) per G-tube every morning before breakfast. 30 tablet 07/11/2023 4 Discontinue d(Stop Taking at Discharge) famotidine (Pepcid) 20 mg tabletIndications:L erickson term current use of systemic steroid Take 1 tablet (20 mg) by mouth twice daily. 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 Mass lesion of brain 06/27/2023 Vasogenic cerebral edema 06/27/2023 Dysphagia, oropharyngeal phase 06/27/2023 Encounters Date Type Department Care Team Description 07/20/2023 10:30 AM FILTER CHANGING TECHNICIAN Nutrition Clinical Nutrition For your Nutrition appointment location directions please call: Gertrude Jesus MD Coleman, Timothy, RD Generalized muscle weakness; Mass lesion of brain; Lack of coordination, not otherwise specified; Impaired vibration sensation of foot; Neoplasm of brain; Dysphagia, oropharyngeal phase; Vasogenic cerebral edema 07/14/2023 Telephone [facility] PHYSICIAN [address] [place] [phone] Skye Atkins, olap developer Call 07/13/2023 Telephone [facility] [address] [place] [phone] Jc Pardo, olap developer Call 07/13/2023 Travel 07/03/2023 12:13 PM FILTER CHANGING TECHNICIAN Anesthesia Event Main Interventional Radiology [address] [place], [place] [address] 3[facility] [place] [address] Jessica Zafar APRN, MORENA 06/29/2023 Orders Only [facility] [address] [place] [address], 7th [place] [address] Beverly, Poornima, TAILOR HELPER 06/29/2023 Orders Only [facility] [address] [place] [address], 7th [place] [address] Beverly, Poornima, TAILOR HELPER Malignant neoplasm of brain stem (Primary Dx) 06/29/2023 Orders Only [facility] [address] [place] [address], 7th [place] [address] Beverly, Poornima, TAILOR HELPER Malignant neoplasm of brain stem (Primary Dx) 06/28/2023 Prep for Surgery [facility] [address] [place] [address], 7th [place] [address] Lozada, Nora G, TAILOR HELPER Mass lesion of brain (Primary Dx) 06/27/2023 5:03 PM FILTER CHANGING TECHNICIAN - 07/12/2023 1:07 PM FILTER CHANGING TECHNICIAN Hospital Encounter MAIN [id number] [address] [place] [id number] Lori Greco MD Walton, Natalie, MD George, Marina, MD Zhou, Yan, MD Leung, Cerena, MD Kheder, Rhett, Generalized muscle weakness (Primary Dx); Mass lesion of brain; Lack of coordination, not otherwise specified; Impaired vibration sensation of foot; Neoplasm of brain; Dysphagia, oropharyngeal phase; Vasogenic cerebral edema; 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 current use of systemic steroid; Neoplasm of uncertain behavior of brain, not otherwise specified Discharge Disposition: Home 06/27/2023 Travel after 12/28/2022 Medical History Medical History Date Comments Blind [...] file Travel History Travel Start Travel End [place] 06/16/2023 06/27/2023 Obstetrics History Last Filed Vital Signs Vital Sign Reading Time Taken Comments Blood Pressure 91/64 07/12/2023 6:53 AM FILTER CHANGING TECHNICIAN Pulse 90 07/12/2023 6:53 AM FILTER CHANGING TECHNICIAN Temperature 37 C (98.6 F) 07/12/2023 6:52 AM FILTER CHANGING TECHNICIAN Respiratory Rate 17 07/12/2023 6:53 AM FILTER CHANGING TECHNICIAN Oxygen Saturation 97% 07/12/2023 6:53 AM FILTER CHANGING TECHNICIAN Inhaled Oxygen Concentration - - Weight 62.7 kg (138 lb 3.7 oz) 06/27/2023 8:36 P M FILTER CHANGING TECHNICIAN Height 162 cm (5' 3.78") 06/27/2023 8:36 PM FILTER CHANGING TECHNICIAN Body Mass Index 23.89 06/27/2023 8:36 PM FILTER CHANGING TECHNICIAN Plan of Treatment Health Maintenance Due Date Last Done Comments COVID-19 Vaccine ( season) 2023 Influenza Vaccine 03/02/2024 Procedures Procedure Name Priority Date/Time Associated Diagnosis Comments POC GLUCOSE SCREEN Routine 07/12/2023 6: 00 AM FILTER CHANGING TECHNICIAN .CBC Routine 07/12/2023 2:52 AM FILTER CHANGING TECHNICIAN PHOSPHORUS LEVEL Routine 07/12/2023 2:52 AM FILTER CHANGING TECHNICIAN MAGNESIUM LEVEL Routine 07/12/2023 2:52 AM FILTER CHANGING TECHNICIAN BASIC METABOLIC PANEL, CALCIUM TOTAL Routine 07/12/2023 2:52 AM FILTER CHANGING TECHNICIAN COMPLETE BLOOD COUNT W/ DIFFERENTIAL Routine 07/12/2023 2:52 AM FILTER CHANGING TECHNICIAN POC GLUCOSE SCREEN Routine 07/12/2023 12 :16 AM FILTER CHANGING TECHNICIAN POC GLUCOSE SCREEN Routine 07/11/2023 12 :18 PM FILTER CHANGING TECHNICIAN POC GLUCOSE SCREEN Routine 07/11/2023 6: 08 AM FILTER CHANGING TECHNICIAN .CBC Routine 07/11/2023 2:55 AM FILTER CHANGING TECHNICIAN PHOSPHORUS LEVEL Routine 07/11/2023 2:55 AM FILTER CHANGING TECHNICIAN MAGNESIUM LEVEL Routine 07/11/2023 2:55 AM FILTER CHANGING TECHNICIAN BASIC METABOLIC PANEL, CALCIUM TOTAL Routine 07/11/2023 2:55 AM FILTER CHANGING TECHNICIAN COMPLETE BLOOD COUNT W/ DIFFERENTIAL Routine 07/11/2023 2:55 AM FILTER CHANGING TECHNICIAN POC GLUCOSE SCREEN Routine 07/11/2023 12 :01 AM FILTER CHANGING TECHNICIAN POC GLUCOSE SCREEN Routine 07/10/2023 6: 10 PM FILTER CHANGING TECHNICIAN POC GLUCOSE SCREEN Routine 07/10/2023 12 :09 PM FILTER CHANGING TECHNICIAN POC GLUCOSE SCREEN Routine 07/10/2023 6: 26 AM FILTER CHANGING TECHNICIAN .CBC Routine 07/10/2023 5:28 AM FILTER CHANGING TECHNICIAN COMPLETE BLOOD COUNT W/ DIFFERENTIAL Routine 07/10/2023 5:28 AM FILTER CHANGING TECHNICIAN PHOSPHORUS LEVEL Routine 07/10/2023 5:27 AM FILTER CHANGING TECHNICIAN MAGNESIUM LEVEL Routine 07/10/2023 5:27 AM FILTER CHANGING TECHNICIAN BASIC METABOLIC PANEL, CALCIUM TOTAL Routine 07/10/2023 5:27 AM FILTER CHANGING TECHNICIAN POC GLUCOSE SCREEN Routine 07/10/2023 2: 48 AM FILTER CHANGING TECHNICIAN POC GLUCOSE SCREEN Routine 07/09/2023 6: 36 PM FILTER CHANGING TECHNICIAN POC GLUCOSE SCREEN Routine 07/09/2023 1: 03 PM FILTER CHANGING TECHNICIAN XR ABDOMEN 1 VW PORTABLE Routine 07/09/2023 12:59 PM FILTER CHANGING TECHNICIAN POC GLUCOSE SCREEN Routine 07/09/2023 5: 43 AM FILTER CHANGING TECHNICIAN GLUCOSE 6-PHOSPHATE DEHYDRGENASE ENZYME ACTIVITY Add-On 07/09/2023 2:21 AM FILTER CHANGING TECHNICIAN .CBC Routine 07/09/2023 2:21 AM FILTER CHANGING TECHNICIAN PHOSPHORUS LEVEL Routine 07/09/2023 2:21 AM FILTER CHANGING TECHNICIAN MAGNESIUM LEVEL Routine 07/09/2023 2:21 AM FILTER CHANGING TECHNICIAN BASIC METABOLIC PANEL, CALCIUM TOTAL Routine 07/09/2023 2:21 AM FILTER CHANGING TECHNICIAN COMPLETE BLOOD COUNT W/ DIFFERENTIAL Routine 07/09/2023 2:21 AM FILTER CHANGING TECHNICIAN POC GLUCOSE SCREEN Routine 07/08/2023 11 :33 PM FILTER CHANGING TECHNICIAN POC GLUCOSE SCREEN Routine 07/08/2023 6: 04 PM FILTER CHANGING TECHNICIAN POC GLUCOSE SCREEN Routine 07/08/2023 12 :03 PM FILTER CHANGING TECHNICIAN POC GLUCOSE SCREEN Routine 07/08/2023 6: 27 AM FILTER CHANGING TECHNICIAN .CBC Routine 07/08/2023 3:03 AM FILTER CHANGING TECHNICIAN PHOSPHORUS LEVEL Routine 07/08/2023 3:03 AM FILTER CHANGING TECHNICIAN MAGNESIUM LEVEL Routine 07/08/2023 3:03 AM FILTER CHANGING TECHNICIAN BASIC METABOLIC PANEL, CALCIUM TOTAL Routine 07/08/2023 3:03 AM FILTER CHANGING TECHNICIAN COMPLETE BLOOD COUNT W/ DIFFERENTIAL Routine 07/08/2023 3:03 AM FILTER CHANGING TECHNICIAN POC GLUCOSE SCREEN Routine 07/08/2023 12 :43 AM FILTER CHANGING TECHNICIAN POC GLUCOSE SCREEN Routine 07/07/2023 6: 13 PM FILTER CHANGING TECHNICIAN POC GLUCOSE SCREEN Routine 07/07/2023 12 :40 PM FILTER CHANGING TECHNICIAN XR ABDOMEN 1 VW PORTABLE Routine 07/07/2023 11:00 AM FILTER CHANGING TECHNICIAN POC GLUCOSE SCREEN Routine 07/07/2023 6: 45 AM FILTER CHANGING TECHNICIAN .CBC Routine 07/07/2023 4:21 AM FILTER CHANGING TECHNICIAN PHOSPHORUS LEVEL Routine 07/07/2023 4:21 AM FILTER CHANGING TECHNICIAN MAGNESIUM LEVEL Routine 07/07/2023 4:21 AM FILTER CHANGING TECHNICIAN BASIC METABOLIC PANEL, CALCIUM TOTAL Routine 07/07/2023 4:21 AM FILTER CHANGING TECHNICIAN COMPLETE BLOOD COUNT W/ DIFFERENTIAL Routine 07/07/2023 4:21 AM FILTER CHANGING TECHNICIAN POC GLUCOSE SCREEN Routine 07/07/2023 12 :10 AM FILTER CHANGING TECHNICIAN POC GLUCOSE SCREEN Routine 07/06/2023 6: 32 PM FILTER CHANGING TECHNICIAN POC GLUCOSE SCREEN Routine 07/06/2023 12 :07 PM FILTER CHANGING TECHNICIAN POC GLUCOSE SCREEN Routine 07/06/2023 6: 01 AM FILTER CHANGING TECHNICIAN .CBC Routine 07/06/2023 5:31 AM FILTER CHANGING TECHNICIAN PHOSPHORUS LEVEL Routine 07/06/2023 5:31 AM FILTER CHANGING TECHNICIAN MAGNESIUM LEVEL Routine 07/06/2023 5:31 AM FILTER CHANGING TECHNICIAN BASIC METABOLIC PANEL, CALCIUM TOTAL Routine 07/06/2023 5:31 AM FILTER CHANGING TECHNICIAN COMPLETE BLOOD COUNT W/ DIFFERENTIAL Routine 07/06/2023 5:31 AM FILTER CHANGING TECHNICIAN POC GLUCOSE SCREEN Routine 07/05/2023 11 :56 PM FILTER CHANGING TECHNICIAN POC GLUCOSE SCREEN Routine 07/05/2023 6: 38 PM FILTER CHANGING TECHNICIAN XR ABDOMEN 1 VW PORTABLE Routine 07/05/2023 12:10 PM FILTER CHANGING TECHNICIAN POC GLUCOSE SCREEN Routine 07/05/2023 6: 39 AM FILTER CHANGING TECHNICIAN .CBC Routine 07/05/2023 4:39 AM FILTER CHANGING TECHNICIAN PHOSPHORUS LEVEL Routine 07/05/2023 4:39 AM FILTER CHANGING TECHNICIAN MAGNESIUM LEVEL Routine 07/05/2023 4:39 AM FILTER CHANGING TECHNICIAN BASIC METABOLIC PANEL, CALCIUM TOTAL Routine 07/05/2023 4:39 AM FILTER CHANGING TECHNICIAN COMPLETE BLOOD COUNT W/ DIFFERENTIAL Routine 07/05/2023 4:39 AM FILTER CHANGING TECHNICIAN POC GLUCOSE SCREEN Routine 07/05/2023 2: 00 AM FILTER CHANGING TECHNICIAN POC GLUCOSE SCREEN Routine 07/04/2023 6: 01 PM FILTER CHANGING TECHNICIAN POC GLUCOSE SCREEN Routine 07/04/2023 12 :55 PM FILTER CHANGING TECHNICIAN POC GLUCOSE SCREEN Routine 07/04/2023 6: 12 AM FILTER CHANGING TECHNICIAN .CBC Routine 07/04/2023 4:20 AM FILTER CHANGING TECHNICIAN PHOSPHORUS LEVEL Routine 07/04/2023 4:20 AM FILTER CHANGING TECHNICIAN MAGNESIUM LEVEL Routine 07/04/2023 4:20 AM FILTER CHANGING TECHNICIAN BASIC METABOLIC PANEL, CALCIUM TOTAL Routine 07/04/2023 4:20 AM FILTER CHANGING TECHNICIAN COMPLETE BLOOD COUNT W/ DIFFERENTIAL Routine 07/04/2023 4:20 AM FILTER CHANGING TECHNICIAN TYPE AND SCREEN Routine 07/04/2023 4:20 AM FILTER CHANGING TECHNICIAN POC GLUCOSE SCREEN Routine 07/03/2023 11 :55 PM FILTER CHANGING TECHNICIAN POC GLUCOSE SCREEN Routine 07/03/2023 5: 55 PM FILTER CHANGING TECHNICIAN IR PERC FEEDING GASTROSTOMY PLACEMENT 90 STAT 07/03/2023 1:42 PM FILTER CHANGING TECHNICIAN Mass lesion of brain POC GLUCOSE SCREEN Routine 07/03/2023 12 :22 PM FILTER CHANGING TECHNICIAN POC GLUCOSE SCREEN Routine 07/03/2023 6: 02 AM FILTER CHANGING TECHNICIAN .CBC Routine 07/03/2023 4:15 AM FILTER CHANGING TECHNICIAN PHOSPHORUS LEVEL Routine 07/03/2023 4:15 AM FILTER CHANGING TECHNICIAN MAGNESIUM LEVEL Routine 07/03/2023 4:15 AM FILTER CHANGING TECHNICIAN BASIC METABOLIC PANEL, CALCIUM TOTAL Routine 07/03/2023 4:15 AM FILTER CHANGING TECHNICIAN COMPLETE BLOOD COUNT W/ DIFFERENTIAL Routine 07/03/2023 4:15 AM FILTER CHANGING TECHNICIAN POC GLUCOSE SCREEN Routine 07/03/2023 12 :01 AM FILTER CHANGING TECHNICIAN POC GLUCOSE SCREEN Routine 07/02/2023 6: 10 PM FILTER CHANGING TECHNICIAN POC GLUCOSE SCREEN Routine 07/02/2023 2: 18 PM FILTER CHANGING TECHNICIAN POC GLUCOSE SCREEN Routine 07/02/2023 5: 57 AM FILTER CHANGING TECHNICIAN .CBC Routine 07/02/2023 2:12 AM FILTER CHANGING TECHNICIAN PHOSPHORUS LEVEL Routine 07/02/2023 2:12 AM FILTER CHANGING TECHNICIAN MAGNESIUM LEVEL Routine 07/02/2023 2:12 AM FILTER CHANGING TECHNICIAN BASIC METABOLIC PANEL, CALCIUM TOTAL Routine 07/02/2023 2:12 AM FILTER CHANGING TECHNICIAN COMPLETE BLOOD COUNT W/ DIFFERENTIAL Routine 07/02/2023 2:12 AM FILTER CHANGING TECHNICIAN POC GLUCOSE SCREEN Routine 07/02/2023 2: 07 AM FILTER CHANGING TECHNICIAN POC GLUCOSE SCREEN Routine 07/01/2023 8: 00 PM FILTER CHANGING TECHNICIAN POC GLUCOSE SCREEN Routine 07/01/2023 5: 42 PM FILTER CHANGING TECHNICIAN POC GLUCOSE SCREEN Routine 07/01/2023 12 :10 PM FILTER CHANGING TECHNICIAN POC GLUCOSE SCREEN Routine 07/01/2023 6: 02 AM FILTER CHANGING TECHNICIAN .CBC Routine 07/01/2023 3:52 AM FILTER CHANGING TECHNICIAN PHOSPHORUS LEVEL Routine 07/01/2023 3:52 AM FILTER CHANGING TECHNICIAN MAGNESIUM LEVEL Routine 07/01/2023 3:52 AM FILTER CHANGING TECHNICIAN BASIC METABOLIC PANEL, CALCIUM TOTAL Routine 07/01/2023 3:52 AM FILTER CHANGING TECHNICIAN COMPLETE BLOOD COUNT W/ DIFFERENTIAL Routine 07/01/2023 3:52 AM FILTER CHANGING TECHNICIAN TYPE AND SCREEN Routine 07/01/2023 3:52 AM FILTER CHANGING TECHNICIAN POC GLUCOSE SCREEN Routine 07/01/2023 12 :02 AM FILTER CHANGING TECHNICIAN POC GLUCOSE SCREEN Routine 06/30/2023 6: 39 AM FILTER CHANGING TECHNICIAN .CBC Routine 06/30/2023 4:31 AM FILTER CHANGING TECHNICIAN PHOSPHORUS LEVEL Routine 06/30/2023 4:31 AM FILTER CHANGING TECHNICIAN MAGNESIUM LEVEL Routine 06/30/2023 4:31 AM FILTER CHANGING TECHNICIAN BASIC METABOLIC PANEL, CALCIUM TOTAL Routine 06/30/2023 4:31 AM FILTER CHANGING TECHNICIAN COMPLETE BLOOD COUNT W/ DIFFERENTIAL Routine 06/30/2023 4:31 AM FILTER CHANGING TECHNICIAN POC GLUCOSE SCREEN Routine 06/30/2023 12 :17 AM FILTER CHANGING TECHNICIAN POC GLUCOSE SCREEN Routine 06/29/2023 5: 06 PM FILTER CHANGING TECHNICIAN FL MODIFIED BARIUM SWALLOW W SPEECH STAT 06/29/2023 2:39 PM FILTER CHANGING TECHNICIAN .CBC Routine 06/29/2023 4:48 AM FILTER CHANGING TECHNICIAN PHOSPHORUS LEVEL Routine 06/29/2023 4:48 AM FILTER CHANGING TECHNICIAN MAGNESIUM LEVEL Routine 06/29/2023 4:48 AM FILTER CHANGING TECHNICIAN BASIC METABOLIC PANEL, CALCIUM TOTAL Routine 06/29/2023 4:48 AM FILTER CHANGING TECHNICIAN COMPLETE BLOOD COUNT W/ DIFFERENTIAL Routine 06/29/2023 4:48 AM FILTER CHANGING TECHNICIAN HC PROCALCITONIN (PCT) Routine 2:06 PM FILTER CHANGING TECHNICIAN ECHOCARDIOGRAM 2D COMPLETE STAT 06/28/2023 11:46 AM FILTER CHANGING TECHNICIAN MRI BRAIN W WO CONTRAST STAT 06/28/20 6:16 AM FILTER CHANGING TECHNICIAN CT CHEST ABDOMEN PELVIS W WO CONTRAST STAT 06/28/2023 5:00 AM FILTER CHANGING TECHNICIAN DIFFERENTIAL Routine 06/28/2023 2:49 AM FILTER CHANGING TECHNICIAN .CBC Routine 06/28/2023 2:49 AM FILTER CHANGING TECHNICIAN PHOSPHORUS LEVEL Routine 06/28/2023 2:49 AM FILTER CHANGING TECHNICIAN MAGNESIUM LEVEL Routine 06/28/2023 2:49 AM FILTER CHANGING TECHNICIAN BASIC METABOLIC PANEL, CALCIUM TOTAL Routine 06/28/2023 2:49 AM FILTER CHANGING TECHNICIAN COMPLETE BLOOD COUNT W/ DIFFERENTIAL Routine 06/28/2023 2:49 AM FILTER CHANGING TECHNICIAN CONFIRM ABORH TYPE STAT 06/28/2023 2: 49 AM FILTER CHANGING TECHNICIAN XR ABDOMEN 1 VW PORTABLE STAT 06/28/2023 12:45 AM FILTER CHANGING TECHNICIAN EKG, 12-LEAD (PORTABLE) Routine 06/28/2023 TYPE AND SCREEN STAT 06/27/2023 9:44 PM FILTER CHANGING TECHNICIAN XR CHEST 1 VW Routine 06/27/2023 7:50 PM FILTER CHANGING TECHNICIAN CT HEAD WO CONTRAST STAT 06/27/2023 7 :03 PM FILTER CHANGING TECHNICIAN .CBC Routine 06/27/2023 5:23 PM FILTER CHANGING TECHNICIAN COMPREHENSIVE METABOLIC PANEL Routine 06/27/2023 5:23 PM FILTER CHANGING TECHNICIAN APTT Routine 06/27/2023 5:23 PM FILTER CHANGING TECHNICIAN PROTHROMBIN TIME Routine 06/27/2023 5:23 PM FILTER CHANGING TECHNICIAN COMPLETE BLOOD COUNT W/ DIFFERENTIAL Routine 06/27/2023 5:23 PM FILTER CHANGING TECHNICIAN after 12/28/2022 Results * POC Glucose Screen - Fingerstick (07/12/2023 6:00 AM FILTER CHANGING TECHNICIAN) Only the most recent of48 resultswithin the time period is included. [facility] Signature Glucose Screen 97 70 - 99 mg/dL 07/12/2023 6:02 AM FILTER CHANGING TECHNICIAN [facility] POC Sample Type Capillary 07/12/2023 6:02 AM [facility] Blood 07/12/2023 6:00 AM FILTER CHANGING TECHNICIAN 07/12/2023 6:02 AM FILTER CHANGING TECHNICIAN Narrative [facility] - 07/12/2023 6:02 AM FILTER CHANGING TECHNICIAN Capillary blood samples, e.g. obtained by fingerstick, [...] POCT ORDERABLES - DE VICE [facility] Unless otherwise noted, all lab tests performed by: Division of Pathology and Laboratory Medicine [facility] [place] [address] * (ABNORMAL) .CBC (07/12/2023 2:52 AM FILTER CHANGING TECHNICIAN) Only the most recent of16 resultswithin the time period is included. White Blood Cell 12.8(H) 4.1 - 10.5 K/uL 07/12/2023 3:31 AM [facility] Red Blood Cell 4.81 4.30 - 6.04 M/uL 07/12/2023 3:31 AM [facility] Hemoglobin 14.6 13.3 - 17.4 g/dL 07/12/2023 3:31 AM [facility] Hematocrit 44.8 39.5 - 51.8 % 07/12/2023 3:31 AM [facility] Mean Cell Volume 93 82 - 99 fL 07/12/2023 3:31 AM [facility] Mean Cell Hemoglobin 30.4 26.6 - 33.2 pg 07/12/2023 3:31 AM [facility] Mean Cell Hemoglobin Concentration 32.6 31.1 - 35.2 g/dL 07/12/2023 3:31 AM [facility] RDW-SD 45.9 37.5 - 49.7 fL 07/12/2023 3:31 AM [facility] Red Cell Diameter Width 13.5 11.6 - 15.5 % 07/12/2023 3:31 AM [facility] Platelet 183 160 - 397 K/uL 07/12/2023 3:31 AM [facility] Mean Platelet Volume 11.9 9.1 - 12.6 fL 07/12/2023 3:31 AM [facility] INRBC 0.0 0.0 - 0.1 /100 WBC 07/12/2023 3:31 AM [facility] Comment: The INRBC (instrument NRBC) value reflects the enumeration of nucleated red blood cells contained in a 200uL sample of whole blood analyzed by the instrument. This value may differ from the NRBC value reported in a manual differential, which is based on a 100 cell differential. Neutrophil % 77.2(H) 43.2 - 72.7 % 07/12/2023 3:31 AM [facility] Lymphocyte % 12.4(L) 16.8 - 46.2 % 07/12/2023 3:31 AM [facility] Monocyte % 9.1 5.1 - 12.5 % 07/12/2023 3:31 AM [facility] Eosinophil % 0.0(L) 0.4 - 6.3 % 07/12/2023 3:31 AM [facility] Basophil % 0.2 0.2 - 1.4 % 07/12/2023 3:31 AM [facility] IGRE % 1.1 0.1 - 1.5 % 07/12/2023 3:31 AM [facility] Comment:The IGRE% includes M etamyelocytes, Myelocytes and Promyelocytes. Neutrophil Abs 9.90(H) 1.95 - 7.25 K/uL 07/12/2023 3:31 AM [facility] Lymphocyte Abs 1.59 1.01 - 3.24 K/uL 07/12/2023 3:31 AM [facility] Monocyte Abs 1.16(H) 0.24 - 0.85 K/uL 07/12/2023 3:31 AM [facility] Eosinophil Abs 0.00(L) 0.02 - 0.50 K/uL 07/12/2023 3:31 AM [facility] Basophil Abs 0.02 0.02 - 0.09 K/uL 07/12/2023 3:31 AM [facility] IG Abs 0.14(H) 0.01 - 0.12 K/uL 07/12/2023 3:31 AM [facility] Blood Peripheral blood specimen / Unknown Venipuncture / Unknown 07/12/2023 2:52 AM FILTER CHANGING TECHNICIAN 07/12/2023 3:18 AM FILTER CHANGING TECHNICIAN Naye Amin MD LAB BLOOD ORDERABLES [facility] Unless otherwise noted, all lab tests performed by: Division of Pathology and Laboratory Medicine [address] [place] [address] * (ABNORMAL) Basic Metabolic Panel- Total Calcium (07/12/2023 2:52 AM FILTER CHANGING TECHNICIAN) Only the most recent of15 resultswithin the time period is included. eGFR 108 >=60 mL/min/1.7 3 sq. m 07/12/2023 3:57 AM FILTER CHANGING TECHNICIAN [facility] Comment: The eGFRcr is calculated with [...] 8.2 - 10.2 mg/dL 07/12/2023 3:57 AM FILTER CHANGING TECHNICIAN [facility] Comment:This result was prev iously suppressed from the chart. Sodium Level 146(H) 136 - 145 mmol/L 07/12/2023 3:57 AM FILTER CHANGING TECHNICIAN [facility] Comment:This result was prev iously suppressed from the chart. Potassium Level 4.5 3.4 - 4.5 mmol/L 07/12/2023 3:57 AM FILTER CHANGING TECHNICIAN [facility] Comment:This result was prev iously suppressed from the chart. Chloride 109(H) 98 - 107 mmol/L 07/12/2023 3:57 AM FILTER CHANGING TECHNICIAN [facility] Comment:This result was prev iously suppressed from the chart. CO2 30(H) 22 - 29 mmol/L 07/12/2023 3:57 AM [facility] Comment:This result was prev iously suppressed from the chart. Anion Gap 7 4 - 14 mmol/L 07/12/2023 3:57 AM FILTER CHANGING TECHNICIAN [facility] Comment:This result was prev iously suppressed from the chart. Creatinine 0.69 0.67 - 1.17 mg/dL 07/12/2023 3:57 AM FILTER CHANGING TECHNICIAN [facility] Comment:This result was prev iously suppressed from the chart. BUN 26(H) 6 - 23 mg/dL 07/12/2023 3:57 AM [facility] Comment:This result was prev iously suppressed from the chart. Glucose Level 97 70 - 99 mg/dL 07/12/2023 3:57 AM [facility] Comment: Effective 01/26/16, the glucose reference intervals have been updated based on [employer] guidelines (Standards of Medical Care [...] Unknown Venipuncture / Unknown 07/12/2023 2:52 AM FILTER CHANGING TECHNICIAN 07/12/2023 3:16 AM FILTER CHANGING TECHNICIAN Naye Amin MD LAB BLOOD ORDERABLES [facility] Unless otherwise noted, all lab tests performed by: Division of Pathology and Laboratory Medicine [address] [place] [id number] * Phosphorus Level (07/12/2023 2:52 AM FILTER CHANGING TECHNICIAN) Only the most recent of15 resultswithin the time period is included. Phosphorus Level 3.3 2.5 - 4.5 mg/dL 07/12/2023 3:57 AM FILTER CHANGING TECHNICIAN [facility] Blood Peripheral blood specimen / Unknown Venipuncture / Unknown 07/12/2023 2:52 AM FILTER CHANGING TECHNICIAN 07/12/2023 3:16 AM FILTER CHANGING TECHNICIAN Naye Amin MD LAB BLOOD ORDERABLES [facility] Unless otherwise noted, all lab tests performed by: Division of Pathology and Laboratory Medicine [address] [place] [id number] * Magnesium Level (07/12/2023 2:52 AM FILTER CHANGING TECHNICIAN) Only the most recent of15 resultswithin the time period is included. Magnesium Level 2.2 1.6 - 2.6 mg/dL 07/12/2023 3:57 AM FILTER CHANGING TECHNICIAN [facility] Blood Peripheral blood specimen / Unknown Venipuncture / Unknown 07/12/2023 2:52 AM FILTER CHANGING TECHNICIAN 07/12/2023 3:16 AM FILTER CHANGING TECHNICIAN Naye Amin MD LAB BLOOD ORDERABLES Performing Organization Address City/[facility] Co de Phone Number [facility] Unless otherwise noted, all lab tests performed by: Division of Pathology and Laboratory Medicine [address] [place] [id number] * XR Abdomen 1 View Portable (07/09/2023 12:59 PM FILTER CHANGING TECHNICIAN) Only the most recent of4 resultswithin the time period is included. Anatomical Region Laterality Modality Abdomen Digital Radiogra phy 07/09/2023 2:34 PM FILTER CHANGING TECHNICIAN Impressions 07/09/2023 2:36 PM FILTER CHANGING TECHNICIAN No evidence of obstruction or significant constipation. Narrative 07/09/2023 2:36 PM FILTER CHANGING TECHNICIAN FULL RESULT: Examination: XR ABDOMEN 1 VW [...] obstruction or significant constipation. Marisol Ruiz APRN [facility] [place] DIAGNOSTIC IMAGI NG ORDERABLES * Glucose 6-Phosphate Dehydrogenase Enzyme Activity (07/09/2023 2:21 AM FILTER CHANGING TECHNICIAN) G6PD Enzyme Activity, B 10.8 8.0 - 11.9 U/g Hb 07/11/2023 2:58 PM FILTER CHANGING TECHNICIAN [facility] Comment: G6PD deficiency can be masked in the setting of reticulocytosis, markedly elevated WBCs or recent transfusion. If any of these are present in the setting of , chronic, or episodic jaundice/anemia, genotyping is recommended. If desired, please order G6PDZ/G6PD Full Gene Sequencing, V. ADDITIONAL INFORMATION This test was developed and its performance characteristics determined by [facility] in a manner consistent with CLIA requirements. This test has not been cleared or approved by the U.S. Food and Drug Administration. Test Performed by: [address] [address] Bilingual Teacher Assistant: Papo Boone M.D. Ph.D.; CLIA# [id number] Blood Peripheral blood specimen / Unknown Venipuncture / Unknown 07/09/2023 2:21 AM FILTER CHANGING TECHNICIAN 07/09/2023 2:59 AM FILTER CHANGING TECHNICIAN Gertrude Jesus MD LAB BLOOD ORDERABLES BUSTAMANTE SUHAS VACA * Type and Screen (07/04/2023 4:20 AM FILTER CHANGING TECHNICIAN) Only the most recent of3 resultswithin the time period is included. ABORh O POS 07/04/2023 12:00 AM FILTER CHANGING TECHNICIAN [facility] ABSC Negative 07/04/2023 12:00 AM FILTER CHANGING TECHNICIAN [facility] Clot Expiration 07/07/2023 23:59 07/04/2023 12:00 AM FILTER CHANGING TECHNICIAN [facility] Historical Record Check Complete 07/04/2023 12:00 AM FILTER CHANGING TECHNICIAN [facility] Blood Peripheral blood specimen / Unknown Venipuncture / Unknown 07/04/2023 4:20 AM FILTER CHANGING TECHNICIAN 07/04/2023 4:52 AM FILTER CHANGING TECHNICIAN Juil Benitez APRN BLOOD BANK TEST ORDE ISMAEL [facility] Transfusion Services [id number] [place] [address] * IR PERC FEEDING GASTROSTOMY PLACEMENT (07/03/2023 1:42 PM FILTER CHANGING TECHNICIAN) Anatomical Region Laterality Modality Abdomen/Pelvis Other Narrative 07/03/2023 5:56 PM FILTER CHANGING TECHNICIAN Table formatting from the original result was not included. Date of Procedure: 07/03/23 Attending Physician: Feliberto Olmstead MD Certified Ophthalmic Technologist: None Pre Procedure Diagnosis: Mass lesion of brain [[id number]] Post Procedure Diagnosis: Unchanged Indication: Nutritional support Title of Procedure: Percutaneous Image-Guided Placement of Gastrostomy Catheter. Operative Findings: Percutaneous fluoroscopic-guided placement of 16 Fr Chilean gastrostomy catheter. Connector Type: ENFit Consent: The [...] the patient's nasal passage and a 5 Chilean catheter and [email or web address] wire were then passed through the nasal [...] Barium Swallow w Speech (06/29/2023 2:39 PM FILTER CHANGING TECHNICIAN) Anatomical Region Laterality Modality Neck Radio Fluoroscop y 06/29/2023 3:56 PM FILTER CHANGING TECHNICIAN Impressions 06/29/2023 4:59 PM FILTER CHANGING TECHNICIAN 1. Silent aspiration with thin and thick liquids. Please refer to the separately dictated speech pathology report for further details and recommendations. Narrative 06/29/2023 4:59 PM FILTER CHANGING TECHNICIAN FULL RESULT: Examination: FL MODIFIED BARIUM SWALLOW [...] MONICA GUEVARA * Procalcitonin (06/28/2023 2:06 PM FILTER CHANGING TECHNICIAN) Procalcitonin <0.04 <=0.08 ng/mL 06/28/2023 2:54 PM FILTER CHANGING TECHNICIAN [facility] MD [facility] Blood Peripheral blood specimen / Unknown Venipuncture / Unknown 06/28/2023 2:06 PM FILTER CHANGING TECHNICIAN 06/28/2023 2:10 PM FILTER CHANGING TECHNICIAN Narrative [facility] - 06/28/2023 2:54 PM FILTER CHANGING TECHNICIAN Procalcitonin > 2.00 ng/mL: Procalcitonin levels above [...] with extended dilution as it exceeds the spiritual care coordinator's recommended limit. Caution should be exercised when interpreting such values and done in conjunction with clinical context. Juli Benitez APRN LAB BLOOD ORDERABLES [facility] Unless otherwise noted, all lab tests performed by: Division of Pathology and Laboratory Medicine [address] [place] [id number] * Echocardiogram 2D Complete (06/28/2023 11:46 AM FILTER CHANGING TECHNICIAN) 06/28/2023 10:4 5 AM FILTER CHANGING TECHNICIAN Narrative [facility] - 06/28/2023 12:29 PM FILTER CHANGING TECHNICIAN Echocardiographic Report Interpretation Summary A complete two-dimensional [...] 0.92 E/e' (avg): 4.0E/e' (lat): 3.4 E/e' (mar): 4.8 Juli Benitez TAILOR HELPER CV ECHO ORDERABLES [facility] * MRI Brain with and without Contrast (06/28/2023 6:16 AM FILTER CHANGING TECHNICIAN) Anatomical Region Laterality Modality Head Magnetic Resonan ce 06/28/2023 7:32 AM FILTER CHANGING TECHNICIAN Impressions 06/28/2023 10:06 AM FILTER CHANGING TECHNICIAN 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 Narrative 06/28/2023 10:06 AM FILTER CHANGING TECHNICIAN FULL RESULT: Examination: MRI BRAIN W WO [...] with and without Contrast (06/28/2023 5:00 AM FILTER CHANGING TECHNICIAN) Anatomical Region Laterality Modality Abdomen, Pelvis, Chest Computed Tomography 06/28/2023 5:14 AM FILTER CHANGING TECHNICIAN Impressions 06/28/2023 4:07 PM FILTER CHANGING TECHNICIAN Left lower lobe retained secretions and airspace [...] the final report. Narrative 06/28/2023 4:07 PM FILTER CHANGING TECHNICIAN Examination: CT CHEST ABDOMEN PELVIS W WO [...] ORDERABLES * Confirm ABORh (06/28/2023 2:49 AM FILTER CHANGING TECHNICIAN) Pathologist [facility] ABOR Confirm O POS 06/27/2023 9:45 PM FILTER CHANGING TECHNICIAN [facility] Blood Peripheral blood specimen / Unknown Venipuncture / Unknown 06/28/2023 2:49 AM FILTER CHANGING TECHNICIAN 06/28/2023 3:06 AM FILTER CHANGING TECHNICIAN Karma Landrum MD BLOOD BANK TEST ORDMauro GUEVARA [facility] Transfusion Services [id number] [place] [address] * (ABNORMAL) Differential (06/28/2023 2:49 AM FILTER CHANGING TECHNICIAN) Total Cells 115 06/28/2023 6:54 AM FILTER CHANGING TECHNICIAN [facility] Manual Neutrophil % 78.0(H) 43.2 - 72.7 % 06/28/2023 6:54 AM [facility] Comment:The Neutrophil count includes Bands. Manual Lymphocyte % 15.0(L) 16.8 - 46.2 % 06/28/2023 6:54 AM [facility] Manual Monocyte % 2.0(L) 5.1 - 12.5 % 06/28/2023 6:54 AM [facility] Metamyelocyte % 5.0(H) <=0.0 % 6:54 AM [facility] Comment:The Metamyelocyte co unt includes Myelocytes. Manual Neutrophil Abs 7.02 1.95 - 7.25 K/uL 06/28/2023 6:54 AM FILTER CHANGING TECHNICIAN [facility] Manual Lymphocyte Abs 1.35 1.01 - 3.24 K/uL 06/28/2023 6:54 AM [facility] Manual Monocyte Abs 0.18(L) 0.24 - 0.85 K/uL 06/28/2023 6:54 AM [facility] RBC Morphology PRESENT 06/28/2023 6:54 AM [facility] Anisocytosis Present(A) (none) 06/28/2023 6:54 AM [facility] Poikilocytosis Present(A) (none) 06/28/2023 6:54 AM [facility] Polychromasia Present(A) (none) 06/28/2023 6:54 AM [facility] Ovalocyte Present(A) (none) 06/28/2023 6:54 AM [facility] Macrocyte Present(A) (none) 06/28/2023 6:54 AM [facility] Slide Comment SEE NOTE 06/28/2023 6:54 AM [facility] Comment:PLT: Platelet morpho logy normal Blood Peripheral blood specimen / Unknown Venipuncture / Unknown 06/28/2023 2:49 AM FILTER CHANGING TECHNICIAN 06/28/2023 3:05 AM FILTER CHANGING TECHNICIAN Naye Amin MD LAB BLOOD ORDERABLES [facility] Unless otherwise noted, all lab tests performed by: Division of Pathology and Laboratory Medicine [address] [place], [place] [id number] * EKG, 12-Lead (06/28/2023) Juli Benitez KENYETTA ECG ORDERABLES [facility] * X-ray Chest 1 View (06/27/2023 7:50 PM FILTER CHANGING TECHNICIAN) Anatomical Region Laterality Modality Chest Digital Radiogra phy 06/27/2023 8:19 PM FILTER CHANGING TECHNICIAN Impressions 06/27/2023 8:21 PM FILTER CHANGING TECHNICIAN No acute consolidations or lobar pneumonias. ACTIONABLE ITEMS/RECOMMENDATIONS: None. 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 Discussed with Dr. Ricardo at 7:36 PM on 06/27/2023 by means of a phone conversation. Narrative 06/27/2023 7:37 PM FILTER CHANGING TECHNICIAN FULL RESULT: Examination: CT HEAD WO CONTRAST [...] (ABNORMAL) Comprehensive Metabolic Panel (06/27/2023 5:23 PM FILTER CHANGING TECHNICIAN) Bilirubin Total 0.4 <=1.2 mg/dL 06/27/2023 6:05 PM [facility] Comment: Indocyanine Green (ICG) may cause falsely elevated bilirubin results. Total and direct bilirubin must not be measured from samples containing indocyanine green. False elevation of total bilirubin can be seen in patients with IgG concentrations above 28 g/L. This result was previously suppressed from the chart. Bilirubin Direct <0.2 <=0.3 mg/dL 06/27/2023 6:05 PM [facility] Comment: Indocyanine Green (ICG) may cause falsely elevated bilirubin results. Total and direct bilirubin must not be measured from samples containing indocyanine green. This result was previously suppressed from the chart. Bilirubin Indirect 2022 6:05 PM [facility] Comment:Unable to calculate Indirect Bilirubin result due to some parameters are outside reportable range eGFR 104 >=60 mL/min/1. 73 sq. m 06/27/2023 6:05 PM [facility] Comment: The eGFRcr is calculated [...] 6.4 - 8.3 gm/dL 06/27/2023 6:05 PM [facility] Comment:This result was prev iously suppressed from the chart. Calcium Level Total 9.6 8.2 - 10.2 mg/dL 06/27/2023 6:05 PM [facility] Comment:This result was prev iously suppressed from the chart. Alkaline Phosphatase 92 40 - 129 U/L 06/27/2023 6:05 PM [facility] Comment:This result was prev iously suppressed from the chart. Albumin Level 4.0 3.5 - 5.2 gm/dL 06/27/2023 6:05 PM [facility] Comment:This result was prev iously suppressed from the chart. AST 14 <=40 U/L 06/27/2023 6:05 PM [facility] Comment:This result was prev iously suppressed from the chart. ALT 17 <=41 U/L 06/27/2023 6:05 PM [facility] Comment:This result was prev iously suppressed from the chart. Sodium Level 134(L) 136 - 145 mmol/L 06/27/2023 6:05 PM [facility] Comment:This result was prev iously suppressed from the chart. Potassium Level 4.0 3.4 - 4.5 mmol/L 06/27/2023 6:05 PM [facility] Comment:This result was prev iously suppressed from the chart. Chloride 99 98 - 107 mmol/L 06/27/2023 6:05 PM [facility] Comment:This result was prev iously suppressed from the chart. CO2 26 22 - 29 mmol/L 06/27/2023 6:05 PM [facility] Comment:This result was prev iously suppressed from the chart. Anion Gap 9 4 - 14 mmol/L 06/27/2023 6:05 PM [facility] Comment:This result was prev iously suppressed from the chart. Creatinine 0.77 0.67 - 1.17 mg/dL 06/27/2023 6:05 PM [facility] Comment:This result was prev iously suppressed from the chart. BUN 17 6 - 23 mg/dL 06/27/2023 6:05 PM FILTER CHANGING TECHNICIAN [facility] Comment:This result was prev iously suppressed from the chart. Glucose Level 98 70 - 99 mg/dL 06/27/2023 6:05 PM FILTER CHANGING TECHNICIAN [facility] Comment: Effective 01/26/16, the glucose reference intervals have been updated based on [employer] Diabetes [employer] guidelines (Standards of Medical Care [...] Unknown Venipuncture / Unknown 06/27/2023 5:23 PM FILTER CHANGING TECHNICIAN 06/27/2023 5:30 PM FILTER CHANGING TECHNICIAN Jensen Zuleta MD LAB BLOOD ORDERABLES Performing Organization Address City/[facility] Co de Phone Number [facility] Unless otherwise noted, all lab tests performed by: Division of Pathology and Laboratory Medicine [address] [place] [id number] * aPTT (06/27/2023 5:23 PM FILTER CHANGING TECHNICIAN) Pathologist [facility] Activated PTT 24.7 24.1 - 35.5 second(s) 06/27/2023 6:14 PM FILTER CHANGING TECHNICIAN [facility] Blood Peripheral blood specimen / Unknown Venipuncture / Unknown 06/27/2023 5:23 PM FILTER CHANGING TECHNICIAN 06/27/2023 5:30 PM FILTER CHANGING TECHNICIAN Jensen Zuleta MD LAB BLOOD ORDERABLES Performing Organization Address City/[facility]/ZIP Co de Phone Number [facility] Unless otherwise noted, all lab tests performed by: Division of Pathology and Laboratory Medicine [address] [place] [id number] * Prothrombin Time with INR (06/27/2023 5:23 PM FILTER CHANGING TECHNICIAN) Pathologist [facility] Prothrombin Time 13.0 11.9 - 14.5 second(s) 06/27/2023 6:14 PM FILTER CHANGING TECHNICIAN [facility] International Normalization Ratio 0.99 0.87 - 1.12 06/27/2023 6:14 PM FILTER CHANGING TECHNICIAN [facility] Blood Peripheral blood specimen / Unknown Venipuncture / Unknown 06/27/2023 5:23 PM FILTER CHANGING TECHNICIAN 06/27/2023 5:30 PM FILTER CHANGING TECHNICIAN Jensen Zuleta MD LAB BLOOD ORDERABLES [facility] Unless otherwise noted, all lab tests performed by: Division of Pathology and Laboratory Medicine [address] [place] [address] after 12/28/2022 Advance Directives * Full Code (Latest Code Status on File) Date Activated Date Inactivated Comments 06/27/2023 8:32 PM 07/12/2023 3:12 PM
[2023-12-28] MEDS ORDERED: LIDOCAINE VISCOUS 2% 10ML ORAL SOLN ONE (03:52)
--- NOTE | 2023-12-28 05:18 | EDPHYS ---
Physician Documentation [facility] Name: Arturo Gregorio Age: 58 yrs Sex: Male : 1965 Arrival Date: 12/28/2023 Time: 03:37 Bed 13 Private MD: Dequan Kruger ED Physician Juanpablo Jones HPI: 12/27 04:00 This 58 yrs old Male presents to ER via Wheelchair with complaints of PEG TUBE cp CAME OUT. 04:00 Patient is a 58-year-old male who presents to the emergency department with request to cp replace his gastrostomy tube. Patient is accompanied by family member who reports patient accidentally dislodged his gastrostomy tube earlier this morning. No other complaints expressed. Historical: - Allergies: 03:55 No Known Allergies; bm8 03:54 No Known Allergies; vc1 - Home Meds: 03:55 Unable to obtain [Active]; bm8 - PMHx: 03:55 BRAIN TUMOR; trach-Aug 2023; bm8 03:54 BRAIN TUMOR; trach-Aug 2023; vc1 - PSHx: 03:55 tracheostomy (trach-Aug 2023); bm8 03:54 None; vc1 - Immunization history:: Adult Immunizations up to date, Client reports receiving the 2nd dose of the Covid vaccine, Flu vaccine is up to date. - Infectious Disease History:: Denies. Denies. - Social history:: Smoking status: unknown Smoking status: Patient denies any tobacco usage or history of. ROS: 04:05 Constitutional: HPI per HX cp 04:05 Constitutional: Negative for chills, fever, poor PO intake, cp 04:05 Cardiovascular: Negative for chest pain, 04:05 Respiratory: Negative for cough, shortness of breath, wheezing, 04:05 Abdomen/GI: Negative for abdominal pain, vomiting, diarrhea, constipation, 04:05 Neuro: Negative for altered mental status, dizziness, headache, weakness, 04:05 All other systems are negative, Exam: 04:10 Constitutional: The patient appears in no acute distress, alert, awake, comfortable, cp non-toxic, well developed, well nourished, 04:10 Head/Face: Normocephalic, atraumatic. cp 04:10 Chest/axilla: Inspection: normal, 04:10 Cardiovascular: Rate: normal, Edema: is not appreciated, JVD: is not appreciated, 04:10 Respiratory: the patient does not display signs of respiratory distress, Respirations: normal, no use of accessory muscles, no retractions, labored breathing, is not present, Breath sounds: are clear throughout, no decreased breath sounds, no stridor, no wheezing, 04:10 Abdomen/GI: Inspection: distension, is not seen, Bowel sounds: active, all quadrants, Palpation: abdomen is soft and non-tender, in all quadrants, Vital Signs: 03:52 BP 106 / 76; Pulse 65; Resp 14; Temp 98; Pulse Ox 99% ; Weight 54.43 kg; Height 5 ft. 6 vc1 in. ; 05:44 BP 110 / 74; Pulse 65; Resp 16; Pulse Ox 99% ; pc2 03:52 Body Mass Index 19.37 (54.43 kg, 167.64 cm) vc1 [place] Coma Score: 03:55 Eye Response: spontaneous(4). Motor Response: obeys commands(6). Verbal Response: bm8 oriented(5). Total: 15. Procedures: 05:20 G-tube placement: a 14 Latvian catheter was placed, by the ED physician, Juanpablo CARMONA. cp MDM: 03:46 Patient medically screened. cp 05:18 Data reviewed: vital signs, nurses notes, I have discussed the patient's cp presentation/case with the attending Emergency Department Physician; and as a result, I will discharge patient. 05:18 Independent interpretation of the following test(s) in the Emergency Department X-Ray: cp My interpretation is abdominal xrays show adequate placement of gastrostomy tube. 12/27 04:10 Order name: PEG Tube Check w/contrast cp Administered Medications: 03:59 Drug: Viscous Lidocaine Mucous Membrane Liquid (4 %) 10 ml Mucous Membrane once Route: bm8 Mucous Membrane; 04:31 Follow up: Response: No adverse reaction pc2 Disposition Summary: 12/28/23 05:18 Discharge Ordered Notes: Location: Home cp Problem: new cp Symptoms: are resolved cp Condition: Stable cp Diagnosis - Encounter for attention to gastrostomy - replacement of PEG tube cp Followup: cp - With: Dequan Kruger DO - When: As needed - Reason: Worsening of condition Discharge Instructions: - Discharge Summary Sheet cp - Gastrostomy Tube Replacement cp - Gastrostomy Tube Home Guide, Adult cp Forms: - Medication Reconciliation Form cp - Antibiotic Education cp - Prescription Opioid Use cp - Patient Portal Instructions cp - Leadership Thank You Letter cp Signatures: Dispatcher [employer] Juanpablo Hanson PA PA cp Calcote, Vanessa RN RN vc1 Horacio Nash RN RN bm8 neto, Alisia RN pc2
--- NOTE | 2023-12-28 05:18 | ER ---
Nurse's Notes [facility] Name: Arturo Gregorio Age: 58 yrs Sex: Male : 1965 Arrival Date: 12/28/2023 Time: 03:37 Bed 13 Private MD: Dequan Kruger Diagnosis: Encounter for attention to gastrostomy-replacement of PEG tube Presentation: 12/27 03:52 Chief complaint: Spouse and/or significant other states: pulled out his peg tube vc1 between 2 and 3 am. Coronavirus screen: Vaccine status: Patient reports receiving the 2nd dose of the covid vaccine. Client denies travel out of the [place] in the last 14 days. At this time, the client does not indicate any symptoms associated with coronavirus-19. Ebola Screen: Patient negative for fever greater than or equal to 101.5 degrees Fahrenheit, and additional compatible Ebola Virus Disease symptoms Patient denies exposure to infectious person. Patient denies travel to an Ebola-affected area in the 21 days before illness onset. No symptoms or risks identified at this time. Initial Sepsis Screen: Does the patient meet any 2 criteria? No. Patient's initial sepsis screen is negative. Does the patient have a suspected source of infection? No. Patient's initial sepsis screen is negative. Risk Assessment: Do you want to hurt yourself or someone else? Patient reports no desire to harm self or others. Onset of symptoms was December 28, 2023. 03:52 Method Of Arrival: Wheelchair vc1 03:52 Acuity: NELLI 4 vc1 Historical: - Allergies: 03:55 No Known Allergies; bm8 03:54 No Known Allergies; vc1 - Home Meds: 03:55 Unable to obtain [Active]; bm8 - PMHx: 03:55 BRAIN TUMOR; trach-Aug 2023; bm8 03:54 BRAIN TUMOR; trach-Aug 2023; vc1 - PSHx: 03:55 tracheostomy (trach-Aug 2023); bm8 03:54 None; vc1 - Immunization history:: Adult Immunizations up to date, Client reports receiving the 2nd dose of the Covid vaccine, Flu vaccine is up to date. - Infectious Disease History:: Denies. Denies. - Social history:: Smoking status: unknown Smoking status: Patient denies any tobacco usage or history of. Screenin:55 [facility] ED Fall Risk Assessment (Adult) History of falling in the last 3 months, bm8 including since admission No falls in past 3 months (0 pts) Confusion or Disorientation No (0 pts) Intoxicated or Sedated No (0 pts) Impaired Gait Yes (1 pt) Mobility Assist Device Used Yes (1 pt) Altered Elimination No (0 pt) Score/Fall Risk Level 3 or more points = High Risk Oriented to surroundings, Maintained a safe environment, Educated pt \T\ family on fall prevention, incl call for assistance when getting out of bed, Assessed \T\ reinforced patient's understanding of fall precautions. Abuse screen: Denies threats or abuse. Nutritional screening: No deficits noted. Tuberculosis screening: No symptoms or risk factors identified. Assessment: 03:53 General: Appears in no apparent distress. comfortable, Behavior is calm, cooperative, bm8 appropriate for age. Pain: Denies pain. Neuro: No deficits noted. Level of Consciousness is awake, alert, obeys commands, Oriented to person, place, time, situation, Appropriate for age. Cardiovascular: No deficits noted. Denies chest pain, Capillary refill < 3 seconds Patient's skin is warm and dry. Respiratory: Airway is patent Respiratory effort is even, unlabored, Respiratory pattern is regular, symmetrical. GI: pt has hole in stomach where PEG tube should be. building pressure washer stated that it came out around 0230. pt denies pain. would just like it replaced. 05:43 Reassessment: Patient states feeling better. pc2 Vital Signs: 03:52 BP 106 / 76; Pulse 65; Resp 14; Temp 98; Pulse Ox 99% ; Weight 54.43 kg; Height 5 ft. 6 vc1 in. ; 05:44 BP 110 / 74; Pulse 65; Resp 16; Pulse Ox 99% ; pc2 03:52 Body Mass Index 19.37 (54.43 kg, 167.64 cm) vc1 [place] Coma Score: 03:55 Eye Response: spontaneous(4). Motor Response: obeys commands(6). Verbal Response: bm8 oriented(5). Total: 15. ED Course: 03:41 Patient arrived in ED. gm2 03:42 Dequan Kruger DO is Private Physician. gm2 03:42 [facility]. cp 03:42 Juanpablo Jones MD is Attending Physician. cp 03:54 Triage completed. vc1 03:55 Patient has correct armband on for positive identification. Bed in low position. Call bm8 light in reach. Side rails up X 1. Adult w/ patient. Provided Education on: post er care. Client placed on continuous cardiac and pulse oximetry monitoring. NIBP monitoring applied. Pulse ox on. NIBP on. Door closed. Verbal reassurance given. 03:55 Assisted provider with: PEG tube replacement. Patient did not have IV access during bm8 this emergency room visit. 03:57 Arm band placed on right wrist. vc1 04:00 Alisia duque, RN is Primary Nurse. pc2 05:06 PEG Tube Check w/contrast In Process Unspecified. EDMS 05:16 Dequan Kruger DO is Referral Physician. cp Administered Medications: 03:59 Drug: Viscous Lidocaine Mucous Membrane Liquid (4 %) 10 ml Mucous Membrane once Route: bm8 Mucous Membrane; 04:31 Follow up: Response: No adverse reaction pc2 Medication: 03:55 VIS not applicable for this client. bm8 Outcome: 05:18 Discharge ordered by MD. cp 05:43 Discharged to home via wheelchair, with family, pc2 05:43 Condition: stable 05:43 Discharge instructions given to patient, family, Instructed on discharge instructions, follow up and referral plans. Demonstrated understanding of instructions, follow-up care, 05:44 Patient left the ED. pc2 Signatures: Dispatcher [employer] [facility] Juanpablo Troo PA PA cp Calcote, Vanessa RN RN vc1 Serenity Hernandez 2 Horacio Nash RN RN bm8 Alisia duque, RN RN pc2
[2023-12-28 05:55] VITALS: BP 110/74; TEMP 98; O2SAT 99
--- NOTE | 2023-12-30 04:26 | RAD REPORT ---
EXAM DESCRIPTION: RAD - ENTEROSTOMY TUBE CHECK W/CONTR - 12/28/2023 5:04 am CLINICAL HISTORY: peg tube replacement COMPARISON: Abdomen Pelvis W Contrast dated 12/02/2023 TECHNIQUE: Single AP view of the abdomen. FINDINGS: Contrast injected through the PEG tube opacifies the stomach. No evidence of extraluminal contrast. Right nephrostomy tube in place. Moderate stool burden along the proximal colon. Nonobstruc tive bowel gas pattern. No suspicious calcifications. No significant bony abnormality. IMPRESSION: No evidence of extraluminal contrast.
== END 2023-12-28 05:44 | disposition home or self-care (01) ==
LOC: ER 03:37
DX: Z43.1 Encounter for attention to gastrostomy (principal)
CPT/HCPCS: 49465; 99283

== ENCOUNTER 2024-01-06 09:59 | Emergency (ER) | payer OTHER ==
--- OUTSIDE RECORDS SUMMARY | 2024-01-06 10:02 | XMS REPORT | Clinical Summary ---
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,Neoplasm of uncertain [...] Department Care Team Description 07/20/2023 10:30 AM NURSE RECRUITER Nutrition Clinical Nutrition For your Nutrition appointment location directions please call: Gertrude Jesus MD Coleman, Timothy, RD Generalized muscle weakness; Mass lesion of brain; Lack of coordination, not otherwise specified; Impaired vibration sensation of foot; Neoplasm of brain; Dysphagia, oropharyngeal phase; Vasogenic cerebral edema 07/14/2023 Telephone [facility] PHYSICIAN [address] [place] [phone] Skye Atkins, bacteriology research assistant Call 07/13/2023 Telephone [facility] [address] [place] [phone] Jc Pardo, bacteriology research assistant Call 07/13/2023 Travel 07/03/2023 12:13 PM NURSE RECRUITER Anesthesia Event Main Interventional Radiology [address] [place], [place] [address] 3rd [place] [address] Jessica Zafar APRN, MORENA 06/29/2023 Orders Only [facility] [address] [place] [address], 7th [place] [address] Beverly, Poornima, METALLURGICAL LAB TECHNICIAN 06/29/2023 Orders Only [facility] [address] [place] [address], 7th [place] [address] Beverly, Poornima, METALLURGICAL LAB TECHNICIAN Malignant neoplasm of brain stem (Primary Dx) 06/29/2023 Orders Only [facility] [address] [place] [address], 7th [place] [address] Beverly, Poornima, METALLURGICAL LAB TECHNICIAN Malignant neoplasm of brain stem (Primary Dx) 06/28/2023 Prep for Surgery [facility] [address] [place] [address], 7th [place] [address] Lozada, Nora G, METALLURGICAL LAB TECHNICIAN Mass lesion of brain (Primary Dx) 06/27/2023 5:03 PM NURSE RECRUITER - 07/12/2023 1:07 PM NURSE RECRUITER Hospital Encounter [facility] [id number] [address] [place] [id number] Lori Greco MD Walton, Natalie, MD George, Marina, MD Zhou, Yan, MD Leung, Cerena, MD Kheder, Rhett, Generalized muscle weakness (Primary Dx); Mass lesion of brain; Lack of coordination, not otherwise specified; Impaired vibration sensation of foot; Neoplasm of brain; Dysphagia, oropharyngeal phase; Vasogenic cerebral edema; correction current use of systemic steroid; Neoplasm of uncertain behavior of brain, not otherwise specified Discharge Disposition: Home 06/27/2023 Travel after 01/06/2023 Medical History Medical History Date Comments Blind [...] file Travel History Travel Start Travel End [place] 06/16/2023 06/27/2023 Obstetrics History Last Filed Vital Signs Vital Sign Reading Time Taken Comments Blood Pressure 91/64 07/12/2023 6:53 AM NURSE RECRUITER Pulse 90 07/12/2023 6:53 AM NURSE RECRUITER Temperature 37 C (98.6 F) 07/12/2023 6:52 AM NURSE RECRUITER Respiratory Rate 17 07/12/2023 6:53 AM NURSE RECRUITER Oxygen Saturation 97% 07/12/2023 6:53 AM NURSE RECRUITER Inhaled Oxygen Concentration - - Weight 62.7 kg (138 lb 3.7 oz) 06/27/2023 8:36 P M NURSE RECRUITER Height 162 cm (5' 3.78") 06/27/2023 8:36 PM NURSE RECRUITER Body Mass Index 23.89 06/27/2023 8:36 PM NURSE RECRUITER Plan of Treatment Health Maintenance Due Date Last Done Comments COVID-19 Vaccine ( season) 2023 Influenza Vaccine 03/02/2024 Procedures Procedure Name Priority Date/Time Associated Diagnosis Comments POC GLUCOSE SCREEN Routine 07/12/2023 6: 00 AM NURSE RECRUITER .CBC Routine 07/12/2023 2:52 AM NURSE RECRUITER PHOSPHORUS LEVEL Routine 07/12/2023 2:52 AM NURSE RECRUITER MAGNESIUM LEVEL Routine 07/12/2023 2:52 AM NURSE RECRUITER BASIC METABOLIC PANEL, CALCIUM TOTAL Routine 07/12/2023 2:52 AM NURSE RECRUITER COMPLETE BLOOD COUNT W/ DIFFERENTIAL Routine 07/12/2023 2:52 AM NURSE RECRUITER POC GLUCOSE SCREEN Routine 07/12/2023 12 :16 AM NURSE RECRUITER POC GLUCOSE SCREEN Routine 07/11/2023 12 :18 PM NURSE RECRUITER POC GLUCOSE SCREEN Routine 07/11/2023 6: 08 AM NURSE RECRUITER .CBC Routine 07/11/2023 2:55 AM NURSE RECRUITER PHOSPHORUS LEVEL Routine 07/11/2023 2:55 AM NURSE RECRUITER MAGNESIUM LEVEL Routine 07/11/2023 2:55 AM NURSE RECRUITER BASIC METABOLIC PANEL, CALCIUM TOTAL Routine 07/11/2023 2:55 AM NURSE RECRUITER COMPLETE BLOOD COUNT W/ DIFFERENTIAL Routine 07/11/2023 2:55 AM NURSE RECRUITER POC GLUCOSE SCREEN Routine 07/11/2023 12 :01 AM NURSE RECRUITER POC GLUCOSE SCREEN Routine 07/10/2023 6: 10 PM NURSE RECRUITER POC GLUCOSE SCREEN Routine 07/10/2023 12 :09 PM NURSE RECRUITER POC GLUCOSE SCREEN Routine 07/10/2023 6: 26 AM NURSE RECRUITER .CBC Routine 07/10/2023 5:28 AM NURSE RECRUITER COMPLETE BLOOD COUNT W/ DIFFERENTIAL Routine 07/10/2023 5:28 AM NURSE RECRUITER PHOSPHORUS LEVEL Routine 07/10/2023 5:27 AM NURSE RECRUITER MAGNESIUM LEVEL Routine 07/10/2023 5:27 AM NURSE RECRUITER BASIC METABOLIC PANEL, CALCIUM TOTAL Routine 07/10/2023 5:27 AM NURSE RECRUITER POC GLUCOSE SCREEN Routine 07/10/2023 2: 48 AM NURSE RECRUITER POC GLUCOSE SCREEN Routine 07/09/2023 6: 36 PM NURSE RECRUITER POC GLUCOSE SCREEN Routine 07/09/2023 1: 03 PM NURSE RECRUITER XR ABDOMEN 1 VW PORTABLE Routine 07/09/2023 12:59 PM NURSE RECRUITER POC GLUCOSE SCREEN Routine 07/09/2023 5: 43 AM NURSE RECRUITER GLUCOSE 6-PHOSPHATE DEHYDRGENASE ENZYME ACTIVITY Add-On 07/09/2023 2:21 AM NURSE RECRUITER .CBC Routine 07/09/2023 2:21 AM NURSE RECRUITER PHOSPHORUS LEVEL Routine 07/09/2023 2:21 AM NURSE RECRUITER MAGNESIUM LEVEL Routine 07/09/2023 2:21 AM NURSE RECRUITER BASIC METABOLIC PANEL, CALCIUM TOTAL Routine 07/09/2023 2:21 AM NURSE RECRUITER COMPLETE BLOOD COUNT W/ DIFFERENTIAL Routine 07/09/2023 2:21 AM NURSE RECRUITER POC GLUCOSE SCREEN Routine 07/08/2023 11 :33 PM NURSE RECRUITER POC GLUCOSE SCREEN Routine 07/08/2023 6: 04 PM NURSE RECRUITER POC GLUCOSE SCREEN Routine 07/08/2023 12 :03 PM NURSE RECRUITER POC GLUCOSE SCREEN Routine 07/08/2023 6: 27 AM NURSE RECRUITER .CBC Routine 07/08/2023 3:03 AM NURSE RECRUITER PHOSPHORUS LEVEL Routine 07/08/2023 3:03 AM NURSE RECRUITER MAGNESIUM LEVEL Routine 07/08/2023 3:03 AM NURSE RECRUITER BASIC METABOLIC PANEL, CALCIUM TOTAL Routine 07/08/2023 3:03 AM NURSE RECRUITER COMPLETE BLOOD COUNT W/ DIFFERENTIAL Routine 07/08/2023 3:03 AM NURSE RECRUITER POC GLUCOSE SCREEN Routine 07/08/2023 12 :43 AM NURSE RECRUITER POC GLUCOSE SCREEN Routine 07/07/2023 6: 13 PM NURSE RECRUITER POC GLUCOSE SCREEN Routine 07/07/2023 12 :40 PM NURSE RECRUITER XR ABDOMEN 1 VW PORTABLE Routine 07/07/2023 11:00 AM NURSE RECRUITER POC GLUCOSE SCREEN Routine 07/07/2023 6: 45 AM NURSE RECRUITER .CBC Routine 07/07/2023 4:21 AM NURSE RECRUITER PHOSPHORUS LEVEL Routine 07/07/2023 4:21 AM NURSE RECRUITER MAGNESIUM LEVEL Routine 07/07/2023 4:21 AM NURSE RECRUITER BASIC METABOLIC PANEL, CALCIUM TOTAL Routine 07/07/2023 4:21 AM NURSE RECRUITER COMPLETE BLOOD COUNT W/ DIFFERENTIAL Routine 07/07/2023 4:21 AM NURSE RECRUITER POC GLUCOSE SCREEN Routine 07/07/2023 12 :10 AM NURSE RECRUITER POC GLUCOSE SCREEN Routine 07/06/2023 6: 32 PM NURSE RECRUITER POC GLUCOSE SCREEN Routine 07/06/2023 12 :07 PM NURSE RECRUITER POC GLUCOSE SCREEN Routine 07/06/2023 6: 01 AM NURSE RECRUITER .CBC Routine 07/06/2023 5:31 AM NURSE RECRUITER PHOSPHORUS LEVEL Routine 07/06/2023 5:31 AM NURSE RECRUITER MAGNESIUM LEVEL Routine 07/06/2023 5:31 AM NURSE RECRUITER BASIC METABOLIC PANEL, CALCIUM TOTAL Routine 07/06/2023 5:31 AM NURSE RECRUITER COMPLETE BLOOD COUNT W/ DIFFERENTIAL Routine 07/06/2023 5:31 AM NURSE RECRUITER POC GLUCOSE SCREEN Routine 07/05/2023 11 :56 PM NURSE RECRUITER POC GLUCOSE SCREEN Routine 07/05/2023 6: 38 PM NURSE RECRUITER XR ABDOMEN 1 VW PORTABLE Routine 07/05/2023 12:10 PM NURSE RECRUITER POC GLUCOSE SCREEN Routine 07/05/2023 6: 39 AM NURSE RECRUITER .CBC Routine 07/05/2023 4:39 AM NURSE RECRUITER PHOSPHORUS LEVEL Routine 07/05/2023 4:39 AM NURSE RECRUITER MAGNESIUM LEVEL Routine 07/05/2023 4:39 AM NURSE RECRUITER BASIC METABOLIC PANEL, CALCIUM TOTAL Routine 07/05/2023 4:39 AM NURSE RECRUITER COMPLETE BLOOD COUNT W/ DIFFERENTIAL Routine 07/05/2023 4:39 AM NURSE RECRUITER POC GLUCOSE SCREEN Routine 07/05/2023 2: 00 AM NURSE RECRUITER POC GLUCOSE SCREEN Routine 07/04/2023 6: 01 PM NURSE RECRUITER POC GLUCOSE SCREEN Routine 07/04/2023 12 :55 PM NURSE RECRUITER POC GLUCOSE SCREEN Routine 07/04/2023 6: 12 AM NURSE RECRUITER .CBC Routine 07/04/2023 4:20 AM NURSE RECRUITER PHOSPHORUS LEVEL Routine 07/04/2023 4:20 AM NURSE RECRUITER MAGNESIUM LEVEL Routine 07/04/2023 4:20 AM NURSE RECRUITER BASIC METABOLIC PANEL, CALCIUM TOTAL Routine 07/04/2023 4:20 AM NURSE RECRUITER COMPLETE BLOOD COUNT W/ DIFFERENTIAL Routine 07/04/2023 4:20 AM NURSE RECRUITER TYPE AND SCREEN Routine 07/04/2023 4:20 AM NURSE RECRUITER POC GLUCOSE SCREEN Routine 07/03/2023 11 :55 PM NURSE RECRUITER POC GLUCOSE SCREEN Routine 07/03/2023 5: 55 PM NURSE RECRUITER IR PERC FEEDING GASTROSTOMY PLACEMENT 90 STAT 07/03/2023 1:42 PM NURSE RECRUITER Mass lesion of brain POC GLUCOSE SCREEN Routine 07/03/2023 12 :22 PM NURSE RECRUITER POC GLUCOSE SCREEN Routine 07/03/2023 6: 02 AM NURSE RECRUITER .CBC Routine 07/03/2023 4:15 AM NURSE RECRUITER PHOSPHORUS LEVEL Routine 07/03/2023 4:15 AM NURSE RECRUITER MAGNESIUM LEVEL Routine 07/03/2023 4:15 AM NURSE RECRUITER BASIC METABOLIC PANEL, CALCIUM TOTAL Routine 07/03/2023 4:15 AM NURSE RECRUITER COMPLETE BLOOD COUNT W/ DIFFERENTIAL Routine 07/03/2023 4:15 AM NURSE RECRUITER POC GLUCOSE SCREEN Routine 07/03/2023 12 :01 AM NURSE RECRUITER POC GLUCOSE SCREEN Routine 07/02/2023 6: 10 PM NURSE RECRUITER POC GLUCOSE SCREEN Routine 07/02/2023 2: 18 PM NURSE RECRUITER POC GLUCOSE SCREEN Routine 07/02/2023 5: 57 AM NURSE RECRUITER .CBC Routine 07/02/2023 2:12 AM NURSE RECRUITER PHOSPHORUS LEVEL Routine 07/02/2023 2:12 AM NURSE RECRUITER MAGNESIUM LEVEL Routine 07/02/2023 2:12 AM NURSE RECRUITER BASIC METABOLIC PANEL, CALCIUM TOTAL Routine 07/02/2023 2:12 AM NURSE RECRUITER COMPLETE BLOOD COUNT W/ DIFFERENTIAL Routine 07/02/2023 2:12 AM NURSE RECRUITER POC GLUCOSE SCREEN Routine 07/02/2023 2: 07 AM NURSE RECRUITER POC GLUCOSE SCREEN Routine 07/01/2023 8: 00 PM NURSE RECRUITER POC GLUCOSE SCREEN Routine 07/01/2023 5: 42 PM NURSE RECRUITER POC GLUCOSE SCREEN Routine 07/01/2023 12 :10 PM NURSE RECRUITER POC GLUCOSE SCREEN Routine 07/01/2023 6: 02 AM NURSE RECRUITER .CBC Routine 07/01/2023 3:52 AM NURSE RECRUITER PHOSPHORUS LEVEL Routine 07/01/2023 3:52 AM NURSE RECRUITER MAGNESIUM LEVEL Routine 07/01/2023 3:52 AM NURSE RECRUITER BASIC METABOLIC PANEL, CALCIUM TOTAL Routine 07/01/2023 3:52 AM NURSE RECRUITER COMPLETE BLOOD COUNT W/ DIFFERENTIAL Routine 07/01/2023 3:52 AM NURSE RECRUITER TYPE AND SCREEN Routine 07/01/2023 3:52 AM NURSE RECRUITER POC GLUCOSE SCREEN Routine 07/01/2023 12 :02 AM NURSE RECRUITER POC GLUCOSE SCREEN Routine 06/30/2023 6: 39 AM NURSE RECRUITER .CBC Routine 06/30/2023 4:31 AM NURSE RECRUITER PHOSPHORUS LEVEL Routine 06/30/2023 4:31 AM NURSE RECRUITER MAGNESIUM LEVEL Routine 06/30/2023 4:31 AM NURSE RECRUITER BASIC METABOLIC PANEL, CALCIUM TOTAL Routine 06/30/2023 4:31 AM NURSE RECRUITER COMPLETE BLOOD COUNT W/ DIFFERENTIAL Routine 06/30/2023 4:31 AM NURSE RECRUITER POC GLUCOSE SCREEN Routine 06/30/2023 12 :17 AM NURSE RECRUITER POC GLUCOSE SCREEN Routine 06/29/2023 5: 06 PM NURSE RECRUITER FL MODIFIED BARIUM SWALLOW W SPEECH STAT 06/29/2023 2:39 PM NURSE RECRUITER .CBC Routine 06/29/2023 4:48 AM NURSE RECRUITER PHOSPHORUS LEVEL Routine 06/29/2023 4:48 AM NURSE RECRUITER MAGNESIUM LEVEL Routine 06/29/2023 4:48 AM NURSE RECRUITER BASIC METABOLIC PANEL, CALCIUM TOTAL Routine 06/29/2023 4:48 AM NURSE RECRUITER COMPLETE BLOOD COUNT W/ DIFFERENTIAL Routine 06/29/2023 4:48 AM NURSE RECRUITER HC PROCALCITONIN (PCT) Routine 2:06 PM NURSE RECRUITER ECHOCARDIOGRAM 2D COMPLETE STAT 06/28/2023 11:46 AM NURSE RECRUITER MRI BRAIN W WO CONTRAST STAT 06/28/20 6:[address] CHEST ABDOMEN PELVIS W WO CONTRAST STAT 06/28/2023 5:00 AM NURSE RECRUITER DIFFERENTIAL Routine 06/28/2023 2:49 AM NURSE RECRUITER .CBC Routine 06/28/2023 2:49 AM NURSE RECRUITER PHOSPHORUS LEVEL Routine 06/28/2023 2:49 AM NURSE RECRUITER MAGNESIUM LEVEL Routine 06/28/2023 2:49 AM NURSE RECRUITER BASIC METABOLIC PANEL, CALCIUM TOTAL Routine 06/28/2023 2:49 AM NURSE RECRUITER COMPLETE BLOOD COUNT W/ DIFFERENTIAL Routine 06/28/2023 2:49 AM NURSE RECRUITER CONFIRM ABORH TYPE STAT 06/28/2023 2: 49 AM NURSE RECRUITER XR ABDOMEN 1 VW PORTABLE STAT 06/28/2023 12:45 AM NURSE RECRUITER EKG, 12-LEAD (PORTABLE) Routine 06/28/2023 TYPE AND SCREEN STAT 06/27/2023 9:44 PM NURSE RECRUITER XR CHEST 1 VW Routine 06/27/2023 7:[address] HEAD WO CONTRAST STAT 06/27/2023 7 :03 PM NURSE RECRUITER .CBC Routine 06/27/2023 5:23 PM NURSE RECRUITER COMPREHENSIVE METABOLIC PANEL Routine 06/27/2023 5:23 PM NURSE RECRUITER APTT Routine 06/27/2023 5:23 PM NURSE RECRUITER PROTHROMBIN TIME Routine 06/27/2023 5:23 PM NURSE RECRUITER COMPLETE BLOOD COUNT W/ DIFFERENTIAL Routine 06/27/2023 5:23 PM NURSE RECRUITER after 01/06/2023 Results * POC Glucose Screen - Fingerstick (07/12/2023 6:00 AM NURSE RECRUITER) Only the most recent of48 resultswithin the time period is included. [facility] Signature Glucose Screen 97 70 - 99 mg/dL 07/12/2023 6:02 AM NURSE RECRUITER [facility] POC Sample Type Capillary 07/12/2023 6:02 AM [facility] Blood 07/12/2023 6:00 AM NURSE RECRUITER 07/12/2023 6:02 AM NURSE RECRUITER Narrative [facility] - 07/12/2023 6:02 AM NURSE RECRUITER Capillary blood samples, e.g. obtained by fingerstick, [...] Aguila MD POCT ORDERABLES - DE VICE [facility] Unless otherwise noted, all lab tests performed by: Division of Pathology and Laboratory Medicine [facility] [place] [address] * (ABNORMAL) .CBC (07/12/2023 2:52 AM NURSE RECRUITER) Only the most recent of16 resultswithin the time period is included. White Blood Cell 12.8(H) 4.1 - 10.5 K/uL 07/12/2023 3:31 AM [facility] Red Blood Cell 4.81 4.30 - 6.04 M/uL 07/12/2023 3:31 AM [facility] Hemoglobin 14.6 13.3 - 17.4 g/dL 07/12/2023 3:31 AM [facility] Hematocrit 44.8 39.5 - 51.8 % 07/12/2023 3:31 AM [facility] Mean Cell Volume 93 82 - 99 fL 07/12/2023 3:31 AM [facility] Mean Cell Hemoglobin 30.4 26.6 - 33.2 pg 07/12/2023 3:31 AM [facility] Mean Cell Hemoglobin Concentration 32.6 31.1 - 35.2 g/dL 07/12/2023 3:31 AM [facility] RDW-SD 45.9 37.5 - 49.7 fL 07/12/2023 3:31 AM [facility] Red Cell Diameter Width 13.5 11.6 - 15.5 % 07/12/2023 3:31 AM [facility] Platelet 183 160 - 397 K/uL 07/12/2023 3:31 AM [facility] Mean Platelet Volume 11.9 9.1 - 12.6 fL 07/12/2023 3:31 AM [facility] INRBC 0.0 0.0 - 0.1 /100 WBC 07/12/2023 3:31 AM [facility] Comment: The INRBC (instrument NRBC) value reflects the enumeration of nucleated red blood cells contained in a 200uL sample of whole blood analyzed by the instrument. This value may differ from the NRBC value reported in a manual differential, which is based on a 100 cell differential. Neutrophil % 77.2(H) 43.2 - 72.7 % 07/12/2023 3:31 AM [facility] Lymphocyte % 12.4(L) 16.8 - 46.2 % 07/12/2023 3:31 AM [facility] Monocyte % 9.1 5.1 - 12.5 % 07/12/2023 3:31 AM [facility] Eosinophil % 0.0(L) 0.4 - 6.3 % 07/12/2023 3:31 AM [facility] Basophil % 0.2 0.2 - 1.4 % 07/12/2023 3:31 AM [facility] IGRE % 1.1 0.1 - 1.5 % 07/12/2023 3:31 AM [facility] Comment:The IGRE% includes M etamyelocytes, Myelocytes and Promyelocytes. Neutrophil Abs 9.90(H) 1.95 - 7.25 K/uL 07/12/2023 3:31 AM [facility] Lymphocyte Abs 1.59 1.01 - 3.24 K/uL 07/12/2023 3:31 AM [facility] Monocyte Abs 1.16(H) 0.24 - 0.85 K/uL 07/12/2023 3:31 AM [facility] Eosinophil Abs 0.00(L) 0.02 - 0.50 K/uL 07/12/2023 3:31 AM [facility] Basophil Abs 0.02 0.02 - 0.09 K/uL 07/12/2023 3:31 AM [facility] IG Abs 0.14(H) 0.01 - 0.12 K/uL 07/12/2023 3:31 AM [facility] Blood Peripheral blood specimen / Unknown Venipuncture / Unknown 07/12/2023 2:52 AM NURSE RECRUITER 07/12/2023 3:18 AM NURSE RECRUITER Naye Amin MD LAB BLOOD ORDERABLES [facility] Unless otherwise noted, all lab tests performed by: Division of Pathology and Laboratory Medicine [address] [place] [address] * (ABNORMAL) Basic Metabolic Panel- Total Calcium (07/12/2023 2:52 AM NURSE RECRUITER) Only the most recent of15 resultswithin the time period is included. eGFR 108 >=60 mL/min/1.7 3 sq. m 07/12/2023 3:57 AM NURSE RECRUITER [facility] Comment: The eGFRcr is calculated with the [...] 8.2 - 10.2 mg/dL 07/12/2023 3:57 AM NURSE RECRUITER [facility] Comment:This result was prev iously suppressed from the chart. Sodium Level 146(H) 136 - 145 mmol/L 07/12/2023 3:57 AM NURSE RECRUITER [facility] Comment:This result was prev iously suppressed from the chart. Potassium Level 4.5 3.4 - 4.5 mmol/L 07/12/2023 3:57 AM NURSE RECRUITER [facility] Comment:This result was prev iously suppressed from the chart. Chloride 109(H) 98 - 107 mmol/L 07/12/2023 3:57 AM NURSE RECRUITER [facility] Comment:This result was prev iously suppressed from the chart. CO2 30(H) 22 - 29 mmol/L 07/12/2023 3:57 AM [facility] Comment:This result was prev iously suppressed from the chart. Anion Gap 7 4 - 14 mmol/L 07/12/2023 3:57 AM NURSE RECRUITER [facility] Comment:This result was prev iously suppressed from the chart. Creatinine 0.69 0.67 - 1.17 mg/dL 07/12/2023 3:57 AM NURSE RECRUITER [facility] Comment:This result was prev iously suppressed from the chart. BUN 26(H) 6 - 23 mg/dL 07/12/2023 3:57 AM [facility] Comment:This result was prev iously suppressed from the chart. Glucose Level 97 70 - 99 mg/dL 07/12/2023 3:57 AM [facility] Comment: Effective 01/26/16, the glucose reference intervals have been updated based on [place] [employer] guidelines (Standards of Medical Care [...] Unknown Venipuncture / Unknown 07/12/2023 2:52 AM NURSE RECRUITER 07/12/2023 3:16 AM NURSE RECRUITER Naye Amin MD LAB BLOOD ORDERABLES [facility] Unless otherwise noted, all lab tests performed by: Division of Pathology and Laboratory Medicine [address] [place] [id number] * Phosphorus Level (07/12/2023 2:52 AM NURSE RECRUITER) Only the most recent of15 resultswithin the time period is included. Phosphorus Level 3.3 2.5 - 4.5 mg/dL 07/12/2023 3:57 AM NURSE RECRUITER [facility] Blood Peripheral blood specimen / Unknown Venipuncture / Unknown 07/12/2023 2:52 AM NURSE RECRUITER 07/12/2023 3:16 AM NURSE RECRUITER Naye Amin MD LAB BLOOD ORDERABLES [facility] Unless otherwise noted, all lab tests performed by: Division of Pathology and Laboratory Medicine [address] [place] [id number] * Magnesium Level (07/12/2023 2:52 AM NURSE RECRUITER) Only the most recent of15 resultswithin the time period is included. Magnesium Level 2.2 1.6 - 2.6 mg/dL 07/12/2023 3:57 AM NURSE RECRUITER [facility] Blood Peripheral blood specimen / Unknown Venipuncture / Unknown 07/12/2023 2:52 AM NURSE RECRUITER 07/12/2023 3:16 AM NURSE RECRUITER Naye Amin MD LAB BLOOD ORDERABLES Performing Organization Address City/[facility] Co de Phone Number [facility] Unless otherwise noted, all lab tests performed by: Division of Pathology and Laboratory Medicine [address] [place] [id number] * XR Abdomen 1 View Portable (07/09/2023 12:59 PM NURSE RECRUITER) Only the most recent of4 resultswithin the time period is included. Anatomical Region Laterality Modality Abdomen Digital Radiogra phy 07/09/2023 2:34 PM NURSE RECRUITER Impressions 07/09/2023 2:36 PM NURSE RECRUITER No evidence of obstruction or significant constipation. Narrative 07/09/2023 2:36 PM NURSE RECRUITER FULL RESULT: Examination: XR ABDOMEN 1 VW [...] obstruction or significant constipation. Marisol Ruiz APRN [facility] DI[facility]NOSTIC IMAGI NG ORDERABLES * Glucose 6-Phosphate Dehydrogenase Enzyme Activity (07/09/2023 2:21 AM NURSE RECRUITER) G6PD Enzyme Activity, B 10.8 8.0 - 11.9 U/g Hb 07/11/2023 2:58 PM NURSE RECRUITER [facility] Comment: G6PD deficiency can be masked in the setting of reticulocytosis, markedly elevated WBCs or recent transfusion. If any of these are present in the setting of , chronic, or episodic jaundice/anemia, genotyping is recommended. If desired, please order G6PDZ/G6PD Full Gene Sequencing, V. ADDITIONAL INFORMATION This test was developed and its performance characteristics determined by [facility] in a manner consistent with CLIA requirements. This test has not been cleared or approved by the U.S. Food and Drug Administration. Test Performed by: [address] [address] Crm Consultant: Papo Boone M.D. Ph.D.; CLIA# [id number] Blood Peripheral blood specimen / Unknown Venipuncture / Unknown 07/09/2023 2:21 AM NURSE RECRUITER 07/09/2023 2:59 AM NURSE RECRUITER Gertrude Jesus MD LAB BLOOD ORDERABLES [facility] * Type and Screen (07/04/2023 4:20 AM NURSE RECRUITER) Only the most recent of3 resultswithin the time period is included. ABORh O POS 07/04/2023 12:00 AM NURSE RECRUITER [facility] ABSC Negative 07/04/2023 12:00 AM NURSE RECRUITER [facility] Clot Expiration 07/07/2023 23:59 07/04/2023 12:00 AM NURSE RECRUITER [facility] Historical Record Check Complete 07/04/2023 12:00 AM NURSE RECRUITER [facility] Blood Peripheral blood specimen / Unknown Venipuncture / Unknown 07/04/2023 4:20 AM NURSE RECRUITER 07/04/2023 4:52 AM NURSE RECRUITER Juli Benitez APRN BLOOD BANK TEST ORDE ISMAEL [facility] [id number] [place] [address] * IR PERC FEEDING GASTROSTOMY PLACEMENT (07/03/2023 1:42 PM NURSE RECRUITER) Anatomical Region Laterality Modality Abdomen/Pelvis Other Narrative 07/03/2023 5:56 PM NURSE RECRUITER Table formatting from the original result was not included. Date of Procedure: 07/03/23 Attending Physician: Feliberto Olmstead MD Container Filler: None Pre Procedure Diagnosis: Mass lesion of brain [[id number]] Post Procedure Diagnosis: Unchanged Indication: Nutritional support Title of Procedure: Percutaneous Image-Guided Placement of Gastrostomy Catheter. Operative Findings: Percutaneous fluoroscopic-guided placement of 16 Fr Egyptian gastrostomy catheter. Connector Type: ENFit Consent: The [...] the patient's nasal passage and a 5 Egyptian catheter and [place] wire were then passed through the nasal [...] Barium Swallow w Speech (06/29/2023 2:39 PM NURSE RECRUITER) Anatomical Region Laterality Modality Neck Radio Fluoroscop y 06/29/2023 3:56 PM NURSE RECRUITER Impressions 06/29/2023 4:59 PM NURSE RECRUITER 1. Silent aspiration with thin and thick liquids. Please refer to the separately dictated speech pathology report for further details and recommendations. Narrative 06/29/2023 4:59 PM NURSE RECRUITER FULL RESULT: Examination: FL MODIFIED BARIUM SWALLOW [...] MONICA GUEVARA * Procalcitonin (06/28/2023 2:06 PM NURSE RECRUITER) Procalcitonin <0.04 <=0.08 ng/mL 06/28/2023 2:54 PM NURSE RECRUITER [facility] Blood Peripheral blood specimen / Unknown Venipuncture / Unknown 06/28/2023 2:06 PM NURSE RECRUITER 06/28/2023 2:10 PM NURSE RECRUITER Narrative [facility] - 06/28/2023 2:54 PM NURSE RECRUITER Procalcitonin > 2.00 ng/mL: Procalcitonin levels above [...] with extended dilution as it exceeds the cloth finisher's recommended limit. Caution should be exercised when interpreting such values and done in conjunction with clinical context. Juli Benitez APRN LAB BLOOD ORDERABLES [facility] Unless otherwise noted, all lab tests performed by: Division of Pathology and Laboratory Medicine [address] [place] [id number] * Echocardiogram 2D Complete (06/28/2023 11:46 AM NURSE RECRUITER) 06/28/2023 10:4 5 AM NURSE RECRUITER Narrative [facility] - 06/28/2023 12:29 PM NURSE RECRUITER Echocardiographic Report Interpretation Summary A complete two-dimensional [...] (lat): 3.4 E/e' (mar): 4.8 Juli Benitez METALLURGICAL LAB TECHNICIAN CV ECHO ORDERABLES [facility] * MRI Brain with and without Contrast (06/28/2023 6:16 AM NURSE RECRUITER) Anatomical Region Laterality Modality Head Magnetic Resonan ce 06/28/2023 7:32 AM NURSE RECRUITER Impressions 06/28/2023 10:06 AM NURSE RECRUITER 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 Narrative 06/28/2023 10:06 AM NURSE RECRUITER FULL RESULT: Examination: MRI BRAIN W WO [...] with and without Contrast (06/28/2023 5:00 AM NURSE RECRUITER) Anatomical Region Laterality Modality Abdomen, Pelvis, Chest Computed Tomography 06/28/2023 5:14 AM NURSE RECRUITER Impressions 06/28/2023 4:07 PM NURSE RECRUITER Left lower lobe retained secretions and airspace [...] the final report. Narrative 06/28/2023 4:07 PM NURSE RECRUITER Examination: CT CHEST ABDOMEN PELVIS W WO [...] ORDERABLES * Confirm ABORh (06/28/2023 2:49 AM NURSE RECRUITER) Pathologist [facility] ABOR Confirm O POS 06/27/2023 9:45 PM NURSE RECRUITER [facility] - TRANSFUSION [facility] Blood Peripheral blood specimen / Unknown Venipuncture / Unknown 06/28/2023 2:49 AM NURSE RECRUITER 06/28/2023 3:06 AM NURSE RECRUITER Karma Landrum MD BLOOD BANK TEST ORDMauro GUEVARA [facility] [address] [facility] [id number] [place] [address] * (ABNORMAL) Differential (06/28/2023 2:49 AM NURSE RECRUITER) Total Cells 115 06/28/2023 6:54 AM NURSE RECRUITER [facility] Manual Neutrophil % 78.0(H) 43.2 - 72.7 % 06/28/2023 6:54 AM [facility] Comment:The Neutrophil count includes Bands. Manual Lymphocyte % 15.0(L) 16.8 - 46.2 % 06/28/2023 6:54 AM [facility] Manual Monocyte % 2.0(L) 5.1 - 12.5 % 06/28/2023 6:54 AM [facility] Metamyelocyte % 5.0(H) <=0.0 % 6:54 AM [facility] Comment:The Metamyelocyte co unt includes Myelocytes. Manual Neutrophil Abs 7.02 1.95 - 7.25 K/uL 06/28/2023 6:54 AM NURSE RECRUITER [facility] Manual Lymphocyte Abs 1.35 1.01 - 3.24 K/uL 06/28/2023 6:54 AM [facility] Manual Monocyte Abs 0.18(L) 0.24 - 0.85 K/uL 06/28/2023 6:54 AM [facility] RBC Morphology PRESENT 06/28/2023 6:54 AM [facility] Anisocytosis Present(A) (none) 06/28/2023 6:54 AM [facility] Poikilocytosis Present(A) (none) 06/28/2023 6:54 AM [facility] Polychromasia Present(A) (none) 06/28/2023 6:54 AM [facility] Ovalocyte Present(A) (none) 06/28/2023 6:54 AM [facility] Macrocyte Present(A) (none) 06/28/2023 6:54 AM [facility] Slide Comment SEE NOTE 06/28/2023 6:54 AM [facility] Comment:PLT: Platelet morpho logy normal Blood Peripheral blood specimen / Unknown Venipuncture / Unknown 06/28/2023 2:49 AM NURSE RECRUITER 06/28/2023 3:05 AM NURSE RECRUITER Naye Amin MD LAB BLOOD ORDERABLES [facility] Unless otherwise noted, all lab tests performed by: Division of Pathology and Laboratory Medicine [address] [place], [place] [id number] * EKG, 12-Lead (06/28/2023) Juli Benitez KENYETTA ECG ORDERABLES [facility] * X-ray Chest 1 View (06/27/2023 7:50 PM NURSE RECRUITER) Anatomical Region Laterality Modality Chest Digital Radiogra phy 06/27/2023 8:19 PM NURSE RECRUITER Impressions 06/27/2023 8:21 PM NURSE RECRUITER No acute consolidations or lobar pneumonias. ACTIONABLE ITEMS/RECOMMENDATIONS: None. 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 Discussed with Dr. Ricardo at 7:36 PM on 06/27/2023 by means of a phone conversation. Narrative 06/27/2023 7:37 PM NURSE RECRUITER FULL RESULT: Examination: CT HEAD WO CONTRAST [...] (ABNORMAL) Comprehensive Metabolic Panel (06/27/2023 5:23 PM NURSE RECRUITER) Bilirubin Total 0.4 <=1.2 mg/dL 06/27/2023 6:05 PM [facility] Comment: Indocyanine Green (ICG) may cause falsely elevated bilirubin results. Total and direct bilirubin must not be measured from samples containing indocyanine green. False elevation of total bilirubin can be seen in patients with IgG concentrations above 28 g/L. This result was previously suppressed from the chart. Bilirubin Direct <0.2 <=0.3 mg/dL 06/27/2023 6:05 PM [facility] Comment: Indocyanine Green (ICG) may cause falsely elevated bilirubin results. Total and direct bilirubin must not be measured from samples containing indocyanine green. This result was previously suppressed from the chart. Bilirubin Indirect 2022 6:05 PM [facility] Comment:Unable to calculate Indirect Bilirubin result due to some parameters are outside reportable range eGFR 104 >=60 mL/min/1. 73 sq. m 06/27/2023 6:05 PM [facility] Comment: The eGFRcr is calculated with the [...] 6.4 - 8.3 gm/dL 06/27/2023 6:05 PM [facility] Comment:This result was prev iously suppressed from the chart. Calcium Level Total 9.6 8.2 - 10.2 mg/dL 06/27/2023 6:05 PM [facility] Comment:This result was prev iously suppressed from the chart. Alkaline Phosphatase 92 40 - 129 U/L 06/27/2023 6:05 PM [facility] Comment:This result was prev iously suppressed from the chart. Albumin Level 4.0 3.5 - 5.2 gm/dL 06/27/2023 6:05 PM [facility] Comment:This result was prev iously suppressed from the chart. AST 14 <=40 U/L 06/27/2023 6:05 PM [facility] Comment:This result was prev iously suppressed from the chart. ALT 17 <=41 U/L 06/27/2023 6:05 PM [facility] Comment:This result was prev iously suppressed from the chart. Sodium Level 134(L) 136 - 145 mmol/L 06/27/2023 6:05 PM [facility] Comment:This result was prev iously suppressed from the chart. Potassium Level 4.0 3.4 - 4.5 mmol/L 06/27/2023 6:05 PM [facility] Comment:This result was prev iously suppressed from the chart. Chloride 99 98 - 107 mmol/L 06/27/2023 6:05 PM [facility] Comment:This result was prev iously suppressed from the chart. CO2 26 22 - 29 mmol/L 06/27/2023 6:05 PM [facility] Comment:This result was prev iously suppressed from the chart. Anion Gap 9 4 - 14 mmol/L 06/27/2023 6:05 PM [facility] Comment:This result was prev iously suppressed from the chart. Creatinine 0.77 0.67 - 1.17 mg/dL 06/27/2023 6:05 PM [facility] Comment:This result was prev iously suppressed from the chart. BUN 17 6 - 23 mg/dL 06/27/2023 6:05 PM NURSE RECRUITER [facility] Comment:This result was prev iously suppressed from the chart. Glucose Level 98 70 - 99 mg/dL 06/27/2023 6:05 PM NURSE RECRUITER [facility] Comment: Effective 01/26/16, the glucose reference intervals have been updated based on [place] [employer] guidelines (Standards of Medical Care [...] Unknown Venipuncture / Unknown 06/27/2023 5:23 PM NURSE RECRUITER 06/27/2023 5:30 PM NURSE RECRUITER Jensen Zuleta MD LAB BLOOD ORDERABLES Performing Organization Address City/[facility] Co de Phone Number [facility] Unless otherwise noted, all lab tests performed by: Division of Pathology and Laboratory Medicine [address] [place] [phone] * aPTT (06/27/2023 5:23 PM NURSE RECRUITER) Pathologist [facility] Activated PTT 24.7 24.1 - 35.5 second(s) 06/27/2023 6:14 PM NURSE RECRUITER [facility] Blood Peripheral blood specimen / Unknown Venipuncture / Unknown 06/27/2023 5:23 PM NURSE RECRUITER 06/27/2023 5:30 PM NURSE RECRUITER Jensen Zuleta MD LAB BLOOD ORDERABLES Performing Organization Address City/[facility]/ZIP Co de Phone Number [facility] Unless otherwise noted, all lab tests performed by: Division of Pathology and Laboratory Medicine [address] [place] [phone] * Prothrombin Time with INR (06/27/2023 5:23 PM NURSE RECRUITER) Pathologist [facility] Prothrombin Time 13.0 11.9 - 14.5 second(s) 06/27/2023 6:14 PM NURSE RECRUITER [facility] International Normalization Ratio 0.99 0.87 - 1.12 06/27/2023 6:14 PM NURSE RECRUITER [facility] Blood Peripheral blood specimen / Unknown Venipuncture / Unknown 06/27/2023 5:23 PM NURSE RECRUITER 06/27/2023 5:30 PM NURSE RECRUITER Jensen Zuleta MD LAB BLOOD ORDERABLES [facility] Unless otherwise noted, all lab tests performed by: Division of Pathology and Laboratory Medicine [address] [place] [address] after 01/06/2023 Advance Directives * Full Code (Latest Code Status on File) Date Activated Date Inactivated Comments 06/27/2023 8:32 PM 07/12/2023 3:12 PM
--- NOTE | 2024-01-06 11:00 | RAD REPORT ---
EXAM DESCRIPTION: Matilde Single View01/06/2024 10:50 am CLINICAL HISTORY: cough COMPARISON: December 2023 FINDINGS: Areas of atelectasis lung bases Upper lobes appear clear Heart normal size. Tracheostomy tube in place
[2024-01-06 12:01] LABS: Absolute Lymphocytes (CBC) 0.6 K/uL (0.7-4.9); Absolute Monocytes 0.8 K/uL (0.1-1.3); Absolute Neutrophil 8.7 K/uL (1.8-8.0); Basophils % 0.1 % (0-1.3); Eosinophils % 0.2 % (0-4.4); Hematocrit 34.5 % (39.6-49.0); Hemoglobin 11.1 g/dL (13.6-17.9); MCH 31.7 pg (27.0-35.0); MPV 8.5 fL (7.6-11.3); Monocytes % 8.1 % (3.3-12.3); Neutrophils % 85.6 % (41.7-73.7); Nucleated Red Blood Cells % 0.1 % (0-0); Platelets 164 thou/uL (152-406); RBC Red Blood Cell Count 3.49 M/uL (4.33-5.43); Red Cell Distribution Width 15.1 % (12.1-15.2)
[2024-01-06 12:20] LABS: BUN Blood Urea Nitrogen 12 mg/dL (7-18); Bicarbonate 23 mEq/L (21-32); Glucose Level 81 mg/dL (74-106); NT PRO-BNP 108 pg/mL (<125); Sodium Level 145 mEq/L (136-145)
[2024-01-06 12:21] LABS: Glomerular Filtration Rate 146 ml/min (=/>90)
[2024-01-06 12:29] LABS: SARS-CoV-2 Antigen CONTROL BLUE LINE VIS/BG OK; SARS-CoV-2 Antigen Rapid Res Negative (Negative)
[2024-01-06 12:37] LABS: Blood Morphology Comment NOT SEEN (NOT SEEN); Differential Total Cells Count 100; Lymphocytes 10 % (15-42); Metamyelocytes 2 % (0-0); Monocytes 3 % (0-10); Myelocytes 4 % (0-0); Platelet Estimate ADEQ; Segmented Neutrophils 81 % (40-80)
[2024-01-06] MEDS ORDERED: DIAZEPAM 10 MG/2 ML INJ SYRINGE ONE (16:25)
--- NOTE | 2024-01-06 17:08 | ER ---
Nurse's Notes [facility] Name: Arturo Gregorio Age: 58 yrs Sex: Male : 1965 Arrival Date: 01/06/2024 Time: 09:59 Bed 13 Private MD: Diagnosis: Feeding Tube Dysfunction;Supraventricular tachycardia Presentation: 01/05 10:12 Chief complaint: EMS states: toned out EMS for difficulty breathing, pt was in SVT rs5 with a rate in 200's, 6 mg Adenosine adm en route pt is now normal sinus. Coronavirus screen: At this time, the client does not indicate any symptoms associated with coronavirus-19. Ebola Screen: No symptoms or risks identified at this time. Initial Sepsis Screen: Does the patient meet any 2 criteria? HR > 90 bpm. Yes. Initial Sepsis Screen: Does the patient have a suspected source of infection? No. Patient's initial sepsis screen is negative. Risk Assessment: Do you want to hurt yourself or someone else? Patient reports no desire to harm self or others. Onset of symptoms was January 06, 2024. Care prior to arrival: IV initiated. 20 GA, in the right forearm. 10:12 Method Of Arrival: EMS: [facility] rs5 10:12 Acuity: NELLI 3 rs5 10:12 Care prior to arrival: Medication(s) given: Adenosine, 6 mg, x 1. rs5 Triage Assessment: 10:12 General: Appears in no apparent distress. uncomfortable, Behavior is calm, cooperative. rs5 Pain: Denies pain. Historical: - Allergies: 10:12 No Known Allergies; rs5 - PMHx: 10:12 BRAIN TUMOR; trach-Aug 2023; rs5 - PSHx: 10:12 tracheostomy (2023); rs5 - Immunization history:: Adult Immunizations up to date. - Infectious Disease History:: Denies. - Social history:: Smoking status: Patient denies any tobacco usage or history of. Screenin:11 [facility] ED Fall Risk Assessment (Adult) History of falling in the last 3 months, rs5 including since admission No falls in past 3 months (0 pts) Confusion or Disorientation No (0 pts) Intoxicated or Sedated No (0 pts) Impaired Gait Yes (1 pt) Mobility Assist Device Used Yes (1 pt) Altered Elimination No (0 pt) Score/Fall Risk Level 0 - 2 = Low Risk Oriented to surroundings, Maintained a safe environment. 10:11 Abuse screen: Denies threats or abuse. Nutritional screening: No deficits noted. rs5 Tuberculosis screening: No symptoms or risk factors identified. Assessment: 10:10 General: Appears in no apparent distress. comfortable, Behavior is calm, cooperative. rs5 Pain: Denies pain. Neuro: Level of Consciousness is awake, alert, obeys commands, Oriented to person, place, time, situation. Cardiovascular: Patient's skin is warm and dry. Respiratory: Trachea midline Respiratory effort is even, unlabored, Respiratory pattern is regular, symmetrical. Respiratory: Reports shortness of breath cough that is. GI: Abdomen is round non-distended, Abd is soft and non tender X 4 quads. : No signs and/or symptoms were reported regarding the genitourinary system. EENT: No signs and/or symptoms were reported regarding the EENT system. Derm: Skin is intact, Skin is pink, warm \\T\\ dry. Musculoskeletal: Range of motion: intact in all extremities. 11:13 Reassessment: Patient and/or family updated on plan of care and expected duration. Pain rs5 level reassessed. Patient is alert, oriented x 3, equal unlabored respirations, skin warm/dry/pink. Patient denies pain at this time. 11:51 Reassessment: No changes from previously documented assessment. rs5 11:51 Cardiovascular: Rhythm is sinus rhythm. rs5 13:30 Reassessment: Patient and/or family updated on plan of care and expected duration. Pain rs5 level reassessed. Patient is alert, oriented x 3, equal unlabored respirations, skin warm/dry/pink. Pt states "I've been having some issues with my feeding tube lately, it hurts and I feel medicine isn't really going in. this started yesterday" provider notified. 13:55 Reassessment: To bedside to flush feeding tube per MD orders. Feeding tube not rs5 inserted, feeding tube dislodge, provider notified. 14:07 Reassessment: to bedside with supplies for feeding tube insertion 14 ff, per MD orders. rs5 14:22 Reassessment: Provider at bedside for feeding tube insertion . rs5 15:10 Reassessment: Patient and/or family updated on plan of care and expected duration. Pain rs5 level reassessed. Patient is alert, oriented x 3, equal unlabored respirations, skin warm/dry/pink. 15:50 Reassessment: Patient and/or family updated on plan of care and expected duration. Pain rs5 level reassessed. Patient is alert, oriented x 3, equal unlabored respirations, skin warm/dry/pink. Diazepam IV unavailable in [facility], pharmacy contacted . 16:22 Reassessment: To bedside for med adm. rs5 16:30 Reassessment: Provider at bedside for feeding tube insertion . rs5 17:35 Reassessment: Patient and/or family updated on plan of care and expected duration. Pain rs5 level reassessed. Patient is alert, oriented x 3, equal unlabored respirations, skin warm/dry/pink. Vital Signs: 10:12 BP 87 / 61; Pulse 91; Resp 22; Temp 97.8(O); Pulse Ox 97% ; rs5 10:30 BP 90 / 62; Pulse 80; Resp 17; Pulse Ox 97% on R/A; rs5 11:48 BP 87 / 61; Pulse 73; Resp 16; Pulse Ox 98% on R/A; rs5 14:18 BP 80 / 64; Pulse 67; Resp 18; Pulse Ox 99% on R/A; rs5 17:25 BP 91 / 65; Pulse 75; Resp 17; Pulse Ox 99% on R/A; rs5 ED Course: 10:05 Patient arrived in ED. ec2 10:06 Jake Crowley MD is Attending Physician. ec2 10:11 No provider procedures requiring assistance completed. rs5 10:11 Patient has correct armband on for positive identification. Placed in gown. Bed in low rs5 position. Call light in reach. Side rails up X2. 10:12 Zackary Claudio, YESENIA is Primary Nurse. rs5 10:14 EKG done, by ED staff, reviewed by Jake Crowley MD. zm 10:15 Triage completed. rs5 10:43 Initial lab(s) drawn, by mo, sent to lab. Inserted saline lock: 22 gauge in left zm forearm, using aseptic technique. Blood collected. 10:43 Basic Metabolic Panel Sent. zm 10:43 CBC with Diff Sent. zm 10:43 NT PRO-BNP Sent. zm 10:52 XRAY Chest (1 view) In Process Unspecified. EDMS 17:30 IV discontinued, intact, bleeding controlled, No redness/swelling at site. Pressure rs5 dressing applied. Administered Medications: 16:50 Drug: Diazepam IVP 5 mg IVP once Route: IVP; Site: left forearm; rs5 17:05 Follow up: Response: No adverse reaction rs5 16:50 Drug: Diazepam IVP 5 mg IVP once Route: IVP; Site: left forearm; rs5 17:20 Follow up: Response: No adverse reaction rs5 Medication: 11:51 VIS not applicable for this client. rs5 Outcome: 17:07 Discharge ordered by MD. ec2 17:30 Discharged to home ambulatory, rs5 17:30 Condition: stable 17:30 Discharge instructions given to patient, family, Instructed on discharge instructions, follow up and referral plans. Demonstrated understanding of instructions, follow-up care, 17:37 Patient left the ED. rs5 Signatures: Dispatcher [employer] EDMS Linda Arora Ricky RN RN rs5 Jake Crowley MD MD ec2 Corrections: (The following items were deleted from the chart) 14:19 11:48 BP 87 / 61; Pulse 73bpm; Resp 17bpm; Pulse Ox 98% RA; rs5 rs5 17:19 15:40 Diazepam IVP 5 mg IVP in left antecubital rs5 rs5 18:06 17:40 BP 91 / 65; Pulse 75bpm; Resp 17bpm; Pulse Ox 99% RA; rs5 rs5
--- NOTE | 2024-01-06 17:08 | EDPHYS ---
Physician Documentation [facility] Name: Arturo Gregorio Age: 58 yrs Sex: Male : 1965 Arrival Date: 01/06/2024 Time: 09:59 Bed 13 Private MD: ED Physician Jake Crowley HPI: 01/05 10:06 This 58 yrs old Male presents to ER via Unassigned with complaints of svt, sob.ec2 10:06 Patient arrives today for evaluation of SVT. Initially EMS was called, patient with ec2 complaints of shortness of breath, was suctioned with improvement and also given oxygen via his trach, patient noted to be in SVT with heart rates in the 200s that resolved after 6 mg of adenosine. Patient reports marked improvement in symptoms at this time. . Historical: - Allergies: 10:12 No Known Allergies; rs5 - PMHx: 10:12 BRAIN TUMOR; trach-Aug 2023; rs5 - PSHx: 10:12 tracheostomy (2023); rs5 - Immunization history:: Adult Immunizations up to date. - Infectious Disease History:: Denies. - Social history:: Smoking status: Patient denies any tobacco usage or history of. ROS: 10:06 Constitutional: as per hpi ec2 Exam: 10:06 Constitutional: GEN: NAD Head: atraumatic Eyes: EOMI Ears: External ears are ec2 normal. CV: regular rate LUNGS: no respiratory distress ABD: non-distended SKIN: no evidence of rashes MSK: no evidence of trauma NEURO: moves all extremities equally Vital Signs: 10:12 BP 87 / 61; Pulse 91; Resp 22; Temp 97.8(O); Pulse Ox 97% ; rs5 10:30 BP 90 / 62; Pulse 80; Resp 17; Pulse Ox 97% on R/A; rs5 11:48 BP 87 / 61; Pulse 73; Resp 16; Pulse Ox 98% on R/A; rs5 14:18 BP 80 / 64; Pulse 67; Resp 18; Pulse Ox 99% on R/A; rs5 17:25 BP 91 / 65; Pulse 75; Resp 17; Pulse Ox 99% on R/A; rs5 MDM: 10:06 Patient medically screened. ec2 10:06 Data reviewed: vital signs. ED course: Patient arrives today for SVT and shortness of ec2 breath. Examination remarkable for cardiopulmonary findings as above. Will obtain lab work, EKG, chest x-ray. Differential diagnosis includes infection, volume overload, ACS. 10:12 ED course: EKG independently reviewed and interpreted by me, shows normal sinus rhythm, ec2 rate of 85, no acute ST segment elevations, intervals are nonconcerning.. 12:42 ED course: Metabolic profile shows slight hypokalemia with potassium of 3.0. CBC shows ec2 anemia with hemoglobin of 11. BMP within normal ranges, flu and COVID testing negative. Chest x-ray shows no acute intrathoracic process. . 13:30 ED course: On reassessment patient is well-appearing in no acute distress. Patient ec2 reports improvement in symptoms. Patient does have some erythema around the trach site, with outpatient antibiotics for possible early cellulitis. Family also concerned regarding obstruction of the PEG tube, with flushes as well.. 14:10 ED course: Patient has pulled his PEG tube out, will replace this.. ec2 17:06 ED course: Attempted to place a 14 [place] feeding tube at the bedside without success, ec2 ultimately I placed a smaller Haq to keep the tract patent. I discussed transferring the patient for GI management and placement of the tube. I discussed the plan with patient and and ultimately there is increment weather and coming and [facility] discussed that they would rather be at home due to the significant weather changes. I started him that is important that he take his medications, family states that he will be able to take them via oral route as he does take some foods and liquids through mouth. Instructed them if this fails we are here and he should return.. 01/05 10:06 Order name: Basic Metabolic Panel; Complete Time: 12:42 ec2 01/05 10:06 Order name: CBC with Diff; Complete Time: 12:42 ec2 01/05 10:06 Order name: NT PRO-BNP; Complete Time: 12:42 ec2 01/05 10:06 Order name: Influenza Screen (a \T\ B); Complete Time: 12:42 ec2 01/05 10:06 Order name: SARS RAPID; Complete Time: 12:42 ec2 01/05 12:38 Order name: Manual Differential; Complete Time: 12:42 EDMS 01/05 10:06 Order name: XRAY Chest (1 view); Complete Time: 11:24 ec2 01/05 10:06 Order name: EKG; Complete Time: 10:06 ec2 01/05 10:06 Order name: Cardiac monitoring; Complete Time: 10:14 ec2 01/05 10:06 Order name: EKG - Nurse/Tech; Complete Time: 10:14 ec2 01/05 10:06 Order name: IV Saline Lock; Complete Time: 10:16 ec2 01/05 10:06 Order name: Labs collected and sent; Complete Time: 10:16 ec2 01/05 10:06 Order name: O2 Per Protocol; Complete Time: 10:16 ec2 01/05 10:06 Order name: O2 Sat Monitoring; Complete Time: 10:16 ec2 01/05 10:57 Order name: Labs - recollect needed: recollect labs/ hemolyzed; Complete Time: 11:47 eb 01/05 13:30 Order name: Misc. Order: flush PEG tube; Complete Time: 13:41 ec2 01/05 14:13 Order name: Misc. Order: need PEG tube; Complete Time: 14:19 ec2 Administered Medications: 16:50 Drug: Diazepam IVP 5 mg IVP once Route: IVP; Site: left forearm; rs5 17:05 Follow up: Response: No adverse reaction rs5 16:50 Drug: Diazepam IVP 5 mg IVP once Route: IVP; Site: left forearm; rs5 17:20 Follow up: Response: No adverse reaction rs5 Disposition Summary: 01/06/24 17:07 Discharge Ordered Notes: Location: Home ec2 Condition: Stable ec2 Diagnosis - Feeding Tube Dysfunction ec2 - Supraventricular tachycardia ec2 Followup: ec2 - With: Private Physician - When: - Reason: Re-evaluation by your physician Forms: - Medication Reconciliation Form ec2 - Antibiotic Education ec2 - Prescription Opioid Use ec2 - Patient Portal Instructions ec2 - Leadership Thank You Letter ec2 Signatures: Dispatcher [employer] EDNV La Jean Ricky, RN RN rs5 Jake Crowley MD MD ec2 Corrections: (The following items were deleted from the chart) 10:06 10:06 Influenza Screen (A \T\ B)+BA.LAB.BRZ ordered. EDMS EDMS 10:06 10:06 SARS-COV-2 Antigen Rapid+I.LAB.BRZ ordered. EDMS EDMS
[2024-01-06 17:44] VITALS: TEMP 97.8
[2024-01-06 18:03] VITALS: BP 80/64; O2SAT 99
--- NOTE | 2024-01-09 12:18 | EKG ---
Test Date: 2024-01-06 Test Time: 10:08:54 Resident Engineer: JAMES MEASUREMENT RESULTS: Intervals: Rate: 87 AR: 122 QRSD: 84 QT: 366 QTc: 440 [place]: P: 41 AR: 122 QRS: 49 T: 19 INTERPRETIVE STATEMENTS: Sinus rhythm with fusion complexes Nonspecific ST abnormality Abnormal ECG Compared to ECG 12/02/2023 15:39:29 Fusion complex(es) now present ST (T wave) deviation now present Electronically Signed On 01-09-24 12:13:14 CDT by Hardik Almazan
== END 2024-01-06 17:37 | disposition home or self-care (01) ==
LOC: ER 09:59
DX: I47.10 Supraventricular tachycardia, unspecified (principal); K94.23 Gastrostomy malfunction; Z11.52 Encounter for screening for COVID-19
CPT/HCPCS: 93005; 85025; 80048; 36415; 83880; 87804 ×2; 71045; 96374; 99284; 87811; 43762; J3360

== ENCOUNTER 2024-01-08 17:51 | Inpatient (IN) | payer OTHER ==
--- OUTSIDE RECORDS SUMMARY | 2024-01-08 17:55 | XMS REPORT | Clinical Summary ---
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,Neoplasm of uncertain [...] Department Care Team Description 07/20/2023 10:30 AM SENIOR SALES OPERATIONS MANAGER Nutrition Clinical Nutrition For your Nutrition appointment location directions please call: Gertrude Jesus MD Coleman, Timothy, RD Generalized muscle weakness; Mass lesion of brain; Lack of coordination, not otherwise specified; Impaired vibration sensation of foot; Neoplasm of brain; Dysphagia, oropharyngeal phase; Vasogenic cerebral edema 07/14/2023 Telephone [facility] PHYSICIAN [address] [place] [phone] Skye Atkins, social work professor Call 07/13/2023 Telephone [facility] [address] [place] [phone] Jc Pardo, social work professor Call 07/13/2023 Travel 07/03/2023 12:13 PM SENIOR SALES OPERATIONS MANAGER Anesthesia Event Main Interventional Radiology [address] [place], [place] [address] 3[facility] [place] [address] Jessica Zafar APRN, MORENA 06/29/2023 Orders Only [facility] [address] [place] [address], 7th [place] [address] Beverly, Poornima, PHOTOCOMPOSING KEYBOARD OPERATOR 06/29/2023 Orders Only [facility] [address] [place] [address], 7th [place] [address] Beverly, Poornima, PHOTOCOMPOSING KEYBOARD OPERATOR Malignant neoplasm of brain stem (Primary Dx) 06/29/2023 Orders Only [facility] [address] [place] [address], 7th [place] [address] Beverly, Poornima, PHOTOCOMPOSING KEYBOARD OPERATOR Malignant neoplasm of brain stem (Primary Dx) 06/28/2023 Prep for Surgery [facility] [address] [place] [address], 7th [place] [address] Lozada, Nora G, PHOTOCOMPOSING KEYBOARD OPERATOR Mass lesion of brain (Primary Dx) 06/27/2023 5:03 PM SENIOR SALES OPERATIONS MANAGER - 07/12/2023 1:07 PM SENIOR SALES OPERATIONS MANAGER Hospital Encounter MAIN [id number] [address] [place] [id number] Lori Greco MD Walton, Natalie, MD George, Marina, MD Zhou, Yan, MD Leung, Cerena, MD Kheder, Rhett, Generalized muscle weakness (Primary Dx); Mass lesion of brain; Lack of coordination, not otherwise specified; Impaired vibration sensation of foot; Neoplasm of brain; Dysphagia, oropharyngeal phase; Vasogenic cerebral edema; prison current use of systemic steroid; Neoplasm of uncertain behavior of brain, not otherwise specified Discharge Disposition: Home 06/27/2023 Travel after 01/08/2023 Medical History Medical History Date Comments Blind [...] file Travel History Travel Start Travel End [place] 06/16/2023 06/27/2023 Obstetrics History Last Filed Vital Signs Vital Sign Reading Time Taken Comments Blood Pressure 91/64 07/12/2023 6:53 AM SENIOR SALES OPERATIONS MANAGER Pulse 90 07/12/2023 6:53 AM SENIOR SALES OPERATIONS MANAGER Temperature 37 C (98.6 F) 07/12/2023 6:52 AM SENIOR SALES OPERATIONS MANAGER Respiratory Rate 17 07/12/2023 6:53 AM SENIOR SALES OPERATIONS MANAGER Oxygen Saturation 97% 07/12/2023 6:53 AM SENIOR SALES OPERATIONS MANAGER Inhaled Oxygen Concentration - - Weight 62.7 kg (138 lb 3.7 oz) 06/27/2023 8:36 P M SENIOR SALES OPERATIONS MANAGER Height 162 cm (5' 3.78") 06/27/2023 8:36 PM SENIOR SALES OPERATIONS MANAGER Body Mass Index 23.89 06/27/2023 8:36 PM SENIOR SALES OPERATIONS MANAGER Plan of Treatment Health Maintenance Due Date Last Done Comments COVID-19 Vaccine ( season) 2023 Influenza Vaccine 03/02/2024 Procedures Procedure Name Priority Date/Time Associated Diagnosis Comments POC GLUCOSE SCREEN Routine 07/12/2023 6: 00 AM SENIOR SALES OPERATIONS MANAGER .CBC Routine 07/12/2023 2:52 AM SENIOR SALES OPERATIONS MANAGER PHOSPHORUS LEVEL Routine 07/12/2023 2:52 AM SENIOR SALES OPERATIONS MANAGER MAGNESIUM LEVEL Routine 07/12/2023 2:52 AM SENIOR SALES OPERATIONS MANAGER BASIC METABOLIC PANEL, CALCIUM TOTAL Routine 07/12/2023 2:52 AM SENIOR SALES OPERATIONS MANAGER COMPLETE BLOOD COUNT W/ DIFFERENTIAL Routine 07/12/2023 2:52 AM SENIOR SALES OPERATIONS MANAGER POC GLUCOSE SCREEN Routine 07/12/2023 12 :16 AM SENIOR SALES OPERATIONS MANAGER POC GLUCOSE SCREEN Routine 07/11/2023 12 :18 PM SENIOR SALES OPERATIONS MANAGER POC GLUCOSE SCREEN Routine 07/11/2023 6: 08 AM SENIOR SALES OPERATIONS MANAGER .CBC Routine 07/11/2023 2:55 AM SENIOR SALES OPERATIONS MANAGER PHOSPHORUS LEVEL Routine 07/11/2023 2:55 AM SENIOR SALES OPERATIONS MANAGER MAGNESIUM LEVEL Routine 07/11/2023 2:55 AM SENIOR SALES OPERATIONS MANAGER BASIC METABOLIC PANEL, CALCIUM TOTAL Routine 07/11/2023 2:55 AM SENIOR SALES OPERATIONS MANAGER COMPLETE BLOOD COUNT W/ DIFFERENTIAL Routine 07/11/2023 2:55 AM SENIOR SALES OPERATIONS MANAGER POC GLUCOSE SCREEN Routine 07/11/2023 12 :01 AM SENIOR SALES OPERATIONS MANAGER POC GLUCOSE SCREEN Routine 07/10/2023 6: 10 PM SENIOR SALES OPERATIONS MANAGER POC GLUCOSE SCREEN Routine 07/10/2023 12 :09 PM SENIOR SALES OPERATIONS MANAGER POC GLUCOSE SCREEN Routine 07/10/2023 6: 26 AM SENIOR SALES OPERATIONS MANAGER .CBC Routine 07/10/2023 5:28 AM SENIOR SALES OPERATIONS MANAGER COMPLETE BLOOD COUNT W/ DIFFERENTIAL Routine 07/10/2023 5:28 AM SENIOR SALES OPERATIONS MANAGER PHOSPHORUS LEVEL Routine 07/10/2023 5:27 AM SENIOR SALES OPERATIONS MANAGER MAGNESIUM LEVEL Routine 07/10/2023 5:27 AM SENIOR SALES OPERATIONS MANAGER BASIC METABOLIC PANEL, CALCIUM TOTAL Routine 07/10/2023 5:27 AM SENIOR SALES OPERATIONS MANAGER POC GLUCOSE SCREEN Routine 07/10/2023 2: 48 AM SENIOR SALES OPERATIONS MANAGER POC GLUCOSE SCREEN Routine 07/09/2023 6: 36 PM SENIOR SALES OPERATIONS MANAGER POC GLUCOSE SCREEN Routine 07/09/2023 1: 03 PM SENIOR SALES OPERATIONS MANAGER XR ABDOMEN 1 VW PORTABLE Routine 07/09/2023 12:59 PM SENIOR SALES OPERATIONS MANAGER POC GLUCOSE SCREEN Routine 07/09/2023 5: 43 AM SENIOR SALES OPERATIONS MANAGER GLUCOSE 6-PHOSPHATE DEHYDRGENASE ENZYME ACTIVITY Add-On 07/09/2023 2:21 AM SENIOR SALES OPERATIONS MANAGER .CBC Routine 07/09/2023 2:21 AM SENIOR SALES OPERATIONS MANAGER PHOSPHORUS LEVEL Routine 07/09/2023 2:21 AM SENIOR SALES OPERATIONS MANAGER MAGNESIUM LEVEL Routine 07/09/2023 2:21 AM SENIOR SALES OPERATIONS MANAGER BASIC METABOLIC PANEL, CALCIUM TOTAL Routine 07/09/2023 2:21 AM SENIOR SALES OPERATIONS MANAGER COMPLETE BLOOD COUNT W/ DIFFERENTIAL Routine 07/09/2023 2:21 AM SENIOR SALES OPERATIONS MANAGER POC GLUCOSE SCREEN Routine 07/08/2023 11 :33 PM SENIOR SALES OPERATIONS MANAGER POC GLUCOSE SCREEN Routine 07/08/2023 6: 04 PM SENIOR SALES OPERATIONS MANAGER POC GLUCOSE SCREEN Routine 07/08/2023 12 :03 PM SENIOR SALES OPERATIONS MANAGER POC GLUCOSE SCREEN Routine 07/08/2023 6: 27 AM SENIOR SALES OPERATIONS MANAGER .CBC Routine 07/08/2023 3:03 AM SENIOR SALES OPERATIONS MANAGER PHOSPHORUS LEVEL Routine 07/08/2023 3:03 AM SENIOR SALES OPERATIONS MANAGER MAGNESIUM LEVEL Routine 07/08/2023 3:03 AM SENIOR SALES OPERATIONS MANAGER BASIC METABOLIC PANEL, CALCIUM TOTAL Routine 07/08/2023 3:03 AM SENIOR SALES OPERATIONS MANAGER COMPLETE BLOOD COUNT W/ DIFFERENTIAL Routine 07/08/2023 3:03 AM SENIOR SALES OPERATIONS MANAGER POC GLUCOSE SCREEN Routine 07/08/2023 12 :43 AM SENIOR SALES OPERATIONS MANAGER POC GLUCOSE SCREEN Routine 07/07/2023 6: 13 PM SENIOR SALES OPERATIONS MANAGER POC GLUCOSE SCREEN Routine 07/07/2023 12 :40 PM SENIOR SALES OPERATIONS MANAGER XR ABDOMEN 1 VW PORTABLE Routine 07/07/2023 11:00 AM SENIOR SALES OPERATIONS MANAGER POC GLUCOSE SCREEN Routine 07/07/2023 6: 45 AM SENIOR SALES OPERATIONS MANAGER .CBC Routine 07/07/2023 4:21 AM SENIOR SALES OPERATIONS MANAGER PHOSPHORUS LEVEL Routine 07/07/2023 4:21 AM SENIOR SALES OPERATIONS MANAGER MAGNESIUM LEVEL Routine 07/07/2023 4:21 AM SENIOR SALES OPERATIONS MANAGER BASIC METABOLIC PANEL, CALCIUM TOTAL Routine 07/07/2023 4:21 AM SENIOR SALES OPERATIONS MANAGER COMPLETE BLOOD COUNT W/ DIFFERENTIAL Routine 07/07/2023 4:21 AM SENIOR SALES OPERATIONS MANAGER POC GLUCOSE SCREEN Routine 07/07/2023 12 :10 AM SENIOR SALES OPERATIONS MANAGER POC GLUCOSE SCREEN Routine 07/06/2023 6: 32 PM SENIOR SALES OPERATIONS MANAGER POC GLUCOSE SCREEN Routine 07/06/2023 12 :07 PM SENIOR SALES OPERATIONS MANAGER POC GLUCOSE SCREEN Routine 07/06/2023 6: 01 AM SENIOR SALES OPERATIONS MANAGER .CBC Routine 07/06/2023 5:31 AM SENIOR SALES OPERATIONS MANAGER PHOSPHORUS LEVEL Routine 07/06/2023 5:31 AM SENIOR SALES OPERATIONS MANAGER MAGNESIUM LEVEL Routine 07/06/2023 5:31 AM SENIOR SALES OPERATIONS MANAGER BASIC METABOLIC PANEL, CALCIUM TOTAL Routine 07/06/2023 5:31 AM SENIOR SALES OPERATIONS MANAGER COMPLETE BLOOD COUNT W/ DIFFERENTIAL Routine 07/06/2023 5:31 AM SENIOR SALES OPERATIONS MANAGER POC GLUCOSE SCREEN Routine 07/05/2023 11 :56 PM SENIOR SALES OPERATIONS MANAGER POC GLUCOSE SCREEN Routine 07/05/2023 6: 38 PM SENIOR SALES OPERATIONS MANAGER XR ABDOMEN 1 VW PORTABLE Routine 07/05/2023 12:10 PM SENIOR SALES OPERATIONS MANAGER POC GLUCOSE SCREEN Routine 07/05/2023 6: 39 AM SENIOR SALES OPERATIONS MANAGER .CBC Routine 07/05/2023 4:39 AM SENIOR SALES OPERATIONS MANAGER PHOSPHORUS LEVEL Routine 07/05/2023 4:39 AM SENIOR SALES OPERATIONS MANAGER MAGNESIUM LEVEL Routine 07/05/2023 4:39 AM SENIOR SALES OPERATIONS MANAGER BASIC METABOLIC PANEL, CALCIUM TOTAL Routine 07/05/2023 4:39 AM SENIOR SALES OPERATIONS MANAGER COMPLETE BLOOD COUNT W/ DIFFERENTIAL Routine 07/05/2023 4:39 AM SENIOR SALES OPERATIONS MANAGER POC GLUCOSE SCREEN Routine 07/05/2023 2: 00 AM SENIOR SALES OPERATIONS MANAGER POC GLUCOSE SCREEN Routine 07/04/2023 6: 01 PM SENIOR SALES OPERATIONS MANAGER POC GLUCOSE SCREEN Routine 07/04/2023 12 :55 PM SENIOR SALES OPERATIONS MANAGER POC GLUCOSE SCREEN Routine 07/04/2023 6: 12 AM SENIOR SALES OPERATIONS MANAGER .CBC Routine 07/04/2023 4:20 AM SENIOR SALES OPERATIONS MANAGER PHOSPHORUS LEVEL Routine 07/04/2023 4:20 AM SENIOR SALES OPERATIONS MANAGER MAGNESIUM LEVEL Routine 07/04/2023 4:20 AM SENIOR SALES OPERATIONS MANAGER BASIC METABOLIC PANEL, CALCIUM TOTAL Routine 07/04/2023 4:20 AM SENIOR SALES OPERATIONS MANAGER COMPLETE BLOOD COUNT W/ DIFFERENTIAL Routine 07/04/2023 4:20 AM SENIOR SALES OPERATIONS MANAGER TYPE AND SCREEN Routine 07/04/2023 4:20 AM SENIOR SALES OPERATIONS MANAGER POC GLUCOSE SCREEN Routine 07/03/2023 11 :55 PM SENIOR SALES OPERATIONS MANAGER POC GLUCOSE SCREEN Routine 07/03/2023 5: 55 PM SENIOR SALES OPERATIONS MANAGER IR PERC FEEDING GASTROSTOMY PLACEMENT 90 STAT 07/03/2023 1:42 PM SENIOR SALES OPERATIONS MANAGER Mass lesion of brain POC GLUCOSE SCREEN Routine 07/03/2023 12 :22 PM SENIOR SALES OPERATIONS MANAGER POC GLUCOSE SCREEN Routine 07/03/2023 6: 02 AM SENIOR SALES OPERATIONS MANAGER .CBC Routine 07/03/2023 4:15 AM SENIOR SALES OPERATIONS MANAGER PHOSPHORUS LEVEL Routine 07/03/2023 4:15 AM SENIOR SALES OPERATIONS MANAGER MAGNESIUM LEVEL Routine 07/03/2023 4:15 AM SENIOR SALES OPERATIONS MANAGER BASIC METABOLIC PANEL, CALCIUM TOTAL Routine 07/03/2023 4:15 AM SENIOR SALES OPERATIONS MANAGER COMPLETE BLOOD COUNT W/ DIFFERENTIAL Routine 07/03/2023 4:15 AM SENIOR SALES OPERATIONS MANAGER POC GLUCOSE SCREEN Routine 07/03/2023 12 :01 AM SENIOR SALES OPERATIONS MANAGER POC GLUCOSE SCREEN Routine 07/02/2023 6: 10 PM SENIOR SALES OPERATIONS MANAGER POC GLUCOSE SCREEN Routine 07/02/2023 2: 18 PM SENIOR SALES OPERATIONS MANAGER POC GLUCOSE SCREEN Routine 07/02/2023 5: 57 AM SENIOR SALES OPERATIONS MANAGER .CBC Routine 07/02/2023 2:12 AM SENIOR SALES OPERATIONS MANAGER PHOSPHORUS LEVEL Routine 07/02/2023 2:12 AM SENIOR SALES OPERATIONS MANAGER MAGNESIUM LEVEL Routine 07/02/2023 2:12 AM SENIOR SALES OPERATIONS MANAGER BASIC METABOLIC PANEL, CALCIUM TOTAL Routine 07/02/2023 2:12 AM SENIOR SALES OPERATIONS MANAGER COMPLETE BLOOD COUNT W/ DIFFERENTIAL Routine 07/02/2023 2:12 AM SENIOR SALES OPERATIONS MANAGER POC GLUCOSE SCREEN Routine 07/02/2023 2: 07 AM SENIOR SALES OPERATIONS MANAGER POC GLUCOSE SCREEN Routine 07/01/2023 8: 00 PM SENIOR SALES OPERATIONS MANAGER POC GLUCOSE SCREEN Routine 07/01/2023 5: 42 PM SENIOR SALES OPERATIONS MANAGER POC GLUCOSE SCREEN Routine 07/01/2023 12 :10 PM SENIOR SALES OPERATIONS MANAGER POC GLUCOSE SCREEN Routine 07/01/2023 6: 02 AM SENIOR SALES OPERATIONS MANAGER .CBC Routine 07/01/2023 3:52 AM SENIOR SALES OPERATIONS MANAGER PHOSPHORUS LEVEL Routine 07/01/2023 3:52 AM SENIOR SALES OPERATIONS MANAGER MAGNESIUM LEVEL Routine 07/01/2023 3:52 AM SENIOR SALES OPERATIONS MANAGER BASIC METABOLIC PANEL, CALCIUM TOTAL Routine 07/01/2023 3:52 AM SENIOR SALES OPERATIONS MANAGER COMPLETE BLOOD COUNT W/ DIFFERENTIAL Routine 07/01/2023 3:52 AM SENIOR SALES OPERATIONS MANAGER TYPE AND SCREEN Routine 07/01/2023 3:52 AM SENIOR SALES OPERATIONS MANAGER POC GLUCOSE SCREEN Routine 07/01/2023 12 :02 AM SENIOR SALES OPERATIONS MANAGER POC GLUCOSE SCREEN Routine 06/30/2023 6: 39 AM SENIOR SALES OPERATIONS MANAGER .CBC Routine 06/30/2023 4:31 AM SENIOR SALES OPERATIONS MANAGER PHOSPHORUS LEVEL Routine 06/30/2023 4:31 AM SENIOR SALES OPERATIONS MANAGER MAGNESIUM LEVEL Routine 06/30/2023 4:31 AM SENIOR SALES OPERATIONS MANAGER BASIC METABOLIC PANEL, CALCIUM TOTAL Routine 06/30/2023 4:31 AM SENIOR SALES OPERATIONS MANAGER COMPLETE BLOOD COUNT W/ DIFFERENTIAL Routine 06/30/2023 4:31 AM SENIOR SALES OPERATIONS MANAGER POC GLUCOSE SCREEN Routine 06/30/2023 12 :17 AM SENIOR SALES OPERATIONS MANAGER POC GLUCOSE SCREEN Routine 06/29/2023 5: 06 PM SENIOR SALES OPERATIONS MANAGER FL MODIFIED BARIUM SWALLOW W SPEECH STAT 06/29/2023 2:39 PM SENIOR SALES OPERATIONS MANAGER .CBC Routine 06/29/2023 4:48 AM SENIOR SALES OPERATIONS MANAGER PHOSPHORUS LEVEL Routine 06/29/2023 4:48 AM SENIOR SALES OPERATIONS MANAGER MAGNESIUM LEVEL Routine 06/29/2023 4:48 AM SENIOR SALES OPERATIONS MANAGER BASIC METABOLIC PANEL, CALCIUM TOTAL Routine 06/29/2023 4:48 AM SENIOR SALES OPERATIONS MANAGER COMPLETE BLOOD COUNT W/ DIFFERENTIAL Routine 06/29/2023 4:48 AM SENIOR SALES OPERATIONS MANAGER HC PROCALCITONIN (PCT) Routine 2:06 PM SENIOR SALES OPERATIONS MANAGER ECHOCARDIOGRAM 2D COMPLETE STAT 06/28/2023 11:46 AM SENIOR SALES OPERATIONS MANAGER MRI BRAIN W WO CONTRAST STAT 06/28/20 6:16 AM SENIOR SALES OPERATIONS MANAGER CT CHEST ABDOMEN PELVIS W WO CONTRAST STAT 06/28/2023 5:00 AM SENIOR SALES OPERATIONS MANAGER DIFFERENTIAL Routine 06/28/2023 2:49 AM SENIOR SALES OPERATIONS MANAGER .CBC Routine 06/28/2023 2:49 AM SENIOR SALES OPERATIONS MANAGER PHOSPHORUS LEVEL Routine 06/28/2023 2:49 AM SENIOR SALES OPERATIONS MANAGER MAGNESIUM LEVEL Routine 06/28/2023 2:49 AM SENIOR SALES OPERATIONS MANAGER BASIC METABOLIC PANEL, CALCIUM TOTAL Routine 06/28/2023 2:49 AM SENIOR SALES OPERATIONS MANAGER COMPLETE BLOOD COUNT W/ DIFFERENTIAL Routine 06/28/2023 2:49 AM SENIOR SALES OPERATIONS MANAGER CONFIRM ABORH TYPE STAT 06/28/2023 2: 49 AM SENIOR SALES OPERATIONS MANAGER XR ABDOMEN 1 VW PORTABLE STAT 06/28/2023 12:45 AM SENIOR SALES OPERATIONS MANAGER EKG, 12-LEAD (PORTABLE) Routine 06/28/2023 TYPE AND SCREEN STAT 06/27/2023 9:44 PM SENIOR SALES OPERATIONS MANAGER XR CHEST 1 VW Routine 06/27/2023 7:50 PM SENIOR SALES OPERATIONS MANAGER CT HEAD WO CONTRAST STAT 06/27/2023 7 :03 PM SENIOR SALES OPERATIONS MANAGER .CBC Routine 06/27/2023 5:23 PM SENIOR SALES OPERATIONS MANAGER COMPREHENSIVE METABOLIC PANEL Routine 06/27/2023 5:23 PM SENIOR SALES OPERATIONS MANAGER APTT Routine 06/27/2023 5:23 PM SENIOR SALES OPERATIONS MANAGER PROTHROMBIN TIME Routine 06/27/2023 5:23 PM SENIOR SALES OPERATIONS MANAGER COMPLETE BLOOD COUNT W/ DIFFERENTIAL Routine 06/27/2023 5:23 PM SENIOR SALES OPERATIONS MANAGER after 01/08/2023 Results * POC Glucose Screen - Fingerstick (07/12/2023 6:00 AM SENIOR SALES OPERATIONS MANAGER) Only the most recent of48 resultswithin the time period is included. [employer] Signature Glucose Screen 97 70 - 99 mg/dL 07/12/2023 6:02 AM SENIOR SALES OPERATIONS MANAGER [facility] POC Sample Type Capillary 07/12/2023 6:02 AM [facility] Blood 07/12/2023 6:00 AM SENIOR SALES OPERATIONS MANAGER 07/12/2023 6:02 AM SENIOR SALES OPERATIONS MANAGER Narrative [facility] - 07/12/2023 6:02 AM SENIOR SALES OPERATIONS MANAGER Capillary blood samples, e.g. obtained by fingerstick, [...] by: Division of Pathology and Laboratory Medicine [facility] [place] [address] * (ABNORMAL) .CBC (07/12/2023 2:52 AM SENIOR SALES OPERATIONS MANAGER) Only the most recent of16 resultswithin the time period is included. White Blood Cell 12.8(H) 4.1 - 10.5 K/uL 07/12/2023 3:31 AM [facility] Red Blood Cell 4.81 4.30 - 6.04 M/uL 07/12/2023 3:31 AM [facility] Hemoglobin 14.6 13.3 - 17.4 g/dL 07/12/2023 3:31 AM [facility] Hematocrit 44.8 39.5 - 51.8 % 07/12/2023 3:31 AM [facility] Mean Cell Volume 93 82 - 99 fL 07/12/2023 3:31 AM [facility] Mean Cell Hemoglobin 30.4 26.6 - 33.2 pg 07/12/2023 3:31 AM [facility] Mean Cell Hemoglobin Concentration 32.6 31.1 - 35.2 g/dL 07/12/2023 3:31 AM [facility] RDW-SD 45.9 37.5 - 49.7 fL 07/12/2023 3:31 AM [facility] Red Cell Diameter Width 13.5 11.6 - 15.5 % 07/12/2023 3:31 AM [facility] Platelet 183 160 - 397 K/uL 07/12/2023 3:31 AM [facility] Mean Platelet Volume 11.9 9.1 - 12.6 fL 07/12/2023 3:31 AM [facility] INRBC 0.0 0.0 - 0.1 /100 WBC 07/12/2023 3:31 AM [facility] Comment: The INRBC (instrument NRBC) value reflects the enumeration of nucleated red blood cells contained in a 200uL sample of whole blood analyzed by the instrument. This value may differ from the NRBC value reported in a manual differential, which is based on a 100 cell differential. Neutrophil % 77.2(H) 43.2 - 72.7 % 07/12/2023 3:31 AM [facility] Lymphocyte % 12.4(L) 16.8 - 46.2 % 07/12/2023 3:31 AM [facility] Monocyte % 9.1 5.1 - 12.5 % 07/12/2023 3:31 AM [facility] Eosinophil % 0.0(L) 0.4 - 6.3 % 07/12/2023 3:31 AM [facility] Basophil % 0.2 0.2 - 1.4 % 07/12/2023 3:31 AM [facility] IGRE % 1.1 0.1 - 1.5 % 07/12/2023 3:31 AM [facility] Comment:The IGRE% includes M etamyelocytes, Myelocytes and Promyelocytes. Neutrophil Abs 9.90(H) 1.95 - 7.25 K/uL 07/12/2023 3:31 AM [facility] Lymphocyte Abs 1.59 1.01 - 3.24 K/uL 07/12/2023 3:31 AM [facility] Monocyte Abs 1.16(H) 0.24 - 0.85 K/uL 07/12/2023 3:31 AM [facility] Eosinophil Abs 0.00(L) 0.02 - 0.50 K/uL 07/12/2023 3:31 AM [facility] Basophil Abs 0.02 0.02 - 0.09 K/uL 07/12/2023 3:31 AM [facility] IG Abs 0.14(H) 0.01 - 0.12 K/uL 07/12/2023 3:31 AM [facility] Blood Peripheral blood specimen / Unknown Venipuncture / Unknown 07/12/2023 2:52 AM SENIOR SALES OPERATIONS MANAGER 07/12/2023 3:18 AM SENIOR SALES OPERATIONS MANAGER Naye Amin MD LAB BLOOD ORDERABLES [facility] Unless otherwise noted, all lab tests performed by: Division of Pathology and Laboratory Medicine [address] [place] [address] * (ABNORMAL) Basic Metabolic Panel- Total Calcium (07/12/2023 2:52 AM SENIOR SALES OPERATIONS MANAGER) Only the most recent of15 resultswithin the time period is included. eGFR 108 >=60 mL/min/1.7 3 sq. m 07/12/2023 3:57 AM SENIOR SALES OPERATIONS MANAGER [facility] Comment: The eGFRcr [...] 8.2 - 10.2 mg/dL 07/12/2023 3:57 AM SENIOR SALES OPERATIONS MANAGER [facility] Comment:This result was prev iously suppressed from the chart. Sodium Level 146(H) 136 - 145 mmol/L 07/12/2023 3:57 AM SENIOR SALES OPERATIONS MANAGER [facility] Comment:This result was prev iously suppressed from the chart. Potassium Level 4.5 3.4 - 4.5 mmol/L 07/12/2023 3:57 AM SENIOR SALES OPERATIONS MANAGER [facility] Comment:This result was prev iously suppressed from the chart. Chloride 109(H) 98 - 107 mmol/L 07/12/2023 3:57 AM SENIOR SALES OPERATIONS MANAGER [facility] Comment:This result was prev iously suppressed from the chart. CO2 30(H) 22 - 29 mmol/L 07/12/2023 3:57 AM [facility] Comment:This result was prev iously suppressed from the chart. Anion Gap 7 4 - 14 mmol/L 07/12/2023 3:57 AM SENIOR SALES OPERATIONS MANAGER [facility] Comment:This result was prev iously suppressed from the chart. Creatinine 0.69 0.67 - 1.17 mg/dL 07/12/2023 3:57 AM SENIOR SALES OPERATIONS MANAGER [facility] Comment:This result was prev iously suppressed from the chart. BUN 26(H) 6 - 23 mg/dL 07/12/2023 3:57 AM [facility] Comment:This result was prev iously suppressed from the chart. Glucose Level 97 70 - 99 mg/dL 07/12/2023 3:57 AM [facility] Comment: Effective 01/26/16, the glucose reference intervals have been updated based on [place] [employer] guidelines (Standards of Medical Care [...] Unknown Venipuncture / Unknown 07/12/2023 2:52 AM SENIOR SALES OPERATIONS MANAGER 07/12/2023 3:16 AM SENIOR SALES OPERATIONS MANAGER Naye Amin MD LAB BLOOD ORDERABLES [facility] Unless otherwise noted, all lab tests performed by: Division of Pathology and Laboratory Medicine [address] [place] [id number] * Phosphorus Level (07/12/2023 2:52 AM SENIOR SALES OPERATIONS MANAGER) Only the most recent of15 resultswithin the time period is included. Phosphorus Level 3.3 2.5 - 4.5 mg/dL 07/12/2023 3:57 AM SENIOR SALES OPERATIONS MANAGER [facility] Blood Peripheral blood specimen / Unknown Venipuncture / Unknown 07/12/2023 2:52 AM SENIOR SALES OPERATIONS MANAGER 07/12/2023 3:16 AM SENIOR SALES OPERATIONS MANAGER Naye Amin MD LAB BLOOD ORDERABLES [facility] Unless otherwise noted, all lab tests performed by: Division of Pathology and Laboratory Medicine [address] [place] [id number] * Magnesium Level (07/12/2023 2:52 AM SENIOR SALES OPERATIONS MANAGER) Only the most recent of15 resultswithin the time period is included. Magnesium Level 2.2 1.6 - 2.6 mg/dL 07/12/2023 3:57 AM SENIOR SALES OPERATIONS MANAGER [facility] Blood Peripheral blood specimen / Unknown Venipuncture / Unknown 07/12/2023 2:52 AM SENIOR SALES OPERATIONS MANAGER 07/12/2023 3:16 AM SENIOR SALES OPERATIONS MANAGER Naye Amin MD LAB BLOOD ORDERABLES Performing Organization Address City/[facility] Co de Phone Number [facility] Unless otherwise noted, all lab tests performed by: Division of Pathology and Laboratory Medicine [address] [place] [phone] * XR Abdomen 1 View Portable (07/09/2023 12:59 PM SENIOR SALES OPERATIONS MANAGER) Only the most recent of4 resultswithin the time period is included. Anatomical Region Laterality Modality Abdomen Digital Radiogra phy 07/09/2023 2:34 PM SENIOR SALES OPERATIONS MANAGER Impressions 07/09/2023 2:36 PM SENIOR SALES OPERATIONS MANAGER No evidence of obstruction or significant constipation. Narrative 07/09/2023 2:36 PM SENIOR SALES OPERATIONS MANAGER FULL RESULT: Examination: XR ABDOMEN 1 VW [...] obstruction or significant constipation. Marisol Ruiz APRN [facility] DIAGNOSTIC IMAGI NG ORDERABLES * Glucose 6-Phosphate Dehydrogenase Enzyme Activity (07/09/2023 2:21 AM SENIOR SALES OPERATIONS MANAGER) G6PD Enzyme Activity, B 10.8 8.0 - 11.9 U/g Hb 07/11/2023 2:58 PM SENIOR SALES OPERATIONS MANAGER [facility] Comment: G6PD deficiency can be masked in the setting of reticulocytosis, markedly elevated WBCs or recent transfusion. If any of these are present in the setting of , chronic, or episodic jaundice/anemia, genotyping is recommended. If desired, please order G6PDZ/G6PD Full Gene Sequencing, V. ADDITIONAL INFORMATION This test was developed and its performance characteristics determined by [facility] in a manner consistent with CLIA requirements. This test has not been cleared or approved by the U.S. Food and Drug Administration. Test Performed by: [address] [address] Stage Producer: Papo Boone M.D. Ph.D.; CLIA# [id number] Blood Peripheral blood specimen / Unknown Venipuncture / Unknown 07/09/2023 2:21 AM SENIOR SALES OPERATIONS MANAGER 07/09/2023 2:59 AM SENIOR SALES OPERATIONS MANAGER Gertrude Jesus MD LAB BLOOD ORDERABLES BUSTAMANTE SUHAS VACA * Type and Screen (07/04/2023 4:20 AM SENIOR SALES OPERATIONS MANAGER) Only the most recent of3 resultswithin the time period is included. ABORh O POS 07/04/2023 12:00 AM SENIOR SALES OPERATIONS MANAGER [facility] ABSC Negative 07/04/2023 12:00 AM SENIOR SALES OPERATIONS MANAGER [facility] Clot Expiration 07/07/2023 23:59 07/04/2023 12:00 AM SENIOR SALES OPERATIONS MANAGER [facility] Historical Record Check Complete 07/04/2023 12:00 AM SENIOR SALES OPERATIONS MANAGER [facility] Blood Peripheral blood specimen / Unknown Venipuncture / Unknown 07/04/2023 4:20 AM SENIOR SALES OPERATIONS MANAGER 07/04/2023 4:52 AM SENIOR SALES OPERATIONS MANAGER Juli Benitez APRN BLOOD BANK TEST ORDE ISMAEL [facility] [id number] [place] [address] * IR PERC FEEDING GASTROSTOMY PLACEMENT (07/03/2023 1:42 PM SENIOR SALES OPERATIONS MANAGER) Anatomical Region Laterality Modality Abdomen/Pelvis Other Narrative 07/03/2023 5:56 PM SENIOR SALES OPERATIONS MANAGER Table formatting from the original result was not included. Date of Procedure: 07/03/23 Attending Physician: Feliberto Olmstead MD Broke Worker: None Pre Procedure Diagnosis: Mass lesion of brain [[id number]] Post Procedure Diagnosis: Unchanged Indication: Nutritional support Title of Procedure: Percutaneous Image-Guided Placement of Gastrostomy Catheter. Operative Findings: Percutaneous fluoroscopic-guided placement of 16 Fr Guatemalan gastrostomy catheter. Connector Type: ENFit Consent: The [...] the patient's nasal passage and a 5 Guatemalan catheter and [employer] wire were then passed through the nasal [...] Barium Swallow w Speech (06/29/2023 2:39 PM SENIOR SALES OPERATIONS MANAGER) Anatomical Region Laterality Modality Neck Radio Fluoroscop y 06/29/2023 3:56 PM SENIOR SALES OPERATIONS MANAGER Impressions 06/29/2023 4:59 PM SENIOR SALES OPERATIONS MANAGER 1. Silent aspiration with thin and thick liquids. Please refer to the separately dictated speech pathology report for further details and recommendations. Narrative 06/29/2023 4:59 PM SENIOR SALES OPERATIONS MANAGER FULL RESULT: Examination: FL MODIFIED BARIUM SWALLOW [...] MONICA GUEVARA * Procalcitonin (06/28/2023 2:06 PM SENIOR SALES OPERATIONS MANAGER) Procalcitonin <0.04 <=0.08 ng/mL 06/28/2023 2:54 PM SENIOR SALES OPERATIONS MANAGER [place] MD [facility] Blood Peripheral blood specimen / Unknown Venipuncture / Unknown 06/28/2023 2:06 PM SENIOR SALES OPERATIONS MANAGER 06/28/2023 2:10 PM SENIOR SALES OPERATIONS MANAGER Narrative [facility] - 06/28/2023 2:54 PM SENIOR SALES OPERATIONS MANAGER Procalcitonin > 2.00 ng/mL: Procalcitonin levels above [...] with extended dilution as it exceeds the shop firer/fireman's recommended limit. Caution should be exercised when interpreting such values and done in conjunction with clinical context. Juli Benitez APRN LAB BLOOD ORDERABLES [facility] Unless otherwise noted, all lab tests performed by: Division of Pathology and Laboratory Medicine [address] [place] [id number] * Echocardiogram 2D Complete (06/28/2023 11:46 AM SENIOR SALES OPERATIONS MANAGER) 06/28/2023 10:4 5 AM SENIOR SALES OPERATIONS MANAGER Narrative [facility] - 06/28/2023 12:29 PM SENIOR SALES OPERATIONS MANAGER Echocardiographic Report Interpretation Summary A complete two-dimensional [...] (lat): 3.4 E/e' (mar): 4.8 Juli Benitez PHOTOCOMPOSING KEYBOARD OPERATOR CV ECHO ORDERABLES [facility]SCV * MRI Brain with and without Contrast (06/28/2023 6:16 AM SENIOR SALES OPERATIONS MANAGER) Anatomical Region Laterality Modality Head Magnetic Resonan ce 06/28/2023 7:32 AM SENIOR SALES OPERATIONS MANAGER Impressions 06/28/2023 10:06 AM SENIOR SALES OPERATIONS MANAGER 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 Narrative 06/28/2023 10:06 AM SENIOR SALES OPERATIONS MANAGER FULL RESULT: Examination: MRI BRAIN W WO [...] in the right maxillary sinus. Procedure Note Noe Bedolla MD - 06/28/2023 FULL RESULT: Examination: [...] with and without Contrast (06/28/2023 5:00 AM SENIOR SALES OPERATIONS MANAGER) Anatomical Region Laterality Modality Abdomen, Pelvis, Chest Computed Tomography 06/28/2023 5:14 AM SENIOR SALES OPERATIONS MANAGER Impressions 06/28/2023 4:07 PM SENIOR SALES OPERATIONS MANAGER Left lower lobe retained secretions and airspace [...] the final report. Narrative 06/28/2023 4:07 PM SENIOR SALES OPERATIONS MANAGER Examination: CT CHEST ABDOMEN PELVIS W WO [...] ORDERABLES * Confirm ABORh (06/28/2023 2:49 AM SENIOR SALES OPERATIONS MANAGER) Pathologist [facility] ABOR Confirm O POS 06/27/2023 9:45 PM SENIOR SALES OPERATIONS MANAGER [facility] Blood Peripheral blood specimen / Unknown Venipuncture / Unknown 06/28/2023 2:49 AM SENIOR SALES OPERATIONS MANAGER 06/28/2023 3:06 AM SENIOR SALES OPERATIONS MANAGER Karma Landrum MD BLOOD BANK TEST ORDMauro GUEVARA [facility] [id number] [place] [address] * (ABNORMAL) Differential (06/28/2023 2:49 AM SENIOR SALES OPERATIONS MANAGER) Total Cells 115 06/28/2023 6:54 AM SENIOR SALES OPERATIONS MANAGER [facility] Manual Neutrophil % 78.0(H) 43.2 - 72.7 % 06/28/2023 6:54 AM [facility] Comment:The Neutrophil count includes Bands. Manual Lymphocyte % 15.0(L) 16.8 - 46.2 % 06/28/2023 6:54 AM [facility] Manual Monocyte % 2.0(L) 5.1 - 12.5 % 06/28/2023 6:54 AM [facility] Metamyelocyte % 5.0(H) <=0.0 % 6:54 AM [facility] Comment:The Metamyelocyte co unt includes Myelocytes. Manual Neutrophil Abs 7.02 1.95 - 7.25 K/uL 06/28/2023 6:54 AM SENIOR SALES OPERATIONS MANAGER [facility] Manual Lymphocyte Abs 1.35 1.01 - 3.24 K/uL 06/28/2023 6:54 AM [facility] Manual Monocyte Abs 0.18(L) 0.24 - 0.85 K/uL 06/28/2023 6:54 AM [facility] RBC Morphology PRESENT 06/28/2023 6:54 AM [facility] Anisocytosis Present(A) (none) 06/28/2023 6:54 AM [facility] Poikilocytosis Present(A) (none) 06/28/2023 6:54 AM [facility] Polychromasia Present(A) (none) 06/28/2023 6:54 AM [facility] Ovalocyte Present(A) (none) 06/28/2023 6:54 AM [facility] Macrocyte Present(A) (none) 06/28/2023 6:54 AM [facility] Slide Comment SEE NOTE 06/28/2023 6:54 AM [facility] Comment:PLT: Platelet morpho logy normal Blood Peripheral blood specimen / Unknown Venipuncture / Unknown 06/28/2023 2:49 AM SENIOR SALES OPERATIONS MANAGER 06/28/2023 3:05 AM SENIOR SALES OPERATIONS MANAGER Naye Amin MD LAB BLOOD ORDERABLES [facility] Unless otherwise noted, all lab tests performed by: Division of Pathology and Laboratory Medicine [address] [place], [place] [id number] * EKG, 12-Lead (06/28/2023) Juli Benitez KENYETTA ECG ORDERABLES [facility] * X-ray Chest 1 View (06/27/2023 7:50 PM SENIOR SALES OPERATIONS MANAGER) Anatomical Region Laterality Modality Chest Digital Radiogra phy 06/27/2023 8:19 PM SENIOR SALES OPERATIONS MANAGER Impressions 06/27/2023 8:21 PM SENIOR SALES OPERATIONS MANAGER No acute consolidations or lobar pneumonias. ACTIONABLE ITEMS/RECOMMENDATIONS: None. 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 Discussed with Dr. Ricardo at 7:36 PM on 06/27/2023 by means of a phone conversation. Narrative 06/27/2023 7:37 PM SENIOR SALES OPERATIONS MANAGER FULL RESULT: Examination: CT HEAD WO CONTRAST [...] (ABNORMAL) Comprehensive Metabolic Panel (06/27/2023 5:23 PM SENIOR SALES OPERATIONS MANAGER) Bilirubin Total 0.4 <=1.2 mg/dL 06/27/2023 6:05 PM [facility] Comment: Indocyanine Green (ICG) may cause falsely elevated bilirubin results. Total and direct bilirubin must not be measured from samples containing indocyanine green. False elevation of total bilirubin can be seen in patients with IgG concentrations above 28 g/L. This result was previously suppressed from the chart. Bilirubin Direct <0.2 <=0.3 mg/dL 06/27/2023 6:05 PM [facility] Comment: Indocyanine Green (ICG) may cause falsely elevated bilirubin results. Total and direct bilirubin must not be measured from samples containing indocyanine green. This result was previously suppressed from the chart. Bilirubin Indirect 2022 6:05 PM [facility] Comment:Unable to calculate Indirect Bilirubin result due to some parameters are outside reportable range eGFR 104 >=60 mL/min/1. 73 sq. m 06/27/2023 6:05 PM [facility] Comment: The eGFRcr is calculated [...] 8.3 gm/dL 06/27/2023 6:05 PM [facility] Comment:This result was prev iously suppressed from the chart. Calcium Level Total 9.6 8.2 - 10.2 mg/dL 06/27/2023 6:05 PM [facility] Comment:This result was prev iously suppressed from the chart. Alkaline Phosphatase 92 40 - 129 U/L 06/27/2023 6:05 PM [facility] Comment:This result was prev iously suppressed from the chart. Albumin Level 4.0 3.5 - 5.2 gm/dL 06/27/2023 6:05 PM [facility] Comment:This result was prev iously suppressed from the chart. AST 14 <=40 U/L 06/27/2023 6:05 PM [facility] Comment:This result was prev iously suppressed from the chart. ALT 17 <=41 U/L 06/27/2023 6:05 PM [facility] Comment:This result was prev iously suppressed from the chart. Sodium Level 134(L) 136 - 145 mmol/L 06/27/2023 6:05 PM [facility] Comment:This result was prev iously suppressed from the chart. Potassium Level 4.0 3.4 - 4.5 mmol/L 06/27/2023 6:05 PM [facility] Comment:This result was prev iously suppressed from the chart. Chloride 99 98 - 107 mmol/L 06/27/2023 6:05 PM [facility] Comment:This result was prev iously suppressed from the chart. CO2 26 22 - 29 mmol/L 06/27/2023 6:05 PM [facility] Comment:This result was prev iously suppressed from the chart. Anion Gap 9 4 - 14 mmol/L 06/27/2023 6:05 PM [facility] Comment:This result was prev iously suppressed from the chart. Creatinine 0.77 0.67 - 1.17 mg/dL 06/27/2023 6:05 PM [facility] Comment:This result was prev iously suppressed from the chart. BUN 17 6 - 23 mg/dL 06/27/2023 6:05 PM SENIOR SALES OPERATIONS MANAGER [facility] Comment:This result was prev iously suppressed from the chart. Glucose Level 98 70 - 99 mg/dL 06/27/2023 6:05 PM SENIOR SALES OPERATIONS MANAGER [facility] Comment: Effective 01/26/16, the glucose reference intervals have been updated based on [place] [employer] guidelines (Standards of Medical Care [...] Unknown Venipuncture / Unknown 06/27/2023 5:23 PM SENIOR SALES OPERATIONS MANAGER 06/27/2023 5:30 PM SENIOR SALES OPERATIONS MANAGER Jensen Zuleta MD LAB BLOOD ORDERABLES Performing Organization Address City/[facility] Co de Phone Number [facility] Unless otherwise noted, all lab tests performed by: Division of Pathology and Laboratory Medicine [address] [place] [id number] * aPTT (06/27/2023 5:23 PM SENIOR SALES OPERATIONS MANAGER) Pathologist [facility] Activated PTT 24.7 24.1 - 35.5 second(s) 06/27/2023 6:14 PM SENIOR SALES OPERATIONS MANAGER [facility] Blood Peripheral blood specimen / Unknown Venipuncture / Unknown 06/27/2023 5:23 PM SENIOR SALES OPERATIONS MANAGER 06/27/2023 5:30 PM SENIOR SALES OPERATIONS MANAGER Jensen Zuleta MD LAB BLOOD ORDERABLES Performing Organization Address City/[facility]/ZIP Co de Phone Number [facility] Unless otherwise noted, all lab tests performed by: Division of Pathology and Laboratory Medicine [address] [place] [id number] * Prothrombin Time with INR (06/27/2023 5:23 PM SENIOR SALES OPERATIONS MANAGER) Pathologist [facility] Prothrombin Time 13.0 11.9 - 14.5 second(s) 06/27/2023 6:14 PM SENIOR SALES OPERATIONS MANAGER [facility] International Normalization Ratio 0.99 0.87 - 1.12 06/27/2023 6:14 PM SENIOR SALES OPERATIONS MANAGER [facility] Blood Peripheral blood specimen / Unknown Venipuncture / Unknown 06/27/2023 5:23 PM SENIOR SALES OPERATIONS MANAGER 06/27/2023 5:30 PM SENIOR SALES OPERATIONS MANAGER Jensen Zuleta MD LAB BLOOD ORDERABLES [facility] Unless otherwise noted, all lab tests performed by: Division of Pathology and Laboratory Medicine [facility] [place] [address] after 01/08/2023 Advance Directives * Full Code (Latest Code Status on File) Date Activated Date Inactivated Comments 06/27/2023 8:32 PM 07/12/2023 3:12 PM
[2024-01-08] MEDS ORDERED: NA CHLORIDE 0.9% 1,000 ML ONE (19:57)
[2024-01-08 20:54] LABS: PT Prothrombin Time 13.4 SECONDS (9.4-12.5); PTT, Activated Partial Thromb 28.1 SECONDS (24.3-36.9); Protime INR 1.23
[2024-01-08] MEDS ORDERED: ACETAMINOPHEN 650MG/RECT SUPP PR ONE (21:52)
--- NOTE | 2024-01-08 23:40 | ER ---
Nurse's Notes [facility] Name: Arturo Gregorio Age: 58 yrs Sex: Male : 1965 Arrival Date: 01/08/2024 Time: 17:51 Bed 7 Private MD: Diagnosis: Fever of unknown origin, dehydration, high risk sepsis Presentation: 01/07 18:44 Chief complaint: EMS states: patients called for patient complaining of dizziness. ko1 Coronavirus screen: At this time, the client does not indicate any symptoms associated with coronavirus-19. Ebola Screen: No symptoms or risks identified at this time. Initial Sepsis Screen: Does the patient meet any 2 criteria? No. Patient's initial sepsis screen is negative. Does the patient have a suspected source of infection? No. Patient's initial sepsis screen is negative. Risk Assessment: Do you want to hurt yourself or someone else? Patient reports no desire to harm self or others. Onset of symptoms was January 08, 2024. 18:44 Method Of Arrival: EMS: [facility] ko1 18:44 Acuity: NELLI 3 ko1 Triage Assessment: 18:51 General: Appears ill, Behavior is calm, cooperative, appropriate for age. Pain: Denies ko1 pain. Historical: - Allergies: 18:51 No Known Allergies; ko1 - Home Meds: 18:51 Unable to obtain [Active]; ko1 - PMHx: 18:51 BRAIN TUMOR; trach-Aug 2023; ko1 - PSHx: 18:51 tracheostomy (2023); ko1 - Immunization history:: Adult Immunizations up to date. - Infectious Disease History:: Denies. - Social history:: Smoking status: Patient/guardian denies using tobacco, but has a distant history of tobacco abuse. Screenin:15 [facility] ED Fall Risk Assessment (Adult) History of falling in the last 3 months, rg5 including since admission No falls in past 3 months (0 pts) Confusion or Disorientation No (0 pts) Intoxicated or Sedated No (0 pts) Impaired Gait Yes (1 pt) Mobility Assist Device Used Yes (1 pt) Altered Elimination Yes (1 pt) Score/Fall Risk Level 3 or more points = High Risk. Abuse screen: Denies threats or abuse. Nutritional screening: No deficits noted. Tuberculosis screening: No symptoms or risk factors identified. Assessment: 19:42 General: Appears comfortable, Behavior is calm, cooperative, appropriate for age. Pain: rg5 Denies pain. Neuro: Level of Consciousness is awake, alert, obeys commands, Oriented to person, place, time. Cardiovascular: Capillary refill < 3 seconds Rhythm is sinus tachycardia. Respiratory: Airway via trache Respiratory effort is Respiratory pattern is regular, Sputum is red appears to be gatorade aspiration. GI: PEG tube needs for reinsertion, with temporary johnson on site. 19:42 : Reports incontinence, urgency. EENT: No deficits noted. Derm: Skin is intact, Skin bm8 is dry, Skin is pink, warm \T\ dry. Musculoskeletal: Range of motion: limited in left leg. 21:09 Reassessment: No changes from previously documented assessment. rg5 22:00 Reassessment: Patient and/or family updated on plan of care and expected duration. Pain ha1 level reassessed. Patient is alert, oriented x 3, equal unlabored respirations, skin warm/dry/pink. 23:10 Reassessment: Patient and/or family updated on plan of care and expected duration. Pain rg5 level reassessed. Patient is alert, oriented x 3, equal unlabored respirations, skin warm/dry/pink. 07 01:10 Reassessment: Patient and/or family updated on plan of care and expected duration. Pain rg5 level reassessed. Patient is alert, oriented x 3, equal unlabored respirations, skin warm/dry/pink. Patient states feeling better. Vital Signs: 01/07 18:44 BP 98 / 69; Pulse 94; Resp 19; Temp 100.3; Pulse Ox 94% on R/A; ko1 19:15 BP 109 / 55; Pulse 105; Resp 18; Temp 102; Pulse Ox 95% on R/A; Pain 0/10; rg5 20:07 BP 97 / 71; Pulse 108; Resp 17 S; Pulse Ox 96% ; ha1 21:06 BP 108 / 70; Pulse 96; Resp 19; Temp 101.5; Pulse Ox 95% ; Pain 0/10; rg5 21:41 BP 111 / 72; Pulse 97; Resp 18 S; Temp 99.9; Pulse Ox 97% on R/A; ha1 22:45 BP 103 / 73; Pulse 93; Resp 18; Pulse Ox 96% on R/A; rg5 23:45 BP 97 / 69; Pulse 92; Resp 17; Pulse Ox 94% ; Pain 0/10; rg5 01/08 00:57 BP 94 / 65; Pulse 91; Resp 17; Temp 99.4; Pulse Ox 94% on R/A; Pain 0/10; rg5 19:15 Pain Scale: Adult rg5 21:06 Pain Scale: Adult rg5 23:45 Pain Scale: Adult rg5 01/08 00:57 Pain Scale: Adult rg5 Vitals: 01/07 19:15 Cardiac Rhythm Assessment Sinus tach. rg5 Strawn Coma Score: 19:15 Eye Response: spontaneous(4). Motor Response: obeys commands(6). Verbal Response: rg5 oriented(5). Total: 15. ED Course: 18:36 Patient arrived in ED. mg5 18:50 Triage completed. ko1 18:51 Arm band placed on right wrist. Patient placed in an exam room, on a stretcher, on ko1 bus monitor, on pulse oximetry, Patient notified of wait time. 18:52 Trumna Ellison DO is Attending Physician. ms3 19:15 Patient has correct armband on for positive identification. Fall risk band placed. Bed rg5 in low position. Call light in reach. Side rails up X 1. Adult w/ patient. 19:15 No provider procedures requiring assistance completed. rg5 19:30 Inserted saline lock: 22 gauge in right forearm, using aseptic technique. bm8 19:33 Star Knight, RN is Primary Nurse. rg5 19:45 Initial lab(s) drawn, by wi, sent to lab. First set of blood cultures drawn by me. bm8 19:59 Client placed on continuous cardiac and pulse oximetry monitoring. NIBP monitoring bm8 applied. engine monitor on. Pulse ox on. NIBP on. 20:00 Inserted saline lock: 20 gauge in right upper arm, using aseptic technique. Blood bm8 collected. 20:00 Second set of blood cultures drawn by me. Suctioned via trachea - moderate amount thick bm8 yellow sputum bloody sputum. 20:28 Urine collected: clean catch specimen, cloudy, ray colored, muriel blood, EKG done, by bm8 ED staff, reviewed by Truman Ellison DO COVID swab sent to lab. Flu and/or RSV swab sent to lab. 20:41 Attending Physician role handed off by Truman Ellison DO sp3 20:41 Mainor Zuleta MD is Attending Physician. sp3 21:34 CXR XRAY In Process Unspecified. EDMS 23:39 Mario Fox MD is Hospitalizing Provider. sp3 01/08 01:12 Patient admitted, IV remains in place. intact, No redness/swelling at site. rg5 01:14 Provided Education on: post ER care done. rg5 Administered Medications: 01/07 20:05 Drug: NS 0.9% IV 1000 ml IV at 1000 ml once Route: IV; Rate: 1000 ml; Site: right bm8 antecubital; 21:15 Follow up: IV Status: Completed infusion rg5 01/08 01:11 Follow up: IV Status: Completed infusion rg5 01/07 21:49 Drug: Acetaminophen ND Suppository 650 mg ND once Route: ND; ha1 01/08 01:10 Follow up: Response: No adverse reaction cp4 01/07 23:51 Drug: Cefepime IVPB 2 grams IVPB at 200 ml/hr once over 30 mins; (mix in NS 100 mL) bm8 Route: IVPB; Rate: 200 ml/hr; Infused Over: 30 mins; Site: right forearm; 01/08 01:10 Follow up: Response: No adverse reaction; IV Status: Completed infusion; IV Intake: cp4 100ml 01:12 Follow up: IV Status: Completed infusion rg5 Medication: 01/07 19:15 VIS not applicable for this client. rg5 Intake: 01/08 01:10 IV: 100ml; Total: 100ml. cp4 Outcome: 01/07 23:40 Decision to Hospitalize by Provider. sp3 01/08 01:12 Admitted to Med/surg accompanied by nurse, via stretcher, room 405, rg5 Condition: stable Demonstrated understanding of instructions, 01:44 Patient left the ED. ha1 Signatures: Dispatcher [employer] EDPA Truman Ellison DO DO ms3 Mainor Zuleta MD MD sp3 Eileen Rivero RN RN ha1 Gabriella Cedillo RN RN Oxana Bucio 5 Neris Ann cp4 Horacio Nash RN RN bm8 Knight, Star, RN RN rg5 Corrections: (The following items were deleted from the chart) 01/07 21:14 19:42 Respiratory: Airway via trache Respiratory effort is Respiratory pattern is rg5 regular, Sputum is clear rg5 23:40 21:41 BP 111 / 72; Pulse 97bpm; Resp 18bpm; Spontaneous; Pulse Ox 99.9% RA; ha1 ha1
--- NOTE | 2024-01-08 23:41 | EDPHYS ---
Physician Documentation [facility] Name: Arturo Gregorio Age: 58 yrs Sex: Male : 1965 Arrival Date: 01/08/2024 Time: 17:51 Bed 7 Private MD: ED Physician Mainor Zuleta HPI: 01/07 20:48 This 58 yrs old Male presents to ER via EMS with complaints of Dizziness. ms3 20:48 58-year-old male presents to the emergency department with his for elevated heart ms3 rate and fever. Patient's notes patient was a seen in the emergency department on Sunday for an elevated heart rate. Patient endorses nausea. Denies vomiting or pain. He denies any alleviating or inciting factors. Historical: - Allergies: 18:51 No Known Allergies; ko1 - Home Meds: 18:51 Unable to obtain [Active]; ko1 - PMHx: 18:51 BRAIN TUMOR; trach-Aug 2023; ko1 - PSHx: 18:51 tracheostomy (2023); ko1 - Immunization history:: Adult Immunizations up to date. - Infectious Disease History:: Denies. - Social history:: Smoking status: Patient/guardian denies using tobacco, but has a distant history of tobacco abuse. ROS: 20:48 Cardiovascular: Negative for chest pain, and palpitations. Respiratory: Negative for ms3 shortness of breath, cough, wheezing, and pleuritic chest pain, Abdomen/GI: Negative for abdominal pain, nausea, vomiting, diarrhea, and constipation, MS/Extremity: Negative for injury and deformity, Skin: Negative for injury, rash, and discoloration, 20:48 Constitutional: Positive for chills, fever, Exam: 20:46 ECG was reviewed by the Attending Physician. ms3 20:48 Constitutional: This is a well developed, well nourished patient who is awake, alert, ms3 and in no acute distress. Chest/axilla: Normal chest wall appearance and motion. Nontender with no deformity. Respiratory: Lungs have equal breath sounds bilaterally, clear to auscultation and percussion. No rales, rhonchi or wheezes noted. No increased work of breathing, no retractions or nasal flaring. Abdomen/GI: Soft, non-tender, with normal bowel sounds. No distension or tympany. No guarding or rebound. No evidence of tenderness throughout. 20:48 Cardiovascular: Rate: tachycardic, Rhythm: regular, Pulses: no pulse deficits are appreciated, 20:54 Abdomen/GI: Inspection: abdomen appears normal, Bowel sounds: normal, Palpation: ms3 abdomen is soft and non-tender, Gastric tube left abdomen, Vital Signs: 18:44 BP 98 / 69; Pulse 94; Resp 19; Temp 100.3; Pulse Ox 94% on R/A; ko1 19:15 BP 109 / 55; Pulse 105; Resp 18; Temp 102; Pulse Ox 95% on R/A; Pain 0/10; rg5 20:07 BP 97 / 71; Pulse 108; Resp 17 S; Pulse Ox 96% ; ha1 21:06 BP 108 / 70; Pulse 96; Resp 19; Temp 101.5; Pulse Ox 95% ; Pain 0/10; rg5 21:41 BP 111 / 72; Pulse 97; Resp 18 S; Temp 99.9; Pulse Ox 97% on R/A; ha1 22:45 BP 103 / 73; Pulse 93; Resp 18; Pulse Ox 96% on R/A; rg5 23:45 BP 97 / 69; Pulse 92; Resp 17; Pulse Ox 94% ; Pain 0/10; rg5 01/08 00:57 BP 94 / 65; Pulse 91; Resp 17; Temp 99.4; Pulse Ox 94% on R/A; Pain 0/10; rg5 19:15 Pain Scale: Adult rg5 21:06 Pain Scale: Adult rg5 23:45 Pain Scale: Adult rg5 01/08 00:57 Pain Scale: Adult rg5 [place] Score: 01/07 19:15 Eye Response: spontaneous(4). Motor Response: obeys commands(6). Verbal Response: rg5 oriented(5). Total: 15. MDM: 19:13 Patient medically screened. ms3 20:48 Differential diagnosis: cardiac arrhythmia, hypovolemia, idiopathic dizziness. ms3 Transition of care: After a detail discussion of the patient's case, care is transferred to Mainor Zuleta MD. 21:35 Data reviewed: vital signs, nurses notes, lab test result(s), EKG, radiologic studies. sp3 ED course: 58-year-old male with history of brain tumor status post trach now comes in for fever and general fatigue and weakness. Patient signed out to me by Dr. Ellison at change of shift. Full sepsis workup pending and disposition pending workup and patient course. Current vital signs are normal with exception of temperature. We will treat and reevaluate.. 23:37 Special discussion: Patient signed out to me by Dr. Ellison. Current length of stay during sp3 6 hours. Blood work not back despite blood being sent sometime ago. Given fever and other concerns secondary to his general health, I have discussed the case with Dr. Fox who will be admitting the patient for prophylactic antibiotics and we will follow-up on remainder of lab work.. 01/07 19:14 Order name: CBC with Diff ms3 01/07 20:01 Order name: UAM bm8 01/07 20:19 Order name: CMP ms3 01/07 21:05 Order name: Glucose, Ancillary Testing; Complete Time: 21:36 EDMS 01/07 21:05 Order name: Protime (+INR) EDMI 01/07 21:05 Order name: PTT, Activated Partial Thromb EDMS 01/07 21:05 Order name: Lactate w/ 2H reflex if indic. EDMS 01/07 21:06 Order name: Blood Culture EDMI 01/07 21:06 Order name: Blood Culture EDMS 01/07 21:06 Order name: Influenza Screen (A ; Complete Time: 21:36 EDMS 01/08 00:11 Order name: Urinalysis w/ reflexes EDMS 01/08 00:11 Order name: CBC with Automated Diff EDMS 01/08 00:11 Order name: CBC with Automated Diff EDMS 01/08 00:11 Order name: Comprehensive Metabolic Panel EDMS 01/08 00:11 Order name: Comprehensive Metabolic Panel EDMS 01/07 20:55 Order name: CXR XRAY ms3 01/07 20:19 Order name: EKG; Complete Time: 21:06 ms3 01/07 20:19 Order name: Accucheck; Complete Time: 20:23 ms3 01/07 20:19 Order name: Cardiac monitoring; Complete Time: 20:20 ms3 01/07 20:19 Order name: EKG - Nurse/Tech; Complete Time: 20:27 ms3 01/07 20:19 Order name: IV Saline Lock - Large Bore; Complete Time: 20:20 ms3 01/07 20:19 Order name: Labs collected and sent; Complete Time: 20:20 ms3 01/07 20:19 Order name: O2 Per Protocol; Complete Time: 20:20 ms3 01/07 20:19 Order name: O2 Sat Monitoring; Complete Time: 20:20 ms3 01/07 20:19 Order name: Vital Signs; Complete Time: 20:20 ms3 01/07 21:37 Order name: Recheck Vital Signs; Complete Time: 21:41 sp3 EC:46 Rate is 97 beats/min. Rhythm is regular. QRS [place] is Normal. VA interval is normal. QRS ms3 interval is normal. Clinical impression: Normal ECG. Interpreted by me. Reviewed by me. Administered Medications: 20:05 Drug: NS 0.9% IV 1000 ml IV at 1000 ml once Route: IV; Rate: 1000 ml; Site: right bm8 antecubital; 21:15 Follow up: IV Status: Completed infusion rg5 01/08 01:11 Follow up: IV Status: Completed infusion rg5 01/07 21:49 Drug: Acetaminophen VA Suppository 650 mg VA once Route: VA; ha1 01/08 01:10 Follow up: Response: No adverse reaction cp4 01/07 23:51 Drug: Cefepime IVPB 2 grams IVPB at 200 ml/hr once over 30 mins; (mix in NS 100 mL) bm8 Route: IVPB; Rate: 200 ml/hr; Infused Over: 30 mins; Site: right forearm; 01/08 01:10 Follow up: Response: No adverse reaction; IV Status: Completed infusion; IV Intake: cp4 100ml 01:12 Follow up: IV Status: Completed infusion rg5 Disposition Summary: 01/08/24 23:40 Hospitalization Ordered Notes: Hospitalization Status: Observation sp3 Provider: Mario Fox sp3 Location: Telemetry/MedSurg (observation) sp3 Condition: Stable sp3 Problem: an acute exacerbation sp3 Symptoms: have worsened sp3 Bed/Room Type: Standard sp3 Room Assignment: 405(01/09/24 00:18) kmf Diagnosis - Fever of unknown origin, dehydration, high risk sepsis sp3 Forms: - Medication Reconciliation Form sp3 - SBAR form sp3 - Leadership Thank You Letter sp3 Signatures: Dispatcher [employer] Jovan Montanaus, DO DO ms3 Mainor Zuleta MD MD sp3 Eileen Rivero, RN RN ha1 Gabriella Cedillo, RN RN ko1 Marcela Diehl [facility] Horacio Nash, RN RN bm8 Neris Ann cp4 Star Knight RN rg5 Corrections: (The following items were deleted from the chart) 01/07 20:55 20:48 Constitutional: This is a well developed, well nourished patient who is awake, ms3 alert, and in no acute distress. Chest/axilla: Normal chest wall appearance and motion. Nontender with no deformity. Respiratory: Lungs have equal breath sounds bilaterally, clear to auscultation and percussion. No rales, rhonchi or wheezes noted. No increased work of breathing, no retractions or nasal flaring. Abdomen/GI: Soft, non-tender, with normal bowel sounds. No distension or tympany. No guarding or rebound. No evidence of tenderness throughout. ms3 21:06 21:06 SARS-COV-2 Antigen Rapid+I.LAB.BRZ ordered. EDMS EDMS 21:06 21:06 Urinalysis W/Microscopic+U.LAB.BRZ ordered. EDMS EDMS 21:06 21:06 Urine Culture+BA.LAB.BRZ ordered. EDMS EDMS 21:06 21:06 COMPREHENSIVE METABOLIC PANEL+C.LAB.BRZ ordered. EDMS EDMS 21:47 21:06 CBC+H.LAB.BRZ ordered. EDMS EDMS 21:47 21:06 PROTIME (+INR)+COAG.LAB.BRZ ordered. EDMS EDMS 21:47 21:06 PTT, ACTIVATED+COAG.LAB.BRZ ordered. EDMS EDMS 22:20 21:06 Influenza Screen (A \T\ B)+BA.LAB.BRZ ordered. EDMS EDMS 22:20 21:06 BASIC METABOLIC PANEL+C.LAB.BRZ ordered. EDMS EDMS 22:20 21:06 BLOOD CULTURE*+BA.LAB.BRZ ordered. EDMS EDMS 22:20 21:06 LACTATE+C.LAB.BRZ ordered. EDMS EDMS 01/08 00:18 01/07 23:40 sp3 kmf
[2024-01-08] MEDS ORDERED: CEFEPIME 2 GM VIAL ONE (23:42)
[2024-01-08] MEDS ORDERED: NA CHLORIDE 0.9% 100 ML ONE (23:43)
[2024-01-08 23:55] LABS: Absolute Lymphocytes (CBC) 0.7 K/uL (0.7-4.9); Absolute Monocytes 1.1 K/uL (0.1-1.3); Absolute Neutrophil 9.4 K/uL (1.8-8.0); Basophils % 0.3 % (0-1.3); Eosinophils % 0.1 % (0-4.4); Hematocrit 35.4 % (39.6-49.0); Hemoglobin 12.1 g/dL (13.6-17.9); Lymphocytes % 6.6 % (15.3-44.8); MCH 32.4 pg (27.0-35.0); MCV 95.1 fL (80-100); Nucleated Red Blood Cells % 0.1 % (0-0); Platelets 227 thou/uL (152-406); RBC Red Blood Cell Count 3.73 M/uL (4.33-5.43); Red Cell Distribution Width 15.2 % (12.1-15.2)
[2024-01-09 00:04] LABS: Albumin 2.4 g/dL (3.4-5.0); Albumin/Globulin Ratio 0.8 (1.1-1.8); Bilirubin Total 0.4 mg/dL (0.2-1.0); Globulin 3.2 g/dL (2.3-3.5); Protein, Total 5.6 g/dL (6.4-8.2)
[2024-01-09] MEDS ORDERED: ONDANSETRON 4 MG/2 ML VIAL IV PRN (00:06)
[2024-01-09] MEDS ORDERED: ACETAMINOPHEN 325 MG TABLET PO PRN (00:06)
--- NOTE | 2024-01-09 00:06 | P.HP ---
Certification for Inpatient Patient admitted to: Inpatient With expected LOS: >2 Midnights Practitioner: I am a practitioner with admitting privileges, knowledge of patient current condition, hospital course, and medical plan of care. Services: Services provided to patient in accordance with Admission requirements found in Title 42 Section 412.3 of the Code of Federal Regulations Patient History Date of Service: 01/09/24 Reason for admission: Generalized weakness and fatigue History of Present Illness: 58-year-old male with past medical history of brain tumor diagnosed with biopsy, getting radiation therapy and was on PEG tube and tracheostomy support came to ER with generalized weakness and dizziness which has been progressively worsening over the last 2 days. Patient is a poor historian and cannot offer any history hence most of the history is obtained from the chart review and also talking to the family at the bedside. As per her patient has been fatigued and had subjective fever and tachycardia and palpitation . He was not been tolerating diet very well. Patient was seen in the ER and was admitted for fever to rule out sepsis and tachycardia. No sick contacts; Allergies No Known Allergies Allergy (Unverified 06/21/19 17:36) Home medications list reviewed: Yes Home Medications: Cetirizine HCl 10 mg FT DAILY 10/23/23 Dapsone [Dapsone*] 1 tab FT DAILY 10/23/23 Famotidine 1 tab FT BID 10/23/23 Fludrocortisone [Florinef *] 1 tab FT DAILY 10/23/23 Midodrine HCl 3 tab FT TID 10/23/23 dexAMETHasone [Dexamethasone] 1 tab FT BID 10/23/23 levoFLOXacin [Levaquin] 750 mg FT DAILY 7 Days #7 tab 10/25/23 Docusate Liq [Colace Liquid] 50 mg FT DAILY 10/30/23 Albuterol Neb [Proventil 0.083% Neb Soln] 2.5 mg NEB [id number] PRN #60 amp 11/01/23 Amox/K Clav [Augmentin 600 MG/5 ML Susp] 5 ml PO BID #150 ml 11/01/23 Doxycycline Hyclate 100 mg FT BID #20 tab 11/01/23 Metoprolol Tartrate [Lopressor] 25 mg PO BID #60 tab 11/02/23 - Past Medical/Surgical History Diabetic: No Past Medical History: Reviewed- Non-Contributory -: retinal detahcment -: Glioma brainstem -: Hypotension Past Surgical History: Reviewed- Non-Contributory -: retinal detachment -: Tracheostomy placement August 2023 -: Brain mass biopsy Psychosocial/ Personal History: Lives at home with his , has home health/physical therapy - Family History Family History: Reviewed- Non-Contributory - Family History Father -: Heart disease - Social History Smoking Status: Never smoker Alcohol use: Yes CD- Drugs: No Caffeine use: Yes Review of Systems is unable to be obtained Physical Examination - Vital Signs Temperature: 98.6 F Blood Pressure: 132/78 Pulse: 76 Respirations: 18 Pulse Ox (%): 94 - Physical Exam General: Alert, Cooperative, Mild distress HEENT: Atraumatic, Normocephalic Neck: Supple Respiratory: Diminished, Crackles/rales Cardiovascular: Normal pulses, Regular rate/rhythm, Normal S1 S2 Gastrointestinal: Soft and benign, W/out hepatosplenomegaly Musculoskeletal: No clubbing Integumentary: No rashes Neurological: Abnormal gait, Abnormal speech Lymphatics: No axilla or inguinal lymphadenopathy - Studies Laboratory Data (last 24 hrs) 01/08/24 01/08/24 01/08/24 23:26 23:26 20:29 WBC 11.30 H Hgb 12.1 L D Hct 35.4 L Plt Count 227 PT 13.4 H INR 1.23 APTT 28.1 Sodium 136 Potassium 4.0 BUN 9 Creatinine 0.39 L Glucose 114 H Total Bilirubin 0.4 AST 14 L ALT 33 Alkaline Phosphatase 106 01/08/24 01/08/24 20:19 19:14 WBC Hgb Hct Plt Count PT Cancelled INR Cancelled APTT Cancelled Sodium Cancelled Potassium Cancelled BUN Cancelled Creatinine Cancelled Glucose Cancelled Total Bilirubin AST ALT Alkaline Phosphatase Microbiology Data (last 24 hrs): 01/08/24 20:30 Nasopharnyx Influenza Type A Antigen Screen - Final 01/08/24 20:30 Nasopharnyx Influenza Type B Antigen Screen - Final Assessment and Plan - Problems (Diagnosis) (1) Sepsis Current Visit: Yes Status: Acute Plan: Fever of unknown origin To rule out sepsis Will get blood cultures Urine culture Started on IV antibiotic Awaiting further clinical improvement Monitor closely Brain tumor 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 UTI Leukocytosis Will get a UA Empirically started on IV antibiotics Moderate protein calorie malnutrition Will obtain nutritional consult Continue tube feeding GI/DVT prophylaxis Advanced directive full code Discharge Plan: Home Plan to discharge in: 48 Hours - Advance Directives Does patient have a Living Will: No Does patient have a Durable POA for Healthcare: No - Code Status/Comfort Care Code Status: Full Code Time Spent Managing Pts Care (In Minutes): 48
[2024-01-09] MEDS: NA CHLORIDE 0.9% 1,000 ML IV SCH (02:07)
[2024-01-09] MEDS ORDERED: ALBUTEROL 2.5 MG/3 ML NEB SOL NEB PRN (02:24)
[2024-01-09] MEDS ORDERED: ACETAMINOPHEN 160 MG/5 ML UCUP FT PRN (02:37)
[2024-01-09 03:05] VITALS: BMI 19.7
[2024-01-09 06:23] LABS: Specific Gravity 1.007 (1.005-1.030); Sqamous Epithelial None Seen /HPF (None Seen); Urine Bacteria <20 /HPF (<20); Urine Bilirubin NEGATIVE (Negative); Urine Blood 3+ (OVER) (Negative); Urine Clarity Turbid (Clear); Urine Color Colorless (Yellow); Urine Culture Reflex Order REFLEXED; Urine Glucose NEGATIVE (Negative); Urine Ketones NEGATIVE (Negative); Urine Microscopic Reflex YN ORDER UMIC; Urine Mucus Slight /HPF (None Seen); Urine Nitrite NEGATIVE (Negative); Urine Protein NEGATIVE (Negative); Urine RBC >50 /HPF (None Seen); Urine Urobilinogen Normal (Normal); Urine WBC 20-50 /HPF (<5); Urine pH 6.5 (5.0-7.0)
[2024-01-09 08:12] LABS: Basophils % 0.3 % (0-1.3); Eosinophils % 0.1 % (0-4.4); Hematocrit 36.3 % (39.6-49.0); Hemoglobin 12.4 g/dL (13.6-17.9); Lymphocytes % 9.7 % (15.3-44.8); MCH 32.4 pg (27.0-35.0); MCHC 34.1 g/dL (32.0-36.0); MCV 95.1 fL (80-100); MPV 7.8 fL (7.6-11.3); Monocytes % 10.5 % (3.3-12.3); Neutrophils % 79.4 % (41.7-73.7); Nucleated Red Blood Cells % 0.1 % (0-0); Platelets 216 thou/uL (152-406); RBC Red Blood Cell Count 3.82 M/uL (4.33-5.43); Red Cell Distribution Width 15.1 % (12.1-15.2)
[2024-01-09 08:24] LABS: Anion Gap 5.9 mEq/L (5.0-15.0); Potassium 3.9 mEq/L (3.5-5.1)
[2024-01-09] MEDS: CEFEPIME 1 GM in NA CHLORIDE 0.9% 100 ML IV SCH (08:57)
[2024-01-09] MEDS: FLUDROCORTISONE 0.1 MG TAB FT SCH (08:57)
[2024-01-09] MEDS: dexAMETHasone 4 MG TAB FT SCH (08:57)
[2024-01-09] MEDS: ENOXAPARIN 40 MG/0.4 ML SQ SCH (08:58)
[2024-01-09 09:23] LABS: Band Neutrophils 5 % (0-1); Blood Morphology Comment NOT SEEN (NOT SEEN); Differential Total Cells Count 100; Lymphocytes 12 % (15-42); Metamyelocytes 2 % (0-0); Monocytes 3 % (0-10); Platelet Estimate ADEQ; Segmented Neutrophils 78 % (40-80); Toxic Granulation 1+
[2024-01-09] MEDS ORDERED: QUETIAPINE 25 MG TAB PO PRN (11:00)
--- NOTE | 2024-01-09 12:11 | EKG ---
Test Date: 2024-01-08 Test Time: 20:34:09 Potato Chip Frier: MYCHAL MEASUREMENT RESULTS: Intervals: Rate: 97 HI: 114 QRSD: 92 QT: 338 QTc: 429 [place]: P: 54 HI: 114 QRS: 61 T: 59 INTERPRETIVE STATEMENTS: Normal sinus rhythm Normal ECG Compared to ECG 01/06/2024 10:09:40 No significant changes Electronically Signed On 01-09-24 12:09:55 CDT by Hardik Almazan
--- NOTE | 2024-01-09 12:55 | RAD REPORT ---
EXAM DESCRIPTION: RAD - Chest Single View - 01/08/2024 9:32 pm CLINICAL HISTORY: FEVER COMPARISON: None FINDINGS: Cardiac silhouette is within normal limits. There is a tracheostomy tube. EKG leads projec t over the chest. Bandlike opacities of the lower lungs may represent scar versus subsegmental atelec tasis. There is no focal parenchymal or pleural disease. There is no acute osseous process visualized . IMPRESSION: Bandlike opacities at the lower lungs may represent scar versus subsegmental atelectasis . Electronically signed by: Topher Chowdary MD 01/08/2024 09:55 PM CDT RP Due to temporary technical issues with the PACS/Fluency reporting system, reports are being signed by the in house radiologist without review as a courtesy to ensure prompt reporting. The interpreting r adiologist is fully responsible for the content of the report.
--- NOTE | 2024-01-09 12:57 | P.CNS ---
Date of Consult: 01/09/24 Chief Complaint: Generalized weakness and fatigue History of Present Illness: Patient with PMH of brain tumor, presented with generalized weakness and fatigue, getting worked up for possible infection, developed run of SVT that lasted for 6 minutes, denies feeling it, denies chest pain, no SOB, no palpitations. Allergies No Known Allergies Allergy (Unverified 06/21/19 17:36) Home Medications: Fludrocortisone [Florinef *] 1 tab FT DAILY 10/23/23 Midodrine HCl 3 tab FT TID 10/23/23 Albuterol Neb [Proventil 0.083% Neb Soln] 2.5 mg NEB [id number] PRN #60 amp 11/01/23 Aspirin 81 mg PO DAILY 01/09/24 Dexamethasone Sodium Phosp/Pf [Dexamethasone 10 mg/ml [place]ring] 4 ml PO Q6HR 01/09/24 Quetiapine Fumarate [Seroquel] 25 mg PO PRN 01/09/24 Tamsulosin HCl 0.4 mg PO BEDTIME 01/09/24 - Past Medical/Surgical History Diabetic: No -: retinal detahcment -: Glioma brainstem -: Hypotension -: retinal detachment -: Tracheostomy placement August 2023 -: Brain mass biopsy Psychosocial/ Personal History: Lives at home with his , has home health/physical therapy - Family History Father Medical History: Heart disease - Social History Smoking Status: Former smoker Alcohol use: Yes CD- Drugs: No Caffeine use: Yes Place of Residence: Home Review of Systems 10-point ROS is otherwise unremarkable Physical Examination Temp Pulse Resp BP Pulse Ox 97.1 F 71 16 99/64 99 01/09/24 08:00 01/09/24 08:00 01/09/24 08:00 01/09/24 08:00 01/09/24 08:00 General: Alert, In no apparent distress HEENT: Atraumatic, PERRLA, Mucous membr. moist/pink, EOMI, Sclerae nonicteric Neck: Supple, 2+ carotid pulse no bruit, No LAD, Without JVD or thyroid abnormality Respiratory: Clear to auscultation bilaterally, Normal air movement Cardiovascular: Regular rate/rhythm, Normal S1 S2 Gastrointestinal: Normal bowel sounds, No tenderness Musculoskeletal: No tenderness Integumentary: No rashes Neurological: Normal gait, Normal speech, Normal tone, Normal affect Lymphatics: No axilla or inguinal lymphadenopathy Laboratory Data (last 24 hrs) 01/08/24 01/08/24 01/08/24 23:26 23:26 20:29 WBC 11.30 H Hgb 12.1 L D Hct 35.4 L Plt Count 227 PT 13.4 H INR 1.23 APTT 28.1 Sodium 136 Potassium 4.0 BUN 9 Creatinine 0.39 L Glucose 114 H Total Bilirubin 0.4 AST 14 L ALT 33 Alkaline Phosphatase 106 01/08/24 01/08/24 20:19 19:14 WBC Hgb Hct Plt Count PT Cancelled INR Cancelled APTT Cancelled Sodium Cancelled Potassium Cancelled BUN Cancelled Creatinine Cancelled Glucose Cancelled Total Bilirubin AST ALT Alkaline Phosphatase - Problems (1) SVT (supraventricular tachycardia) Current Visit: Yes Status: Acute Plan: patient had an SVT before and he was started on Toprol XL that was D/C by [facility] cardiology due to normal outpatient work up and low BP would recommend restarting Toprol XL 25 mg daily, if BP is drop then consider Flecanide 50 mg po BID (2) Hypotension Current Visit: Yes Status: Acute Plan: Patient is on Midodrine 15 mg TID.
[2024-01-09] MEDS: METRONIDAZOLE 500mg IVPB 500 MG/100 ML BAG IV SCH (12:58)
[2024-01-09] MEDS: MIDODRINE HCL 5 MG TABLET FT SCH (12:58)
[2024-01-09] MEDS: VANCOMYCIN 1.25 GM in NA CHLORIDE 0.9% 250 ML IVPB ONE (12:59)
--- NOTE | 2024-01-09 15:06 | P.PN ---
Subjective Date of Service: 01/09/24 Chief Complaint: Generalized weakness and fatigue No fever recorded since this morning. Patient tolerated previous diet and medications crushed in applesauce. Significant other reports patient has been tolerating his consistency of food at home. According to the spouse, patient's PEG tube has malfunctioned since 2 days ago. Spouse also report patient was experiencing rapid heart rate intermittently at home and blood pressure monitor was reading error for heart rate. Physical Examination - Vital Signs Temperature: 97.4 F Blood Pressure: 100/62 Pulse: 95 Respirations: 20 Pulse Ox (%): 96 - Studies Laboratory Data (last 24 hrs) 01/08/24 01/08/24 01/08/24 23:26 23:26 20:29 WBC 11.30 H Hgb 12.1 L D Hct 35.4 L Plt Count 227 PT 13.4 H INR 1.23 APTT 28.1 Sodium 136 Potassium 4.0 BUN 9 Creatinine 0.39 L Glucose 114 H Total Bilirubin 0.4 AST 14 L ALT 33 Alkaline Phosphatase 106 01/08/24 01/08/24 20:19 19:14 WBC Hgb Hct Plt Count PT Cancelled INR Cancelled APTT Cancelled Sodium Cancelled Potassium Cancelled BUN Cancelled Creatinine Cancelled Glucose Cancelled Total Bilirubin AST ALT Alkaline Phosphatase Microbiology Data (last 24 hrs): 01/08/24 20:30 Nasopharnyx Influenza Type A Antigen Screen - Final 01/08/24 20:30 Nasopharnyx Influenza Type B Antigen Screen - Final Assessment And Plan - Plan Physical examination General: Alert and oriented x3, NAD, HEENT: Conjunctiva not pale, anicteric sclera Neck: Supple, no elevated JVD, Tracheostomy-capped Heart: Heart sounds 1 and 2 normal, regular rhythm, normal rate, no pedal edema Lungs: Mild bibasilar Rales, adequate breath sounds bilaterally, no rhonchi or crackles. Abdomen: Soft, nondistended, nontender, normal bowel sounds. Clean PEG tube stoma with pediatric Haq catheter in place Extremities: No tenderness, no deformity Skin: Normal skin turgor, no rash, no nodules or ulcers. Neuro: No limb weakness, abnormal speech. Psychiatry: no agitation. Diagnosis Fever of unknown origin Sepsis Brain tumor Status post tracheostomy PEG tube multiple Functional quadriplegia Moderate protein calorie malnutrition Fever of unknown origin Sepsis Patient is now eating orally due to malfunctioning PEG and has high risk for aspiration. Fever and sepsis secondary to UTI versus aspiration pneumonitis. Continue IV cefepime and vancomycin. Follow blood cultures and urine cultures. Pureed diet and thickened liquids Brain tumor Oropharyngeal dysphagia Status post radiation therapy. Continue home dose dexamethasone Speech therapy for swallow evaluation. Dr. Vásquez consulted for PEG tube replacement. Dr. Vásquez service planning the PEG tube placement tomorrow. SVT Intermittent Cardiology consulted. Apparently patient has been experiencing intermittent SVT prior to admission. Initiate metoprolol per cardiology Continue telemetry. Tracheostomy Trach care Monitor closely Functional quadriplegia Supportive management UTI History of kidney stones Leukocytosis resolved UA shows mild evidence of UTI. Follow urine culture IV antibiotics Moderate protein calorie malnutrition Replace PEG pureed diet and thickened liquids for now. DVT prophylaxis: Lovenox Advanced directive: full code
[2024-01-09] MEDS: CEFEPIME 2 GM in NA CHLORIDE 0.9% 100 ML IV SCH (20:50)
[2024-01-09] MEDS: VANCOMYCIN 1 GM in NA CHLORIDE 0.9% 250 ML IVPB SCH (20:51)
[2024-01-09] MEDS: TAMSULOSIN 0.4 MG SR CAP PO SCH (21:00)
[2024-01-10 05:45] LABS: Absolute Lymphocytes (CBC) 0.7 K/uL (0.7-4.9); Absolute Monocytes 0.3 K/uL (0.1-1.3); Absolute Neutrophil 7.6 K/uL (1.8-8.0); Basophils % 0.2 % (0-1.3); Eosinophils % 0.1 % (0-4.4); Hematocrit 34.1 % (39.6-49.0); Hemoglobin 11.5 g/dL (13.6-17.9); Lymphocytes % 7.7 % (15.3-44.8); MCH 32.1 pg (27.0-35.0); MCHC 33.7 g/dL (32.0-36.0); MCV 95.4 fL (80-100); MPV 8.5 fL (7.6-11.3); Monocytes % 3.8 % (3.3-12.3); Neutrophils % 88.2 % (41.7-73.7); Nucleated Red Blood Cells % 0.1 % (0-0); Platelets 208 thou/uL (152-406); RBC Red Blood Cell Count 3.57 M/uL (4.33-5.43); Red Cell Distribution Width 14.9 % (12.1-15.2)
[2024-01-10 06:11] LABS: ALT/SGPT 28 U/L (16-61); Albumin 2.2 g/dL (3.4-5.0); Albumin/Globulin Ratio 0.7 (1.1-1.8); Alkaline Phosphatase 88 U/L (45-117); Anion Gap 7.7 mEq/L (5.0-15.0); BUN Blood Urea Nitrogen 9 mg/dL (7-18); Bicarbonate 25 mEq/L (21-32); Bilirubin Total 0.3 mg/dL (0.2-1.0); Globulin 3.2 g/dL (2.3-3.5); Glomerular Filtration Rate 137 ml/min (=/>90); Glucose Level 142 mg/dL (74-106); Potassium 3.7 mEq/L (3.5-5.1); Protein, Total 5.4 g/dL (6.4-8.2); Sodium Level 140 mEq/L (136-145)
[2024-01-10 06:24] LABS: AST/SGOT < 10 U/L (15-37)
[2024-01-10] MEDS: ASPIRIN 81 MG CHEWABLE TABLET PO SCH (08:50)
[2024-01-10] MEDS: KCL 20 MEQ/100 mL IVPB 20 MEQ/100 ML BAG IV SCH (09:01)
[2024-01-10] MEDS ORDERED: propofoL 200 MG/20 ML VIAL IV ONE ×2 (09:21→11:09)
[2024-01-10] MEDS ORDERED: LIDOCAINE 1% MPF 5 ML VIAL ONE (09:21)
--- NOTE | 2024-01-10 09:52 | P.PN ---
Subjective Date of Service: 01/10/24 Chief Complaint: Generalized weakness and fatigue No fever. No issues overnight. Patient currently denies any complain. secured entrance monitor reviewed and no events overnight. Physical Examination - Vital Signs Temperature: 97.6 F Blood Pressure: 99/64 Pulse: 66 Respirations: 21 Pulse Ox (%): 95 Assessment And Plan - Plan Physical examination General: Alert and oriented x3, NAD, HEENT: Conjunctiva not pale, anicteric sclera Neck: Supple, Tracheostomy-capped Heart: Heart sounds 1 and 2 normal, regular rhythm, normal rate, no pedal edema Lungs: Mild bibasilar Rales, adequate breath sounds bilaterally, no rhonchi or crackles. Abdomen: Soft, nondistended, nontender, normal bowel sounds. Clean PEG tube stoma with pediatric Haq catheter in place Extremities: No tenderness, no deformity Skin: Normal skin turgor, no rash, no nodules or ulcers. Neuro: No limb weakness, abnormal speech. Psychiatry: no agitation. Diagnosis Fever of unknown origin Sepsis Brain tumor Status post tracheostomy PEG tube multiple Functional quadriplegia Moderate protein calorie malnutrition Fever of unknown origin Sepsis Fever and sepsis secondary to UTI versus aspiration pneumonitis. Continue IV cefepime and vancomycin. Blood cultures shows no growth to date. Follow blood cultures and urine cultures. Pureed diet and thickened liquids Brain tumor Oropharyngeal dysphagia Status post radiation therapy. Continue home dose dexamethasone Speech therapy for swallow evaluation. Dr. Vásquez consulted for PEG tube replacement. Patient is scheduled for PEG tube placement today SVT Intermittent Cardiology Dr. Sandhu's input appreciated Apparently patient has been experiencing intermittent SVT prior to admission. Continue metoprolol as his BP will tolerate. Continue telemetry. Tracheostomy Trach care Monitor closely Functional quadriplegia Supportive management UTI History of kidney stones Leukocytosis resolved UA showed mild evidence of UTI. Follow urine culture IV antibiotics as above Moderate protein calorie malnutrition Replace PEG pureed diet and thickened liquids for now. DVT prophylaxis: Lovenox Advanced directive: full code
--- NOTE | 2024-01-10 10:21 | P.PN ---
Subjective Date of Service: 01/10/24 Chief Complaint: Generalized weakness and fatigue Subjective: No new changes, No C/O voiced, Tolerating diet, Ambulating, Improving Review of Systems 10-point ROS is otherwise unremarkable Physical Examination - Vital Signs Temperature: 97.6 F Blood Pressure: 99/64 Pulse: 66 Respirations: 21 Pulse Ox (%): 95 - Physical Exam General: Alert, In no apparent distress HEENT: Atraumatic, PERRLA, EOMI Neck: Supple, JVD not distended Respiratory: Clear to auscultation bilaterally, Normal air movement Cardiovascular: Regular rate/rhythm, Normal S1 S2 Gastrointestinal: Normal bowel sounds, No tenderness Musculoskeletal: No tenderness Integumentary: No rashes Neurological: Normal speech, Normal tone, Normal affect Lymphatics: No axilla or inguinal lymphadenopathy - Studies Medications List Reviewed: Yes Assessment And Plan - Current Problems (Diagnosis) (1) SVT (supraventricular tachycardia) Current Visit: Yes Status: Acute Plan: patient had an SVT before and he was started on Toprol XL that was D/C by [facility] cardiology due to normal outpatient work up and low BP would recommend restarting Toprol XL 25 mg daily, if BP is drop then consider Flecanide 50 mg po BID (2) Hypotension Current Visit: Yes Status: Acute Plan: Patient is on Midodrine 15 mg TID.
[2024-01-10] MEDS: JEVITY 1.5 CAL LIQUID 1,000 ML BOT FT SCH (13:10)
[2024-01-10] MEDS: NA CHLORIDE 0.9% 100 ML ONE (19:31)
[2024-01-11 05:08] LABS: Absolute Lymphocytes (CBC) 0.6 K/uL (0.7-4.9); Absolute Monocytes 0.4 K/uL (0.1-1.3); Absolute Neutrophil 7.4 K/uL (1.8-8.0); Basophils % 0.1 % (0-1.3); Eosinophils % 0.1 % (0-4.4); Hematocrit 33.9 % (39.6-49.0); Hemoglobin 11.8 g/dL (13.6-17.9); Lymphocytes % 7.6 % (15.3-44.8); MCHC 34.7 g/dL (32.0-36.0); MCV 95.1 fL (80-100); MPV 8.2 fL (7.6-11.3); Monocytes % 4.2 % (3.3-12.3); Nucleated Red Blood Cells % 0.3 % (0-0); Platelets 249 thou/uL (152-406); RBC Red Blood Cell Count 3.56 M/uL (4.33-5.43); Red Cell Distribution Width 15.4 % (12.1-15.2)
[2024-01-11 05:28] LABS: Anion Gap 5.9 mEq/L (5.0-15.0); BUN Blood Urea Nitrogen 11 mg/dL (7-18); Bicarbonate 27 mEq/L (21-32); Glucose Level 121 mg/dL (74-106); Magnesium 1.8 mg/dL (1.6-2.4); Phosphorus 2.7 mg/dL (2.5-4.9); Potassium 3.9 mEq/L (3.5-5.1); Sodium Level 140 mEq/L (136-145)
[2024-01-11 05:30] LABS: Glomerular Filtration Rate 146 ml/min (=/>90)
[2024-01-11] MEDS: METOPROLOL XL 25 MG TAB PO SCH (06:00)
[2024-01-11] MEDS: POTASSIUM CL SA 10 MEQ TAB PO ONE (08:10)
--- NOTE | 2024-01-11 13:05 | P.DS ---
Admission Date: 01/09/24 Discharge Date: 01/11/24 Disposition: DC HOME/HOME HEALTH CARE Discharge Condition: FAIR Reason for Admission: Generalized weakness and fatigue Brief History of Present Illness: 58-year-old male with past medical history of brain tumor diagnosed with biopsy, getting radiation therapy and was on PEG tube and tracheostomy support came to ER with generalized weakness and dizziness which has been progre ssively worsening over 2 days. Spouse reported patient has been fatigued and had subjective fever and tachycardia and palpitation. He was also not tolerating his diet. Patient was seen in the ER and was admitted for fever to rule out sepsis and tachycardia. Noted patient PEG tube was not working. It was removed in the ED but could not be replaced. Hospital Course: Diagnosis Fever of unknown origin Sepsis Brain tumor Status post tracheostomy PEG tube multiple Functional quadriplegia Moderate protein calorie malnutrition Patient was admitted to the medical floor and the following medical problems addressed: Fever of unknown origin Sepsis Fever and sepsis likely secondary to UTI versus aspiration pneumonitis. Patient treated with IV cefepime and vancomycin. Blood cultures shows no growth to date. Urine cultures yielded no growth Antibiotics transition to Augmentin on discharge Brain tumor Oropharyngeal dysphagia Status post radiation therapy. Continued home dose dexamethasone Speech therapy for swallow evaluation. Dr. Vásquez consulted to replace the patient's PEG tube. Patient seen by speech therapy who performed swallow evaluation and recommended soft diet and nectar thickened liquids. SVT Intermittent Patient seen by cardiology Dr. Almazan. Apparently patient has been experiencing intermittent SVT prior to admission. Patient BP did not tolerate metoprolol. Cardiology recommended to change metoprolol to flecainide. Dr. Almazan plans to follow-up with patient in the cardiology office on Sunday for repeat EKG Continue telemetry. Tracheostomy Trach care Monitor closely Functional quadriplegia Supportive management UTI History of kidney stones Leukocytosis resolved UA showed mild evidence of UTI. Urine culture yielded no growth. Patient discharged with oral Augmentin. Moderate protein calorie malnutrition PEG tube replaced and tube feeding resumed Dietitian input appreciated. Patient today overnight continuous tube feeding if he does not tolerate bolus feeding during the day. Vital Signs/Physical Exam: Temp Pulse Resp BP Pulse Ox 98.2 F 70 18 87/61 L 98 01/11/24 08:00 01/11/24 10:01/11/24 10:01/11/24 10:01/11/24 10:00 General: Alert, In no apparent distress HEENT: Mucous membr. moist/pink Neck: Supple Respiratory: Clear to auscultation bilaterally, Normal air movement Cardiovascular: No edema, Regular rate/rhythm, Normal S1 S2 Gastrointestinal: Normal bowel sounds, Soft and benign, Non-distended, No tenderness Musculoskeletal: No swelling Integumentary: No rashes Neurological: Other (No focal motor deficits) Laboratory Data at Discharge: WBC 8.40 thou/uL (4.3-10.9) 01/11/24 04:43 Hgb 11.8 g/dL (13.6-17.9) L 01/11/24 04:43 Hct 33.9 % (39.6-49.0) L 01/11/24 04:43 Plt Count 249 thou/uL (152-406) 01/11/24 04:43 PT 13.4 SECONDS (9.4-12.5) H 01/08/24 20:29 INR 1.23 01/08/24 20:29 APTT 28.1 SECONDS (24.3-36.9) 01/08/24 20:29 Sodium 140 mEq/L (136-145) 01/11/24 04:43 Potassium 3.9 mEq/L (3.5-5.1) 01/11/24 04:43 BUN 11 mg/dL (7-18) 01/11/24 04:43 Creatinine < 0.25 mg/dL (0.70-1.30) L 01/11/24 04:43 Glucose 121 mg/dL (74-106) H 01/11/24 04:43 Phosphorus 2.7 mg/dL (2.5-4.9) 01/11/24 04:43 Magnesium 1.8 mg/dL (1.6-2.4) 01/11/24 04:43 Total Bilirubin 0.3 mg/dL (0.2-1.0) 01/10/24 05:09 AST < 10 U/L (15-37) L 01/10/24 05:09 ALT 28 U/L (16-61) 01/10/24 05:09 Alkaline Phosphatase 88 U/L (45-117) 01/10/24 05:09 Home Medications: Fludrocortisone [Florinef *] 1 tab FT DAILY 10/23/23 Midodrine HCl 3 tab FT TID 10/23/23 Albuterol Neb [Proventil 0.083% Neb Soln] 2.5 mg NEB [id number] PRN #60 amp 11/01/23 Aspirin 81 mg PO DAILY 01/09/24 Dexamethasone Sodium Phosp/Pf [Dexamethasone 10 mg/ml Syring] 4 ml PO Q6HR 01/09/24 Tamsulosin HCl 0.4 mg PO BEDTIME 01/09/24 Amox Tr/Potassium Clavulanate [Augmentin 400-57 mg/5 ml] 10 ml PO BID #125 ml 01/11/24 Jevity 1.5 Nacho Liquid 237 ml FT QID bot 01/11/24 Metoprolol Succinate [Toprol Xl*] 25 mg PO [id number] #60 tab 01/11/24 New Medications: Amox Tr/Potassium Clavulanate [Augmentin 400-57 mg/5 ml] 10 ml PO BID #125 ml Metoprolol Succinate [Toprol Xl*] 25 mg PO [id number] #60 tab Physician Discharge Instructions: Jackie for home formula - [employer] - call on the day of discharge to arrange home delivery Address: [address] [place] [address] [address] [place] [address] or phone: [phone]/ Diet: Tube feed Activity: Fall precautions Followup: NONE,NONE [Primary Care Provider] - Time spent managing pt's care (in minutes): 37
[2024-01-11] MEDS: FLECAINIDE 100 MG TAB PO SCH (13:07)
[2024-01-11 13:52] VITALS: O2SAT 100
--- NOTE | 2024-01-11 15:54 | PN ---
Date of Progress Note: 01/11/2024 Subjective: Patient is seen by bedside. No further SVT, and blood pressure is stabilized. Review of Systems: No chest pain, shortness of breath, orthopnea, cough, or diarrhea. All other systems were reviewed, they were negative. Objective: Vital Signs: Reviewed. Head and Neck: Pupils are equal, reactive to light. Intact eye movements. No JVD. No cervical lym phadenopathy. Neck is supple. Thyroid is not enlarged. Lungs: Clear to auscultation bilaterally. No rhonchi, wheezing, or crackles. No accessory muscle u se. Heart: Regular rate and rhythm. No extra sounds. Abdomen: Soft, nontender. Bowel sounds positive. No organomegaly. No masses or hernia. No rigidi ty or rebound. Extremities: No edema, clubbing, or cyanosis. Intact pulses. Skin: No rash. No nodule. Neurologic: Alert, awake, oriented x3. No acute focal deficit appreciated. Lymph Nodes: No cervical or axillary lymphadenopathy. Investigations: Labs were reviewed. Assessment And Recommendations: 1.SVT, resolved. Continue current management with Toprol. 2.Hypotension. Blood pressure is much better on midodrine, to continue. SR/MODL Voice ID: [id number] Report ID: [id number]
[2024-01-11 16:50] VITALS: BP 97/70; TEMP 97.2
--- NOTE | 2024-01-14 16:47 | EKG ---
Test Date: 2024-01-09 Test Time: 12:42:57 Medical Assistant Ob Gyn: CHARLIE MEASUREMENT RESULTS: Intervals: Rate: 98 ME: 120 QRSD: 82 QT: 346 QTc: 441 [place]: P: 36 ME: 120 QRS: 38 T: 24 INTERPRETIVE STATEMENTS: Normal sinus rhythm Normal ECG Compared to ECG 01/08/2024 20:34:09 No significant changes Electronically Signed On 01-14-24 16:37:21 CDT by Matthew Donis
== END 2024-01-11 16:20 | disposition home health service (06) | DRG 393 ==
LOC: ER 17:51 → ERHOLD 01-09 00:06 → 4TH 01-09 01:12 → 3RD-ICU 01-09 13:50
PROVIDERS: ADMIT Family Medicine; ATTEND Internal Medicine
PROC: 0DH63UZ Insertion of Feeding Device into Stomach, Percutaneous Approach (ICD-10-PCS; 2024-01-10)
PROC: 0DP68UZ Removal of Feeding Device from Stomach, Via Natural or Artificial Opening Endoscopic (ICD-10-PCS; principal; 2024-01-10 12:45)
DX: K94.23 Gastrostomy malfunction (principal); A41.9 Sepsis, unspecified organism; J69.0 Pneumonitis due to inhalation of food and vomit; R53.2 Functional quadriplegia; C71.9 Malignant neoplasm of brain, unspecified; E44.0 Moderate protein-calorie malnutrition; Z68.1 Body mass index [BMI] 19.9 or less, adult; I47.10 Supraventricular tachycardia, unspecified; N39.0 Urinary tract infection, site not specified; E86.0 Dehydration; D49.6 Neoplasm of unspecified behavior of brain; L90.5 Scar conditions and fibrosis of skin; R13.10 Dysphagia, unspecified; Z79.82 Long term (current) use of aspirin; Z87.891 Personal history of nicotine dependence; Z79.899 Other long term (current) drug therapy; Y84.8 Other medical procedures as the cause of abnormal reaction of the patient, or of later complication, without mention of misadventure at the time of the procedure
CPT/HCPCS: 36415; 71045; 80048; 80053; 80202; 81001; 82947; 83605; 83735; 84100; 85025; 85610; 85730; 87040; 87086; 87088; 87635; 87804; 92526; 92610; 93005; 94760; 96361; 96365; 99285; J0692; J1650; J2001; J2704; J3480; J7030; J7050; J8540